=== PATIENT | male | born 1960 | race Caucasian/White ===

== ENCOUNTER 2019-02-15 17:42 | Emergency (ER) | payer OTHER, SELFPAY ==
[2019-02-15 17:58] VITALS: BP 133/88; PULSE 74; RESP 16; TEMP 36.9; O2SAT 95; BMI 28.7
--- NOTE | 2019-02-15 18:06 | XRR_ITS ---
PROCEDURE INFORMATION: Exam: XR Right Hip with Pelvis when Performed Exam date and time: 02/15/2019 6:08 PM Age: 58 years old Clinical indication: Injury or trauma; Fall; Initial encounter; Blunt trauma (contusions or hematomas); Right; Hip; Additional info: Fall, R hip pelvis pain TECHNIQUE: Imaging protocol: XR Right hip with pelvis when performed. Views: 1 view. COMPARISON: CT Abdomen/Pelvis Renal [id number] 08/09/2018 6:22 PM FINDINGS: Bones/joints: Acute fracture of the right superior pubic ramus and right inferior pubic ramus is identified. No acute fracture of the femur. No dislocation of the hip. Soft tissues: Unremarkable. XR/XR hip RT 2-3V wo/w pel* [id number] IMPRESSION: 1. Acute fracture of the right superior pubic ramus and right inferior pubic ramus is identified. 2. Probable subtle nondisplaced fracture of the right sacral ala is also identified.
--- NOTE | 2019-02-15 20:46 | ED_ITS ---
Entered by Odalys Horta, acting as scribe for Gay Fox MD, [facility] [place] Feb 15, 2019 17:42 HPI - Extremity Problem General: Chief complaint: Extremity Injury, Lower Stated complaint: fell, right hip pain Time Seen by Provider: 02/15/19 20:46 Source: patient Mode of arrival: ambulatory Limitations: no limitations History of Present Illness: HPI Narrative: 58 yo Male presents to ED with complaint of hip pain post fall. Pt states that he tripped over something at home and fell on . Pt states that he has been going to work with the pain but it hasn't been getting any better. 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 He is concerned because the pain is not improving much. Complaint: extremity pain Onset (ago): day(s) (9) Pain Consistency: constant Location: lower extremity (right hip) Severity scale (1-10): 10 Relieving factors: nothing Exacerbating factors: weight bearing and walking Review of Systems General: Reports: 10 or more systems reviewed and unremarkable except in HPI and below Musc: Reports: extremity pain and joint pain Neuro: Reports: difficulty walking PFSH ED PFSH: Statuses (acute, chronic, etc) shown below reflect problem list status as previously entered and may not be historically accurate Social History Smoking and tobacco status: current every day smoker Physical Exam Const: COMMON NORMALS: no apparent distress, average body habitus, oriented x3, no limitations, healthy appearing, alert and well nourished HENMT: COMMON NORMALS: normocephalic, head/scalp atraumatic, hearing grossly normal bilaterally, external ears normal, EAC's normal, TM's normal bilaterally, external nose normal, nasal mucous membranes and turbinates normal, moist oral mucous membranes, oropharynx normal, dentition normal and gingiva normal HEAD & SCALP: normocephalic and atraumatic NOSE: external nose normal and nasal mucous membranes and turbinates normal EXTERNAL EAR: Yes external ears normal EXTERNAL AUDITORY CANAL: EAC's normal TYMPANIC MEMBRANE: TM's normal bilaterally Eye: COMMON NORMALS: PERRL, EOMs intact bilaterally, conjunctivae normal, no scleral icterus, no papilledema, normal visual rooney by confrontation and fundi normal bilaterally CONJUNCTIVA: Yes conjunctivae normal PUPIL: Yes PERRL DIRECT OPHTHALMOSCOPY: Yes no papilledema and Yes fundi normal bilaterally Neck/C-Spine: COMMON NORMALS: full ROM, supple, no meningeal signs, no JVD and no carotid bruits Chest: COMMONS NORMALS: inspection of chest normal and palpation of chest normal Resp: COMMON NORMALS: normal respiratory effort, no retractions, no use of accessory muscles, clear to auscultation bilaterally and percussion normal AUSCULTATION: clear to auscultation bilaterally PERCUSSION: percussion normal Cardio: COMMON NORMALS: no JVD, regular rate, regular rhythm, S1 normal heart sound, S2 normal heart sound, no gallops, no clicks, no murmurs, no rub and peripheral pulses 2+ throughout RATE: regular rate RHYTHM: regular rhythm HEART SOUNDS: S1 normal and S2 normal PERIPHERAL PULSES: pulses 2+ throughout GI: COMMON NORMALS: normal to inspection, nondistended, normoactive bowel sounds, soft to palpation, non-tender, no hepatosplenomegaly, no masses and no bruits PALPATION: Yes soft and Yes no hepatosplenomegaly : COMMON NORMALS: Yes no CVA tenderness BLADDER/KIDNEY EXAM: Yes no CVA tenderness Back/Pelvis: COMMON NORMALS: no CVA tenderness PELVIS: Yes tenderness over symphysis pubis COCCYX: tenderness Extremity: COMMON NORMALS: normal to inspection, full ROM, normal capillary refill, no joint enlargement, no clubbing, cyanosis or edema, no calf tenderness and no pedal edema Neuro: COMMON NORMALS: oriented x3 SENSORIUM/ORIENTATION: Yes alert MENINGEAL SIGNS: Yes no meningeal signs Skin: COMMON NORMALS: no rashes or lesions noted, no wounds, skin turgor normal, no jaundice, no petechiae and no mottling GENERAL SKIN EXAM: no rashes or lesions noted and turgor normal Course Reevaluation(s): Reevaluation #1: Discussed his imaging findings with him. Discussed that he has a fracture, however since he has been walking on it and working with it it is unlikely he is going to need surgical repair. He is advised to obtain physical therapy and we will place a referral for a follow-up appointment with orthopedic surgery. We will discharge him home on some pain medication. I wanted to give him time off from work but the patient states that he is unable to afford to take time off work. We will discharge him home with some pain medication but is advised to avoid driving or operating heavy machinery while he is taking the pain medication. He voiced understanding and is in agreement with the plan. Time: 21:20 Vital Signs: Vital signs: Vital Signs Temperature 98.5 F 02/15/19 17:58 Pulse Rate 74 02/15/19 17:58 Respiratory Rate 16 02/15/19 17:58 Blood Pressure 133/88 02/15/19 17:58 Pulse Oximetry 95 02/15/19 17:58 MDM - Extremity (Nontraumatic) MDM Narrative: Medical decision making narrative: Patient with a fracture of the right superior and inferior pubic ramus and possible fracture of the right sacral vicky. This happened following a fall 9 days ago. The patient has been walking and working since the fall. He is discharged home on oral pain medication and is to follow-up with orthopedic surgery. Lab Data: Labs: Lab Results 02/15/19 02/15/19 Range/Units 21:18 21:18 WBC 8.3 (4.0-10.0) 10^3/ uL RBC 4.42 (4.1-5.3) 10^6/u L Hgb 13.3 (11.7-16.6) g/dL Hct 43.9 (42.0-52.0) % MCV 99.3 H (80-94) fL MCH 30.1 (28.0-34.0) pg MCHC 30.3 (30.0-36.0) g/dL RDW 15.9 H (12.1-15.1) % Plt Count 252 (130-400) 10^3/c mm MPV 10.7 H (7.4-10.4) fL Neut % (Auto) 54.2 % Lymph % (Auto) 27.3 % Gibson % (Auto) 10.6 % Eos % (Auto) 7.0 % Baso % (Auto) 0.7 % Neut # (Auto) 4.5 (1.8-7.7) 10^3/u L Lymph # (Auto) 2.3 (0.8-4.8) 10^3/u L Gibson # (Auto) 0.9 (0.2-0.9) 10^3/u L Eos # (Auto) 0.6 (0.0-0.8) 10^3/u L Baso # (Auto) 0.1 (0.0-0.1) 10^3/u L Nucleated RBC % (a uto) 0 % Nucleated RBCs # 0.0 /100WBC Sodium 133 L (136-145) mmol/L Potassium 4.4 (3.5-5.1) mmol/L Chloride 93 L (98-107) mmol/L Carbon Dioxide 30 H (22-29) mmol/L Anion Gap 14.4 (5-19) BUN 20 (8-23) mg/dL Creatinine 1.4 H (0.7-1.2) mg/dL GFR Calculation 51.7 L (90-130) mL/min Glucose 108 H (74-106) mg/dL Calcium 9.6 (8.8-10.2) mg/Dl Total Bilirubin 0.3 (0.15-1.2) mg/dL AST 22 (0-40) U/L ALT 11 (0-41) U/L Alkaline Phosphata se 103 (40-130) IU/L Total Protein 8.3 (6.6-8.7) g/dL Albumin 3.8 (3.5-5.2) g/dL Globulin 4.5 (1.3-4.6) g/dL Imaging Data^: Hip and Pelvis Xray: Radiologist's impression: [address] [address] XRay Report Signed Patient: Anthony Harding AMR#: [id number] : 9Acct:[id number] Age/Sex: 58 / MADM Date: 02/15/19 Loc: ER Attending Dr: Ordering Physician: Gay Fox MD, MSM Date of Service: 02/15/19 Procedure(s): XR hip RT 2-3V wo/w pel* [id number] Accession Number(s): [id number] cc: Gay Fox MD, MSM~ PROCEDURE INFORMATION: Exam: XR Right Hip with Pelvis when Performed Exam date and time: 02/15/2019 6:08 PM Age: 58 years old Clinical indication: Injury or trauma; Fall; Initial encounter; Blunt trauma (contusions or hematomas); Right; Hip; Additional info: Fall, R hip pelvis pain TECHNIQUE: Imaging protocol: XR Right hip with pelvis when performed. Views: 1 view. COMPARISON: CT Abdomen/Pelvis Renal [id number] 08/09/2018 6:22 PM FINDINGS: Bones/joints: Acute fracture of the right superior pubic ramus and right inferior pubic ramus is identified. No acute fracture of the femur. No dislocation of the hip. Soft tissues: Unremarkable. XR/XR hip RT 2-3V wo/w pel* [id number] IMPRESSION: 1. Acute fracture of the right superior pubic ramus and right inferior pubic ramus is identified. 2. Probable subtle nondisplaced fracture of the right sacral ala is also identified. Dictated By: Keren Shaffer 02/15/192041 Signed By: Keren Shaffer 02/15/192042 Discharge Plan Discharge Patient Disposition: Home, Self-Care Clinical Impression: Closed fracture of pubic ramus Qualifiers: Encounter type: initial encounter Laterality: right Qualified Code(s): S32.591A - Other specified fracture of right pubis, initial encounter for closed fracture Condition: Stable Prescriptions: [place] 5-325 mg tablet 1 tab PO Q4H PRN (Reason: pain) Qty: 20 RF: 0 [place] 5-325 mg tablet 1 tab PO Q4H PRN (Reason: pain) Qty: 4 RF: 0 No Action Pending RF: 0 Discharge Orders: Discharge Order (Routine); Ordered 02/15/19 Ordered By: Gay Fox Referrals: Adelaide Piedra DO [Primary Care Provider] - 1-3 days Discharge Diet: Usual diet Discharge Activity: Increase activity as tolerated Activity Restrictions/Additional Instructions: Return for any new or worsening symptoms. Follow-up with your primary care provider within 3 days. Follow-up with the orthopedic surgeon as scheduled. You will be contacted by the case management to schedule an appointment with the orthopedic surgery providers. Bear weight as tolerated. Take the pain medication as needed. 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
[2019-02-15 21:25] LABS: Basophils # 0.1 10^3/uL (0.0-0.1); Basophils % 0.7 %; Eosinophils # 0.6 10^3/uL (0.0-0.8); Hematocrit 43.9 % (42.0-52.0); Hemoglobin 13.3 g/dL (11.7-16.6); Lymphocytes # 2.3 10^3/uL (0.8-4.8); Lymphocytes % 27.3 %; Mean Corpuscular HGB Conc 30.3 g/dL (30.0-36.0); Mean Corpuscular Hemoglobin 30.1 pg (28.0-34.0); Mean Corpuscular Volume 99.3 fL (80-94); Mean Platelet Volume 10.7 fL (7.4-10.4); Monocytes # 0.9 10^3/uL (0.2-0.9); Monocytes % 10.6 %; Neutrophils # 4.5 10^3/uL (1.8-7.7); Neutrophils % 54.2 %; Nucleated Red Blood Cells % 0 %; Platelet Count 252 10^3/cmm (130-400); Red Blood Count 4.42 10^6/uL (4.1-5.3); Red Cell Distribution Width 15.9 % (12.1-15.1); White Blood Count 8.3 10^3/uL (4.0-10.0)
[2019-02-15 21:41] LABS: Alanine Aminotransferase 11 U/L (0-41); Albumin Level 3.8 g/dL (3.5-5.2); Alkaline Phosphatase 103 IU/L (40-130); Anion Gap 14.4 (5-19); Aspartate Amino Transferase 22 U/L (0-40); Blood Urea Nitrogen 20 mg/dL (8-23); Calcium 9.6 mg/Dl (8.8-10.2); Carbon Dioxide 30 mmol/L (22-29); Chloride 93 mmol/L (98-107); Globulin 4.5 g/dL (1.3-4.6); Glomerular Filtration Rate 51.7 mL/min (90-130); Glucose 108 mg/dL (74-106); Potassium 4.4 mmol/L (3.5-5.1); Sodium 133 mmol/L (136-145); Total Bilirubin 0.3 mg/dL (0.15-1.2); Total Protein 8.3 g/dL (6.6-8.7)
[2019-02-15 22:33] VITALS: BP 129/88; PULSE 71; RESP 16; TEMP 36.4; O2SAT 92
--- NOTE | 2019-02-18 13:27 | DCPLANNER ---
manager of data had message to schedule a follow up appointment for patient with ortho. manager of data called the ortho clinic, spoke with Pat, gave clinic patients information. manager of data was told that patients information would be printed and reviewed. Clinic will call case operator and patient with appointment information.
--- NOTE | 2019-02-19 11:02 | DCPLANNER ---
Lorrie from ortho called case briefer with appointment information. A follow up appointment is scheduled for Monday, February 25, 2019 at 9:[address] Alvarado, patient has been notified about appointment.
--- NOTE | 2019-03-06 15:18 | DCPLANNER ---
Patient attended appointment scheduled with ortho.
== END 2019-02-15 22:30 | disposition home or self-care (01) ==
PROVIDERS: Emergency Provider Family Medicine; Family Provider Family Medicine; PCP Family Medicine
DX: S32.591A Other specified fracture of right pubis, initial encounter for closed fracture (principal); W18.09XA Striking against other object with subsequent fall, initial encounter; Y92.009 Unspecified place in unspecified non-institutional (private) residence as the place of occurrence of the external cause; F17.210 Nicotine dependence, cigarettes, uncomplicated
CPT/HCPCS: 73502; 80053; 85025; 99281

== ENCOUNTER → 2019-02-25 10:36 | Outpatient (BNVA) | payer OTHER, SELFPAY | PROVIDERS: Family Provider Family Medicine; PCP Family Medicine; Visit Provider Specialist | DX: S32.501A Unspecified fracture of right pubis, initial encounter for closed fracture (principal); X58.XXXA Exposure to other specified factors, initial encounter | CPT/HCPCS: 72170 ==

== ENCOUNTER → 2019-03-25 09:53 | Outpatient (BNVA) | payer OTHER, SELFPAY | PROVIDERS: Family Provider Family Medicine; PCP Family Medicine; Visit Provider Specialist | DX: S32.511A Fracture of superior rim of right pubis, initial encounter for closed fracture (principal); S32.591A Other specified fracture of right pubis, initial encounter for closed fracture; X58.XXXA Exposure to other specified factors, initial encounter | CPT/HCPCS: 72170 ==

== ENCOUNTER 2019-04-01 16:42 | Outpatient (CLI) | payer OTHER, SELFPAY ==
[2019-04-01 17:10] LABS: Basophils # 0.1 10^3/uL (0.0-0.1); Basophils % 0.6 %; Eosinophils # 0.4 10^3/uL (0.0-0.8); Eosinophils % 4.3 %; Hemoglobin 14.1 g/dL (11.7-16.6); Lymphocytes # 2.2 10^3/uL (0.8-4.8); Lymphocytes % 25.5 %; Mean Corpuscular HGB Conc 31.3 g/dL (30.0-36.0); Mean Corpuscular Hemoglobin 28.4 pg (28.0-34.0); Mean Corpuscular Volume 90.7 fL (80-94); Mean Platelet Volume 10.9 fL (7.4-10.4); Monocytes # 1.1 10^3/uL (0.2-0.9); Monocytes % 12.4 %; Neutrophils # 4.8 10^3/uL (1.8-7.7); Neutrophils % 56.8 %; Nucleated Red Blood Cells % 0 %; Platelet Count 294 10^3/cmm (130-400); Red Blood Count 4.96 10^6/uL (4.1-5.3); Red Cell Distribution Width 14.9 % (12.1-15.1); White Blood Count 8.5 10^3/uL (4.0-10.0)
[2019-04-01 17:17] LABS: Albumin Level 3.6 g/dL (3.5-5.2); Anion Gap 13.9 (5-19); Blood Urea Nitrogen 16 mg/dL (8-23); Calcium 10.1 mg/dL (8.5-10.5); Carbon Dioxide 33 mmol/L (22-29); Chloride 96 mmol/L (98-107); Glucose 116 mg/dL (65-115); Potassium 3.9 mmol/L (3.5-5.1); Sodium 139 mmol/L (136-145)
[2019-04-01 17:21] LABS: Urine Creatinine 67 mg/dL (39-259); Urine Protein Random 4 mg/dL
[2019-04-01 17:24] LABS: UPRO/UCREAT Ratio 0.06 mg/mg CR
== END 2019-04-01 16:43 | disposition home or self-care (01) ==
LOC: LAB 16:45
PROVIDERS: Family Provider Family Medicine; PCP Family Medicine; Visit Provider Internal Medicine Nephrology
DX: N18.3 Chronic kidney disease, stage 3 (moderate) (principal)
CPT/HCPCS: 36415; 80069; 82570; 84156; 85025

== ENCOUNTER 2019-04-10 16:09 | Outpatient (CLI) | payer OTHER, SELFPAY ==
[2019-04-10 16:50] LABS: Anion Gap 16.2 (5-19); Blood Urea Nitrogen 44 mg/dL (8-23); Calcium 9.4 mg/dL (8.5-10.5); Carbon Dioxide 31 mmol/L (22-29); Chloride 92 mmol/L (98-107); Glomerular Filtration Rate 32.4 mL/min (90-130); Glucose 135 mg/dL (65-115); Osmolality Calculated 280 mOsm/kg (285-295); Potassium 4.2 mmol/L (3.5-5.1); Sodium 135 mmol/L (136-145)
== END 2019-04-10 16:10 | disposition home or self-care (01) ==
LOC: LAB 16:15
PROVIDERS: Family Provider Family Medicine; PCP Family Medicine
DX: N18.3 Chronic kidney disease, stage 3 (moderate) (principal)
CPT/HCPCS: 36415; 80048

== ENCOUNTER → 2019-04-15 08:16 | Outpatient (BNVA) | payer OTHER, SELFPAY | PROVIDERS: Family Provider Family Medicine; PCP Family Medicine; Visit Provider Specialist | DX: S32.591A Other specified fracture of right pubis, initial encounter for closed fracture (principal); X58.XXXA Exposure to other specified factors, initial encounter | CPT/HCPCS: 72190; 80048 ==

== ENCOUNTER 2019-05-07 16:27 | Outpatient (CLI) | payer OTHER, SELFPAY ==
--- NOTE | 2019-05-07 16:30 | USCV_ITS ---
Anthony Harding Age: 58 Gender: M : 1960 Exam Date: 05/07/2019 16:39 Ordering Phys: Adelaide Piedra DO Technologist: Guille Lee [place] [facility] [place]: RT LEG PAIN AND EDEMA HISTORY: Lower extremity swelling. PROCEDURES: Venous duplex imaging was performed in only the right lower extremity. The following venous structures were evaluated: common femoral vein, profunda vein, proximal portion of the greater saphenous vein, superficial femoral vein, and the popliteal vein. In addition, the posterior tibial and peroneal trunk were evaluated. On the right side, the common femoral, superficial femoral, profunda femoral, popliteal, posterior tibial, greater saphenous veins and the peroneal trunk were identified and interrogated in the standard fashion. These veins were found to be easily compressible with spontaneous blood flow. No evidence of insufficiency or thrombus noted. FINDINGS: Normal 2-D Doppler and augmentation and compressibility throughout the lower extremity venous structures. Additional imaging through the proximal calf veins also reveals no thrombus. Limited evaluation of the greater saphenous vein is patent with no thrombus.. CONCLUSIONS Negative right lower extremity deep venous Doppler ultrasound. Dr. Yary Keyes MD (Electronically Signed) Final Date: 08 May 2019 08:23 S
== END 2019-05-07 16:28 | disposition home or self-care (01) ==
LOC: US 16:28
PROVIDERS: Family Provider Family Medicine; PCP Family Medicine; Visit Provider Family Medicine
DX: R60.0 Localized edema (principal); M79.604 Pain in right leg
CPT/HCPCS: 93971

== ENCOUNTER → 2019-07-16 13:35 | Outpatient (BNVA) | payer BC, SELFPAY | PROVIDERS: Family Provider Family Medicine; PCP Family Medicine; Visit Provider Family Medicine | DX: R60.0 Localized edema (principal); E03.9 Hypothyroidism, unspecified | CPT/HCPCS: 84443 ==

== ENCOUNTER 2019-07-19 12:23 | Outpatient (RCR) | payer BC, SELFPAY | END 2019-08-06 15:04 | disposition home or self-care (01) | LOC: SPT 12:23 | PROVIDERS: PCP Family Medicine; Visit Provider Family Medicine | DX: R60.0 Localized edema (principal) | CPT/HCPCS: 97140; 97161 ==

== ENCOUNTER 2019-12-20 17:27 | Outpatient (CLI) | payer BC, SELFPAY ==
[2019-12-20 17:53] LABS: Basophils # 0.1 10^3/uL (0.0-0.1); Basophils % 0.7 %; Eosinophils # 0.4 10^3/uL (0.0-0.8); Eosinophils % 3.7 %; Hematocrit 45.6 % (42.0-52.0); Hemoglobin 14.6 g/dL (11.7-16.6); Lymphocytes # 2.7 10^3/uL (0.8-4.8); Mean Corpuscular Hemoglobin 30.3 pg (28.0-34.0); Mean Corpuscular Volume 94.6 fL (80-94); Mean Platelet Volume 11.2 fL (7.4-10.4); Monocytes # 1.3 10^3/uL (0.2-0.9); Monocytes % 13.2 %; Neutrophils # 5.29 10^3/uL (1.8-7.7); Neutrophils % 54.1 %; Nucleated Red Blood Cells % 0 %; Platelet Count 237 10^3/cmm (130-400); Red Blood Count 4.82 10^6/uL (4.1-5.3); Red Cell Distribution Width 13.7 % (12.1-15.1); White Blood Count 9.8 10^3/uL (4.0-10.0)
[2019-12-20 18:27] LABS: Calcium 9.7 mg/dL (8.5-10.5)
[2019-12-20 18:40] LABS: 25 Hydroxy Vitamin D 29 ng/mL (30-100); Anion Gap 15.4 (5-19); Blood Urea Nitrogen 37 mg/dL (8-23); Calcium 9.6 mg/dL (8.5-10.5); Carbon Dioxide 30 mmol/L (22-29); Chloride 99 mmol/L (98-107); Glomerular Filtration Rate 30.6 mL/min (90-130); Glucose 133 mg/dL (65-115); Phosphorus 6.3 mg/dL (2.5-4.5); Potassium 4.4 mmol/L (3.5-5.1); Sodium 140 mmol/L (136-145)
[2019-12-20 23:57] LABS: Parathyroid Hormone 97.5 pg/mL (15-65)
[2019-12-21 01:34] LABS: Urine Creatinine 95 mg/dL (39-259); Urine Protein Random 9 mg/dL
[2019-12-21 01:51] LABS: UPRO/UCREAT Ratio 0.09 mg/mg CR
== END 2019-12-20 17:28 | disposition home or self-care (01) ==
LOC: LAB 17:36
PROVIDERS: PCP Family Medicine; Visit Provider Registered Nurse
DX: N18.30 Chronic kidney disease, stage 3 unspecified (principal)
CPT/HCPCS: 36415; 80069; 82306; 82310; 82570; 83970; 84156; 85025

== ENCOUNTER → 2020-02-28 08:33 | Outpatient (BNVA) | payer BC, SELFPAY | PROVIDERS: PCP Family Medicine; Referring Provider Registered Nurse; Visit Provider Urology | DX: N40.1 Benign prostatic hyperplasia with lower urinary tract symptoms (principal); Z12.5 Encounter for screening for malignant neoplasm of prostate; N52.8 Other male erectile dysfunction | CPT/HCPCS: 81003; G0103 ==

== ENCOUNTER 2020-06-30 10:57 | Outpatient (CLI) | payer OTHER, SELFPAY ==
[2020-06-30 11:45] LABS: Basophils # 0.1 10^3/uL (0.0-0.1); Basophils % 0.8 %; Eosinophils # 0.2 10^3/uL (0.0-0.8); Eosinophils % 3.3 %; Hematocrit 42.9 % (42.0-52.0); Hemoglobin 13.8 g/dL (11.7-16.6); Lymphocytes # 1.8 10^3/uL (0.8-4.8); Lymphocytes % 24.7 %; Mean Corpuscular HGB Conc 32.2 g/dL (30.0-36.0); Mean Corpuscular Hemoglobin 30.9 pg (28.0-34.0); Mean Platelet Volume 10.7 fL (7.4-10.4); Monocytes % 13.4 %; Neutrophils # 4.22 10^3/uL (1.8-7.7); Neutrophils % 57.5 %; Nucleated Red Blood Cells % 0 %; Platelet Count 302 10^3/cmm (130-400); Red Blood Count 4.47 10^6/uL (4.1-5.3); Red Cell Distribution Width 13.1 % (12.1-15.1); White Blood Count 7.3 10^3/uL (4.0-10.0)
[2020-06-30 12:01] LABS: Creatinine Urine, Random 151 mg/dL (39-259); Microalbum Creatinine Ratio Ur 7 mg/dL (0-20); Microalbumin Random Urine 1 ug/dL (0-20)
[2020-06-30 12:09] LABS: Calcium 8.8 mg/dL (8.5-10.5); Parathyroid Hormone 71.9 pg/mL (15-65)
[2020-06-30 12:21] LABS: 25 Hydroxy Vitamin D 26 ng/mL (30-100); Albumin Level 3.7 g/dL (3.5-5.2); Anion Gap 11.2 (5-19); Blood Urea Nitrogen 18 mg/dL (8-23); Calcium 8.7 mg/dL (8.5-10.5); Carbon Dioxide 31 mmol/L (22-29); Chloride 101 mmol/L (98-107); Glomerular Filtration Rate 68.1 mL/min (90-130); Glucose 118 mg/dL (65-115); Phosphorus 2.7 mg/dL (2.5-4.5); Potassium 4.2 mmol/L (3.5-5.1); Sodium 139 mmol/L (136-145)
== END 2020-06-30 10:58 | disposition home or self-care (01) ==
PROVIDERS: PCP Family Medicine; Visit Provider Registered Nurse
DX: N18.32 Chronic kidney disease, stage 3b (principal)
CPT/HCPCS: 36415; 80069; 82044; 82306; 82310; 83970; 85025

== ENCOUNTER 2020-08-05 08:57 | Outpatient (CLI) | payer OTHER, SELFPAY ==
--- NOTE | 2020-08-05 09:30 | PFTS_ITS ---
Date of Study:08/05/20 Date of Dictation: MECHANICS: Forced vital capacity (FVC) is reduced. Forced expiratory volume in one second (FEV1) is reduced. FEV1/FVC is reduced. FLOW VOLUME LOOP: Reduced flow at all lung volumes with significant scooping. LUNG VOLUMES: Total lung capacity (TLC) is normal. Residual volume (RV) is increased. DIFFUSING CAPACITY FOR CARBON MONOXIDE: Moderate reduced. INTERPRETATION: The pulmonary function tests are consistent with severe airflow obstruction. There is no significant postbronchodilator response. Lung volumes are consistent with air trapping. Gas exchange (DLCO) is moderately reduced. MTDD
== END 2020-08-05 08:58 | disposition home or self-care (01) ==
PROVIDERS: PCP Family Medicine; Visit Provider Family Medicine
DX: J44.9 Chronic obstructive pulmonary disease, unspecified (principal)
CPT/HCPCS: 87635; 94060; 94726; 94729

== ENCOUNTER 2020-08-18 07:31 | Outpatient (CLI) | payer OTHER, SELFPAY ==
--- NOTE | 2020-08-18 07:35 | CT_ITS ---
WS: [id number] LDCT LUNG CANCER SCREENING HISTORY: Lung cancer screening TECHNIQUE: Axial imaging performed from the apices to 1 cm below the costophrenic angles. Coronal and sagittal reformats are submitted with axial MIP series. All CT scans at [facility] use at least one of these dose optimization techniques: automated exposure control; mA and/or kV adjustment per patient size (includes targeted exams where dose is matched to clinical indication); or iterativ e reconstruction. DLP: 50.62 mGy.cm DIvol: 1.58 mGy COMPARISON: 07/31/2006 Diagnostic quality: Satisfactory Lung Nodules: No discrete nodules. There is some very mild peripheral groundglass attenuation at the RIGHT lung base. On the lateral projection this is consistent with atelectasis. There is additional s ubsegmental atelectasis in the RIGHT middle lobe. Lungs: Pulmonary hyperexpansion. Heart: Normal size heart. There are a few scattered coronary artery calcifications. Other findings: Mildly ectatic aorta. No aneurysm. There are a few benign-appearing lymph nodes in th e mediastinum. Bilateral remote fractures in the inferior ribs. CT/CT lung screening [id number] IMPRESSION: LUNG-RADS: 1-Negative FOLLOW UP: 12 Month: Continue annual screening with LDCT OTHER FINDINGS (S MODIFIER): None.
== END 2020-08-18 07:32 | disposition home or self-care (01) ==
PROVIDERS: PCP Family Medicine; Visit Provider Internal Medicine Pulmonary Disease
DX: Z12.2 Encounter for screening for malignant neoplasm of respiratory organs (principal); F17.219 Nicotine dependence, cigarettes, with unspecified nicotine-induced disorders
CPT/HCPCS: 71271

== ENCOUNTER → 2020-09-02 14:29 | Outpatient (BNVA) | payer OTHER, SELFPAY | PROVIDERS: PCP Family Medicine; Visit Provider Urology | DX: N40.1 Benign prostatic hyperplasia with lower urinary tract symptoms (principal) | CPT/HCPCS: 81003 ==

== ENCOUNTER → 2020-09-12 17:27 | Outpatient (BNVA) | payer OTHER, SELFPAY | PROVIDERS: PCP Family Medicine; Visit Provider Nurse Practitioner | DX: S99.912A Unspecified injury of left ankle, initial encounter (principal); W19.XXXA Unspecified fall, initial encounter; R60.9 Edema, unspecified | CPT/HCPCS: 73610 ==

== ENCOUNTER 2020-12-16 07:27 | Outpatient (CLI) | payer OTHER, SELFPAY | END 2020-12-16 07:28 | disposition home or self-care (01) | PROVIDERS: PCP Family Medicine; Visit Provider Internal Medicine Pulmonary Disease | DX: J44.9 Chronic obstructive pulmonary disease, unspecified (principal) | CPT/HCPCS: 94618 ==

== ENCOUNTER 2021-04-13 06:00 | Outpatient (RCR) | payer OTHER, SELFPAY | END 2021-05-13 23:59 | disposition home or self-care (01) | LOC: PULRHB 06:00 | PROVIDERS: PCP Family Medicine; Visit Provider Internal Medicine Pulmonary Disease | DX: J44.9 Chronic obstructive pulmonary disease, unspecified (principal) | CPT/HCPCS: 94626 ==

== ENCOUNTER 2021-05-14 06:00 | Outpatient (RCR) | payer OTHER, SELFPAY | END 2021-06-12 23:59 | disposition home or self-care (01) | LOC: PULRHB 06:00 | PROVIDERS: PCP Family Medicine; Visit Provider Internal Medicine Pulmonary Disease | DX: J44.9 Chronic obstructive pulmonary disease, unspecified (principal) | CPT/HCPCS: 94626 ==

== ENCOUNTER 2021-05-14 06:00 | Outpatient (RCR) | payer OTHER, SELFPAY | END 2021-06-12 23:59 | disposition home or self-care (01) | LOC: PULRHB 06:00 | PROVIDERS: PCP Family Medicine; Visit Provider Internal Medicine Pulmonary Disease | DX: J44.9 Chronic obstructive pulmonary disease, unspecified (principal) | CPT/HCPCS: 94626 ==

== ENCOUNTER → 2021-05-31 15:50 | Outpatient (BNVA) | payer OTHER, SELFPAY | PROVIDERS: PCP Family Medicine; Visit Provider Urology | DX: N40.1 Benign prostatic hyperplasia with lower urinary tract symptoms (principal); N52.8 Other male erectile dysfunction | CPT/HCPCS: 81003 ==

== ENCOUNTER 2021-06-07 11:53 | Outpatient (CLI) | payer OTHER, SELFPAY ==
--- NOTE | 2021-06-07 12:09 | XR_ITS ---
WS: [id number] Right shoulder, 3 views, 06/07/2021 Clinical Data: PAIN IN R SHOULDER Comparison: Right shoulder, 03/28/2018. Findings: The irregularity and old fracture of the distal right clavicle with mild elevation of the clavicle is noted. There is no change from the prior study. There is osteoarthritic change with spurring of the humeral head. There is mild irregularity of the glenoid fossa. There is opacification of the right lung base which may represent atelectasis and/or consolidation. XR/XR shoulder RT min 2V* [id number] Impression: 1. No change in deformity of distal right clavicle. 2. Moderate osteoarthritis of the glenohumeral articulation.
== END 2021-06-07 11:54 | disposition home or self-care (01) ==
LOC: RAD 11:56
PROVIDERS: PCP Family Medicine; Visit Provider Clinical Nurse Specialist Adult Health
DX: M19.011 Primary osteoarthritis, right shoulder (principal); M25.511 Pain in right shoulder
CPT/HCPCS: 73030

== ENCOUNTER 2021-06-11 14:41 | Outpatient (CLI) | payer OTHER, SELFPAY ==
[2021-06-11 16:00] LABS: Basophils # 0.1 10^3/uL (0.0-0.1); Basophils % 0.5 %; Eosinophils # 0.8 10^3/uL (0.0-0.8); Eosinophils % 7.9 %; Hematocrit 45.5 % (42.0-52.0); Hemoglobin 14.5 g/dL (11.7-16.6); Lymphocytes # 3.5 10^3/uL (0.8-4.8); Lymphocytes % 35.3 %; Mean Corpuscular HGB Conc 31.9 g/dL (30.0-36.0); Mean Corpuscular Hemoglobin 30.1 pg (28.0-34.0); Mean Corpuscular Volume 94.4 fl (80-94); Mean Platelet Volume 11.2 fL (7.4-10.4); Monocytes % 9.7 %; Neutrophils # 4.58 10^3/uL (1.8-7.7); Neutrophils % 46.4 %; Nucleated Red Blood Cells % 0 %; Platelet Count 282 10^3/cmm (130-400); Red Blood Count 4.82 10^6/uL (4.1-5.3); White Blood Count 9.9 10^3/uL (4.0-10.0)
[2021-06-11 16:33] LABS: Parathyroid Hormone 66.3 pg/mL (15-65)
[2021-06-11 16:35] LABS: Anion Gap 15.4 (5-19); Blood Urea Nitrogen 20 mg/dL (8-23); Calcium 9.8 mg/dL (8.5-10.5); Carbon Dioxide 30 mmol/L (22-29); Chloride 99 mmol/L (98-107); Glomerular Filtration Rate 61.3 mL/min (90-130); Glucose 132 mg/dL (65-115); Phosphorus 4.6 mg/dL (2.5-4.5); Potassium 3.4 mmol/L (3.5-5.1); Sodium 141 mmol/L (136-145)
[2021-06-11 16:39] LABS: Creatinine Urine, Random 67 mg/dL (39-259); Microalbum Creatinine Ratio Ur 15 mg/dL (0-20); Microalbumin Random Urine 1 ug/dL (0-20)
[2021-06-11 16:39] LABS: Calcium 9.7 mg/dL (8.5-10.5)
[2021-06-11 16:41] LABS: 25 Hydroxy Vitamin D 22 ng/mL (30-100)
== END 2021-06-11 14:42 | disposition home or self-care (01) ==
PROVIDERS: PCP Family Medicine; Visit Provider Registered Nurse
DX: N18.31 Chronic kidney disease, stage 3a (principal)
CPT/HCPCS: 36415; 80069; 82044; 82306; 82310; 83970; 85025

== ENCOUNTER 2021-06-13 06:00 | Outpatient (RCR) | payer OTHER, SELFPAY | END 2021-07-13 23:59 | disposition home or self-care (01) | LOC: PULRHB 06:00 | PROVIDERS: PCP Family Medicine; Visit Provider Internal Medicine Pulmonary Disease | DX: J44.9 Chronic obstructive pulmonary disease, unspecified (principal) | CPT/HCPCS: 94626 ==

== ENCOUNTER 2021-06-13 06:00 | Outpatient (RCR) | payer OTHER, SELFPAY | END 2021-07-13 23:59 | disposition home or self-care (01) | LOC: PULRHB 06:00 | PROVIDERS: PCP Family Medicine; Visit Provider Internal Medicine Pulmonary Disease | DX: J44.9 Chronic obstructive pulmonary disease, unspecified (principal) | CPT/HCPCS: 94626 ==

== ENCOUNTER 2021-06-23 06:00 | Outpatient (RCR) | payer OTHER, SELFPAY | END 2021-07-13 23:59 | disposition home or self-care (01) | LOC: SPT 06:00 | PROVIDERS: PCP Family Medicine; Referring Provider Family Medicine; Visit Provider Family Medicine | DX: M25.511 Pain in right shoulder (principal) | CPT/HCPCS: 97161 ==

== ENCOUNTER 2021-07-14 06:00 | Outpatient (RCR) | payer OTHER, SELFPAY | END 2021-08-12 23:59 | disposition home or self-care (01) | LOC: PULRHB 06:00 | PROVIDERS: PCP Family Medicine; Visit Provider Internal Medicine Pulmonary Disease | DX: J44.9 Chronic obstructive pulmonary disease, unspecified (principal) | CPT/HCPCS: G0239 ==

== ENCOUNTER 2021-08-19 14:12 | Outpatient (CLI) | payer OTHER, MEDICAID, SELFPAY ==
--- NOTE | 2021-08-19 14:35 | CT_ITS ---
WS: [id number] LDCT LUNG CANCER SCREENING TECHNIQUE: Noncontrast CT of the chest with coronal and sagittal reformatted images. CLINICAL INFORMATION: lung screening COMPARISON: August 18, 2020 DLP: 78.49 mGy.cm DIvol: Mean CTDIvol: 1.60 (mGy) All CT scans at [facility] use at least one of these dose optimization techniques: automat ed exposure control; mA and/or kV adjustment per patient size (includes targeted exams where dose is matched to clinical indication); or iterative reconstruction. FINDINGS:Bronchiectasis with subsegmental atelectasis RIGHT middle lobe. Patchy infiltrates in RIGHT lower lobe laterally. Recommend correlation for pneumonitis. Density from previous. Atelectasis RIGHT lower lobe medially. Tiny 2 mm pulmonary nodule LEFT lower lobe laterally. Chronic bilateral rib fractures with callus formation. Normal caliber thoracic aorta. Mild aortic [place] cification. No mediastinal or hilar lymphadenopathy. Mild coronary calcification. No axillary lymphad enopathy. Normal thoracic spine. Adrenal Glands are normal. Tiny calculi or sludge in the gallbladder . Hepatomegaly. Partially evaluated bilateral renal lesions some of which represent renal cysts. Bao tional increased attenuation lesions are indeterminant. Complex lesion upper pole RIGHT kidney. Recom mend further evaluation with ultrasound. Moderate chronic emphysematous changes. CT/CT lung screening [id number] IMPRESSION: 1. Partially visualized indeterminate bilateral renal lesions some of which ar e renal cysts others are indeterminant. Recommend ultrasound for further evalua tion. 2. Cholelithiasis or sludge partially visualized in the gallbladder. 3. Patchy infiltrate in RIGHT lower lobe laterally is new from previous. Recom mend correlation for pneumonitis. Recommend interval follow-up after treatment. LUNG-RADS: 3S-Probably Benign with Significant Findings FOLLOW UP: 3 Month LDCT
== END 2021-08-19 14:13 | disposition home or self-care (01) ==
PROVIDERS: PCP Family Medicine; Visit Provider Internal Medicine Pulmonary Disease
DX: Z12.2 Encounter for screening for malignant neoplasm of respiratory organs (principal); F17.210 Nicotine dependence, cigarettes, uncomplicated
CPT/HCPCS: 71271

== ENCOUNTER → 2021-10-13 09:45 | Outpatient (BNVA) | payer OTHER, SELFPAY | PROVIDERS: PCP Family Medicine; Visit Provider Family Medicine | DX: N28.1 Cyst of kidney, acquired (principal); J44.9 Chronic obstructive pulmonary disease, unspecified; E03.9 Hypothyroidism, unspecified; I10 Essential (primary) hypertension | CPT/HCPCS: 80053; 84443; 85025; 86803; 87522 ==

== ENCOUNTER 2021-11-22 11:13 | Outpatient (CLI) | payer OTHER, MEDICAID, SELFPAY ==
--- NOTE | 2021-11-22 11:30 | US_ITS ---
WS: [id number] RENAL ULTRASOUND HISTORY: renal cysts on CT COMPARISON: 09/05/2018, lung CT 08/19/2021 TECHNIQUE: 2-D and color Doppler imaging of the kidney submitted. Right kidney: 10.9 cm x 6.5 cm x 5.5 cm. Normal size kidney. No hydronephrosis. There are several cortical cysts with the largest in the mid k idney measuring 3.6 x 3.1 x 3.5 cm. No solid mass. Left kidney: 8.7 cm x 5.9 cm x 5.3 cm. LEFT kidney is difficult to visualize consistent hardening. LEFT kidney is smaller than the RIGHT wit h no hydronephrosis. Hypoechoic mass with through transmission from the lower pole measures 3.7 x 3.0 x 3.8 cm. Similar to the prior study. Aorta: Normal. Urinary Bladder: Normal distention. US/US renal BI* [id number] IMPRESSION: 1. No renal obstruction or solid mass identified. 2. Bilateral renal masses are similar in size and position as on the prior ult rasound of 09/05/2018. Difficult to evaluate completely by ultrasound due to pat ient's body habitus but these have not increased in size and favor these are p robably cysts.
== END 2021-11-22 11:14 | disposition home or self-care (01) ==
PROVIDERS: PCP Family Medicine; Visit Provider Family Medicine
DX: N28.1 Cyst of kidney, acquired (principal)
CPT/HCPCS: 76770

== ENCOUNTER → 2022-05-30 12:45 | Outpatient (BNVA) | payer OTHER, MEDICAID, SELFPAY | PROVIDERS: PCP Family Medicine; Visit Provider Urology | DX: N40.1 Benign prostatic hyperplasia with lower urinary tract symptoms (principal) | CPT/HCPCS: 81003 ==

== ENCOUNTER 2022-06-21 10:14 | Outpatient (CLI) | payer OTHER, MEDICAID, SELFPAY ==
[2022-06-21 10:49] LABS: Basophils # 0.1 10^3/uL (0.0-0.1); Basophils % 0.8 %; Eosinophils # 0.6 10^3/uL (0.0-0.8); Eosinophils % 6.6 %; Hematocrit 41.9 % (42.0-52.0); Hemoglobin 13.4 g/dL (11.7-16.6); Lymphocytes # 2.4 10^3/uL (0.8-4.8); Lymphocytes % 28.4 %; Mean Corpuscular Volume 93.7 fl (80-94); Monocytes # 0.9 10^3/uL (0.2-0.9); Monocytes % 9.9 %; Neutrophils # 4.62 10^3/uL (1.8-7.7); Nucleated Red Blood Cells % 0 %; Platelet Count 255 10^3/cmm (130-400); Red Blood Count 4.47 10^6/uL (4.1-5.3); Red Cell Distribution Width 14.1 % (12.1-15.1); White Blood Count 8.6 10^3/uL (4.0-10.0)
[2022-06-21 11:19] LABS: Anion Gap 13.4 (5-19); Blood Urea Nitrogen 23 mg/dL (8-23); Carbon Dioxide 29 mmol/L (22-29); Chloride 103 mmol/L (98-107); Glomerular Filtration Rate 55.8 mL/min (90-130); Glucose 117 mg/dL (65-115); Phosphorus 2.8 mg/dL (2.5-4.5); Potassium 4.4 mmol/L (3.5-5.1); Sodium 141 mmol/L (136-145)
[2022-06-21 11:20] LABS: Creatinine Urine, Random 16 mg/dL (39-259); Microalbum Creatinine Ratio Ur 63 mg/dL (0-20); Microalbumin Random Urine 1 ug/dL (0-20)
[2022-06-21 11:23] LABS: Parathyroid Hormone 71.2 pg/mL (15-65)
[2022-06-21 11:33] LABS: 25 Hydroxy Vitamin D 29 ng/mL (30-100)
== END 2022-06-21 10:15 | disposition home or self-care (01) ==
LOC: LAB 10:21
PROVIDERS: PCP Family Medicine; Visit Provider Registered Nurse
DX: N18.31 Chronic kidney disease, stage 3a (principal)
CPT/HCPCS: 36415; 80069; 82044; 82306; 82310; 83970; 85025

== ENCOUNTER 2022-08-13 17:03 | Inpatient (IN) | payer OTHER, MEDICAID, SELFPAY ==
[2022-08-13] VITALS (17 sets, daily range): BP systolic 95–113; BP diastolic 61–76; PULSE 89–116; RESP 16–46; TEMP 37.4; O2SAT 84–99
--- NOTE | 2022-08-13 17:19 | XRR_ITS ---
PROCEDURE INFORMATION: Exam: XR Chest Exam date and time: 08/13/2022 6:07 PM Age: 61 years old Clinical indication: Cough and dyspnea; Additional info: Dyspnea/cough TECHNIQUE: Imaging protocol: Radiologic exam of the chest. Views: 1 view. COMPARISON: CT lung screening [id number] 08/19/2021 3:33 PM FINDINGS: Lungs: Consolidation of the mid to lower right lung field consistent with pneumonia. Pleural spaces: The right costophrenic angle is obscured and a pleural effusion can not be excluded. Heart/Mediastinum: Unremarkable. No cardiomegaly. Bones/joints: Unremarkable. XR/XR chest 1V portable [id number] IMPRESSION: Right pneumonia.
--- NOTE | 2022-08-13 17:37 | ECG_ITS ---
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 Measurements Intervals [place] Rate: 111 P: 80 MA: 199 QRS: 56 QRSD: 86 T: 71 QT: 301 QTc: 409 Interpretive Statements SINUS TACHYCARDIA WITH OCCASIONAL VENTRICULAR PREMATURE COMPLEXES NONSPECIFIC ST & T-WAVE ABNORMALITY ABNORMAL RHYTHM ECG Compared to ECG 01/24/2019 03:31:35 Ventricular premature complex(es) now present T-wave abnormality now present Sinus rhythm no longer present Electronically Signed On 08-14-2022 14:46:21 CDT by Sarabjit Lindsay M.D. [id number]
--- NOTE | 2022-08-13 17:42 | ED_ITS ---
Documented by User: Anjel Umanzor DO 08/13/22 18:14 HPI - SOB/Dyspnea General: Chief Complaint: Shortness of Breath/Dyspnea Stated Complaint: SOB\ABD Pain Time Seen by Provider: 08/13/22 17:18 Source: patient Mode of arrival: ambulatory History of Present Illness: HPI Narrative: 58-year-old male presents emergency room complaining shortness of breath last several weeks he has been short of breath and wheezing he got markedly worse last 2 days. His oxygen sats were at 73% at home presented to the emergency room he is complaining of some right-sided chest pain as well some moderately productive cough no hemoptysis. Known history of COPD. MD elicited complaint: shortness of breath and cough Pertinent past history: COPD Onset (ago): day(s) Timing: constant Severity: severe Exacerbating factors: exertion and coughing Relieving factors: rest Known history of: COPD Associated symptoms: Deny abdominal pain, chest congestion, chest pain, cough, diaphoresis, dizziness, extremity pain, fever(s), hemoptysis, lightheadedness, myalgias, nausea, orthopnea, palpitations, paresthesias, polydipsia, polyuria, rash, sense of impending doom, syncope or vomiting Treatment prior to arrival: none Review of Systems Const: Denies: fever(s), chills, fatigue, malaise or diaphoresis ENMT: Denies: throat pain, ear or mastoid pain, nasal discharge or nasal congestion Card: Denies: chest pain, palpitations, lightheadedness, syncope or orthopnea Resp: Reports: dyspnea, productive cough and wheezing; Denies: hemoptysis or chest congestion GI: Denies: abdominal pain, nausea or vomiting : Denies: flank pain, dysuria, urinary frequency or urinary urgency Musc: Denies: neck pain, back pain or extremity pain Skin/Breast: Denies: rash or pruritus Neuro: Denies: dizziness Endo: Denies: polyuria or polydipsia PFS ED PFSH: Medical History (Updated 08/14/22 @ 00:25 by Tolu Loyd DO) Benign prostatic hyperplasia with lower urinary tract symptoms BPH loc w urin obs/LUTS CKD (chronic kidney disease), stage III COPD (chronic obstructive pulmonary disease) Hepatitis C Hypertension Hypogonadism in male Hypothyroidism ROBBIE (obstructive sleep apnea) Pulmonary emphysema Renal cysts, acquired, bilateral Surgical History History of ankle surgery History of circumcision History of hernia surgery History of mandibular surgery Family History Mother , at age 46 Cirrhosis of liver Father , at age 78 CAD (coronary artery disease) Denies family history of Diabetes Clotting disorder Dementia Hyperlipidemia Psychiatric illness Chronic kidney disease (CKD) Suicide Anesthesia complication Bleeding disorder Family history of premature coronary artery disease Lung disease Cancer Hypertension Stroke Social History Smoking and tobacco status: current every day smoker cigarettes Packs smoked per day: 0.75 Years cigarettes smoked: 30 [ Other cigarette details: [id number]] Quit status (tobacco): considering quitting Second hand smoke exposure: No Smoking risk assessment/counseling performed?: Yes Alcohol intake: former Substance/Drug Use: never Lives independently: Yes Household members: spouse Marital status: service: No Current occupational status: unemployed and disabled Pets and animals: Yes Do you think of yourself as: Straight/Heterosexual Current gender identity: Male Physical Exam Const: COMMON NORMALS: no acute distress GENERAL APPEARANCE: cooperative and comfortable ORIENTATION/CONSCIOUSNESS: Yes awake, Yes oriented to person, Yes oriented to place and Yes oriented to time HENMT: COMMON NORMALS: normocephalic, atraumatic and hearing grossly normal bilaterally HEAD & SCALP: normocephalic and atraumatic Resp: EFFORT & INSPECTION: Yes tachypneic, Yes respiratory distress, Yes pursed lip breathing and Yes uses accessory muscles AUSCULTATION: rhonchi, wheezes and diminished lung sounds Cardio: RATE: tachycardic GI: COMMON NORMALS: Soft to palpation and No hepatosplenomegaly present AUSCULTATION: Yes normoactive bowel sounds PALPATION: Yes Soft to palpation, No Tenderness to palpation present (GI), No Guarding due to palpation present (GI) and Yes No hepatosplenomegaly present Extremity: COMMON NORMALS: normal to inspection, capillary refill normal, no clubbing, cyanosis or edema, no calf tenderness and no pedal edema Neuro: SENSORIUM/ORIENTATION: Yes oriented to person, Yes oriented to place and Yes oriented to time Skin: COMMON NORMALS: no rashes or lesions noted GENERAL SKIN EXAM: no rashes or lesions noted Course Vital Signs: Vital signs: Vital Signs Temperature 99.4 F 08/13/22 23:50 Pulse Rate 89 08/13/22 23:50 Respiratory Rate 18 08/13/22 23:50 Blood Pressure 113/76 08/13/22 23:50 Pulse Oximetry 96 08/13/22 23:50 Oxygen Delivery Me thod BiPAP 08/13/22 17:49 Fraction of Inspir ed Oxygen 40 08/13/22 22:40 MDM - SOB/Dyspnea Medical Decision Making Care signed out to Dr. Loyd at change of shift. See final notes for diagnosis and disposition. Lab Data 08/13/22 17:37 08/13/22 17:37 Labs/Radiology: Radiology Impressions Chest CTA 08/13/22 18:07 IMPRESSION: 1. CTA exam with comparison unenhanced CT 08/19/2021. Somewhat limited exam due to artifacts. 2. No large/central PE with limitations described above. 3. Large right perihilar heterogeneous consolidation versus mass with irregular enhancement and small areas of consolidation in the right lower lobe as described above. Considerations include infectious pneumonia versus neoplasm and follow-up should be obtained. Other nonacute lung findings as above. 4. Interval increase of enlarged mediastinal and right hilar adenopathy which may be metastatic versus reactive. New small right pleural effusion and probable pleural thickening with convex margins. See discussion above. 5. Coronary calcification and minimal ascending aortic dilatation at 4.1 cm. 6. Incidental hepatic findings as above. COMMENTS: In the absence of a history or active diagnosis of lung cancer, it is recommended that this patient with emphysema be evaluated for enrollment in a low dose CT lung cancer screening program. Chest X-Ray 08/13/22 20:24 IMPRESSION: Right IJ placement as described. No other significant change. Laboratory Results WBC 28.8 10^3/uL (4.0-10.0) H 08/13/22 17:37 RBC 4.72 10^6/uL (4.1-5.3) 08/13/22 17:37 Hgb 14.0 g/dL (11.7-16.6) 08/13/22 17:37 Hct 43.7 % (42.0-52.0) 08/13/22 17:37 MCV 92.6 fl (80-94) 08/13/22 17:37 MCH 29.7 pg (28.0-34.0) 08/13/22 17:37 MCHC 32.0 g/dL (30.0-36.0) 08/13/22 17:37 RDW 14.3 % (12.1-15.1) 08/13/22 17:37 Plt Count 584 10^3/cmm (130-400) H 08/13/22 17:37 MPV 9.9 fL (7.4-10.4) 08/13/22 17:37 Neut % (Auto) 79.1 % 08/13/22 17:37 Lymph % (Auto) 11.8 % 08/13/22 17:37 [place] % (Auto) 7.4 % 08/13/22 17:37 Eos % (Auto) 0.1 % 08/13/22 17:37 Baso % (Auto) 0.4 % 08/13/22 17:37 Neut # (Auto) 22.80 10^3/uL (1.8-7.7) H 08/13/22 17:37 Lymph # (Auto) 3.4 10^3/uL (0.8-4.8) 08/13/22 17:37 [place] # (Auto) 2.1 10^3/uL (0.2-0.9) H 08/13/22 17:37 Eos # (Auto) 0.0 10^3/uL (0.0-0.8) 08/13/22 17:37 Baso # (Auto) 0.1 10^3/uL (0.0-0.1) 08/13/22 17:37 Nucleated RBC % (auto) 0 % 08/13/22 17:37 Nucleated RBCs # 0.0 /100WBC 08/13/22 17:37 D-Dimer 2.44 ug/mIFEU (0-0.59) H 08/13/22 17:37 Specimen Type Arterial 08/13/22 19:05 Sample Site Radial, right 08/13/22 19:05 ABG pH 7.31 (7.35-7.45) L 08/13/22 19:05 ABG pCO2 58.2 mmHg (35-45) H 08/13/22 19:05 ABG pO2 73.5 mmHg (80.0-100.0) L 08/13/22 19:05 ABG HCO3 28.9 mmol/L (22-26) H 08/13/22 19:05 ABG O2 Saturation 93.4 08/13/22 19:05 ABG Base Excess 1.5 mmol/L (-2.0-2.0) 08/13/22 19:05 Star Test Pos 08/13/22 19:05 A-a O2 Gradient 22.9 mmHg (5-10) H 08/13/22 19:05 Hematocrit 35.9 % (42-52) L 08/13/22 19:05 Hgb O2 Saturation 91.5 % (95-100) L 08/13/22 19:05 Carboxyhemoglobin 1.7 %THgb (0.4-20.1) 08/13/22 19:05 Methemoglobin 0.3 % (0.4-1.5) L 08/13/22 19:05 Total Hemoglobin 11.7 g/dL (14-18) L 08/13/22 19:05 Sodium 130.0 mmol/L (131-143) L 08/13/22 19:05 Potassium 4.4 mmol/L (3.5-5.0) 08/13/22 19:05 Glucose 116.0 mg/dL (70-115) H 08/13/22 19:05 Ionized Calcium 1.2 mmol/L (1.1-1.4) 08/13/22 19:05 O2 Delivery Device Bipap 08/13/22 19:05 O2 Liters/Min 7.0 % 08/13/22 17:34 FiO2 45.0 % 08/13/22 19:05 PEEP 7.0 cmH20 08/13/22 19:05 Research Test Engine Operator ID [email or web address] 08/13/22 19:05 Sodium 125 mmol/L (136-145) L 08/13/22 17:37 Potassium 5.0 mmol/L (3.5-5.1) 08/13/22 17:37 Chloride 84 mmol/L (98-107) L 08/13/22 17:37 Carbon Dioxide 29 mmol/L (22-29) 08/13/22 17:37 Anion Gap 17.0 (5-19) 08/13/22 17:37 BUN 29 mg/dL (8-23) H 08/13/22 17:37 Creatinine 3.5 mg/dL (0.7-1.2) H 08/13/22 17:37 GFR Calculation 17.8 mL/min (90-130) L 08/13/22 17:37 Glucose 99 mg/dL (65-115) 08/13/22 17:37 Calculated Osmolality 266 mOsm/kg (285-295) L 08/13/22 17:37 Lactic Acid 2.2 mmol/L (0.5-2.2) 08/13/22 18:15 Lactic Acid (Sepsis) 0.8 mmol/L (0.5-2.2) 08/13/22 23:00 Calcium 9.3 mg/dL (8.5-10.5) 08/13/22 17:37 Total Bilirubin 0.8 mg/dL (0.15-1.2) 08/13/22 17:37 AST 13 U/L (0-40) 08/13/22 17:37 ALT 11 U/L (0-41) 08/13/22 17:37 Alkaline Phosphatase 102 U/L (40-130) 08/13/22 17:37 Troponin T Baseline 37 ng/L (0-15) H 08/13/22 17:37 Troponin T 120 Minute 31.45 ng/L (0-15) H 08/13/22 19:37 Delta Troponin T -5.55 ABS# (0-10) L 08/13/22 19:37 Troponin T Hi Sens 6Hr 22.61 ng/L (0-15) H 08/13/22 23:00 Troponin T Hi Sens 6Hr Delta -14.39 ng/L (0-12) L 08/13/22 23:00 Total Protein 7.7 g/dL (6.6-8.7) 08/13/22 17:37 Albumin 3.7 g/dL (3.5-5.2) 08/13/22 17:37 Globulin 4.0 g/dL (1.3-4.6) 08/13/22 17:37 Lipase 8 U/L (13-60) L 08/13/22 17:37 Urine Color Dark yellow (Yellow) 08/13/22 19:50 Urine Appearance Sl hazy (CLEAR) A 08/13/22 19:50 Urine pH 5 (5-7) 08/13/22 19:50 Ur Specific [place] 1.020 (1.005-1.030) 08/13/22 19:50 Urine Protein 1+ (Negative) H 08/13/22 19:50 Urine Glucose (UA) Norm (Normal) 08/13/22 19:50 Urine Ketones 1+ (Negative) H 08/13/22 19:50 Urine Blood 3+ (Negative) H 08/13/22 19:50 Urine Nitrate Negative (Negative) 08/13/22 19:50 Urine Bilirubin 2+ (Negative) H 08/13/22 19:50 Urine Urobilinogen 4 mg/dL (Negative) H 08/13/22 19:50 Ur Leukocyte Esterase 1+ (Negative) H 08/13/22 19:50 Urine RBC 50-80 /hpf (0-2) H 08/13/22 19:50 Urine WBC 10-15 /hpf (0-5) H 08/13/22 19:50 Ur Squamous Epith Cells 5-10 /hpf (0-5) H 08/13/22 19:50 Other Crystals Calcium carbonate /hpf 08/13/22 19:50 Amorphous Sediment Not Reportable 08/13/22 19:50 Urine Bacteria 3+ /hpf (NONE) H 08/13/22 19:50 Hyaline Casts 0-4 /lpf H 08/13/22 19:50 Urine Mucus 1+ /hpf 08/13/22 19:50 Coronavirus 229E (PCR) Not detected (NOT DETECT) 08/13/22 21:53 SARS-CoV-2 (PCR) Not detected (NOT DETECT) 08/13/22 21:53 Discharge Plan Discharge Patient Disposition: Admitted As Inpatient Admit Provider: Beltran Thomas Clinical Impression: Hyponatremia, Acute respiratory failure, Pneumonia Condition: Serious Coding Level of Care Code ED Kraft Digester Operator for Chg Fwd Documented by User: Tolu Loyd DO 08/14/22 00:25 HPI - SOB/Dyspnea General: Chief Complaint: Shortness of Breath/Dyspnea Stated Complaint: SOB\ABD Pain Time Seen by Provider: 08/13/22 17:18 PFSH ED PFSH: Medical History (Updated 08/14/22 @ 00:25 by Tolu Loyd DO) Benign prostatic hyperplasia with lower urinary tract symptoms BPH loc w urin obs/LUTS CKD (chronic kidney disease), stage III COPD (chronic obstructive pulmonary disease) Hepatitis C Hypertension Hypogonadism in male Hypothyroidism ROBBIE (obstructive sleep apnea) Pulmonary emphysema Renal cysts, acquired, bilateral Surgical History History of ankle surgery History of circumcision History of hernia surgery History of mandibular surgery Family History Mother , at age 46 Cirrhosis of liver Father , at age 78 CAD (coronary artery disease) Denies family history of Diabetes Clotting disorder Dementia Hyperlipidemia Psychiatric illness Chronic kidney disease (CKD) Suicide Anesthesia complication Bleeding disorder Family history of premature coronary artery disease Lung disease Cancer Hypertension Stroke Social History Smoking and tobacco status: current every day smoker cigarettes Packs smoked per day: 0.75 Years cigarettes smoked: 30 [ Other cigarette details: [id number]] Quit status (tobacco): considering quitting Second hand smoke exposure: No Smoking risk assessment/counseling performed?: Yes Alcohol intake: former Substance/Drug Use: never Lives independently: Yes Household members: spouse Marital status: service: No Current occupational status: unemployed and disabled Pets and animals: Yes Do you think of yourself as: Straight/Heterosexual Current gender identity: Male Procedures Central Line Placement Right IJ: Time Out Performed: No Patient Placed on Monitor/Pulse Ox: Yes MD Prep: mask, gown and gloves Central Line Prep: Chlorhexidine scrub Local Anesthetic: lidocaine 1% Amount of anesthesia used (mL): 3 Ultrasound Used for Placement: Yes Central Line Lumen Inserted: triple Post Procedure: sutured in place, good blood return, all ports aspirated, flushed, capped and sterile dressing applied Post Procedure X-Ray: tip of catheter in good position and no pneumothorax seen Patient Tolerated Procedure: well and no complications Complications: none Course Vital Signs: Vital signs: Vital Signs Temperature 99.4 F 07/01/23 23:50 Pulse Rate 89 08/13/22 23:50 Respiratory Rate 18 08/13/22 23:50 Blood Pressure 113/76 08/13/22 23:50 Pulse Oximetry 96 08/13/22 23:50 Oxygen Delivery Az thod BiPAP 08/13/22 17:49 Fraction of Inspir ed Oxygen 40 08/13/22 22:40 MDM - SOB/Dyspnea Medical Decision Making Care signed out to Dr. Loyd at change of shift. See final notes for diagnosis and disposition. 61-year-old gentleman checked out to me at shift change. This gentleman is quite sick. He is placed on BiPAP on arrival due to acute respiratory distress/failure he was tachycardic. He became hypotensive after arrival after being placed on BiPAP. White blood cell count is 29. Platelet count is high. Sodium is 125. Creatinine is 3.5. Last creatinine was 1.3. He has received 2.5 L of fluid. He is on Levophed. Triple-lumen catheter was placed on the right internal jugular successfully. D-dimer is 2.45, chest x-ray shows a dense infiltrate in the right lower lung field that may be postobstructive pneumonia. CTA is pending. It was attempted once, but the patient became hypotensive and CT and was brought back for central line placement and placement on pressors. CTA confirms dense infiltrate versus mass. No PE. Patient is looking improved. Blood pressures improved. He is on Levophed at 10. Still on BiPAP. He will go to the ICU. Hospitalist has seen the patient in the ER. Lab Data 08/13/22 17:37 08/13/22 17:37 Labs/Radiology: Radiology Impressions Chest CTA 08/13/22 18:07 IMPRESSION: 1. CTA exam with comparison unenhanced CT 08/19/2021. Somewhat limited exam due to artifacts. 2. No large/central PE with limitations described above. 3. Large right perihilar heterogeneous consolidation versus mass with irregular enhancement and small areas of consolidation in the right lower lobe as described above. Considerations include infectious pneumonia versus neoplasm and follow-up should be obtained. Other nonacute lung findings as above. 4. Interval increase of enlarged mediastinal and right hilar adenopathy which may be metastatic versus reactive. New small right pleural effusion and probable pleural thickening with convex margins. See discussion above. 5. Coronary calcification and minimal ascending aortic dilatation at 4.1 cm. 6. Incidental hepatic findings as above. COMMENTS: In the absence of a history or active diagnosis of lung cancer, it is recommended that this patient with emphysema be evaluated for enrollment in a low dose CT lung cancer screening program. Chest X-Ray 08/13/22 20:24 IMPRESSION: Right IJ placement as described. No other significant change. Laboratory Results WBC 28.8 10^3/uL (4.0-10.0) H 08/13/22 17:37 RBC 4.72 10^6/uL (4.1-5.3) 08/13/22 17:37 Hgb 14.0 g/dL (11.7-16.6) 08/13/22 17:37 Hct 43.7 % (42.0-52.0) 08/13/22 17:37 MCV 92.6 fl (80-94) 08/13/22 17:37 MCH 29.7 pg (28.0-34.0) 08/13/22 17:37 MCHC 32.0 g/dL (30.0-36.0) 08/13/22 17:37 RDW 14.3 % (12.1-15.1) 08/13/22 17:37 Plt Count 584 10^3/cmm (130-400) H 08/13/22 17:37 MPV 9.9 fL (7.4-10.4) 08/13/22 17:37 Neut % (Auto) 79.1 % 08/13/22 17:37 Lymph % (Auto) 11.8 % 08/13/22 17:37 [place] % (Auto) 7.4 % 08/13/22 17:37 Eos % (Auto) 0.1 % 08/13/22 17:37 Baso % (Auto) 0.4 % 08/13/22 17:37 Neut # (Auto) 22.80 10^3/uL (1.8-7.7) H 08/13/22 17:37 Lymph # (Auto) 3.4 10^3/uL (0.8-4.8) 08/13/22 17:37 [place] # (Auto) 2.1 10^3/uL (0.2-0.9) H 08/13/22 17:37 Eos # (Auto) 0.0 10^3/uL (0.0-0.8) 08/13/22 17:37 Baso # (Auto) 0.1 10^3/uL (0.0-0.1) 08/13/22 17:37 Nucleated RBC % (auto) 0 % 08/13/22 17:37 Nucleated RBCs # 0.0 /100WBC 08/13/22 17:37 D-Dimer 2.44 ug/mIFEU (0-0.59) H 08/13/22 17:37 Specimen Type Arterial 08/13/22 19:05 Sample Site Radial, right 08/13/22 19:05 ABG pH 7.31 (7.35-7.45) L 08/13/22 19:05 ABG pCO2 58.2 mmHg (35-45) H 08/13/22 19:05 ABG pO2 73.5 mmHg (80.0-100.0) L 08/13/22 19:05 ABG HCO3 28.9 mmol/L (22-26) H 08/13/22 19:05 ABG O2 Saturation 93.4 08/13/22 19:05 ABG Base Excess 1.5 mmol/L (-2.0-2.0) 08/13/22 19:05 Star Test Pos 08/13/22 19:05 A-a O2 Gradient 22.9 mmHg (5-10) H 08/13/22 19:05 Hematocrit 35.9 % (42-52) L 08/13/22 19:05 Hgb O2 Saturation 91.5 % (95-100) L 08/13/22 19:05 Carboxyhemoglobin 1.7 %THgb (0.4-20.1) 08/13/22 19:05 Methemoglobin 0.3 % (0.4-1.5) L 08/13/22 19:05 Total Hemoglobin 11.7 g/dL (14-18) L 08/13/22 19:05 Sodium 130.0 mmol/L (131-143) L 08/13/22 19:05 Potassium 4.4 mmol/L (3.5-5.0) 08/13/22 19:05 Glucose 116.0 mg/dL (70-115) H 08/13/22 19:05 Ionized Calcium 1.2 mmol/L (1.1-1.4) 08/13/22 19:05 O2 Delivery Device Bipap 08/13/22 19:05 O2 Liters/Min 7.0 % 08/13/22 17:34 FiO2 45.0 % 08/13/22 19:05 PEEP 7.0 cmH20 08/13/22 19:05 Research Test Engine Operator ID [email or web address] 08/13/22 19:05 Sodium 125 mmol/L (136-145) L 08/13/22 17:37 Potassium 5.0 mmol/L (3.5-5.1) 08/13/22 17:37 Chloride 84 mmol/L (98-107) L 08/13/22 17:37 Carbon Dioxide 29 mmol/L (22-29) 08/13/22 17:37 Anion Gap 17.0 (5-19) 08/13/22 17:37 BUN 29 mg/dL (8-23) H 08/13/22 17:37 Creatinine 3.5 mg/dL (0.7-1.2) H 08/13/22 17:37 GFR Calculation 17.8 mL/min (90-130) L 08/13/22 17:37 Glucose 99 mg/dL (65-115) 08/13/22 17:37 Calculated Osmolality 266 mOsm/kg (285-295) L 08/13/22 17:37 Lactic Acid 2.2 mmol/L (0.5-2.2) 08/13/22 18:15 Lactic Acid (Sepsis) 0.8 mmol/L (0.5-2.2) 08/13/22 23:00 Calcium 9.3 mg/dL (8.5-10.5) 08/13/22 17:37 Total Bilirubin 0.8 mg/dL (0.15-1.2) 08/13/22 17:37 AST 13 U/L (0-40) 08/13/22 17:37 ALT 11 U/L (0-41) 08/13/22 17:37 Alkaline Phosphatase 102 U/L (40-130) 08/13/22 17:37 Troponin T Baseline 37 ng/L (0-15) H 08/13/22 17:37 Troponin T 120 Minute 31.45 ng/L (0-15) H 08/13/22 19:37 Delta Troponin T -5.55 ABS# (0-10) L 08/13/22 19:37 Troponin T Hi Sens 6Hr 22.61 ng/L (0-15) H 08/13/22 23:00 Troponin T Hi Sens 6Hr Delta -14.39 ng/L (0-12) L 08/13/22 23:00 Total Protein 7.7 g/dL (6.6-8.7) 08/13/22 17:37 Albumin 3.7 g/dL (3.5-5.2) 08/13/22 17:37 Globulin 4.0 g/dL (1.3-4.6) 08/13/22 17:37 Lipase 8 U/L (13-60) L 08/13/22 17:37 Urine Color Dark yellow (Yellow) 08/13/22 19:50 Urine Appearance Sl hazy (CLEAR) A 08/13/22 19:50 Urine pH 5 (5-7) 08/13/22 19:50 Ur Specific [place] 1.020 (1.005-1.030) 08/13/22 19:50 Urine Protein 1+ (Negative) H 08/13/22 19:50 Urine Glucose (UA) Norm (Normal) 08/13/22 19:50 Urine Ketones 1+ (Negative) H 08/13/22 19:50 Urine Blood 3+ (Negative) H 08/13/22 19:50 Urine Nitrate Negative (Negative) 08/13/22 19:50 Urine Bilirubin 2+ (Negative) H 08/13/22 19:50 Urine Urobilinogen 4 mg/dL (Negative) H 08/13/22 19:50 Ur Leukocyte Esterase 1+ (Negative) H 08/13/22 19:50 Urine RBC 50-80 /hpf (0-2) H 08/13/22 19:50 Urine WBC 10-15 /hpf (0-5) H 08/13/22 19:50 Ur Squamous Epith Cells 5-10 /hpf (0-5) H 08/13/22 19:50 Other Crystals Calcium carbonate /hpf 08/13/22 19:50 Amorphous Sediment Not Reportable 08/13/22 19:50 Urine Bacteria 3+ /hpf (NONE) H 08/13/22 19:50 Hyaline Casts 0-4 /lpf H 08/13/22 19:50 Urine Mucus 1+ /hpf 08/13/22 19:50 Coronavirus 229E (PCR) Not detected (NOT DETECT) 08/13/22 21:53 SARS-CoV-2 (PCR) Not detected (NOT DETECT) 08/13/22 21:53 Critical Care Time Critical Care Time: Critical Care Time: Yes Total Critical Care Time: 40 Attestation: This case had a high probability of a clinically significant, sudden, or life threatening deterioration of this patient's condition which required my full and direct attention, intervention and personal management. Time is independent of any procedures performed Discharge Plan Discharge Patient Disposition: Admitted As Inpatient Admit Provider: Beltran Thomas Clinical Impression: Hyponatremia, Acute respiratory failure, Pneumonia Condition: Serious Coding Level of Care Code ED Kraft Digester Operator for Naty Brooke
[2022-08-13 17:45] LABS: ABG PCO2 45.5 mmHg (35-45); ABG PH Result 7.43 (7.35-7.45); Alveolar-Arterial Oxygen Gradi 5.1 mmHg (5-10); Arterial Blood Gas Hematocrit 38.9 % (42-52); Base Excess ABG 4.6 mmol/L (-2.0-2.0); Blood Gas Operator Identificat AMH; Blood Gas Sample Site Brachial, right; Blood Gas Sample Type Arterial; Carboxyhemoglobin 2.3 %THgb (0.4-20.1); HCO3 ABG 29.8 mmol/L (22-26); Ionized Calcium Level - ABG 1.2 mmol/L (1.1-1.4); Methemoglobin 0.3 % (0.4-1.5); Oxygen Device NC; Oxygen Saturation ABG 88.4; Potassium Level - ABG 4.4 mmol/L (3.5-5.0); Total Hemoglobin 12.7 g/dL (14-18)
[2022-08-13 17:46] LABS: Basophils # 0.1 10^3/uL (0.0-0.1); Basophils % 0.4 %; Eosinophils % 0.1 %; Hematocrit 43.7 % (42.0-52.0); Lymphocytes # 3.4 10^3/uL (0.8-4.8); Lymphocytes % 11.8 %; Mean Corpuscular Hemoglobin 29.7 pg (28.0-34.0); Mean Corpuscular Volume 92.6 fl (80-94); Mean Platelet Volume 9.9 fL (7.4-10.4); Monocytes # 2.1 10^3/uL (0.2-0.9); Monocytes % 7.4 %; Neutrophils % 79.1 %; Nucleated Red Blood Cells % 0 %; Platelet Count 584 10^3/cmm (130-400); Red Blood Count 4.72 10^6/uL (4.1-5.3); Red Cell Distribution Width 14.3 % (12.1-15.1); White Blood Count 28.8 10^3/uL (4.0-10.0)
[2022-08-13] MEDS: ipratropium-albuterol 3 mL Neb INHALATION (17:46)
[2022-08-13 18:04] LABS: D Dimer 2.44 ug/mIFEU (0-0.59)
[2022-08-13] MEDS: dexamethasone 10 mg/mL INJ IVP (18:04)
[2022-08-13] MEDS: LORazepam 2 mg/mL INJ 1 mL 1 MG IVP (18:04)
--- NOTE | 2022-08-13 18:07 | CTR_ITS ---
PROCEDURE INFORMATION: Exam: CTA Chest With Contrast Exam date and time: 08/13/2022 8:44 PM Age: 61 years old Clinical indication: Abnormal findings; Abnormal diagnostic tests; Elevated d-dimer; Shortness of breath; Patient HX: SOB with hypoxia. D dimer of 2.44. History of copd and hep c. ; Additional info: Dyspnea/tachycardia TECHNIQUE: Imaging protocol: Computed tomographic angiography of the chest with contrast. Exam focused on the arteries. 3D rendering (Not supervised by radiologist): MIP and/or 3D reconstructed images were created by the technologist. Radiation optimization: All CT scans at this facility use at least one of these dose optimization techniques: automated exposure control; mA and/or kV adjustment per patient size (includes targeted exams where dose is matched to clinical indication); or iterative reconstruction. Contrast material: OMNI 350; Contrast volume: 45 ml; Contrast route: INTRAVENOUS (IV); REPORTING DATA: Count of CT and Cardiac NM exams in prior 12 months: This patient has received [address] and 0 known cardiac nuclear medicine studies in the 12 months prior to the current study. COMPARISON: CT lung screening [id number] 08/19/2021 3:33 PM RADIATION DOSE METRICS: Total DLP (mGy-cm): 384.98 FINDINGS: Tubes, catheters and devices: Right IJ central catheter with tip in the cavoatrial region. Pulmonary arteries: There is no pulmonary embolism in the central-proximal segmental branches. Assessment of the peripheral subsegmental small branches is limited due to artifacts. Aorta: Minimal ascending aortic dilatation at 4.1 cm, stable. Descending aorta measures 2.9 cm. No aortic dissection. Lungs: Flattening of diaphragms suggesting hyperinflation/COPD. Mild-moderate pulmonary emphysema. Lung assessment somewhat limited due to some motion artifacts in the lung bases. Minimal left basilar linear atelectasis with no left consolidation/ground-glass opacity. There is a new large area of right perihilar heterogeneous density with irregular internal enhancement which may represent acute pneumonia however neoplastic process may also be considered in the perihilar region of both right upper lobe and right lower lobe. No obvious large endobronchial lesion or central airway obstructions however the small peripheral right-sided airways may be obstructed. Previous exam demonstrated a tiny 2-mm left lower lobe nodule which is not definitively seen and may be obscured by motion artifacts.. Areas of patchy consolidations are noted surrounding the right lung base. Again seen is probable minimal central bronchiectasis. Most recent chest CT demonstrated a small patchy infiltrate in the right lower lobe however no follow-up imaging was available for this finding prior to this exam. Pleural spaces: New small right pleural effusion with convex margin with probable areas of pleural thickening. Clinical correlation follow-up should be obtained to exclude neoplastic pleural disease or infectious empyema. Heart: Normal heart size with coronary calcification. Lymph nodes: Enlarged inferior right paratracheal adenopathy measuring 13 mm versus 6 mm previously. Subcarinal adenopathy now measures about 10 mm versus 3-4 mm previously. Right hilar enlarged node measuring 15 mm. Spleen: Multiple calcified splenic granulomas. Bones/joints: Multiple right posterolateral chronic rib deformities. Soft tissues: No acute findings. Somewhat lobulated hepatic contour with probable recanalized periumbilical collateral which suggest cirrhosis/chronic liver disease and portal hypertension. CT/CT angio chest PE protcl [id number] IMPRESSION: 1. CTA exam with comparison unenhanced CT 08/19/2021. Somewhat limited exam due to artifacts. 2. No large/central PE with limitations described above. 3. Large right perihilar heterogeneous consolidation versus mass with irregular enhancement and small areas of consolidation in the right lower lobe as described above. Considerations include infectious pneumonia versus neoplasm and follow-up should be obtained. Other nonacute lung findings as above. 4. Interval increase of enlarged mediastinal and right hilar adenopathy which may be metastatic versus reactive. New small right pleural effusion and probable pleural thickening with convex margins. See discussion above. 5. Coronary calcification and minimal ascending aortic dilatation at 4.1 cm. 6. Incidental hepatic findings as above. COMMENTS: In the absence of a history or active diagnosis of lung cancer, it is recommended that this patient with emphysema be evaluated for enrollment in a low dose CT lung cancer screening program.
[2022-08-13 18:08] LABS: Alanine Aminotransferase 11 U/L (0-41); Albumin Level 3.7 g/dL (3.5-5.2); Alkaline Phosphatase 102 U/L (40-130); Aspartate Amino Transferase 13 U/L (0-40); Blood Urea Nitrogen 29 mg/dL (8-23); Calcium 9.3 mg/dL (8.5-10.5); Carbon Dioxide 29 mmol/L (22-29); Chloride 84 mmol/L (98-107); Glomerular Filtration Rate 17.8 mL/min (90-130); Glucose 99 mg/dL (65-115); Lipase 8 U/L (13-60); Osmolality Calculated 266 mOsm/kg (285-295); Sodium 125 mmol/L (136-145); Total Bilirubin 0.8 mg/dL (0.15-1.2); Total Protein 7.7 g/dL (6.6-8.7); Troponin(5th) Baseline 37 ng/L (0-15)
[2022-08-13 18:47] LABS: Slide Review Slide Review Perform
[2022-08-13 19:15] LABS: ABG PCO2 58.2 mmHg (35-45); ABG PH Result 7.31 (7.35-7.45); Arterial Blood Gas Hematocrit 35.9 % (42-52); Base Excess ABG 1.5 mmol/L (-2.0-2.0); Blood Gas Allen Test Pos; Blood Gas Sample Type Arterial; Carboxyhemoglobin 1.7 %THgb (0.4-20.1); HCO3 ABG 28.9 mmol/L (22-26); HGB O2 Sat 91.5 % (95-100); Ionized Calcium Level - ABG 1.2 mmol/L (1.1-1.4); Methemoglobin 0.3 % (0.4-1.5); Oxygen Saturation ABG 93.4; PO2 ABG 73.5 mmHg (80.0-100.0); Potassium Level - ABG 4.4 mmol/L (3.5-5.0); Total Hemoglobin 11.7 g/dL (14-18)
[2022-08-13 19:16] LABS: Alveolar-Arterial Oxygen Gradi 22.9 mmHg (5-10); Blood Gas Sample Site Radial, right; Oxygen Device BIPAP
[2022-08-13] MEDS: sodium chloride 0.9% 1,000 ML 999 ML IV ×2 (19:27→19:28)
[2022-08-13] MEDS: cefTRIAXone 1,000 MG in sodium chloride 0.9% (plus) 50 ML 100 MG IV (19:42)
[2022-08-13] MEDS: azithromycin 500 MG in sodium chloride 0.9% 250 ML 250 MG IV (20:04)
[2022-08-13 20:09] LABS: Add Urine Microscopic? YES; Bilirubin Urine 2+ (Negative); Blood Urine 3+ (Negative); Glucose Urine UA Norm (Normal); Ketones Urine 1+ (Negative); Leukocyte Esterase Urine 1+ (Negative); Nitrate Urine Negative (Negative); Protein Urine 1+ (Negative); Urine Appearance SL Hazy (CLEAR); Urine Color Dark Yellow (Yellow); Urobilinogen Urine 4 mg/dL (Negative); pH Urine 5 (5-7)
[2022-08-13 20:11] LABS: RBC Urine 50-80 /hpf (0-2)
[2022-08-13 20:13] LABS: Bacteria Urine 3+ /hpf; Hyaline Casts Urine 0-4 /lpf; Mucus Urine 1+ /hpf
[2022-08-13 20:14] LABS: Troponin 5 2HR 31.45 ng/L (0-15)
[2022-08-13 20:17] LABS: Add Urine Culture? Yes
[2022-08-13 20:20] LABS: Troponin 5 2HR Delta -5.55 ABS# (0-10)
--- NOTE | 2022-08-13 20:24 | XRR_ITS ---
PROCEDURE INFORMATION: Exam: XR Chest Exam date and time: 08/13/2022 7:28 PM Age: 61 years old Clinical indication: Other vascular access device placement or adjustment; Central line, tunnelled; Patient HX: Check S/P central line placement; Additional info: Post line placement, will call when ready TECHNIQUE: Imaging protocol: Radiologic exam of the chest. Views: 1 view. COMPARISON: CR XR chest 1V portable [id number] 08/13/2022 6:07 PM FINDINGS: Tubes, catheters and devices: Interval placement of right IJ central catheter with tip in cavoatrial region. No pneumothorax. Lungs: No significant change of the opacity occupying the right mid and lower lung zone which may represent pneumonia however other non infectious/neoplastic process can not be excluded. Left lung is grossly clear. Pleural spaces: See Tubes, catheters and devices finding. Heart/Mediastinum: No cardiomegaly. Bones/joints: No acute findings. XR/XR chest 1V portable [id number] IMPRESSION: Right IJ placement as described. No other significant change.
[2022-08-13] MEDS: morphine 4 mg/mL SDV 1 mL 2 MG IVP (20:28)
[2022-08-13] MEDS: iohexol 350 mg/mL 500 mL Btl (per mL) IV (20:57)
[2022-08-13 20:58] LABS: Lactic Sepsis W/Reflex 2.2 mmol/L (0.5-2.2)
[2022-08-13] MEDS: sodium chloride 0.9% 500 ML 999 ML IV (21:01)
[2022-08-13 22:33] LABS: Reflex Lactate Order REFLEX LACTIC ORDERD
[2022-08-13 23:21] LABS: Troponin 5 6HR 22.61 ng/L (0-15); Troponin 5 6HR Delta -14.39 ng/L (0-12)
[2022-08-13 23:22] LABS: Lactic Acid level (Lactate) 0.8 mmol/L (0.5-2.2)
[2022-08-13 23:37] LABS: Adenovirus Not Detected (NOT DETECT); Chlamydia Pneumoniae Not Detected (NOT DETECT); Coronavirus 229E,HKU1,NL63,OC4 Not Detected (NOT DETECT); Human Metapneumovirus Not Detected (NOT DETECT); Human Rhinovirus/Enterovirus Not Detected (NOT DETECT); Influenza A Not Detected (NOT DETECT); Influenza A H1 Not Detected (NOT DETECT); Influenza A H1-2009 Not Detected (NOT DETECT); Influenza A H3 Not Detected (NOT DETECT); Influenza B Not Detected (NOT DETECT); Mycoplasma Pneumoniae Not Detected (NOT DETECT); Parainfluenza Virus Type 1 Not Detected (NOT DETECT); Parainfluenza Virus Type 2 Not Detected (NOT DETECT); Parainfluenza Virus Type 3 Not Detected (NOT DETECT); Parainfluenza Virus Type 4 Not Detected (NOT DETECT); Respiratory Syncytial Virus A Not Detected (NOT DETECT); Respiratory Syncytial Virus B Not Detected (NOT DETECT); SARS-COV-2 Not Detected (NOT DETECT)
--- NOTE | 2022-08-13 23:37 | P.HP_ITS ---
Providers/Chief Complaint Admitting Physician: Beltran Thomas DO Primary Care Provider: Rakesh Nye MD Chief Complaint: SOB\ABD Pain History of Present Illness Anthony Harding is a 61 year old male COPD, chronic pain, hypo-thyroidism presents to ER in acute respiratory distress. History is taken from ER physician documents as patient is on BiPAP and difficult to gain detailed information. He can mostly answer yes and no questions. No family is present Patient's response to questions or is that he has had a couple weeks of shortness of breath. He states he normally coughs up sputum and it is yellow. It sounds like he is coughing up more than usual. He relates that he is 1 pack a day smoker still. Review of Systems General: Reports: ROS unobtainable due to medical condition and Other (on BIPAP) Medications/Allergies Home Medications Medication Instructions Recorded Confirmed Last Taken Type albuterol sulfate 200 mcg capsule mcg inhalation 02/25/19 05/30/22 Unknown History with inhalation device methadone 40 mg soluble tablet 40 mg PO DAILY 05/08/19 05/30/22 Unknown History albuterol sulfate 90 mcg/actuation 2 puff inhalation Q6H PRN 06/10/19 05/30/22 Unknown Rx aerosol inhaler (Proventil HFA) shortness of breath or wheezing #18 grams furosemide 40 mg tablet 40 mg PO .COMPLEX 07/16/19 05/30/22 Unknown History tiotropium 2.5 mcg-olodaterol 2.5 2 puff inhalation DAILY 05/31/21 05/30/22 Unknown History mcg/actuation mist for inhalation (Stiolto Respimat) tramadol 50 mg tablet 50 mg PO Q6H PRN 10/12/21 05/30/22 Unknown History fluticasone fur. 100 mcg-umeclid 1 inh inhalation DAILY #60 ea 10/31/21 05/30/22 Unknown Rx 62.5 mcg-vilant 25 mcg inhalat.powder (Trelegy Ellipta) amlodipine 10 mg tablet See Rx Instructions .Route 12/23/21 05/30/22 Unknown Rx .COMPLEX #90 tabs levothyroxine 100 mcg tablet See Rx Instructions .Route 12/23/21 05/30/22 Unknown Rx .COMPLEX #90 tabs tamsulosin 0.4 mg capsule See Rx Instructions .Route 03/22/22 05/30/22 Unknown Rx .COMPLEX #90 caps sildenafil 100 mg tablet 100 mg PO DAILY PRN sexual 05/30/22 05/30/22 Unknown Rx activity #20 tabs Allergies Allergy/AdvReac Type Severity Reaction Status Date / Time No Known Allergies Allergy Verified 08/13/22 17:52 PFSH Acute PFSH: Medical History (Updated 08/14/22 @ 00:01 by Beltran Thomas DO) Benign prostatic hyperplasia with lower urinary tract symptoms BPH loc w urin obs/LUTS CKD (chronic kidney disease), stage III COPD (chronic obstructive pulmonary disease) Hepatitis C Hypertension Hypogonadism in male Hypothyroidism ROBBIE (obstructive sleep apnea) Pulmonary emphysema Renal cysts, acquired, bilateral Surgical History History of ankle surgery History of circumcision History of hernia surgery History of mandibular surgery Family History Mother , at age 46 Cirrhosis of liver Father , at age 78 CAD (coronary artery disease) Denies family history of Diabetes Clotting disorder Dementia Hyperlipidemia Psychiatric illness Chronic kidney disease (CKD) Suicide Anesthesia complication Bleeding disorder Family history of premature coronary artery disease Lung disease Cancer Hypertension Stroke Social History Smoking and tobacco status: current every day smoker cigarettes Packs smoked per day: 0.75 Years cigarettes smoked: 30 [ Other cigarette details: [id number]] Quit status (tobacco): considering quitting Second hand smoke exposure: No Smoking risk assessment/counseling performed?: Yes Alcohol intake: former Substance/Drug Use: never Lives independently: Yes Household members: spouse Marital status: service: No Current occupational status: unemployed and disabled Pets and animals: Yes Do you think of yourself as: Straight/Heterosexual Current gender identity: Male Vitals/I&O/Wt Last Vital Signs Temp 99.4 F 08/13/22 17:44 Pulse 89 08/13/22 23:21 Resp 18 08/13/22 23:21 BP 113/76 08/13/22 23:21 Pulse Ox 96 08/13/22 23:21 O2 Del Method BiPAP 08/13/22 17:49 FiO2 40 08/13/22 22:40 08/13/22 08/13/22 08/14/22 14:59 22:59 06:59 Intake Total 2885.471 / 2885.471 Balance 2885.471 / 2885.471 Weight last 48 hrs Weight 79.379 kg Physical Exam Narrative: Patient is seen sleeping in bed, with legs off the table and head cocked to the side. Required a deep sternal rub to wake up. As stated a difficult exam when he tried to talk I could not understand him. Neurologic. He is awake seems to answer questions appropriately. All 4 extremi ties moving appropriately HEENT NC/AT, PERRLA, no scleral icterus. BiPAP on minimal leaking around mouth, neck supple no JVD carotid bruits or lymphadenopathy. Right IJ in place Heart: Distant heart sounds unable to auscultate Chest expansive chest. Lungs: Severely diminished. No loud wheezes or rhonchi Abdomen: Soft nontender nondistended positive bowel sounds no hepatosplenomegaly Extremities: Venous stasis check changes present on bilateral lower extremities and feet. No clubbing cyanosis or edema : Normal male with Rothman in place Back: Kyphosis. No CVA tenderness Urinary Catheter Management: Rothman: Cath Placed During This Visit: yes Urinary Catheter Date of Insertion: 08/13/22 Urinary Catheter Time of Insertion: 19:50 Data 08/13/22 17:37 08/13/22 17:37 Micro: Microbiology 08/13/22 18:21 Blood Culture - Preliminary Blood SPECIMEN COLLECTED 08/13/22 18:15 Blood Culture - Preliminary Blood SPECIMEN COLLECTED CTA Chest: Radiologist's impression: IMPRESSION: 1. ? CTA exam with comparison unenhanced CT 08/19/2021. Somewhat limited exam due to artifacts. 2. ? No large/central PE with limitations described above. 3. ? Large right perihilar heterogeneous consolidation versus mass with irregular enhancement and small areas of consolidation in the right lower lobe as described above. Considerations include infectious pneumonia versus neoplasm and follow-up should be obtained. Other nonacute lung findings as above. 4. ? Interval increase of enlarged mediastinal and right hilar adenopathy which may be metastatic versus reactive. New small right pleural effusion and probable pleural thickening with convex margins. See discussion above. 5. ? Coronary calcification and minimal ascending aortic dilatation at 4.1 cm. 6. ? Incidental hepatic findings as above. ABG Interpretation 1: 08/13/22 08/13/22 17:34 19:05 ABG pH 7.43 7.31 L ABG pCO2 45.5 H 58.2 H ABG pO2 54.0 L 73.5 L ABG HCO3 29.8 H 28.9 H ABG O2 Saturation 88.4 93.4 ABG Base Excess 4.6 H 1.5 My Interpretation: Initial ABG showed a normal pH with PCO2 of 45 and a PO2 of 54 bicarb of 30. This is probably where the patient lives. Subsequent ABG now shows respiratory acidosis with increased PO2. A&P Assessment and plan (1) Acute respiratory failure: Acute respiratory failure with pulse ox in the 80s. He was placed on BiPAP and had slight worsening of his respiratory acidosis. But his hypoxia is improved. We will follow closely. BiPAP for now (2) COPD (chronic obstructive pulmonary disease): Will place on steroids for exacerbation due to pneumonia Qualifiers: COPD type: unspecified COPD Qualified Code(s): J44.9 - Chronic obstructive pulmonary disease, unspecified (3) Nicotine dependence, cigarettes, with unspecified nicotine-induced disorders: Will need counseling to quit. (4) Abnormal CT scan, chest: Very concerning for a right lung mass with possible mets to lymph nodes. Given the hyponatremia on laboratory studies this could be small cell lung cancer. Once stable would benefit from bronchoscopy (5) Hyponatremia: Will obtain urine electrolytes, suspicious for small cell lung cancer given CT results (6) Hypothyroidism: Continue home Synthroid (7) Hypertension: Continue home medications Qualifiers: Hypertension type: essential hypertension Qualified Code(s): I10 - Essential (primary) hypertension (8) CKD (chronic kidney disease), stage III: Increased serum creatinine with history of stage III CKD. BUN/creatinine ratio is more suggestive of intrinsic disease (9) Pneumonia: No previous hospitalization we will treat with Rocephin and Zithromax for now Plan DVT prophylaxis ordered Attestations Medical Necessity Statement*: Patient is critically ill with acute respiratory failure requiring BiPAP. Expectation is for care to cross 2 midnights Coding Level of Care Code Acute Code for Chg Fwd Diagnoses Acute respiratory failure J96.00 COPD (chronic obstructive pulmonary disease) J44.9 COPD type: unspecified COPD Nicotine dependence, cigarettes, with unspecified nicotine-induced disorders F17.[address] scan, chest R93.89 Hyponatremia E87.1 Hypothyroidism E03.9 Hypertension I10 Hypertension type: essential hypertension CKD (chronic kidney disease), stage III N18.3 Pneumonia J18.9
[2022-08-14] VITALS (104 sets, daily range): BP systolic 79–148; BP diastolic 52–94; PULSE 53–96; RESP 9–29; TEMP 36.4–36.7; O2SAT 90–98
[2022-08-14] MEDS: dextrose 5%-sod chloride 0.9% 1,000 ML 75 ML IV (00:42)
[2022-08-14] MEDS: famotidine 20 mg/2 mL INJ IVP ×2 (00:43→11:25)
[2022-08-14] MEDS: enoxaparin 40 mg/0.4 mL Syringe SUBCUT (00:43)
[2022-08-14] MEDS: dexamethasone 4 mg/mL INJ IVP ×3 (00:43→11:25)
[2022-08-14] MEDS: ipratropium-albuterol 3 mL Neb INHALATION ×6 (02:17→23:16)
[2022-08-14 04:24] LABS: Basophils # 0.1 10^3/uL (0.0-0.1); Basophils % 0.2 %; Hematocrit 36.3 % (42.0-52.0); Hemoglobin 11.6 g/dL (11.7-16.6); Lymphocytes # 1.4 10^3/uL (0.8-4.8); Lymphocytes % 3.3 %; Mean Corpuscular Hemoglobin 29.7 pg (28.0-34.0); Mean Corpuscular Volume 93.1 fl (80-94); Mean Platelet Volume 10.4 fL (7.4-10.4); Monocytes # 0.8 10^3/uL (0.2-0.9); Monocytes % 1.8 %; Neutrophils # 39.38 10^3/uL (1.8-7.7); Neutrophils % 92.9 %; Nucleated Red Blood Cells % 0 %; Platelet Count 477 10^3/cmm (130-400); Red Cell Distribution Width 14.3 % (12.1-15.1)
[2022-08-14 04:31] LABS: White Blood Count 42.4 10^3/uL (4.0-10.0)
[2022-08-14 04:41] LABS: Anion Gap 16.7 (5-19); Blood Urea Nitrogen 29 mg/dL (8-23); Calcium 8.4 mg/dL (8.5-10.5); Carbon Dioxide 26 mmol/L (22-29); Chloride 93 mmol/L (98-107); Glucose 228 mg/dL (65-115); Osmolality Calculated 285 mOsm/kg (285-295); Potassium 4.7 mmol/L (3.5-5.1); Sodium 131 mmol/L (136-145)
--- NOTE | 2022-08-14 08:36 | PC.PHAR ---
pt unable to verify medications-called pts kristine [phone] pts states the pt normally takes care of his own medications but states she had his medication bottles to go off of-pts states the pt is taking methadone [facility]mg daily from [facility] is closed on sundays so no way to verify if dose is correct-[facility] is also closed on sundays so no way to verify all meds filled-pts states the pt use to have a trelegy ellipta but states the copay was to expensive so pt hasnt had for a long time ext shows last filled 02/11/22-pts states the pt only has a albuterol inhaler and a symbicort inhaler-notes are made in the pharmacy comments
[2022-08-14] MEDS: docusate sodium 100 mg Capsule PO (08:48)
[2022-08-14] MEDS: methadone 10 mg Tablet 40 MG PO (08:48)
[2022-08-14] MEDS: levothyroxine 100 mcg Tablet PO (08:49)
[2022-08-14] MEDS: tamsulosin 0.4 mg Capsule PO (08:49)
--- NOTE | 2022-08-14 12:53 | P.PN_ITS ---
Subjective Subjective: Patient is awake and alert Stating that he is an active smoker He has not been using his inhalers His insurance will not be able to cover for Trelegy Considering significant white count I will obtain CT scan of chest abdomen pelvis reviewed his CT chest report with the health sciences department chair on Monday Patient currently is on 8 L Lives with his He is full code Patient does not use oxygen at home at baseline Vitals/I&O/Wt Last Vital Signs Temp 97.8 F 08/14/22 12:00 Pulse 77 08/14/22 11:09 Resp 18 08/14/22 11:04 BP 108/65 08/14/22 10:30 Pulse Ox 94 08/14/22 11:04 O2 Del Method High Flow Nasal Cannula 08/14/22 11:04 O2 Flow Rate 8 08/14/22 11:04 FiO2 40 08/14/22 08:08 08/13/22 08/14/22 08/14/22 22:59 06:59 14:59 Intake Total 2885.471 / 2885.471 168.529 / 3054.000 500 / 500 Output Total 1200 / 1200 Balance 2885.471 / 2885.471 -1031.471 / 1854.000 500 / 500 Weight last 48 hrs Weight 79.379 kg Weight 79.379 kg Physical Exam Narrative: Muscle mass loss Currently on 8 L No active wheezing GCS 15 Abdomen soft Patient ate his breakfast No signs of edema S1, S2 Urinary Catheter Management: Rothman: Cath Placed During This Visit: yes Reason for Continuing Indwelling Catheter: Accurate Measurement of Urinary Output in Critically Ill Patients Urinary Catheter Date of Insertion: 08/13/22 Urinary Catheter Time of Insertion: 19:50 Data 08/14/22 03:36 08/14/22 03:36 Micro: Microbiology 08/13/22 18:21 Blood Culture - Preliminary Blood SPECIMEN COLLECTED 08/13/22 18:15 Blood Culture - Preliminary Blood SPECIMEN COLLECTED A&P Assessment and plan (1) Acute respiratory failure: (2) Pneumonia: (3) Abnormal CT scan, chest: (4) COPD (chronic obstructive pulmonary disease): Qualifiers: COPD type: unspecified COPD Qualified Code(s): J44.9 - Chronic obstructive pulmonary disease, unspecified (5) Hyponatremia: (6) Nicotine dependence, cigarettes, with unspecified nicotine-induced disorders: (7) Hypertension: Qualifiers: Hypertension type: essential hypertension Qualified Code(s): I10 - Essential (primary) hypertension (8) CKD (chronic kidney disease), stage III: (9) Hepatitis C: (10) ROBBIE (obstructive sleep apnea): Plan Acute COPD exacerbation Related to pneumonia Considering worsening of leukocytosis I have requested CT chest abdomen pelvis rule out malignancy We will discuss CT scan findings with health sciences department chair on Monday Patient endorsing losing weight unintentionally, lost more than 10 pounds in last few weeks, Recheck ABG Currently patient is on 8 L of oxygen high flow nasal cannula I will continue antibiotics with steroids Noncompliance:?, Patient has not used oxygen in the past, has not been able to use his trilogy because of insurance not been able to cover the cost Patient started using oxygen of his Acute on chronic kidney disease stage III Patient was given contrast for CTA study Monitor for contrast-induced nephropathy for next 48 hours Hyponatremia: Patient looks euvolemic Check TSH, urine and serum osmolarity Full code Regular diet Continue ICU management We will request physical therapy once his blood gas shows improvement for at least 24 hours Attestations Medical Necessity Statement*: Continue ICU management Diagnoses Acute respiratory failure J96.[address] scan, chest R93.89 COPD (chronic obstructive pulmonary disease) J44.9 COPD type: unspecified COPD Hyponatremia E87.1 Nicotine dependence, cigarettes, with unspecified nicotine-induced disorders F17.219 Hypertension I10 Hypertension type: essential hypertension CKD (chronic kidney disease), stage III N18.3 Hepatitis C B19.20 ROBBIE (obstructive sleep apnea) G47.33
--- NOTE | 2022-08-14 13:06 | CTR_ITS ---
PROCEDURE INFORMATION: Exam: CT Chest Without Contrast; Diagnostic Exam date and time: 08/14/2022 3:00 PM Age: 61 years old Clinical indication: Abdominal tenderness; Mass, lump, or swelling in the chest; Additional info: Lung mass TECHNIQUE: Imaging protocol: Diagnostic computed tomography of the chest without contrast. Radiation optimization: All CT scans at this facility use at least one of these dose optimization techniques: automated exposure control; mA and/or kV adjustment per patient size (includes targeted exams where dose is matched to clinical indication); or iterative reconstruction. REPORTING DATA: Count of CT and Cardiac NM exams in prior 12 months: This patient has received 2 known [address]s and 0 known cardiac nuclear medicine studies in the 12 months prior to the current study. COMPARISON: CT angio chest PE protcl [id number] 08/13/2022 8:44 PM RADIATION DOSE METRICS: Total DLP (mGy-cm): 725.43 FINDINGS: Tubes, catheters and devices: Central venous catheter tip terminates at the cavoatrial junction. Lungs: There are emphysematous changes in the lungs. Large right perihilar heterogeneous mass which is stable when compared to the prior study. Scattered right pulmonary ground-glass opacities are similar to the prior study. Pleural spaces: Moderate right pleural effusion with adjacent compressive atelectasis or pneumonia similar to the prior study. Heart: Unremarkable. No cardiomegaly. No pericardial effusion. Coronary arteries: Multivessel atherosclerotic disease which involves the coronary arteries. Lymph nodes: Mediastinal and right perihilar adenopathy is stable compared to the prior study. Vasculature: Ascending aortic dilatation stable at 4.1 cm. No dissection. Intraperitoneal space: Please see the CT scan of the abdomen for description of the upper abdomen. Bones/joints: Chronic bilateral rib fracture sites unchanged from the prior study. There are severe degenerative changes across the glenohumeral joint Soft tissues: Unremarkable. COMMENTS: In the absence of a history or active diagnosis of lung cancer, it is recommended that this patient with emphysema be evaluated for enrollment in a low dose CT lung cancer screening program. PROCEDURE INFORMATION: Exam: CT Abdomen And Pelvis Without Contrast Exam date and time: 08/14/2022 3:00 PM Age: 61 years old Clinical indication: Abdominal tenderness; Mass, lump, or swelling in the chest; Additional info: Lung mass TECHNIQUE: Imaging protocol: Computed tomography of the abdomen and pelvis without contrast. Radiation optimization: All CT scans at this facility use at least one of these dose optimization techniques: automated exposure control; mA and/or kV adjustment per patient size (includes targeted exams where dose is matched to clinical indication); or iterative reconstruction. REPORTING DATA: Count of CT and Cardiac NM exams in prior 12 months: This patient has received 2 known [address]s and 0 known cardiac nuclear medicine studies in the 12 months prior to the current study. COMPARISON: CT kidney stone [id number] 08/09/2018 6:22 PM RADIATION DOSE METRICS: Total DLP (mGy-cm): 725.43 FINDINGS: Coronary arteries: Multivessel atherosclerotic disease which involves the coronary arteries. Liver: Normal. No mass. Gallbladder and bile ducts: There is sludge and/or small stones at the dependent aspect of the gallbladder. Pancreas: Normal. No ductal dilation. Spleen: Normal. No splenomegaly. Adrenal glands: Normal. No mass. Kidneys and ureters: Polycystic kidneys. There are bilateral hyperdense cystic lesions which can not be further characterized without IV contrast. Stomach and bowel: Colonic constipation is present. Appendix: No evidence of appendicitis. Intraperitoneal space: Unremarkable. No free air. No significant fluid collection. Vasculature: Unremarkable. No abdominal aortic aneurysm. Lymph nodes: Unremarkable. No enlarged lymph nodes. Urinary bladder: There is a Rothman catheter and contrast in the bladder which is relatively collapsed. Reproductive: Unremarkable as visualized. Bones/joints: Unremarkable. No acute fracture. Soft tissues: Moderate size right inguinal hernia containing the anterior aspect of the bladder. There is mild stranding in the pericystic fat in the region of hernia. CT/[place] [id number] IMPRESSION: 1. Large right perihilar heterogeneous mass which is stable when compared to the prior study. Differential includes neoplasm and or pneumonia. 2. Mediastinal and right perihilar adenopathy is stable compared to the prior study. 3. Moderate right pleural effusion with adjacent compressive atelectasis or pneumonia similar to the prior study. IMPRESSION: 1. Moderate size right inguinal hernia containing the anterior aspect of the bladder associated with stranding in the pericystic fat raising concern for cystitis or bladder ischemia. Please correlate clinically. 2. Bilateral polycystic kidneys. 3. Colonic constipation is present.
[2022-08-14 14:38] LABS: ABG PCO2 50.8 mmHg (35-45); ABG PH Result 7.34 (7.35-7.45); Arterial Blood Gas Hematocrit 35.3 % (42-52); Base Excess ABG 1.2 mmol/L (-2.0-2.0); Blood Gas Allen Test Pos; Blood Gas Operator Identificat CAK; Blood Gas Sample Site Radial, left; Blood Gas Sample Type Arterial; HCO3 ABG 27.6 mmol/L (22-26); Oxygen Device NC
[2022-08-14 15:07] LABS: Thyroid Stimulating Hormone 0.47 uIU/mL (0.27-4.20)
[2022-08-14] MEDS: heparin 5,000 unit/mL INJ 1 mL 5000 UNIT SUBCUT (15:54)
--- NOTE | 2022-08-14 16:42 | PM.CONSULT ---
Providers/Reason For Consult Consulting Physician/Specialty*: Pradip Thornton MD general surgeon Reason for Consult*: RIght inguinal hernia Requesting Physician: hospitalist Karen Joyner MD Attending Physician: Karen Joyner MD Primary Care Provider: Rakesh Nye MD History of Present Illness History of Present Illness Anthony Harding is a 61 year old male who comes in with UTI and breathing difficulties. He had Abdomen and pelvic CT showing right inguinal hernia with bladder in it with some stranding. He has WBC and RBC in urine and has mendez and on antibiotics. He has had left inguinal hernia repaired by his report in past. He states he was told he had right inguinal hernia and plan was to repair that one but he was then told it was just fat and didn't need it repaired. He reduces it himself at home. He never had it incarcerated in past requiring a physician to reduce it. Review of Systems Narrative: Constitutional: denies rigors, singnificant weight gain, increased appetite HEENT: denies chronic cough, blurry vision, excessive tearing, eye pain, flashing lights, odynophagia, painful mastication, change in voice, change in taste, chronic sore throat, hypersalivation Heart: denies racing heart, palpitations, othropnea, PND Lungs: denies hemoptysis, pain with deep inspiration, chronic bronchitis GI: denies hematemesis, hematochezia, dysphagia, tenesmus : denies polyuria, hematuria, painful micturation Musculoskeletal: denies hemarthrosis, Muscle wasting, change in amubation Neuro: denies new onset syncope, dysesthesia, dysequilibrium, ptosis eyelid or face SKin: denies new onset hyperalgia, new rash new cyanosis Endocrine: denies new polyuria, polydipsia, polyphagia, heat intolerance, excessive energy Hem/Onc: denies new petechiae, swollen glands, new excessive epstaxis Psych: denies racing thought Medications/Allergies Home Medications Medication Instructions Recorded Confirmed Last Taken Type methadone 40 mg soluble tablet 105 mg PO DAILY 05/08/19 08/14/22 Unknown History albuterol sulfate 90 mcg/actuation 2 puff inhalation Q6H PRN 06/10/19 08/14/22 Unknown Rx aerosol inhaler (Proventil HFA) shortness of breath or wheezing #18 grams furosemide 40 mg tablet 40 mg PO BID 07/16/19 08/14/22 Unknown History sildenafil 100 mg tablet 100 mg PO DAILY PRN sexual 05/30/22 08/14/22 Unknown Rx activity #20 tabs acetaminophen 500 mg tablet 1,000 mg PO Q6H PRN Pain 08/14/22 08/14/22 Unknown History amlodipine 10 mg tablet 10 mg PO DAILY 08/14/22 08/14/22 Unknown History budesonide-formoterol HFA 80 2 puff inhalation BID 08/14/22 08/14/22 Unknown History mcg-4.5 mcg/actuation aerosol inhaler (Symbicort) levothyroxine 100 mcg tablet 100 mcg PO DAILY 08/14/22 08/14/22 Unknown History tamsulosin 0.4 mg capsule 0.4 mg PO DAILY 08/14/22 08/14/22 Unknown History Allergies Allergy/AdvReac Type Severity Reaction Status Date / Time No Known Allergies Allergy Verified 08/13/22 17:52 Current Medications Generic Name Dose Route Start Last Admin Trade Name Freq PRN Reason Stop Dose Admin Albuterol/Ipratropium 3 ml 08/14/22 00:00 08/14/22 16:38 Ipratropium-Albuterol 3 Ml Neb INHALATION 3 ml Q4H.RESPIRATORY LEONA Administration Docusate Sodium 100 mg 08/14/22 09:00 08/14/22 08:48 Docusate Sodium 100 Mg Capsule PO 100 mg BID LEONA Administration Famotidine 20 mg 08/14/22 00:03 08/14/22 11:25 Famotidine 20 Mg/2 Ml Inj IVP 20 mg Q12H LEONA Administration Heparin Sodium (Porcine) 5,000 unit 08/14/22 14:00 08/14/22 15:54 Heparin 5,000 Unit/Ml Inj 1 Ml SUBCUT 5,000 unit Q12H LEONA Administration Norepinephrine Bitartrate 4 mg 254 mls @ 0 mls/hr 08/13/22 19:15 08/14/22 04:00 / Dextrose IV 8 mcg/min .Q0M LEONA 30.48 mls/hr Administration Protocol Per Protocol Levothyroxine Sodium 100 mcg 08/14/22 09:00 08/14/22 08:49 Levothyroxine 100 Mcg Tablet PO 100 mcg DAILY LEONA Administration Methadone HCl 40 mg 08/14/22 09:00 08/14/22 08:48 Methadone 10 Mg Tablet PO 40 mg DAILY LEONA Administration Tamsulosin HCl 0.4 mg 08/14/22 09:00 08/14/22 08:49 Tamsulosin 0.4 Mg Capsule PO 0.4 mg DAILY LEONA Administration PFSH Acute PFSH: Medical History (Updated 08/14/22 @ 16:50 by Derrek Thornton MD) Benign prostatic hyperplasia with lower urinary tract symptoms BPH loc w urin obs/LUTS CKD (chronic kidney disease), stage III COPD (chronic obstructive pulmonary disease) Hepatitis C Hypertension Hypogonadism in male Hypothyroidism ROBBIE (obstructive sleep apnea) Pulmonary emphysema Renal cysts, acquired, bilateral Surgical History History of ankle surgery History of circumcision History of hernia surgery History of mandibular surgery Family History Mother , at age 46 Cirrhosis of liver Father , at age 78 CAD (coronary artery disease) Denies family history of Diabetes Clotting disorder Dementia Hyperlipidemia Psychiatric illness Chronic kidney disease (CKD) Suicide Anesthesia complication Bleeding disorder Family history of premature coronary artery disease Lung disease Cancer Hypertension Stroke Social History Smoking and tobacco status: current every day smoker cigarettes Packs smoked per day: 0.75 Years cigarettes smoked: 30 [ Other cigarette details: [id number]] Quit status (tobacco): considering quitting Second hand smoke exposure: No Smoking risk assessment/counseling performed?: Yes Alcohol intake: former Substance/Drug Use: never Lives independently: Yes Household members: spouse Marital status: service: No Current occupational status: unemployed and disabled Pets and animals: Yes Do you think of yourself as: Straight/Heterosexual Current gender identity: Male Vitals/I&O/Wt Last Vital Signs Temp 97.8 F 08/14/22 12:00 Pulse 84 08/14/22 16:42 Resp 18 08/14/22 16:35 BP 105/66 08/14/22 15:30 Pulse Ox 93 08/14/22 16:35 O2 Del Method High Flow Nasal Cannula 08/14/22 16:35 O2 Flow Rate 8 08/14/22 16:35 FiO2 40 08/14/22 08:08 08/14/22 08/14/22 08/14/22 06:59 14:59 22:59 Intake Total 168.529 / 3054.000 500 / 500 Output Total 1200 / 1200 Balance -1031.471 / 1854.000 500 / 500 Weight last 48 hrs Weight 175 lb Weight 175 lb Physical Exam Narrative: Patient is a well developed well nourished and in NAD and is afebrile with vitals stable and is answering questions appropriately with a normal affect and is alert and oriented x3 HEENT: normocephalic with normal external ears and nonicteric, oral mucosa moist and dentition normal for age, trachea midline with no large masses visualized Heart: RRR, no gallops murmurs or rubs, normal PMI with no thrills Lungs: normal excursions, no loud audible wheezing, no subcutaneous emphysema Abdomen: nondistended, no gross hepatosplenomegaly, no masses, no rigidity or rebound, no loud borborygmi Neuro: nonfocal, LEHMAN, grossly normal sensation Musculoskeletal: good muscle tone, no fasciculations, normal gait Skin: pink warm and dry with no rashes or ecchymosis Vascular: good radial pulses, no ulceration, less than 2 second capillary refill in hand : easily reducible right inguinal hernia with normal overlying skin and no edema Urinary Catheter Management: Mendez: Cath Placed During This Visit: yes Reason for Continuing Indwelling Catheter: Accurate Measurement of Urinary Output in Critically Ill Patients Urinary Catheter Date of Insertion: 08/13/22 Urinary Catheter Time of Insertion: 19:50 Data 08/14/22 03:36 08/14/22 03:36 Micro: Microbiology 08/13/22 18:21 Blood Culture - Preliminary Blood SPECIMEN COLLECTED 08/13/22 18:15 Blood Culture - Preliminary Blood SPECIMEN COLLECTED A&P Assessment and plan (1) Inguinal hernia of right side without obstruction or gangrene: Easily reducible inguinal hernia on right side with no pain or tenderness and normal overlying skin and no edema or warmth. Stranding on CT likely due to UTI. He can have hernia repaired electively as outpatient once infection is cleared up. He has been told how to reduce hernia and was shown by bedside and told to come in if he can't reduce it. He will have modigied truss made in hospital with rolled up guaze and abdominal binder on while in bed. He can go home with right inguinal hernia truss that he can get from medical supply store. He can follow up with Dr. Romano to get hernia repair in future. Coding Level of Care Code Acute Code for Chg Fwd Diagnoses Inguinal hernia of right side without obstruction or gangrene K40.90
[2022-08-14 17:55] LABS: Add Urine Microscopic? YES; Bilirubin Urine Neg (Negative); Blood Urine 2+ (Negative); Glucose Urine UA 1+ (Normal); Ketones Urine Negative (Negative); Leukocyte Esterase Urine 1+ (Negative); Nitrate Urine Negative (Negative); Protein Urine Neg (Negative); Urine Appearance Clear (CLEAR); Urine Color Yellow (Yellow); Urobilinogen Urine Norm (Negative); pH Urine 5 (5-7)
[2022-08-14 17:59] LABS: Add Urine Culture? Yes; Bacteria Urine 1+ /hpf; RBC Urine RARE /hpf (0-2); WBC Urine 15-25 /hpf (0-5)
[2022-08-14] MEDS: cefTRIAXone 1,000 MG in sodium chloride 0.9% (plus) 50 ML 100 MG IV (18:00)
[2022-08-14 18:12] LABS: Urine Random Sodium 41 mmol/L
[2022-08-14] MEDS: TRAMadol 50 mg Tablet PO (20:41)
[2022-08-14] MEDS: azithromycin 500 MG in sodium chloride 0.9% 250 ML 250 MG IV (20:43)
[2022-08-15] VITALS (58 sets, daily range): BP systolic 81–125; BP diastolic 50–84; PULSE 77–136; RESP 7–29; TEMP 36.4–36.7; O2SAT 89–95
[2022-08-15] MEDS: famotidine 20 mg/2 mL INJ IVP ×2 (00:57→12:13)
[2022-08-15] MEDS: heparin 5,000 unit/mL INJ 1 mL 5000 UNIT SUBCUT ×2 (02:26→14:04)
[2022-08-15] MEDS: ipratropium-albuterol 3 mL Neb INHALATION ×6 (03:14→23:59)
[2022-08-15 04:06] LABS: Basophils # 0.1 10^3/uL (0.0-0.1); Basophils % 0.3 %; Hematocrit 33.9 % (42.0-52.0); Hemoglobin 11.1 g/dL (11.7-16.6); Lymphocytes # 1.3 10^3/uL (0.8-4.8); Lymphocytes % 2.7 %; Mean Corpuscular HGB Conc 32.7 g/dL (30.0-36.0); Mean Corpuscular Hemoglobin 30.8 pg (28.0-34.0); Mean Corpuscular Volume 94.2 fl (80-94); Mean Platelet Volume 10.2 fL (7.4-10.4); Monocytes # 1.7 10^3/uL (0.2-0.9); Monocytes % 3.5 %; Neutrophils # 43.56 10^3/uL (1.8-7.7); Neutrophils % 90.9 %; Nucleated Red Blood Cells % 0 %; Platelet Count 440 10^3/cmm (130-400); Red Cell Distribution Width 14.4 % (12.1-15.1)
[2022-08-15 04:14] LABS: White Blood Count 47.9 10^3/uL (4.0-10.0)
[2022-08-15 04:18] LABS: Anion Gap 14.9 (5-19); Blood Urea Nitrogen 32 mg/dL (8-23); Calcium 8.3 mg/dL (8.5-10.5); Carbon Dioxide 26 mmol/L (22-29); Chloride 95 mmol/L (98-107); Glomerular Filtration Rate 47.3 mL/min (90-130); Glucose 187 mg/dL (65-115); Osmolality Calculated 286 mOsm/kg (285-295); Potassium 3.9 mmol/L (3.5-5.1); Sodium 132 mmol/L (136-145)
[2022-08-15] MEDS: methadone 10 mg Tablet 40 MG PO (09:01)
[2022-08-15] MEDS: docusate sodium 100 mg Capsule PO ×2 (09:04→17:49)
[2022-08-15] MEDS: predniSONE 20 mg Tablet 40 MG PO (09:04)
[2022-08-15] MEDS: levothyroxine 100 mcg Tablet PO (09:04)
[2022-08-15] MEDS: tamsulosin 0.4 mg Capsule PO (09:05)
[2022-08-15] MEDS: sodium chloride 0.9% 1,000 ML 999 ML IV (09:26)
--- NOTE | 2022-08-15 10:44 | P.PN_ITS ---
Subjective Subjective: Leukocytosis around 47,000 Afebrile Currently on 6 L Levophed at 4 mics Creatinine improving Adequate urine output Patient was examined by general surgeon yesterday who recommended conservative management Patient is agreeable for bronchoscopy, Dr. 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 Vitals/I&O/Wt Last Vital Signs Temp 98.0 F 08/15/22 05:41 Pulse 88 08/15/22 10:00 Resp 16 08/15/22 10:00 BP 112/65 08/15/22 10:00 Pulse Ox 94 08/15/22 10:00 O2 Del Method Nasal Cannula 08/15/22 10:00 O2 Flow Rate 6 08/15/22 10:00 FiO2 40 08/15/22 05:37 08/14/22 08/15/22 08/15/22 22:59 06:59 14:59 Intake Total 500 / 1254 193.676 / 1447.676 144.78 / 144.78 Output Total 1999 / 1999 500 / 2500 Balance -1500 / -746 -306.324 / -1052.324 144.78 / 144.78 Weight last 48 hrs Weight 81.193 kg Weight 79.379 kg Weight 79.379 kg Physical Exam Narrative: Patient sitting comfortably in his bed Awake and alert Abdomen soft Rothman catheter in place GCS 15 Currently on 6 L nasal cannula Currently on Levophed Nonfocal neuro exam S1, S2 Right IJ in place Urinary Catheter Management: Rothman: Cath Placed During This Visit: yes Reason for Continuing Indwelling Catheter: Accurate Measurement of Urinary Output in Critically Ill Patients Urinary Catheter Date of Insertion: 08/13/22 Urinary Catheter Time of Insertion: 19:50 Data 08/15/22 03:48 08/15/22 03:48 Micro: Microbiology 08/13/22 18:21 Blood Culture - Preliminary Blood NEGATIVE TO DATE 08/13/22 18:15 Blood Culture - Preliminary Blood NEGATIVE TO DATE A&P Assessment and plan (1) Inguinal hernia of right side without obstruction or gangrene: (2) Acute respiratory failure: (3) Pneumonia: (4) Abnormal CT scan, chest: (5) COPD (chronic obstructive pulmonary disease): Qualifiers: COPD type: unspecified COPD Qualified Code(s): J44.9 - Chronic obstructive pulmonary disease, unspecified (6) Hyponatremia: (7) Nicotine dependence, cigarettes, with unspecified nicotine-induced disorders: (8) Hypertension: Qualifiers: Hypertension type: essential hypertension Qualified Code(s): I10 - Essential (primary) hypertension (9) Hypothyroidism: (10) CKD (chronic kidney disease), stage III: (11) Hepatitis C: (12) ROBBIE (obstructive sleep apnea): (13) BPH loc w urin obs/LUTS: Plan Hypovolemic shock: Patient still requiring Levophed We will give him a bolus of fluids and wean off Levophed today From the sepsis criteria, afebrile, Significant leukocytosis, concerns related to underlying malignancy Will consult Dr. Turner on Monday when he is on-call He will need bronchoscopy Continue antibiotics Community-acquired pneumonia Requested urine antigens, sputum culture, UTI: Continue antibiotics Afebrile Urine culture showing mixed theresa Right inguinal hernia Signs obstruction or gangrene it is reversible, Appreciate general surgery recommendations Conservative management for now Hypoxia related to chronic right pneumonia with possibility of underlying lung cancer Currently on 6 L nasal cannula BiPAP can be used on as-needed basis BAHMAN related to UTI Creatinine improving it is 1.5 today Hyponatremia improved with IV fluid hydration currently sodium is 132 without any active symptoms Patient most likely will stay in the hospital for next 48 hours Continue ICU management Full code We will make him n.p.o. after midnight in case he goes for bronchoscopy tomorrow Hold DVT prophylaxis for tonight Attestations Medical Necessity Statement*: Continue ICU management Diagnoses Inguinal hernia of right side without obstruction or gangrene K40.90 Acute respiratory failure J96.[address] scan, chest R93.89 COPD (chronic obstructive pulmonary disease) J44.9 COPD type: unspecified COPD Hyponatremia E87.1 Nicotine dependence, cigarettes, with unspecified nicotine-induced disorders F17.219 Hypertension I10 Hypertension type: essential hypertension Hypothyroidism E03.9 CKD (chronic kidney disease), stage III N18.3 Hepatitis C B19.20 ROBBIE (obstructive sleep apnea) G47.33 BPH loc w urin obs/LUTS N40.1
--- NOTE | 2022-08-15 17:15 | P.PN_ITS ---
Subjective Subjective: Patient complains of right chest pain with deep inspiration. He denies right pain where RIH was reduced Vitals/I&O/Wt Last Vital Signs Temp 97.6 F 08/15/22 10:30 Pulse 95 08/15/22 16:00 Resp 24 H 08/15/22 16:00 BP 110/72 08/15/22 16:00 Pulse Ox 94 08/15/22 16:00 O2 Del Method Nasal Cannula 08/15/22 16:00 O2 Flow Rate 6 08/15/22 16:00 FiO2 40 08/15/22 05:37 08/15/22 08/15/22 08/15/22 06:59 14:59 22:59 Intake Total 193.676 / 1447.676 144.78 / 144.78 Output Total 500 / 2500 Balance -306.324 / -1052.324 144.78 / 144.78 Weight last 48 hrs Weight 179 lb Weight 175 lb Weight 175 lb Physical Exam Narrative: Patient is a well developed well nourished and in NAD and is afebrile with vi tals stable and is answering questions appropriately with a normal affect and is alert and oriented x3 HEENT: normocephalic with normal external ears and nonicteric, oral mucosa moist and dentition normal for age, trachea midline with no large masses visualized Heart: RRR, no gallops murmurs or rubs, normal PMI with no thrills Lungs: normal excursions, no loud audible wheezing, no subcutaneous emphysema Abdomen: nondistended, no gross hepatosplenomegaly, no masses, no rigidity or rebound, no loud borborygmi Neuro: nonfocal, LEHMAN, grossly normal sensation Musculoskeletal: good muscle tone, no fasciculations, normal gait Skin: pink warm and dry with no rashes or ecchymosis Vascular: good radial pulses, no ulceration, less than 2 second capillary refill in hand : deferred Urinary Catheter Management: Mendez: Cath Placed During This Visit: yes Reason for Continuing Indwelling Catheter: Accurate Measurement of Urinary Output in Critically Ill Patients Urinary Catheter Date of Insertion: 08/13/22 Urinary Catheter Time of Insertion: 19:50 Data 08/15/22 03:48 08/15/22 03:48 Micro: Microbiology 08/15/22 12:50 Gram Stain - Final Sputum - Expectorated Sputum 08/15/22 11:15 Bacterial Antigens - Final Urine,Clean Catch 08/15/22 11:15 Legionella Urinary Antigen - Final Urine Catheterized 08/13/22 19:50 Urine Culture - Final Urine,Clean Catch 08/13/22 18:21 Blood Culture - Preliminary Blood NEGATIVE TO DATE 08/13/22 18:15 Blood Culture - Preliminary Blood NEGATIVE TO DATE A&P Assessment and plan (1) Inguinal hernia of right side without obstruction or gangrene: Patient denies any RIH pain or tenderness. Hernia remains reduced. He is tolerating general diet and passing some flatus. He denies any N/V and urine is clear yellow in mendez bag with no gross blood. No acute repair of hernia at this time. It can be done as outpatient when patient is stable and with no active infections. Attestations Medical Necessity Statement*: Patient on vasopressors and needs to be in ICE Coding Level of Care Code 05196 Diagnoses Inguinal hernia of right side without obstruction or gangrene K40.90
--- NOTE | 2022-08-15 19:56 | P.TS_ITS ---
Transfer Summary Providers Date of Admission: 08/14/22 00:03 Date of Discharge/Transfer: 08/15/22 Attending Provider at Admission: Beltran Thomas DO Attending Provider at Transfer: Melissa Joyner MD Primary Care Provider: Rakesh Nye MD Transfer Plans: Anticipated date of transfer: 08/15/22 . Diagnoses at Discharge Discharge Diagnosis (1) Inguinal hernia of right side without obstruction or gangrene: Status: Acute Reason for Visit Reason for Visit SOB\ABD Pain Hospital Course Hospital Course 61-year-old male, active smoker, who was admitted for management of acute hypoxic respiratory failure he was put on BiPAP to decrease work of breathing, he was diagnosed with pneumonia with concern for lung mass right perihilar region, his white count increased from 28,000-42,[address] scan of chest abdomen pelvis did not show any signs of cancer with mets however radiologist still rated as probable lung mass, I consulted track laying equipment operator who did bedside ultrasound and notified us that patient has complicated multiple locula soren effusions, there is likely underlying empyema, his antibiotics were escalated to vancomycin and Zosyn from ceftriaxone and azithromycin, we do not have cardiothoracic on-call until Monday, patient has been accepted by Dr. Peters at [facility]. Currently patient is on 6 L nasal cannula, hemodynamically stable this morning he was weaned off Levophed, please note he never spiked fever, his lactic acid was normal required 1 L bolus this morning to wean him off Levophed. His creatinine on admission was 3.5 which has improved to 1.5 today, he has been making adequate urine on daily basis with IV fluid resuscitation, , UA consistent with pyuria, urine culture showing mixed theresa, blood cultures negative, MRSA nares PCR negative, right inguinal hernia with concern for bladder ischemia General surgery was consulted who recommended conservative management as his inguinal hernia was reducible there is no signs of gangrene or ischemia bladder at this point, Hernia repair recommeded on outpatient settings. Physical Exam Narrative: Patient sitting comfortably in his bed, feels sob after eating Awake and alert Abdomen soft, reducible inguinal hernia GCS 15 Currently on 6 L nasal cannula Currently on Levophed Nonfocal neuro exam S1, S2 Right IJ in placed on admission day mendez placed on admission day 08/13/22 Urinary Catheter Management: Mendez: Cath Placed During This Visit: yes Reason for Continuing Indwelling Catheter: Accurate Measurement of Urinary Output in Critically Ill Patients Urinary Catheter Date of Insertion: 08/13/22 Urinary Catheter Time of Insertion: 19:50 TS Data Studies Completed and Pending Pending at discharge Category Date Time Status Blood Culture Stat Lab 08/13/22 18:21 Results CMP [Comprehensive Metabolic Panel] AM LABS Lab 08/16/22 04:00 Ordered Complete Blood Count w/Auto AM LABS Lab 08/16/22 04:00 Ordered MRSA by PCR Routine Lab 08/15/22 11:15 Received Osmolality Serum Routine Lab 08/14/22 14:00 Received Osmolality Urine Routine Lab 08/14/22 17:25 Received Sputum Culture and Gram Stain Routine Lab 08/15/22 12:50 Results Labs from last 24 hours 08/15/22 08/15/22 03:48 03:48 WBC 47.9 H* RBC 3.60 L Hgb 11.1 L Hct 33.9 L MCV 94.2 H MCH 30.8 MCHC 32.7 RDW 14.4 Plt Count 440 H MPV 10.2 Neut % (Auto) 90.9 Lymph % (Auto) 2.7 [place] % (Auto) 3.5 Eos % (Auto) 0.0 Baso % (Auto) 0.3 Neut # (Auto) 43.56 H Lymph # (Auto) 1.3 [place] # (Auto) 1.7 H Eos # (Auto) 0.0 Baso # (Auto) 0.1 Nucleated RBC % (auto) 0 Nucleated RBCs # 0.0 Sodium 132 L Potassium 3.9 Chloride 95 L Carbon Dioxide 26 Anion Gap 14.9 BUN 32 H Creatinine 1.5 H GFR Calculation 47.3 L Glucose 187 H Calculated Osmolality 286 Calcium 8.3 L Completed Studies During Hospitalization Category Date Time Status CT angio chest PE protcl [id number] Stat Cat Scan 08/13/22 18:[address] [place] [id number] Routine Cat Scan 08/14/22 13:06 Completed XR chest 1V portable [id number] Stat Exams 08/13/22 17:19 Completed XR chest 1V portable [id number] Stat Exams 08/13/22 20:24 Completed Laboratory Last Values WBC 47.9 10^3/uL (4.0-10.0) H* 08/15/22 03:48 RBC 3.60 10^6/uL (4.1-5.3) L 08/15/22 03:48 Hgb 11.1 g/dL (11.7-16.6) L 08/15/22 03:48 Hct 33.9 % (42.0-52.0) L 08/15/22 03:48 MCV 94.2 fl (80-94) H 08/15/22 03:48 MCH 30.8 pg (28.0-34.0) 08/15/22 03:48 MCHC 32.7 g/dL (30.0-36.0) 08/15/22 03:48 RDW 14.4 % (12.1-15.1) 08/15/22 03:48 Plt Count 440 10^3/cmm (130-400) H 08/15/22 03:48 MPV 10.2 fL (7.4-10.4) 08/15/22 03:48 Neut % (Auto) 90.9 % 08/15/22 03:48 Lymph % (Auto) 2.7 % 08/15/22 03:48 [place] % (Auto) 3.5 % 08/15/22 03:48 Eos % (Auto) 0.0 % 08/15/22 03:48 Baso % (Auto) 0.3 % 08/15/22 03:48 Neut # (Auto) 43.56 10^3/uL (1.8-7.7) H 08/15/22 03:48 Lymph # (Auto) 1.3 10^3/uL (0.8-4.8) 08/15/22 03:48 [place] # (Auto) 1.7 10^3/uL (0.2-0.9) H 08/15/22 03:48 Eos # (Auto) 0.0 10^3/uL (0.0-0.8) 08/15/22 03:48 Baso # (Auto) 0.1 10^3/uL (0.0-0.1) 08/15/22 03:48 Nucleated RBC % (auto) 0 % 08/15/22 03:48 Nucleated RBCs # 0.0 /100WBC 08/15/22 03:48 D-Dimer 2.44 ug/mIFEU (0-0.59) H 08/13/22 17:37 Specimen Type Arterial 08/14/22 14:26 Sample Site Radial, left 08/14/22 14:26 ABG pH 7.34 (7.35-7.45) L 08/14/22 14:26 ABG pCO2 50.8 mmHg (35-45) H 08/14/22 14:26 ABG pO2 65.0 mmHg (80.0-100.0) L 08/14/22 14:26 ABG HCO3 27.6 mmol/L (22-26) H 08/14/22 14:26 ABG O2 Saturation 93.4 08/13/22 19:05 ABG Base Excess 1.2 mmol/L (-2.0-2.0) 08/14/22 14:26 Star Test Pos 08/14/22 14:26 A-a O2 Gradient 22.9 mmHg (5-10) H 08/13/22 19:05 Hematocrit 35.3 % (42-52) L 08/14/22 14:26 Hgb O2 Saturation 91.5 % (95-100) L 08/13/22 19:05 Carboxyhemoglobin 1.7 %THgb (0.4-20.1) 08/13/22 19:05 Methemoglobin 0.3 % (0.4-1.5) L 08/13/22 19:05 Total Hemoglobin 11.7 g/dL (14-18) L 08/13/22 19:05 Sodium 130.0 mmol/L (131-143) L 08/13/22 19:05 Potassium 4.4 mmol/L (3.5-5.0) 08/13/22 19:05 Glucose 116.0 mg/dL (70-115) H 08/13/22 19:05 Ionized Calcium 1.2 mmol/L (1.1-1.4) 08/13/22 19:05 O2 Delivery Device Nc 08/14/22 14:26 O2 Liters/Min 8.0 % 08/14/22 14:26 FiO2 45.0 % 08/13/22 19:05 PEEP 7.0 cmH20 08/13/22 19:05 Pilot Captain ID Cak 08/14/22 14:26 Sodium 132 mmol/L (136-145) L 08/15/22 03:48 Potassium 3.9 mmol/L (3.5-5.1) 08/15/22 03:48 Chloride 95 mmol/L (98-107) L 08/15/22 03:48 Carbon Dioxide 26 mmol/L (22-29) 08/15/22 03:48 Anion Gap 14.9 (5-19) 08/15/22 03:48 BUN 32 mg/dL (8-23) H 08/15/22 03:48 Creatinine 1.5 mg/dL (0.7-1.2) H 08/15/22 03:48 GFR Calculation 47.3 mL/min (90-130) L 08/15/22 03:48 Glucose 187 mg/dL (65-115) H 08/15/22 03:48 Calculated Osmolality 286 mOsm/kg (285-295) 08/15/22 03:48 Lactic Acid 2.2 mmol/L (0.5-2.2) 08/13/22 18:15 Lactic Acid (Sepsis) 0.8 mmol/L (0.5-2.2) 08/13/22 23:00 Calcium 8.3 mg/dL (8.5-10.5) L 08/15/22 03:48 Total Bilirubin 0.8 mg/dL (0.15-1.2) 08/13/22 17:37 AST 13 U/L (0-40) 08/13/22 17:37 ALT 11 U/L (0-41) 08/13/22 17:37 Alkaline Phosphatase 102 U/L (40-130) 08/13/22 17:37 Troponin T Baseline 37 ng/L (0-15) H 08/13/22 17:37 Troponin T 120 Minute 31.45 ng/L (0-15) H 08/13/22 19:37 Delta Troponin T -5.55 ABS# (0-10) L 08/13/22 19:37 Troponin T Hi Sens 6Hr 22.61 ng/L (0-15) H 08/13/22 23:00 Troponin T Hi Sens 6Hr Delta -14.39 ng/L (0-12) L 08/13/22 23:00 Total Protein 7.7 g/dL (6.6-8.7) 08/13/22 17:37 Albumin 3.7 g/dL (3.5-5.2) 08/13/22 17:37 Globulin 4.0 g/dL (1.3-4.6) 08/13/22 17:37 Lipase 8 U/L (13-60) L 08/13/22 17:37 TSH 0.47 uIU/mL (0.27-4.20) 08/14/22 14:00 Urine Color Yellow (Yellow) 08/14/22 17:25 Urine Appearance Clear (CLEAR) 08/14/22 17:25 Urine pH 5 (5-7) 08/14/22 17:25 Ur Specific [place] 1.020 (1.005-1.030) 08/14/22 17:25 Urine Protein Neg (Negative) 08/14/22 17:25 Urine Glucose (UA) 1+ (Normal) H 08/14/22 17:25 Urine Ketones Negative (Negative) 08/14/22 17:25 Urine Blood 2+ (Negative) H 08/14/22 17:25 Urine Nitrate Negative (Negative) 08/14/22 17:25 Urine Bilirubin Neg (Negative) 08/14/22 17:25 Urine Urobilinogen Norm mg/dL (Negative) 08/14/22 17:25 Ur Leukocyte Esterase 1+ (Negative) H 08/14/22 17:25 Urine RBC Rare /hpf (0-2) 08/14/22 17:25 Urine WBC 15-25 /hpf (0-5) H 08/14/22 17:25 Ur Squamous Epith Cells None /hpf (0-5) 08/14/22 17:25 Other Crystals Calcium carbonate /hpf 08/13/22 19:50 Amorphous Sediment Not Reportable 08/14/22 17:25 Urine Bacteria 1+ /hpf (NONE) H 08/14/22 17:25 Hyaline Casts 0-4 /lpf H 08/13/22 19:50 Urine Mucus 1+ /hpf 08/13/22 19:50 Ur Random Sodium 41 mmol/L 08/14/22 17:25 Coronavirus 229E (PCR) Not detected (NOT DETECT) 08/13/22 21:53 SARS-CoV-2 (PCR) Not detected (NOT DETECT) 08/13/22 21:53 Radiology Impressions Chest CTA 08/13/22 18:07 IMPRESSION: 1. CTA exam with comparison unenhanced CT 08/19/2021. Somewhat limited exam due to artifacts. 2. No large/central PE with limitations described above. 3. Large right perihilar heterogeneous consolidation versus mass with irregular enhancement and small areas of consolidation in the right lower lobe as described above. Considerations include infectious pneumonia versus neoplasm and follow-up should be obtained. Other nonacute lung findings as above. 4. Interval increase of enlarged mediastinal and right hilar adenopathy which may be metastatic versus reactive. New small right pleural effusion and probable pleural thickening with convex margins. See discussion above. 5. Coronary calcification and minimal ascending aortic dilatation at 4.1 cm. 6. Incidental hepatic findings as above. COMMENTS: In the absence of a history or active diagnosis of lung cancer, it is recommended that this patient with emphysema be evaluated for enrollment in a low dose CT lung cancer screening program. Chest X-Ray 08/13/22 20:24 IMPRESSION: Right IJ placement as described. No other significant change. Chest/Abdomen/Pelvis CT 08/14/22 13:06 IMPRESSION: 1. Large right perihilar heterogeneous mass which is stable when compared to the prior study. Differential includes neoplasm and or pneumonia. 2. Mediastinal and right perihilar adenopathy is stable compared to the prior study. 3. Moderate right pleural effusion with adjacent compressive atelectasis or pneumonia similar to the prior study. IMPRESSION: 1. Moderate size right inguinal hernia containing the anterior aspect of the bladder associated with stranding in the pericystic fat raising concern for cystitis or bladder ischemia. Please correlate clinically. 2. Bilateral polycystic kidneys. 3. Colonic constipation is present. ADDENDUM: 08/14/22 [id number] CRITICAL RESULT: The study was personally discussed on the telephone with MELISSA Vila on 08/14/2022 3:47 PM CDT. The results were understood and acknowledged. Recent Clincial Data Last Vital Signs Temp 97.6 F 08/15/22 10:30 Pulse 102 H 08/15/22 19:00 Resp 16 08/15/22 19:00 BP 123/74 08/15/22 19:00 Pulse Ox 92 08/15/22 19:00 O2 Del Method Nasal Cannula 08/15/22 18:00 O2 Flow Rate 6 08/15/22 18:00 FiO2 40 08/15/22 05:37 Vital Signs Temp Pulse Resp BP Pulse Ox O2 Del Method O2 Flow Rate 08/15/22 19:00 102 H 16 123/74 92 08/15/22 18:30 114/84 08/15/22 18:00 99 19 H 112/77 94 Nasal Cannula 6 08/15/22 17:30 93 21 H 107/67 94 Nasal Cannula 6 08/15/22 17:00 90 18 113/71 89 L Nasal Cannula 6 08/15/22 16:30 98 22 H 109/76 91 Nasal Cannula 6 08/15/22 16:00 95 24 H 110/72 94 Nasal Cannula 6 08/15/22 15:30 100 27 H 112/73 90 Nasal Cannula 6 08/15/22 15:00 85 19 H 107/70 92 Nasal Cannula 6 08/15/22 14:30 91 19 H 112/70 91 Nasal Cannula 6 08/15/22 14:00 91 19 H 109/66 92 Nasal Cannula 6 08/15/22 15:18 92 08/15/22 15:11 94 18 91 High Flow Nasal Cannula 8 08/15/22 14:27 92 08/15/22 13:30 93 15 109/65 93 Nasal Cannula 6 08/15/22 13:00 92 15 106/66 94 Nasal Cannula 6 08/15/22 12:30 93 15 109/69 93 08/15/22 12:00 99 26 H 107/76 91 Nasal Cannula 6 08/15/22 11:30 91 22 H 103/64 92 Nasal Cannula 6 08/15/22 11:00 94 24 H 106/59 92 Nasal Cannula 6 08/15/22 10:30 97.6 F 86 15 108/59 95 Nasal Cannula 6 08/15/22 11:29 93 08/15/22 11:20 94 18 92 Nasal Cannula 8 08/15/22 10:00 88 16 112/65 94 Nasal Cannula 6 08/15/22 09:30 87 17 112/73 93 Nasal Cannula 6 08/15/22 09:00 88 18 100/62 92 Nasal Cannula 6 08/15/22 09:01 18 92 08/15/22 08:30 83 7 L 109/68 92 08/15/22 08:00 90 19 H 113/70 91 08/15/22 08:35 82 08/15/22 08:25 87 16 92 High Flow Nasal Cannula 8 Intake & Output/Weight 08/13/22 08/14/22 08/15/22 08/16/22 06:59 06:59 06:59 06:59 Intake Total 3054.000 / 3054.000 1447.676 / 1447.676 144.78 / 144.78 Output Total 1200 / 1200 2500 / 2500 1200 / 1200 Balance 1854.000 / 1854.000 -1052.324 / -1052.324 -1055.22 / -1055.22 Weight 79.379 kg 81.193 kg Vitals Last Vital Signs Temp 97.6 F 08/15/22 10:30 Pulse 102 H 08/15/22 19:00 Resp 16 08/15/22 19:00 BP 123/74 08/15/22 19:00 Pulse Ox 92 08/15/22 19:00 O2 Del Method Nasal Cannula 08/15/22 18:00 O2 Flow Rate 6 08/15/22 18:00 FiO2 40 08/15/22 05:37 TS Medications Medications Acetaminophen (Acetaminophen 325 Mg Tablet) 650 mg PO Q6H PRN PRN Reason: MILD PAIN Albuterol/Ipratropium (Ipratropium-Albuterol 3 Ml Neb) 3 ml INHALATION Q4H.RESP IRATORY [facility] Last Admin: 08/15/22 15:11 Dose: 3 ml Docusate Sodium (Docusate Sodium 100 Mg Capsule) 100 mg PO BID [facility] Last Admin: 08/15/22 17:49 Dose: 100 mg Famotidine (Famotidine 20 Mg/2 Ml Inj) 20 mg IVP Q12H [facility] Last Admin: 08/15/22 12:13 Dose: 20 mg Heparin Sodium (Porcine) (Heparin 5,000 Unit/Ml Inj 1 Ml) 5,000 unit SUBCUT Q12H [facility] Last Admin: 08/15/22 14:04 Dose: 5,000 unit Norepinephrine Bitartrate 4 mg (/ Dextrose) 254 mls @ 0 mls/hr IV .Q0M [facility]; Protocol Last Titration: 08/15/22 09:40 Dose: 4 mcg/min, 15.24 mls/hr Vancomycin HCl / Sodium (Chloride) 250 mls @ 0 mls/hr [id number] PROTOCOL [facility]; Protocol Piperacillin Sod/Tazobactam (Sod 3.375 gm/ Sodium Chloride) 50 mls @ 12.5 mls/hr IV Q8H [facility] Vancomycin/PEG/[place]/Lysine/Water (Vancocin) 1,250 mg in 250 mls @ 250 mls/hr IV Q18H [facility] Levothyroxine Sodium (Levothyroxine 100 Mcg Tablet) 100 mcg PO DAILY [facility] Last Admin: 08/15/22 09:04 Dose: 100 mcg Lorazepam (Lorazepam 2 Mg/Ml Inj 1 Ml) 0.5 mg IVP Q6H PRN PRN Reason: ANXIETY Methadone HCl (Methadone 10 Mg Tablet) 40 mg PO DAILY [facility] Last Admin: 08/15/22 09:01 Dose: 40 mg Ondansetron HCl (Ondansetron 2 Mg/Ml Sdv 2 Ml) 4 mg IVP Q6H PRN PRN Reason: NAUSEA AND VOMITING Prednisone (Prednisone 20 Mg Tablet) 40 mg PO DAILY [facility] Last Admin: 08/15/22 09:04 Dose: 40 mg Tamsulosin HCl (Tamsulosin 0.4 Mg Capsule) 0.4 mg PO DAILY [facility] Last Admin: 08/15/22 09:05 Dose: 0.4 mg Tramadol HCl (Tramadol 50 Mg Tablet) 50 mg PO Q6H PRN PRN Reason: PAIN Last Admin: 08/14/22 20:41 Dose: 50 mg Discontinued Medications Albuterol/Ipratropium (Ipratropium-Albuterol 3 Ml Neb) 3 ml INHALATION ONCE ONE Stop: 08/13/22 17:36 Last Admin: 08/13/22 17:46 Dose: 3 ml Dexamethasone (Dexamethasone 10 Mg/Ml Inj) 10 mg IVP ONCE ONE Stop: 08/13/22 17:36 Last Admin: 08/13/22 18:04 Dose: 10 mg Dexamethasone (Dexamethasone 4 Mg/Ml Inj) 4 mg IVP Q6H [facility] Last Admin: 08/14/22 11:25 Dose: 4 mg Enoxaparin Sodium (Enoxaparin 40 Mg/0.4 Ml Syringe) 40 mg SUBCUT Q24H [facility] Last Admin: 08/14/22 00:43 Dose: 40 mg Fentanyl (Fentanyl 50 Mcg/Ml Inj 2ml) 25 mcg IVP Q1H PRN PRN Reason: Severe Pain, see comments Azithromycin 500 mg/ Sodium (Chloride) 250 mls @ 250 mls/hr IV ONCE ONE; Protocol Stop: 08/13/22 19:08 Last Infusion: 08/13/22 22:34 Dose: Infused Ceftriaxone Sodium 1,000 mg/ (Sodium Chloride) 50 mls @ 100 mls/hr IV ONCE ONE; Protocol Stop: 08/13/22 18:38 Last Infusion: 08/13/22 20:02 Dose: Infused Sodium Chloride (Sodium Chloride 0.9%) 1,000 mls @ 999 mls/hr IV .Q1H1M [facility] Stop: 08/13/22 20:45 Last Infusion: 08/13/22 20:01 Dose: Infused Sodium Chloride (Sodium Chloride 0.9%) 500 mls @ 999 mls/hr IV .Q31M ONE Stop: 08/13/22 20:46 Last Infusion: 08/13/22 22:34 Dose: Infused Ceftriaxone Sodium 1,000 mg/ (Sodium Chloride) 50 mls @ 100 mls/hr IV Q24H [facility]; Protocol Last Infusion: 08/14/22 19:00 Dose: Infused Dextrose/Sodium Chloride (Dextrose 5%-Sod Chloride 0.9%) 1,000 mls @ 75 mls/hr IV .[id number] [facility] Last Admin: 08/14/22 23:54 Dose: Not Given Azithromycin 500 mg/ Sodium (Chloride) 250 mls @ 250 mls/hr IV Q24H [facility]; Protocol Last Infusion: 08/14/22 22:00 Dose: Infused Sodium Chloride (Sodium Chloride 0.9%) 1,000 mls @ 999 mls/hr IV .Q1H1M ONE Stop: 08/15/22 10:18 Last Admin: 08/15/22 09:26 Dose: 999 mls/hr Piperacillin Sod/Tazobactam (Sod / Sodium Chloride) 50 mls @ 0 mls/hr [id number] CONT [facility]; Protocol Iohexol (Iohexol 350 Mg/Ml 500 Ml Btl (Per Ml)) 0 ml IV ONCE ONE Stop: 08/13/22 20:58 Last Admin: 08/13/22 20:57 Dose: 45 ml Lorazepam (Lorazepam 2 Mg/Ml Inj 1 Ml) 1 mg IVP NOW ONE Stop: 08/13/22 17:58 Last Admin: 08/13/22 18:04 Dose: 1 mg Morphine Sulfate (Morphine 4 Mg/Ml Sdv 1 Ml) 2 mg IVP ONCE ONE Stop: 08/13/22 18:13 Last Admin: 08/13/22 20:28 Dose: 2 mg Allergies No Known Allergies Allergy (Verified 08/13/22 17:52) Home Medications methadone 40 mg soluble tablet 105 mg PO DAILY 05/08/19 [History Confirmed 08/14/22] albuterol sulfate 90 mcg/actuation aerosol inhaler (Proventil HFA) 2 puff inhalation Q6H PRN shortness of breath or wheezing #18 grams 06/10/19 [Rx Confirmed 08/14/22] furosemide 40 mg tablet 40 mg PO BID 07/16/19 [History Confirmed 08/14/22] sildenafil 100 mg tablet 100 mg PO DAILY PRN sexual activity #20 tabs 05/30/22 [Rx Confirmed 08/14/22] acetaminophen 500 mg tablet 1,000 mg PO Q6H PRN Pain 08/14/22 [History Confirmed 08/14/22] amlodipine 10 mg tablet 10 mg PO DAILY 08/14/22 [History Confirmed 08/14/22] budesonide-formoterol HFA 80 mcg-4.5 mcg/actuation aerosol inhaler (Symbicort) 2 puff inhalation BID 08/14/22 [History Confirmed 08/14/22] levothyroxine 100 mcg tablet 100 mcg PO DAILY 08/14/22 [History Confirmed 08/14/22] tamsulosin 0.4 mg capsule 0.4 mg PO DAILY 08/14/22 [History Confirmed 08/14/22] Discharge Plan Discharge Patient Disposition: [facility] Condition: Serious Prescriptions: No Action furosemide 40 mg tablet 40 mg PO BID methadone 40 mg tablet,soluble 105 mg PO DAILY sildenafil 100 mg tablet 100 mg PO DAILY PRN (Reason: sexual activity) Qty: 20 12RF Rx Instructions: 1 hour before intercourse on empty stomach. NO NITROGLYCERIN! MAXIMUM DOSE = 1 pill albuterol sulfate [Proventil HFA] 90 mcg/actuation HFA aerosol inhaler 2 puff INHALATION Q6H PRN (Reason: shortness of breath or wheezing) Qty: 18 0RF Tylenol Ex Str Rapid Release 500 mg Tablet 1,000 mg PO Q6H PRN (Reason: Pain) levothyroxine 100 mcg tablet 100 mcg PO DAILY tamsulosin 0.4 mg capsule 0.4 mg PO DAILY amlodipine 10 mg tablet 10 mg PO DAILY Symbicort 80-4.5 mcg/actuation Hfa Aerosol Inhaler 2 puff INHALATION BID Discharge Orders: Transfer Out of Facility (Order); Ordered 07/03/23 Ordered By: Melissa Joyner Referrals: Rakesh Nye MD [Primary Care Provider] - Transfer Attestations Time Spent in Transfer Care: greater than 30 min Quality Metrics Clinical Quality Measures [ No reported AMI, CVA or VTE this stay] Coding Level of Care Code Acute Code for Chg Fwd Diagnoses Inguinal hernia of right side without obstruction or gangrene K40.90
[2022-08-15] MEDS: piperacillin-tazobactam 3.375 GM in sodium chloride 0.9% (plus) 50 ML IV (20:25)
[2022-08-15] MEDS: LORazepam 2 mg/mL INJ 1 mL 0.5 MG IVP (20:38)
[2022-08-15] MEDS: TRAMadol 50 mg Tablet PO (20:38)
--- NOTE | 2022-08-15 21:15 | PM.CONSULT ---
Providers/Reason For Consult Consulting Physician/Specialty*: Neftali Turner MD / Pulmonary Critical Care Reason for Consult*: Hypoxic respiratory failure in patient with loculated pleural effusion and reported CT findings of suspected lung malignancy. Requesting Physician: Melissa Joyner MD Attending Physician: Melissa Joyner MD Primary Care Provider: Rakesh Nye MD History of Present Illness History of Present Illness Anthony Harding is a 61 year old male with past medical history of COPD, chronic smoker, chronic pain, hypothyroidism came to the emergency room with a chief complaint of severe respiratory distress and not feeling well for several weeks. He was found to be hypotensive and started on Levophed in the emergency room, he was in respiratory failure requiring BiPAP. CTA during admission 08/13/2022 ruled out pulmonary embolism, showed dense right infiltrate suspicious for pneumonia versus lung mass; small right pleural effusion, enlarged mediastinal hilar lymphadenopathy. Admission WBC 28,000, no fever spikes-he was started on Rocephin and azithromycin and was admitted to ICU. Sputum cultures and blood cultures are negative so far Patient admission creatinine was 3.5-he received contrast for CT angiogram which ruled out PE-he received IV fluids and after starting on pressors-his renal function gradually started getting better and today creatinine is 1.5. Today morning patient WBC count has worsened to 47,000. Patient is currently on 6 L nasal cannula saturating 88 to 92%, Levophed at 2 mics. No fever spikes Patient had right inguinal hernia-a CT chest abdomen release was performed-which showed continued presence of right perihilar mass, mediastinal and right perihilar adenopathy. Moderate right pleural effusion with adjacent compressive atelectasis or pneumonia. As I was not on-call today- hospitalist consulted me on to inform about possible underlying lung malignancy and possible consult for tomorrow morning. I reviewed the CT images and has concerns for potential loculated pleural effusion being the cause of patient's septic shock and have recommended IR guided drainage, however we do not have interventional radiology in the evening time. I checked with bedside ultrasound in the ICU and there was obvious loculated pleural effusion in the posterior right side of the chest. Patient reported that he has some improvement in shortness of breath but is still appears in moderate respiratory distress. Certainly his pressor requirement has come down but he definitely needs intervention followed by monitoring. Unfortunately we do not have 05/09 critical care services as well as no CT surgery on-call till Monday. 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 Regarding the transfer process was initiated Review of Systems General: Reports: 10 or more systems reviewed and unremarkable except in HPI and below Medications/Allergies Home Medications Medication Instructions Recorded Confirmed Last Taken Type methadone 40 mg soluble tablet 105 mg PO DAILY 05/08/19 08/14/22 Unknown History albuterol sulfate 90 mcg/actuation 2 puff inhalation Q6H PRN 06/10/19 08/14/22 Unknown Rx aerosol inhaler (Proventil HFA) shortness of breath or wheezing #18 grams furosemide 40 mg tablet 40 mg PO BID 07/16/19 08/14/22 Unknown History sildenafil 100 mg tablet 100 mg PO DAILY PRN sexual 05/30/22 08/14/22 Unknown Rx activity #20 tabs acetaminophen 500 mg tablet 1,000 mg PO Q6H PRN Pain 08/14/22 08/14/22 Unknown History amlodipine 10 mg tablet 10 mg PO DAILY 08/14/22 08/14/22 Unknown History budesonide-formoterol HFA 80 2 puff inhalation BID 08/14/22 08/14/22 Unknown History mcg-4.5 mcg/actuation aerosol inhaler (Symbicort) levothyroxine 100 mcg tablet 100 mcg PO DAILY 08/14/22 08/14/22 Unknown History tamsulosin 0.4 mg capsule 0.4 mg PO DAILY 08/14/22 08/14/22 Unknown History Allergies Allergy/AdvReac Type Severity Reaction Status Date / Time No Known Allergies Allergy Verified 08/13/22 17:52 Current Medications Generic Name Dose Route Start Last Admin Trade Name Freq PRN Reason Stop Dose Admin Albuterol/Ipratropium 3 ml 08/14/22 00:00 08/15/22 20:17 Ipratropium-Albuterol 3 Ml Neb INHALATION 3 ml Q4H.RESPIRATORY LEONA Administration Docusate Sodium 100 mg 08/14/22 09:00 08/15/22 17:49 Docusate Sodium 100 Mg Capsule PO 100 mg BID LEONA Administration Famotidine 20 mg 08/14/22 00:03 08/15/22 12:13 Famotidine 20 Mg/2 Ml Inj IVP 20 mg Q12H LEONA Administration Heparin Sodium (Porcine) 5,000 unit 08/14/22 14:00 08/15/22 14:04 Heparin 5,000 Unit/Ml Inj 1 Ml SUBCUT 5,000 unit Q12H LEONA Administration Norepinephrine Bitartrate 4 mg 254 mls @ 0 mls/hr 08/13/22 19:15 08/15/22 09:40 / Dextrose IV 4 mcg/min .Q0M LEONA 15.24 mls/hr Titration Protocol Per Protocol Piperacillin Sod/Tazobactam 50 mls @ 12.5 mls/hr 08/15/22 20:00 08/15/22 20:25 Sod 3.375 gm/ Sodium Chloride IV 12.5 mls/hr Q8H LEONA Administration Levothyroxine Sodium 100 mcg 08/14/22 09:00 08/15/22 09:04 Levothyroxine 100 Mcg Tablet PO 100 mcg DAILY LEONA Administration Lorazepam 0.5 mg 08/14/22 00:03 08/15/22 20:38 Lorazepam 2 Mg/Ml Inj 1 Ml IVP 0.5 mg Q6H PRN Administration ANXIETY Methadone HCl 40 mg 08/14/22 09:00 08/15/22 09:01 Methadone 10 Mg Tablet PO 40 mg DAILY LEONA Administration Prednisone 40 mg 08/15/22 09:00 08/15/22 09:04 Prednisone 20 Mg Tablet PO 40 mg DAILY LEONA Administration Tamsulosin HCl 0.4 mg 08/14/22 09:00 08/15/22 09:05 Tamsulosin 0.4 Mg Capsule PO 0.4 mg DAILY LEONA Administration Tramadol HCl 50 mg 08/13/22 23:33 08/15/22 20:38 Tramadol 50 Mg Tablet PO 50 mg Q6H PRN Administration PAIN PFSH Acute PFSH: Medical History Benign prostatic hyperplasia with lower urinary tract symptoms BPH loc w urin obs/LUTS CKD (chronic kidney disease), stage III COPD (chronic obstructive pulmonary disease) Hepatitis C Hypertension Hypogonadism in male Hypothyroidism ROBBIE (obstructive sleep apnea) Pulmonary emphysema Renal cysts, acquired, bilateral Surgical History History of ankle surgery History of circumcision History of hernia surgery History of mandibular surgery Family History Mother , at age 46 Cirrhosis of liver Father , at age 78 CAD (coronary artery disease) Denies family history of Diabetes Clotting disorder Dementia Hyperlipidemia Psychiatric illness Chronic kidney disease (CKD) Suicide Anesthesia complication Bleeding disorder Family history of premature coronary artery disease Lung disease Cancer Hypertension Stroke Social History Smoking and tobacco status: current every day smoker cigarettes Packs smoked per day: 0.75 Years cigarettes smoked: 30 [ Other cigarette details: [id number]] Quit status (tobacco): considering quitting Second hand smoke exposure: No Smoking risk assessment/counseling performed?: Yes Alcohol intake: former Substance/Drug Use: never Lives independently: Yes Household members: spouse Marital status: service: No Current occupational status: unemployed and disabled Pets and animals: Yes Do you think of yourself as: Straight/Heterosexual Current gender identity: Male Vitals/I&O/Wt Last Vital Signs Temp 97.6 F 08/15/22 10:30 Pulse 106 H 08/15/22 20:00 Resp 14 08/15/22 20:00 BP 123/74 08/15/22 19:00 Pulse Ox 91 08/15/22 20:00 O2 Del Method High Flow Nasal Cannula 08/15/22 20:00 O2 Flow Rate 8 08/15/22 20:00 FiO2 40 08/15/22 05:37 08/15/22 08/15/22 08/15/22 06:59 14:59 22:59 Intake Total 193.676 / 1447.676 144.78 / 144.78 Output Total 500 / 2500 1200 / 1200 Balance -306.324 / -1052.324 144.78 / 144.78 -1200 / -1055.22 Weight last 48 hrs Weight 179 lb Weight 175 lb Physical Exam Narrative: General: alert, NAD HEENT: conj clear, EOMI, PERRL, mmm, Neck: supple, no meningismus Heme: no cervical LAP Respiratory: Inspection: No visible deformity of the chest wall Palpation: Trachea is mildly deviated to the right, bilateral symmetric expansion Percussion: Bilateral tympanic percussion note both anterior and posteriorly Auscultation: Reduced breath sounds on right lower lung zone posteriorly Cardiovascular: rrr, nl s1s2, no mrg Abdomen: soft, nt, nd, no r/g, bs+ Extremities: pulses +, no edema, no c/c : no CVA tenderness Skin: intact, no rash MSK: no back or neck pain Neurologic: grossly intact Urinary Catheter Management: Rothman: Cath Placed During This Visit: yes Reason for Continuing Indwelling Catheter: Accurate Measurement of Urinary Output in Critically Ill Patients Urinary Catheter Date of Insertion: 08/13/22 Urinary Catheter Time of Insertion: 19:50 Data 08/15/22 03:48 08/15/22 03:48 Other Labs: Radiology Impressions Chest CTA 08/13/22 18:07 IMPRESSION: 1. CTA exam with comparison unenhanced CT 08/19/2021. Somewhat limited exam due to artifacts. 2. No large/central PE with limitations described above. 3. Large right perihilar heterogeneous consolidation versus mass with irregular enhancement and small areas of consolidation in the right lower lobe as described above. Considerations include infectious pneumonia versus neoplasm and follow-up should be obtained. Other nonacute lung findings as above. 4. Interval increase of enlarged mediastinal and right hilar adenopathy which may be metastatic versus reactive. New small right pleural effusion and probable pleural thickening with convex margins. See discussion above. 5. Coronary calcification and minimal ascending aortic dilatation at 4.1 cm. 6. Incidental hepatic findings as above. COMMENTS: In the absence of a history or active diagnosis of lung cancer, it is recommended that this patient with emphysema be evaluated for enrollment in a low dose CT lung cancer screening program. Chest X-Ray 08/13/22 20:24 IMPRESSION: Right IJ placement as described. No other significant change. Chest/Abdomen/Pelvis CT 08/14/22 13:06 IMPRESSION: 1. Large right perihilar heterogeneous mass which is stable when compared to the prior study. Differential includes neoplasm and or pneumonia. 2. Mediastinal and right perihilar adenopathy is stable compared to the prior study. 3. Moderate right pleural effusion with adjacent compressive atelectasis or pneumonia similar to the prior study. IMPRESSION: 1. Moderate size right inguinal hernia containing the anterior aspect of the bladder associated with stranding in the pericystic fat raising concern for cystitis or bladder ischemia. Please correlate clinically. 2. Bilateral polycystic kidneys. 3. Colonic constipation is present. ADDENDUM: 08/14/22 [id number] CRITICAL RESULT: The study was personally discussed on the telephone with MELISSA Vila on 08/14/2022 3:47 PM CDT. The results were understood and acknowledged. Laboratory Results WBC 47.9 10^3/uL (4.0-10.0) H* 08/15/22 03:48 RBC 3.60 10^6/uL (4.1-5.3) L 08/15/22 03:48 Hgb 11.1 g/dL (11.7-16.6) L 08/15/22 03:48 Hct 33.9 % (42.0-52.0) L 08/15/22 03:48 MCV 94.2 fl (80-94) H 08/15/22 03:48 MCH 30.8 pg (28.0-34.0) 08/15/22 03:48 MCHC 32.7 g/dL (30.0-36.0) 08/15/22 03:48 RDW 14.4 % (12.1-15.1) 08/15/22 03:48 Plt Count 440 10^3/cmm (130-400) H 08/15/22 03:48 MPV 10.2 fL (7.4-10.4) 08/15/22 03:48 Neut % (Auto) 90.9 % 08/15/22 03:48 Lymph % (Auto) 2.7 % 08/15/22 03:48 Divide % (Auto) 3.5 % 08/15/22 03:48 Eos % (Auto) 0.0 % 08/15/22 03:48 Baso % (Auto) 0.3 % 08/15/22 03:48 Neut # (Auto) 43.56 10^3/uL (1.8-7.7) H 08/15/22 03:48 Lymph # (Auto) 1.3 10^3/uL (0.8-4.8) 08/15/22 03:48 Divide # (Auto) 1.7 10^3/uL (0.2-0.9) H 08/15/22 03:48 Eos # (Auto) 0.0 10^3/uL (0.0-0.8) 08/15/22 03:48 Baso # (Auto) 0.1 10^3/uL (0.0-0.1) 08/15/22 03:48 Nucleated RBC % (auto) 0 % 08/15/22 03:48 Nucleated RBCs # 0.0 /100WBC 08/15/22 03:48 D-Dimer 2.44 ug/mIFEU (0-0.59) H 08/13/22 17:37 Specimen Type Arterial 08/14/22 14:26 Sample Site Radial, left 08/14/22 14:26 ABG pH 7.34 (7.35-7.45) L 08/14/22 14:26 ABG pCO2 50.8 mmHg (35-45) H 08/14/22 14:26 ABG pO2 65.0 mmHg (80.0-100.0) L 08/14/22 14:26 ABG HCO3 27.6 mmol/L (22-26) H 08/14/22 14:26 ABG O2 Saturation 93.4 08/13/22 19:05 ABG Base Excess 1.2 mmol/L (-2.0-2.0) 08/14/22 14:26 Star Test Pos 08/14/22 14:26 A-a O2 Gradient 22.9 mmHg (5-10) H 08/13/22 19:05 Hematocrit 35.3 % (42-52) L 08/14/22 14:26 Hgb O2 Saturation 91.5 % (95-100) L 08/13/22 19:05 Carboxyhemoglobin 1.7 %THgb (0.4-20.1) 08/13/22 19:05 Methemoglobin 0.3 % (0.4-1.5) L 08/13/22 19:05 Total Hemoglobin 11.7 g/dL (14-18) L 08/13/22 19:05 Sodium 130.0 mmol/L (131-143) L 08/13/22 19:05 Potassium 4.4 mmol/L (3.5-5.0) 08/13/22 19:05 Glucose 116.0 mg/dL (70-115) H 08/13/22 19:05 Ionized Calcium 1.2 mmol/L (1.1-1.4) 08/13/22 19:05 O2 Delivery Device Nc 08/14/22 14:26 O2 Liters/Min 8.0 % 08/14/22 14:26 FiO2 45.0 % 08/13/22 19:05 PEEP 7.0 cmH20 08/13/22 19:05 Needle Polisher ID Cak 08/14/22 14:26 Sodium 132 mmol/L (136-145) L 08/15/22 03:48 Potassium 3.9 mmol/L (3.5-5.1) 08/15/22 03:48 Chloride 95 mmol/L (98-107) L 08/15/22 03:48 Carbon Dioxide 26 mmol/L (22-29) 08/15/22 03:48 Anion Gap 14.9 (5-19) 08/15/22 03:48 BUN 32 mg/dL (8-23) H 08/15/22 03:48 Creatinine 1.5 mg/dL (0.7-1.2) H 08/15/22 03:48 GFR Calculation 47.3 mL/min (90-130) L 08/15/22 03:48 Glucose 187 mg/dL (65-115) H 08/15/22 03:48 Calculated Osmolality 286 mOsm/kg (285-295) 08/15/22 03:48 Lactic Acid 2.2 mmol/L (0.5-2.2) 08/13/22 18:15 Lactic Acid (Sepsis) 0.8 mmol/L (0.5-2.2) 08/13/22 23:00 Calcium 8.3 mg/dL (8.5-10.5) L 08/15/22 03:48 Total Bilirubin 0.8 mg/dL (0.15-1.2) 08/13/22 17:37 AST 13 U/L (0-40) 08/13/22 17:37 ALT 11 U/L (0-41) 08/13/22 17:37 Alkaline Phosphatase 102 U/L (40-130) 08/13/22 17:37 Troponin T Baseline 37 ng/L (0-15) H 08/13/22 17:37 Troponin T 120 Minute 31.45 ng/L (0-15) H 08/13/22 19:37 Delta Troponin T -5.55 ABS# (0-10) L 08/13/22 19:37 Troponin T Hi Sens 6Hr 22.61 ng/L (0-15) H 08/13/22 23:00 Troponin T Hi Sens 6Hr Delta -14.39 ng/L (0-12) L 08/13/22 23:00 Total Protein 7.7 g/dL (6.6-8.7) 08/13/22 17:37 Albumin 3.7 g/dL (3.5-5.2) 08/13/22 17:37 Globulin 4.0 g/dL (1.3-4.6) 08/13/22 17:37 Lipase 8 U/L (13-60) L 08/13/22 17:37 TSH 0.47 uIU/mL (0.27-4.20) 08/14/22 14:00 Urine Color Yellow (Yellow) 08/14/22 17:25 Urine Appearance Clear (CLEAR) 08/14/22 17:25 Urine pH 5 (5-7) 08/14/22 17:25 Ur Specific [place] 1.020 (1.005-1.030) 08/14/22 17:25 Urine Protein Neg (Negative) 08/14/22 17:25 Urine Glucose (UA) 1+ (Normal) H 08/14/22 17:25 Urine Ketones Negative (Negative) 08/14/22 17:25 Urine Blood 2+ (Negative) H 08/14/22 17:25 Urine Nitrate Negative (Negative) 08/14/22 17:25 Urine Bilirubin Neg (Negative) 08/14/22 17:25 Urine Urobilinogen Norm mg/dL (Negative) 08/14/22 17:25 Ur Leukocyte Esterase 1+ (Negative) H 08/14/22 17:25 Urine RBC Rare /hpf (0-2) 08/14/22 17:25 Urine WBC 15-25 /hpf (0-5) H 08/14/22 17:25 Ur Squamous Epith Cells None /hpf (0-5) 08/14/22 17:25 Other Crystals Calcium carbonate /hpf 08/13/22 19:50 Amorphous Sediment Not Reportable 08/14/22 17:25 Urine Bacteria 1+ /hpf (NONE) H 08/14/22 17:25 Hyaline Casts 0-4 /lpf H 08/13/22 19:50 Urine Mucus 1+ /hpf 08/13/22 19:50 Ur Random Sodium 41 mmol/L 08/14/22 17:25 Coronavirus 229E (PCR) Not detected (NOT DETECT) 08/13/22 21:53 SARS-CoV-2 (PCR) Not detected (NOT DETECT) 08/13/22 21:53 Micro: Microbiology 08/15/22 12:50 Gram Stain - Final Sputum - Expectorated Sputum 08/15/22 11:15 Bacterial Antigens - Final Urine,Clean Catch 08/15/22 11:15 Legionella Urinary Antigen - Final Urine Catheterized 08/13/22 19:50 Urine Culture - Final Urine,Clean Catch 08/13/22 18:21 Blood Culture - Preliminary Blood NEGATIVE TO DATE 08/13/22 18:15 Blood Culture - Preliminary Blood NEGATIVE TO DATE A&P Assessment and plan (1) COPD (chronic obstructive pulmonary disease): Qualifiers: COPD type: unspecified COPD Qualified Code(s): J44.9 - Chronic obstructive pulmonary disease, unspecified (2) Acute respiratory failure: (3) Septic shock: (4) Loculated pleural effusion: Plan - Patient with history of COPD-currently with no respiratory distress-currently on 6 L nasal cannula - Currently on pressor support-although requirement is coming down-suspect septic shock in the context of loculated pleural effusion; may need CV Echo - Loculated pleural effusion and worsening leukocytosis-recommended IR guided pigtail placement or surgical chest tube placement and close intensive care monitoring and CT surgery on-call - Recommended to broaden antibiotic coverage -Patient has been accepted for transfer to [facility] Consult Attestations Medical Necessity Statement: Transfer to higher facility Time Spent in Patient Care: Greater than 35 minutes (>than 50% of time spent in counselling and/or direct pt care on unit). Critical Care Time: The high probability of a clinically significant, sudden or life threatening deterioration of the patient's pulmonary, cardiac system(s) required my full and direct attention, intervention and personal management. The critical care time is as shown. This time is in addition to time spent performing any reported procedures but includes the following: x data and vital sign review and interpretation x patient assessment, examination and intervention x documentation x medication orders and management Critical Care Time (min): 70 Coding Level of Care Code 51189 Diagnoses COPD (chronic obstructive pulmonary disease) J44.9 COPD type: unspecified COPD Acute respiratory failure J96.00 Septic shock A41.9; R65.21 Loculated pleural effusion J90 Time Spent (min) 74
[2022-08-16] VITALS (18 sets, daily range): BP systolic 94–116; BP diastolic 59–77; PULSE 65–118; RESP 11–22; TEMP 36.7; O2SAT 91–96
[2022-08-16] MEDS: famotidine 20 mg/2 mL INJ IVP (00:34)
[2022-08-16] MEDS: vancomycin 1,250 MG/250 ML PIGGYBACK 250 MG IV (00:34)
[2022-08-16] MEDS: heparin 5,000 unit/mL INJ 1 mL 5000 UNIT SUBCUT (02:20)
--- NOTE | 2022-08-16 03:32 | PC.NURSE ---
08/15/222024: Patient facesheet faxed to [facility] ([place], [place]) at request of [facility]'s stockroom coordinator. 2100: [facility] confirmed receipt of patient facesheet. States they will call when bed becomes available. Approx. [phone]: Recieved a call from Dr. Turner requesting update. Physician notified that request for bed has been made. Noted that a bed may not be available until morning-dayshift. 08/16/22 0300: Patient assigned Bed 3304, ICU 3E. Report called to KELLY Griffiths. Transport via ambulance request made to Taisha Ragland. Next available transport time estimated to be after 0700.
[2022-08-16] MEDS: ipratropium-albuterol 3 mL Neb INHALATION ×2 (04:19→07:23)
[2022-08-16] MEDS: piperacillin-tazobactam 3.375 GM in sodium chloride 0.9% (plus) 50 ML IV (04:22)
[2022-08-16 05:19] LABS: Basophils # 0.1 10^3/uL (0.0-0.1); Basophils % 0.2 %; Hematocrit 31.5 % (42.0-52.0); Lymphocytes # 1.5 10^3/uL (0.8-4.8); Mean Corpuscular HGB Conc 31.7 g/dL (30.0-36.0); Mean Corpuscular Hemoglobin 30.3 pg (28.0-34.0); Mean Corpuscular Volume 95.5 fl (80-94); Mean Platelet Volume 10.5 fL (7.4-10.4); Monocytes # 1.5 10^3/uL (0.2-0.9); Neutrophils # 33.51 10^3/uL (1.8-7.7); Neutrophils % 90.3 %; Nucleated Red Blood Cells % 0 %; Platelet Count 392 10^3/cmm (130-400); Red Cell Distribution Width 14.6 % (12.1-15.1)
[2022-08-16 05:33] LABS: White Blood Count 37.1 10^3/uL (4.0-10.0)
[2022-08-16 05:40] LABS: Alanine Aminotransferase 26 U/L (0-41); Albumin Level 2.6 g/dL (3.5-5.2); Alkaline Phosphatase 82 U/L (40-130); Anion Gap 13.4 (5-19); Aspartate Amino Transferase 31 U/L (0-40); Blood Urea Nitrogen 31 mg/dL (8-23); Calcium 8.7 mg/dL (8.5-10.5); Carbon Dioxide 27 mmol/L (22-29); Chloride 99 mmol/L (98-107); Creatinine Clr Calc Pharmacy 76.8417; Globulin 3.4 g/dL (1.3-4.6); Glomerular Filtration Rate 67.6 mL/min (90-130); Glucose 124 mg/dL (65-115); Osmolality Calculated 288 mOsm/kg (285-295); Potassium 4.4 mmol/L (3.5-5.1); Sodium 135 mmol/L (136-145); Total Bilirubin 0.2 mg/dL (0.15-1.2)
--- NOTE | 2022-08-16 08:30 | PC.NURSE ---
[facility] left with patient heading to [facility]
[2022-08-17 12:34] LABS: Osmolality Serum 286 mOsm/kg (278-305)
[2022-08-17 16:34] LABS: Osmolality Urine 485 mOsm/kg (50-1200)
== END 2022-08-16 08:32 | disposition skilled nursing facility (03) | DRG 189 ==
LOC: ER 18:45 → ICU 08-14 00:23
PROVIDERS: Family Medicine; Admitting Provider Internal Medicine; Emergency Provider Emergency Medicine; PCP Family Medicine; Visit Provider Internal Medicine
DX: J96.01 Acute respiratory failure with hypoxia (principal); J18.9 Pneumonia, unspecified organism; R57.1 Hypovolemic shock; J86.9 Pyothorax without fistula; N17.9 Acute kidney failure, unspecified; J90 Pleural effusion, not elsewhere classified; E87.1 Hypo-osmolality and hyponatremia; N39.0 Urinary tract infection, site not specified; J43.9 Emphysema, unspecified; F17.210 Nicotine dependence, cigarettes, uncomplicated; G89.29 Other chronic pain; E03.9 Hypothyroidism, unspecified; I95.9 Hypotension, unspecified; N40.1 Benign prostatic hyperplasia with lower urinary tract symptoms; N18.30 Chronic kidney disease, stage 3 unspecified; I12.9 Hypertensive chronic kidney disease with stage 1 through stage 4 chronic kidney disease, or unspecified chronic kidney disease; B19.20 Unspecified viral hepatitis C without hepatic coma; G47.33 Obstructive sleep apnea (adult) (pediatric); N28.1 Cyst of kidney, acquired; K40.90 Unilateral inguinal hernia, without obstruction or gangrene, not specified as recurrent; Z91.199 Patient's noncompliance with other medical treatment and regimen due to unspecified reason; R31.9 Hematuria, unspecified; Z79.891 Long term (current) use of opiate analgesic; K59.00 Constipation, unspecified; R91.8 Other nonspecific abnormal finding of lung field
CPT/HCPCS: 36415; 36556; 36592; 36600; 51702; 71045; 71250; 71275; 74176; 80048; 80051; 80053; 81001; 82330; 82803; 82805; 83605; 83690; 83930; 83935; 84300; 84443; 84484; 85025; 85378; 86403; 87040; 87070; 87086; 87205; 87449; 87635; 87641; 93005; 94640; 94660; 96365; 96367; 96372; 96375; 96376; 99291; J0456; J0696; J1100; J1644; J1650; J2060; J2270; J2543; J3370; J3490; J7030; J7040; J7042; J7050; J7060; J7512; Q9967

== ENCOUNTER 2022-11-17 16:36 | Outpatient (CLI) | payer OTHER, MEDICAID, SELFPAY ==
--- NOTE | 2022-11-17 16:41 | XR_ITS ---
WS: [id number] EXAMINATION: XR shoulder RT min 2V* [id number] REASON FOR EXAM: shoulder pain COMPARISON: 06/07/2021 ORDER DATE: 11/17/2022 4:52 PM TECHNIQUE: 3 views of the right shoulder were obtained. X-RAY FINDINGS: The irregularity and old fracture of the distal right clavicle with mild elevation of the clavicle is noted. There is no change from the prior study. There is osteoarthritic change with spurring of the humeral head. There is mild irregularity of the glenoid fossa. Impression: 1. No change in deformity of distal right clavicle. 2. Moderate osteoarthritis of the glenohumeral articulation.
--- NOTE | 2022-11-17 16:41 | XR_ITS ---
WS: [id number] EXAMINATION: XR shoulder LT min 2V* [id number] REASON FOR EXAM: shoulder pain COMPARISON: None available. ORDER DATE: 11/17/2022 4:52 PM TECHNIQUE: 3 views of the left shoulder were obtained. X-RAY FINDINGS: No fractures or dislocations. Normal motion of the shoulder with internal/external rotation. There are prominent glenohumeral articular degenerative changes including a large humeral head spur n ear the inferior glenoid margin. There are subchondral cystic and prominent sclerotic change in the g lenoid process. There is a downsloping acromion with a possible distal acromial spur and narrowing of the subacromial compartment. Prominent erosive changes and subchondral sclerosis are seen in the mid humeral head Acromioclavicular joint appears unremarkable. Limited visualization of the adjacent hemithorax is unremarkable. IMPRESSION: No fractures or dislocations of the left shoulder prominent osteoarthritic changes in the glenohumera l joint..
== END 2022-11-17 16:37 | disposition home or self-care (01) ==
PROVIDERS: PCP Family Medicine; Visit Provider Family Medicine
DX: M19.012 Primary osteoarthritis, left shoulder (principal); M19.011 Primary osteoarthritis, right shoulder; J43.9 Emphysema, unspecified; E03.9 Hypothyroidism, unspecified; N40.1 Benign prostatic hyperplasia with lower urinary tract symptoms; I10 Essential (primary) hypertension
CPT/HCPCS: 73030; 80053; 84443; 84550; 85025; 86140

== ENCOUNTER 2022-12-12 09:14 | Day surgery (SDC) | payer OTHER, MEDICAID, SELFPAY ==
[2022-12-12] VITALS (11 sets, daily range): BP systolic 96–160; BP diastolic 60–81; PULSE 69–83; RESP 16–23; TEMP 36.3–37.1; O2SAT 92–98; BMI 23.7
--- NOTE | 2022-12-12 09:24 | W.PM.OPSUD ---
Surgery/Procedure H&P Update DATE OF PROCEDURE: December 12, 2022 DATE H&P PERFORMED: 11/29/22 H&P UPDATE INFORMATION: I have reviewed H&P completed within last 30 days, I have examined patient prior to procedure and No changes to prior documentation PLANNED PROCEDURE: Operation Date: 12/12/22 10:35 Proposed Procedures p 05136 lap right inguinal hernia repair with mesh K40.90(Right) - Jere Romano DO
[2022-12-12] MEDS: sodium chloride 0.9% 1,000 ML 30 ML IV (10:04)
--- NOTE | 2022-12-12 10:16 | SUR.PREOP ---
10:00 RIGHT FOREARM SWOLLEN AND RED, AND HOT TO TOUCH. STATES HE WAS BITTEN BY UNKNOWN INSECT 3 DAYS AGO.
--- NOTE | 2022-12-12 10:27 | ANES.PREANE2 ---
Pre-Anesthetic Assessment Height/Weight: Height 1.83 m Weight 79.379 kg Temp Pulse Resp BP Pulse Ox O2 Del Method 98.7 F 83 18 117/76 92 Room Air 12/12/22 09:43 12/12/22 09:43 12/12/22 09:43 12/12/22 09:43 12/12/22 09:43 12/12/22 09:43 Operation Date: 12/12/22 10:35 Proposed Procedures p 53357 lap right inguinal hernia repair with mesh K40.90(Right) - Jere Romano DO Familial anesthetic complications: None Was Beta Emily taken within 24 hours: N/A Was Clonidine taken within 24 hours: N/A Last intake: Intake Last Liquid Date 12/11/22 Last Liquid Time 23:50 Last Solid Date 12/11/22 Last Solid Time 23:55 Social Tobacco and No alcohol Exam alert, oriented x 3, clear to auscultation bilaterally and regular rate & rhythm Airway Dentition: false Pulmonary Chronic Obstructive Pulmonary Disease and Sleep Apnea pneumonia w/ loculated pleural effusion in august; still requires 2 L NC prn, last use was 2 days ago Chronic Renal Insufficiency Hepatic Hepatitis (C) Metabolic Thyroid Disease Anesthetic Plan ASA status: 3 Anesthesia: General Risk of > 500 ml blood loss (7ml/kg in children): No Medications/Allergies Home Medications Medication Instructions Recorded Confirmed Last Taken Type albuterol sulfate 90 mcg/actuation 2 puff inhalation Q6H PRN 06/10/19 12/09/22 12/10/22 Rx aerosol inhaler (Proventil HFA) shortness of breath or wheezing #18 grams furosemide 40 mg tablet 40 mg PO BID 07/16/19 12/09/22 12/11/22 History amlodipine 10 mg tablet 10 mg PO DAILY 08/14/22 12/09/22 12/11/22 History levothyroxine 100 mcg tablet 100 mcg PO DAILY 08/14/22 12/09/22 12/11/22 History tamsulosin 0.4 mg capsule 0.4 mg PO DAILY 08/14/22 12/09/22 12/11/22 History fluticasone fur. 100 mcg-umeclid 1 inh inhalation DAILY #60 ea 11/17/22 12/09/22 12/11/22 Rx 62.5 mcg-vilant 25 mcg inhalat.powder (Trelegy Ellipta) Allergies Allergy/AdvReac Type Severity Reaction Status Date / Time No Known Allergies Allergy Verified 11/29/22 08:19 Current Medications Generic Name Dose Route Start Last Admin Trade Name Yevgeniy PRN Reason Stop Dose Admin Sodium Chloride 1,000 mls @ 30 mls/hr 12/12/22 09:30 12/12/22 10:04 Sodium Chloride 0.9% IV 12/13/22 09:29 30 mls/hr .Q24H LEONA Administration PFSH Anesthesia Medical History Abnormal CT scan, chest Probable lung mass Acute respiratory failure Benign prostatic hyperplasia with lower urinary tract symptoms BPH loc w urin obs/LUTS CKD (chronic kidney disease), stage III COPD (chronic obstructive pulmonary disease) Hepatitis C Hypertension Hypogonadism in male Hyponatremia Hypothyroidism Inguinal hernia of right side without obstruction or gangrene Nicotine dependence, cigarettes, with unspecified nicotine-induced disorders ROBBIE (obstructive sleep apnea) Pneumonia Pulmonary emphysema Renal cysts, acquired, bilateral Surgical History History of ankle surgery History of circumcision History of hernia surgery History of mandibular surgery Family History Mother , at age 46 Cirrhosis of liver Father , at age 78 CAD (coronary artery disease) Denies family history of Diabetes Clotting disorder Dementia Hyperlipidemia Psychiatric illness Chronic kidney disease (CKD) Suicide Anesthesia complication Bleeding disorder Family history of premature coronary artery disease Lung disease Cancer Hypertension Stroke Social History Smoking and tobacco/nicotine status: current every day tobacco/nicotine user cigarettes Packs smoked per day: 0.75 Years cigarettes smoked: 30 [ Other cigarette details: [id number]] Quit status (tobacco/nicotine): considering quitting Second hand smoke exposure: No Alcohol intake: former Substance/Drug Use: never Lives independently: Yes Household members: spouse Marital status: service: No Current occupational status: unemployed and disabled Pets and animals: Yes Do you think of yourself as: Straight/Heterosexual Current gender identity: Male Data Anesthesia Cardiac Studies: No Data to Display
[2022-12-12] MEDS: ceFAZolin 2,000 MG in sodium chloride 0.9% (plus) 50 ML 100 MG IV (11:07)
[2022-12-12] MEDS: lidocaine-epi 2% 20 mL INJ INJECTION (12:00)
--- NOTE | 2022-12-12 12:10 | PM.OP ---
Operative Report Date of procedure: December 12, 2022 Pre-op diagnosis: Right inguinal hernia Post-op diagnosis: Indirect right inguinal hernia Procedure done: Laparoscopic repair of right inguinal hernia with mesh Implants: Extra-large right 3D max Bard mesh Specimens removed/disposition: None Surgeon: Jere Romano DO Anesthesia: General Estimated blood loss (mL): 5 Complications: None apparent Brief History: This a very pleasant 62-year-old gentleman with a large right inguinal hernia. Laparoscopic repair with mesh was indicated. The risk and benefits were explained and documented. Procedure: Patient was wheeled into the operative room and placed on the OR table in a supine position. Abdomen was inspected prepped and draped in usual sterile fashion. Time-out was performed and all present were in agreement. A 15 blade scalpel was used to make 1.2 centimeter incision infraumbilically. Combination of sharp and blunt dissection was performed down to the anterior rectus sheath which was opened sharply. The dissecting balloon was then inserted into the space of Retzius and blown up. We put the camera into the port and identified that we were in the correct space. I then placed 2 5 millimeter trocars suprapubically in the midline. I then used endokitners to bluntly dissect in the space of Retzius out laterally. An indirect inguinal hernia was identified on the right. Blunt dissection was performed to dissect down the hernia sac until the vas deferens dove medially. An extra-large right inguinal mesh was then placed into the space of Retzius. The mesh was unrolled and tacked once medially at the pubic bone. The mesh laid out nicely over the spermatic cord. I watched the hernia sac remained in place as insufflation was removed. Incisions were closed with 4-0 Monocryl in a subcuticular interrupted fashion. Skin glue was applied. Patient tolerated the procedure well.
[2022-12-12] MEDS: fentaNYL 50 mcg/mL INJ 2mL IVP (12:41)
--- NOTE | 2022-12-12 13:45 | SUR.PHASEII ---
13:40 ABDOMEN INCISIONS DRY AND INTACT. NO REDNESS OR DRAINAGE.
--- NOTE | 2022-12-12 14:00 | ANE.PACU2 ---
Inpatient post-anesthesia follow up: Airway intact: Yes Vital signs: Temperature 98.2 F Pulse Rate 70 Respiratory Rate 16 Blood Pressure 103/65 Pulse Oximetry 93 Oxygen Delivery Me thod Room Air Oxygen Flow Rate 2 Fraction of Inspir ed Oxygen Hydration adequate: Yes Nausea and vomiting: No Pain level: 1 Mental status: Baseline
== END 2022-12-12 14:00 | disposition home or self-care (01) ==
PROVIDERS: PCP Family Medicine; Visit Provider Surgery
PROC: (CPT 49650; principal; 2022-12-12 10:35)
DX: K40.90 Unilateral inguinal hernia, without obstruction or gangrene, not specified as recurrent (principal); J44.9 Chronic obstructive pulmonary disease, unspecified; N40.1 Benign prostatic hyperplasia with lower urinary tract symptoms; N13.8 Other obstructive and reflux uropathy; I12.9 Hypertensive chronic kidney disease with stage 1 through stage 4 chronic kidney disease, or unspecified chronic kidney disease; N18.30 Chronic kidney disease, stage 3 unspecified; Z86.19 Personal history of other infectious and parasitic diseases; E03.9 Hypothyroidism, unspecified; G47.33 Obstructive sleep apnea (adult) (pediatric); F17.210 Nicotine dependence, cigarettes, uncomplicated
CPT/HCPCS: 49505; 51702; C1781; J0690; J1100; J2405; J2704; J3010; J3490; J7030

== ENCOUNTER → 2023-04-03 11:06 | Outpatient (BNVA) | payer MEDICAID, SELFPAY | PROVIDERS: PCP Family Medicine; Visit Provider Specialist | DX: M19.011 Primary osteoarthritis, right shoulder (principal); M19.012 Primary osteoarthritis, left shoulder | CPT/HCPCS: 73030 ==

== ENCOUNTER 2023-06-24 17:40 | Inpatient (IN) | payer MEDICAID, SELFPAY ==
[2023-06-24] VITALS (18 sets, daily range): BP systolic 73–113; BP diastolic 48–70; PULSE 64–101; RESP 13–22; TEMP 37.4; O2SAT 83–98; BMI 25.7
[2023-06-24 20:52] LABS: Basophils # 0.1 10^3/uL (0.0-0.1); Basophils % 0.7 %; Eosinophils # 0.1 10^3/uL (0.0-0.8); Eosinophils % 0.6 %; Hematocrit 42.4 % (37-53); Lymphocytes # 1.7 10^3/uL (0.8-4.8); Lymphocytes % 9.5 %; Mean Corpuscular HGB Conc 30.4 g/dL (30-55); Mean Corpuscular Volume 98.6 fl (82-101); Mean Platelet Volume 11.1 fL (7.4-10.4); Monocytes % 5.9 %; Neutrophils # 14.72 10^3/uL (1.8-7.7); Neutrophils % 82.8 %; Nucleated Red Blood Cells % 0 %; Platelet Count 195 10^3/cmm (157-399); Red Cell Distribution Width 15.3 % (12.1-15.1); White Blood Count 17.77 10^3/uL (3.29-11.43)
[2023-06-24 21:10] LABS: Blood Urea Nitrogen 56 mg/dL (8-23); Calcium 8.3 mg/dL (8.5-10.5); Carbon Dioxide 23 mmol/L (22-29); Chloride 97 mmol/L (98-107); Creatinine Clr Calc Pharmacy 19.0078; Glomerular Filtration Rate 13.3 mL/min (90-130); Glucose 110 mg/dL (65-115); Osmolality Calculated 294 mOsm/kg (285-295); Sodium 134 mmol/L (136-145)
[2023-06-24 21:22] LABS: Anion Gap 18.4 (5-19); Potassium 4.4 mmol/L (3.5-5.1)
[2023-06-24] MEDS: lactated ringers 2,328 ML 2328 ML IV (23:25)
[2023-06-24] MEDS: piperacillin-tazobactam 3.375 GM in sodium chloride 0.9% (plus) 50 ML IV (23:26)
--- NOTE | 2023-06-24 23:34 | W.ED.SKABFB ---
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 He states that he has been squeezing on these for several days, and may have made them worse. He presents febrile, tachycardic. On further questioning, he admits to intravenous use of substances. He states that he has had kidney failure in the past that did not require dialysis. He is not vomiting. Associated symptoms: Reports fever(s); Deny chills, nausea or vomiting Review of Systems Const: Reports: fever(s); Denies: chills Card: Denies: chest pain Resp: Reports: dyspnea and non-productive cough GI: Denies: abdominal pain, nausea or vomiting Skin/Breast: Reports: rash, erythema, skin swelling and sores [facility] PFSH: Medical History Inguinal hernia of right side without obstruction or gangrene Pneumonia Hyponatremia Abnormal CT scan, chest Probable lung mass Acute respiratory failure Hepatitis C Renal cysts, acquired, bilateral BPH loc w urin obs/LUTS Benign prostatic hyperplasia with lower urinary tract symptoms Hypothyroidism CKD (chronic kidney disease), stage III Nicotine dependence, cigarettes, with unspecified nicotine-induced disorders ROBBIE (obstructive sleep apnea) Pulmonary emphysema COPD (chronic obstructive pulmonary disease) Hypogonadism in male Hypertension Surgical History Hx of inguinal hernia repair 12/12/22 Dr Juan Antonio gongora repair right inguinal hernia with mesh History of hernia surgery History of ankle surgery History of mandibular surgery History of circumcision Family History Mother , at age 46 Cirrhosis of liver Father , at age 78 CAD (coronary artery disease) Denies family history of Diabetes Clotting disorder Dementia Hyperlipidemia Psychiatric illness Chronic kidney disease (CKD) Suicide Anesthesia complication Bleeding disorder Family history of premature coronary artery disease Lung disease Cancer Hypertension Stroke Social History Smoking and tobacco/nicotine status: current every day tobacco/nicotine user cigarettes Packs smoked per day: 0.75 Years cigarettes smoked: 30 [ Other cigarette details: [id number]] Quit status (tobacco/nicotine): considering quitting Second hand smoke exposure: No Alcohol intake: former Substance/Drug Use: never Lives independently: Yes Household members: spouse Marital status: service: No Current occupational status: unemployed and disabled Pets and animals: Yes Do you think of yourself as: Straight/Heterosexual Current gender identity: Male Physical Exam Const: GENERAL APPEARANCE: cooperative and ill appearing (mildly) HENMT: COMMON NORMALS: normocephalic and atraumatic HEAD & SCALP: normocephalic and atraumatic Eye: COMMON NORMALS: Equal, round and reactive pupils present and EOMs intact bilaterally PUPIL: Yes Equal, round and reactive pupils present Chest: CHEST: Yes Symmetrical chest wall rise Resp: COMMON NORMALS: clear to auscultation bilaterally EFFORT & INSPECTION: Yes tachypneic, No respiratory distress and Yes grunting AUSCULTATION: clear to auscultation bilaterally and diminished lung sounds Cardio: COMMON NORMALS: regular rhythm RATE: tachycardic RHYTHM: regular rhythm Extremity: NARRATIVE EXTREMITY EXAM: Multiple subcutaneous abscesses to the bilateral forearms. Some of these are draining. The largest measures 3.5 to 4 centimeters. Surrounding redness and warmth. No streaking. There is some axillary lymphadenopathy. Neuro: MITCHELL COMA SCALE: document GCS findings Mitchell coma scale eye opening: Spontaneous [place] coma scale verbal response: Orientated Mitchell coma scale motor response: Obey commands [place] coma scale total score: 15 Skin: NARRATIVE SKIN EXAM: see extremity exam Course Vital Signs: Vital signs: Vital Signs Temperature 98.4 F 06/25/23 12:00 Pulse Rate 89 06/25/23 13:34 Respiratory Rate 18 06/25/23 13:30 Blood Pressure 116/62 06/25/23 13:30 Pulse Oximetry 88 L 06/25/23 13:30 Oxygen Delivery Me thod Nasal Cannula 06/25/23 11:30 Oxygen Flow Rate 2 06/25/23 11:30 MDM - Skin/Abscess/Foreign Bdy Medicial Decision Making Multiple small abscesses to bilateral forearms. His temperature is elevated. His white blood cell count is 18. His lactic acid is only 1. He is tachycardic on arrival. He is mildly hypotensive. Current MAP is 64. He is receiving a sepsis bolus, IV antibiotics. His creatinine is 4.5. Will require admission. spoke with orthopedics. they are willing to consult in the morning and take a look to see if any incisional drainage is needed. Lab Data 06/25/23 05:36 06/24/23 20:28 Radiology Impressions Forearm X-Ray 06/25/23 00:59 IMPRESSION: Negative for osseous abnormality. Forearm CT 06/25/23 01:33 IMPRESSION: 1. Diffuse cellulitis changes. 2. No visible abscess. 3. Negative for osteomyelitis. Chest X-Ray 06/25/23 09:59 IMPRESSION: 1. Left chest central venous catheter terminates near the confluence of the left subclavian vein and the SVC. 2. Bibasilar [id number]-nlch-left hazy/granular opacities may represent chronic lung markings or may represent mild edema, atelectasis, or developing infiltrates. Laboratory Results WBC 17.77 10^3/uL (3.29-11.43) H 06/24/23 20:28 RBC 4.30 10^6/uL (3.85-5.65) 06/24/23 20:28 Hgb 12.90 g/dL (11.27-16.99) 06/24/23 20:28 Hct 42.4 % (37-53) 06/24/23 20:28 MCV 98.6 fl (82-101) 06/24/23 20:28 MCH 30.0 pg (27-33) 06/24/23 20: MCHC 30.4 g/dL (30-55) 06/24/23 20:28 RDW 15.3 % (12.1-15.1) H 06/24/23 20:28 Plt Count 195 10^3/cmm (157-399) 06/24/23 20:28 MPV 11.1 fL (7.4-10.4) H 06/24/23 20:28 Neut % (Auto) 82.8 % 06/24/23 20: Lymph % (Auto) 9.5 % 06/24/23 20:28 [place] % (Auto) 5.9 % 06/24/23 20: Eos % (Auto) 0.6 % 06/24/23 20: Baso % (Auto) 0.7 % 06/24/23 20: Neut # (Auto) 14.72 10^3/uL (1.8-7.7) H 06/24/23 20: Lymph # (Auto) 1.7 10^3/uL (0.8-4.8) 06/24/23 20: [place] # (Auto) 1.0 10^3/uL (0.2-0.9) H 06/24/23 20: Eos # (Auto) 0.1 10^3/uL (0.0-0.8) 06/24/23 20: Baso # (Auto) 0.1 10^3/uL (0.0-0.1) 06/24/23: Nucleated RBC % (auto) 0 % 06/24/23 20: Nucleated RBCs # 0.0 /100WBC 06/24/23 20: Sodium 134 mmol/L (136-145) L 06/24/23 20: Potassium 4.4 mmol/L (3.5-5.1) 06/24/23 20: Chloride 97 mmol/L (98-107) L 06/24/23 20: Carbon Dioxide 23 mmol/L (22-29) 06/24/23 20: Anion Gap 18.4 (5-19) 06/24/23 20: BUN 56 mg/dL (8-23) H 06/24/23 20: Creatinine 4.5 mg/dL (0.7-1.2) H 06/24/23 20: GFR Calculation 13.3 mL/min (90-130) L 06/24/23 20: Glucose 110 mg/dL (65-115) 06/24/23 20: Calculated Osmolality 294 mOsm/kg (285-295) 06/24/23 20: Lactic Acid 1.0 mmol/L (0.5-2.2) 06/24/23 23:00 Calcium 8.3 mg/dL (8.5-10.5) L 06/24/23 20: Creatine Kinase 483 U/L (39-308) H* 06/24/23 20: C-Reactive Protein 125.0 mg/L (0.0-4.9) H 06/24/23 20:28 Urine Color Yellow (Yellow) 06/24/23 05:20 Urine Appearance Clear (CLEAR) 06/24/23 05:20 Urine pH 5 (5-7) 06/24/23 05:20 Ur Specific [place] 1.025 (1.005-1.030) 06/24/23 05:20 Urine Protein Neg (Negative) 06/24/23 05:20 Urine Glucose (UA) Norm (Normal) 06/24/23 05:20 Urine Ketones Negative (Negative) 06/24/23 05:20 Urine Blood Neg (Negative) 06/24/23 05:20 Urine Nitrate Negative (Negative) 06/24/23 05:20 Urine Bilirubin Neg (Negative) 06/24/23 05:20 Urine Urobilinogen Neg mg/dL (Negative) 06/24/23 05:20 Ur Leukocyte Esterase Negative (Negative) 06/24/23 05:20 Urine Opiates Screen Negative ng/mL (Negative) 06/24/23 05:20 Ur Barbiturates Screen Negative ng/mL (Negative) 06/24/23 05:20 Ur Phencyclidine Scrn Negative ng/mL (Negative) 06/24/23 05:20 Ur Amphetamines Screen Negative ng/mL (Negative) 06/24/23 05:20 U Benzodiazepines Scrn Positive ng/mL (Negative) H 06/24/23 05:20 Urine Cocaine Screen Negative ng/mL (Negative) 06/24/23 05:20 U Marijuana (THC) Screen Negative ng/mL (Negative) 06/24/23 05:20 All radiology interpretation(s) finalized by discharge Discharge Plan Discharge Patient Disposition: Admitted As Inpatient Admit Provider: Gurmeet Forrest Clinical Impression: Abscess of multiple sites, Sepsis Condition: Stable Coding Level of Care Code ED Master Control Technician for Naty Brooke
[2023-06-25] VITALS (70 sets, daily range): BP systolic 77–183; BP diastolic 50–101; PULSE 60–89; RESP 14–33; TEMP 36.3–37.1; O2SAT 88–100; BMI 26.1
[2023-06-25] MEDS: vancomycin 1,250 MG/250 ML PIGGYBACK 250 MG IV (00:15)
[2023-06-25 00:42] LABS: Creatine Phosphokinase 483 U/L (39-308)
--- NOTE | 2023-06-25 00:49 | P.HP_ITS ---
Providers/Chief Complaint 2 Admitting Physician: Gurmeet Forrest MD Primary Care Provider: Rakesh Nye MD Chief Complaint: walk in sent, sob, arm pain History of Present Illness Anthony Harding is a 62 year old male past medical history of hypothyroidism, hepatitis C, history of drug use, who presents to [facility] due to multiple abscesses of bilateral arms, at the location of drug site injection. Patient tells me that roughly 3 to 4 days ago, he had injected methamphetamines to into bilateral arms at multiple sites, since then he has been feeling unwell, chills, no fevers, with swelling, and drainage from multiple sites. He does have cats in the home, denies cat scratch, denies history of deer hunting/rabbit hunting, Review of Systems 2 Const: Reports: chills, fatigue and malaise Card: Denies: chest pain Resp: Denies: dyspnea GI: Denies: abdominal pain Medications/Allergies Home Medications Medication Instructions Recorded Confirmed Last Taken Type albuterol sulfate 90 mcg/actuation 2 puff inhalation Q6H PRN 06/10/19 06/24/23 12/10/22 Rx aerosol inhaler (Proventil HFA) shortness of breath or wheezing #18 grams furosemide 40 mg tablet 40 mg PO BID 07/16/19 06/24/23 12/11/22 History docusate sodium 100 mg capsule 100 mg PO BID #14 caps 12/12/22 06/24/23 Unknown Rx (Dulcolax Stool Softener (docusate)) hydrocodone 10 mg-acetaminophen 1 tab PO Q6H PRN pain #20 tabs 12/12/22 06/24/23 Unknown Rx 325 mg tablet levothyroxine 100 mcg tablet See Rx Instructions .Route 01/03/23 06/24/23 Unknown Rx .COMPLEX #90 tabs meloxicam 15 mg tablet 15 mg PO DAILY osteoarthritis #30 01/04/23 06/24/23 Unknown Rx tabs amlodipine 10 mg tablet See Rx Instructions .Route 03/21/23 06/24/23 Unknown Rx .COMPLEX #90 tabs fluticasone fur. 100 mcg-umeclid See Rx Instructions .Route 03/21/23 06/24/23 Unknown Rx 62.5 mcg-vilant 25 mcg .COMPLEX #60 ea inhalat.powder (Trelegy Ellipta) tamsulosin 0.4 mg capsule See Rx Instructions .Route 04/21/23 06/24/23 Unknown Rx .COMPLEX #90 caps meloxicam 15 mg tablet 15 mg PO DAILY 2 months #60 tabs 05/01/23 06/24/23 Unknown Rx Allergies Allergy/AdvReac Type Severity Reaction Status Date / Time No Known Allergies Allergy Verified 06/24/23 17:49 PFSH Acute 2 PFSH: Medical History Inguinal hernia of right side without obstruction or gangrene Pneumonia Hyponatremia Abnormal CT scan, chest Probable lung mass Acute respiratory failure Hepatitis C Renal cysts, acquired, bilateral BPH loc w urin obs/LUTS Benign prostatic hyperplasia with lower urinary tract symptoms Hypothyroidism CKD (chronic kidney disease), stage III Nicotine dependence, cigarettes, with unspecified nicotine-induced disorders ROBBIE (obstructive sleep apnea) Pulmonary emphysema COPD (chronic obstructive pulmonary disease) Hypogonadism in male Hypertension Surgical History Hx of inguinal hernia repair 12/12/22 Dr Juan Antonio gongora repair right inguinal hernia with mesh History of hernia surgery History of ankle surgery History of mandibular surgery History of circumcision Family History Mother , at age 46 Cirrhosis of liver Father , at age 78 CAD (coronary artery disease) Denies family history of Diabetes Clotting disorder Dementia Hyperlipidemia Psychiatric illness Chronic kidney disease (CKD) Suicide Anesthesia complication Bleeding disorder Family history of premature coronary artery disease Lung disease Cancer Hypertension Stroke Social History Smoking and tobacco/nicotine status: current every day tobacco/nicotine user cigarettes Packs smoked per day: 0.75 Years cigarettes smoked: 30 [ Other cigarette details: [id number]] Quit status (tobacco/nicotine): considering quitting Second hand smoke exposure: No Alcohol intake: former Substance/Drug Use: never Lives independently: Yes Household members: spouse Marital status: service: No Current occupational status: unemployed and disabled Pets and animals: Yes Do you think of yourself as: Straight/Heterosexual Current gender identity: Male Vitals/I&O/Wt Last Vital Signs Temp 99.3 F 06/24/23 17:46 Pulse 62 05/12/24 00:45 Resp 23 H 06/25/23 00:45 BP 96/57 06/25/23 00:45 Pulse Ox 100 06/25/23 00:45 O2 Del Method Nasal Cannula 06/24/23 23:33 O2 Flow Rate 2 06/24/23 23:33 06/24/23 06/24/23 06/25/23 14:59 22:59 06:59 Intake Total 50 / 50 Balance 50 / 50 Weight last 48 hrs Weight 86.183 kg Physical Exam 2 Const: COMMON NORMALS: no acute distress and patient oriented x3 HENMT: COMMON NORMALS: normocephalic HEAD & SCALP: normocephalic Eye: COMMON NORMALS: Equal, round and reactive pupils present Neck/C-Spine: COMMON NORMALS: no JVD Resp: COMMON NORMALS: normal respiratory effort, No retractions, No use of accessory muscles and clear to auscultation bilaterally AUSCULTATION: clear to auscultation bilaterally Cardio: COMMON NORMALS: no JVD, regular rate, regular rhythm, S1 normal heart sound present and S2 normal heart sound present RATE: regular rate RHYTHM: regular rhythm HEART SOUNDS: S1 normal heart sound present and S2 normal heart sound present GI: COMMON NORMALS: Normal to inspection, nondistended, normoactive bowel sounds present, Soft to palpation and non-tender PALPATION: Yes No hepatosplenomegaly present Extremity: COMMON NORMALS: capillary refill normal, no calf tenderness and no pedal edema Neuro: COMMON NORMALS: patient oriented x3, CN's II-XII intact bilaterally, moves all extremities and no focal motor deficits Psych: COMMON NORMALS: mental status grossly normal Skin: NARRATIVE SKIN EXAM: Right arm radial pulse palpated ? Right forearm arm area of erythema, swelling, pustular drainage, open injection site, right over radial artery, measuring 2 x 2 cm, painful to palpation, with multiple satellite lesions tracking up towards the elbow joint ? Right arm, area of erythema, swelling, pustular drainage 3 x 4 cm, round, at the level of the elbow medially, with pustular drainage and open site, with multiple satellite lesions tracking upwards from there, largest advised to region measuring 2 x 2 cm quite raised, raising concern for abscess ? Axillary lymphadenopathy ? Left arm radial pulse palpated ? Left forearm area, multiple areas of erythema, swelling, pus or drainage, open injection site, present in forearm, tracking up, Sepsis: Is patient septic: Yes Focused sepsis exam performed: Yes F ocused sepsis exam: Hypotensive, cap refill greater than 2 seconds, Date exam was performed: 06/25/23 Time exam was performed: 00:53 Data 06/24/23 20:28 06/24/23 20:28 Micro: Microbiology 06/24/23 23:00 Blood Culture - Preliminary Blood SPECIMEN COLLECTED 06/24/23 23:00 Blood Culture - Preliminary Blood SPECIMEN COLLECTED A&P Assessment and plan (1) IV drug user: (2) Hypothyroidism: (3) Septic shock: (4) Cellulitis: (5) Abscess of multiple sites: (6) Acute kidney injury: Plan Multiple abscesses, cellulitis, bilateral forearms, arms ? Associated with IV drug abuse ? With septic shock blood pressure 96/57 on 2 L, elevated white blood cell count elevated CRP, currently receiving septic bolus ? Plan ? Pro-[place], CRP, sed rate ? CT bilateral forearms ? Patient has multiple abscesses that will need to be drained, ER provider reaching out to orthopedic service ? Will keep n.p.o. ? Vancomycin ? Zosyn -Follow blood cultures ? Acute hep panel, HIV ? BAHMAN, monitor creatinine monitor urine output, IV fluids ? Full code ? Lovenox for DVT prophylaxis Attestations 2 Medical Necessity Statement*: Patient requires hospitalization, inpatient, greater than 2 midnight for multiple abscesses cellulitis bilateral forearms, arms associate with IV drug abuse, septic shock, BAHMAN, Diagnoses IV drug user F19.90 Hypothyroidism E03.9 Septic shock A41.9; R65.21 Cellulitis L03.90 Abscess of multiple sites L02.91 Acute kidney injury N17.9
--- NOTE | 2023-06-25 00:59 | XRR_ITS ---
PROCEDURE INFORMATION: Exam: XR Left Forearm Exam date and time: 06/25/2023 1:30 AM Age: 62 years old Clinical indication: Arm, lower; Left; Patient HX: Patient has redness and swelling with multiple small circular abscessess to posterior and anterior aspects of bilateral forearms. ; Additional info: Redness pain swelling TECHNIQUE: Imaging protocol: Radiologic exam of the left forearm. Views: 2 views. COMPARISON: US soft tissue/extremity [id number] 07/05/2018 12:50 PM FINDINGS: Bones/joints: Normal. Soft tissues: Soft tissue swelling. Superficial soft tissue irregularity on the dorsal side. No soft tissue gas. XR/XR forearm LT 2V [id number] IMPRESSION: Negative for osseous abnormality.
--- NOTE | 2023-06-25 00:59 | XRR_ITS ---
PROCEDURE INFORMATION: Exam: XR Right Forearm Exam date and time: 06/25/2023 1:32 AM Age: 62 years old Clinical indication: Arm, lower; Right; Patient HX: Patient has redness and swelling with multiple small circular abscessess to posterior and anterior aspects of bilateral forearms. ; Additional info: Redness pain swelling TECHNIQUE: Imaging protocol: Radiologic exam of the right forearm. Views: 2 views. COMPARISON: US soft tissue/extremity [id number] 07/05/2018 12:50 PM FINDINGS: Bones/joints: Normal. Soft tissues: Soft tissue edema. Scattered irregularities in the superficial soft tissues on the ventral side. XR/XR forearm RT 2V [id number] IMPRESSION: Negative for osseous abnormality.
[2023-06-25 01:00] LABS: Erythrocyte Sedimentation Rate 26 mm/hr (0-10)
--- NOTE | 2023-06-25 01:02 | ECG_ITS ---
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 Measurements Intervals [place] Rate: 67 P: 76 TX: 257 QRS: 73 QRSD: 94 T: 71 QT: 442 QTc: 469 Interpretive Statements SINUS RHYTHM WITH FIRST DEGREE AV BLOCK WITH OCCASIONAL SUPRAVENTRICULAR PREMATURE COMPLEXES Compared to ECG 08/13/2022 17:37:01 First degree AV block now present Sinus tachycardia no longer present Ventricular premature complex(es) no longer present T-wave abnormality no longer present Electronically Signed On 06-25-2023 22:16:22 CDT by Sarabjit Lindsay M.D. [email or web address] healthSencer[facility]outh[facility].[email or web address]/store/[id number]
[2023-06-25 01:09] LABS: Troponin(5th) Baseline 37 ng/L (0-15)
[2023-06-25 01:19] LABS: Procalcitonin 0.58 ng/mL (0-0.5)
--- NOTE | 2023-06-25 01:33 | CTR_ITS ---
PROCEDURE INFORMATION: Exam: CT Left Upper Extremity Without Contrast, Elbow Exam date and time: 06/25/2023 3:41 AM Age: 62 years old Clinical indication: Arm, lower; Left; Patient HX: Patient has swelling and redness and multiple small circular abscesses to posterior and anterior aspects of bilateral forearms. ; Additional info: Multple abscess drug injection site TECHNIQUE: Imaging protocol: Computed tomography of the left upper extremity without contrast. Exam focused on the elbow. Radiation optimization: All CT scans at this facility use at least one of these dose optimization techniques: automated exposure control; mA and/or kV adjustment per patient size (includes targeted exams where dose is matched to clinical indication); or iterative reconstruction. COMPARISON: US soft tissue/extremity [id number] 07/05/2018 12:50 PM RADIATION DOSE METRICS: Total DLP (mGy-cm): 1388.79 FINDINGS: Bones/joints: Normal. No acute fracture or dislocation. Soft tissues: Diffuse subcutaneous soft tissue edema. Negative for soft tissue gas. Negative for focal drainable abscess. CT/CT forearm LT wo con* [id number] IMPRESSION: 1. Diffuse cellulitis changes. 2. No visible abscess. 3. Negative for osteomyelitis.
--- NOTE | 2023-06-25 01:33 | CTR_ITS ---
PROCEDURE INFORMATION: Exam: CT Right Upper Extremity Without Contrast, Forearm Exam date and time: 06/25/2023 3:36 AM Age: 62 years old Clinical indication: Arm, lower; Right; Patient HX: Patient has swelling and redness and multiple small circular abscesses to posterior and anterior aspects of bilateral forearms. ; Additional info: Multiple abscess TECHNIQUE: Imaging protocol: Computed tomography of the right upper extremity without contrast. Exam focused on the forearm. Radiation optimization: All CT scans at this facility use at least one of these dose optimization techniques: automated exposure control; mA and/or kV adjustment per patient size (includes targeted exams where dose is matched to clinical indication); or iterative reconstruction. COMPARISON: CR (UP EXM, ) 06/25/2023 1:32 AM RADIATION DOSE METRICS: Total DLP (mGy-cm): 1760.04 FINDINGS: Bones/joints: Normal. No acute fracture or dislocation. Soft tissues: Diffuse subcutaneous soft tissue edema. Possible shallow ulcerations on the ventral surface. Negative for soft tissue gas. No focal abscess identified. CT/CT forearm RT wo con* [id number] IMPRESSION: 1. Cellulitis. 2. No drainable abscess seen. 3. Negative osteomyelitis.
--- NOTE | 2023-06-25 01:42 | PC.NURSE ---
ekg done in er just prior to arrival to floor
--- NOTE | 2023-06-25 02:12 | PC.NURSE ---
Patient with multiple large abcess on bilateral arms, reported to have last used iv drugs a couple days ago . Also has multiple sores on bilateral legs/ thighs.
[2023-06-25] MEDS: pantoprazole 40 mg SDV IVP (02:27)
[2023-06-25] MEDS: enoxaparin 30 mg/0.3 mL Syringe SUBCUT (02:28)
[2023-06-25] MEDS: sodium chloride 0.9% 1,000 ML 125 ML IV ×2 (02:28→10:33)
--- NOTE | 2023-06-25 02:44 | ECG_ITS ---
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 Measurements Intervals [place] Rate: 68 P: 81 PA: 261 QRS: 76 QRSD: 89 T: 73 QT: 414 QTc: 443 Interpretive Statements SINUS RHYTHM WITH FIRST DEGREE AV BLOCK LOW QRS VOLTAGE IN EXTREMITY LEADS [QRS DEFLECTION < 0.5 mV IN LIMB LEADS] Compared to ECG 06/25/2023 01:02:05 Low QRS voltage now present Electronically Signed On 06-25-2023 22:33:21 CDT by Sarabjit Lindsay M.D. [email or web address] general hospitalTalenthousesum[facility].Udemy/store/[id number]
[2023-06-25 03:19] LABS: Troponin 5 2HR 26.89 ng/L (0-15)
[2023-06-25 03:21] LABS: Troponin 5 2HR Delta -10.11 ABS# (0-10)
[2023-06-25 03:26] LABS: Chol HDL Ratio 2.55 mg/dL (1.0-5.00); Cholesterol 102 mg/dL (0-200); HDL Cholesterol 40 mg/dL (60-100); LDL Cholesterol Calculated 46 mg/dL (50-129); LDL HDL Ratio 1.15 RATIO (0.00-3.22); Thyroid Stimulating Hormone 0.68 uIU/mL (0.27-4.20); Triglycerides 82 mg/dL (0-150)
[2023-06-25 03:30] LABS: Estmated Average Glucose 111; Hemoglobin A1C 5.5 % (4.0-6.0)
[2023-06-25 03:33] LABS: HIV 1 & 2 Antibody Non-Reactive (Non-Reactiv); HIV 1 & 2 Antigen Non-Reactive (Non-Reactiv)
[2023-06-25 03:39] LABS: Hepatitis A Antibody IgM Non-Reactive (Nonreactive); Hepatitis B Core IgM Non-Reactive (Nonreactive); Hepatitis B Surface Antigen Non-Reactive (Nonreactive)
[2023-06-25 04:20] LABS: Hepatitis C Virus Antibody Reactive (Nonreactive)
[2023-06-25] MEDS: sodium chloride 0.9% 250 ML IV (05:15)
[2023-06-25 05:57] LABS: Basophils # 0.1 10^3/uL (0.0-0.1); Basophils % 0.7 %; Eosinophils # 0.5 10^3/uL (0.0-0.8); Eosinophils % 4.6 %; Lymphocytes # 1.3 10^3/uL (0.8-4.8); Lymphocytes % 11.1 %; Mean Corpuscular HGB Conc 28.8 g/dL (30-55); Mean Corpuscular Volume 104.1 fl (82-101); Mean Platelet Volume 11.4 fL (7.4-10.4); Monocytes # 0.7 10^3/uL (0.2-0.9); Neutrophils # 8.67 10^3/uL (1.8-7.7); Neutrophils % 77.2 %; Nucleated Red Blood Cells % 0 %; Platelet Count 162 10^3/cmm (157-399); Red Blood Count 4.13 10^6/uL (3.85-5.65); Red Cell Distribution Width 15.3 % (12.1-15.1); White Blood Count 11.23 10^3/uL (3.29-11.43)
[2023-06-25 05:58] LABS: Add Urine Microscopic? NO; Charge for UA Resulting for Rev
[2023-06-25 06:00] LABS: INR 1.18 (0.8-1.2)
[2023-06-25 06:06] LABS: Troponin 5 6HR 28.39 ng/L (0-15)
[2023-06-25 06:07] LABS: Troponin 5 6HR Delta -8.61 ng/L (0-12)
--- NOTE | 2023-06-25 06:10 | PC.NURSE ---
Dr. Forrest called due to low bp, patient had previously attempted to sit high up in bed to urinate. Blood pressures had been soft prior with good maps. Voided only 200 cc since 0115 admit. Lungs clear. Instructed to give 250 cc normal saline fluid bolus, and continue to monitor.
[2023-06-25 06:16] LABS: Cocaine Screen Urine Negative (Negative); Opiate Screen Urine Negative (Negative); PCP Screen Urine Negative (Negative); THC Screen Urine Negative (Negative)
[2023-06-25 06:17] LABS: Magnesium 2.1 mg/dL (1.7-2.3)
[2023-06-25 06:31] LABS: Amphetamines Screen Urine Negative (Negative); Barbiturates Screen Urine Negative (Negative); Benzodiazepines Screen Urine Positive (Negative); Bilirubin Urine Neg (Negative); Blood Urine Neg (Negative); Glucose Urine UA Norm (Normal); Ketones Urine Negative (Negative); Leukocyte Esterase Urine Negative (Negative); Nitrate Urine Negative (Negative); Protein Urine Neg (Negative); Specific Gravity, Urine 1.025 (1.005-1.030); Urine Appearance Clear (CLEAR); Urine Color Yellow (Yellow); Urobilinogen Urine Neg (Negative); pH Urine 5 (5-7)
--- NOTE | 2023-06-25 06:44 | ECG_ITS ---
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 Measurements Intervals [place] Rate: 72 P: 73 IA: 216 QRS: 77 QRSD: 92 T: 81 QT: 422 QTc: 463 Interpretive Statements SINUS RHYTHM WITH FIRST DEGREE AV BLOCK WITH OCCASIONAL SUPRAVENTRICULAR PREMATURE COMPLEXES Compared to ECG 06/25/2023 02:50:29 No significant changes Electronically Signed On 06-25-2023 22:35:43 CDT by Sarabjit Lindsay M.D. [email or web address] [email or web address].XIFIN/store/[id number]
--- NOTE | 2023-06-25 07:59 | PM.CONSULT ---
Providers/Reason For Consult Consulting Physician/Specialty*: Kyrie Horne DO/orthopedic surgery Reason for Consult*: Bilateral forearm abscesses Requesting Physician: Dr. Loyd?emergency department Attending Physician: Gurmeet Forrest MD Primary Care Provider: Rakesh Nye MD History of Present Illness History of Present Illness Anthony Harding is a 62 year old male past medical history of hypothyroidism, hepatitis C, history of drug use, who presents to [facility] due to multiple abscesses of bilateral arms, at the location of drug site injection. Patient tells me that roughly 3 to 4 days ago, he had injected methamphetamines to into bilateral arms at multiple sites, since then he has been feeling unwell, chills, no fevers, with swelling, and drainage from multiple sites. Patient has been admitted by the hospitalist currently in ICU. Orthopedics was consulted for evaluation and treatment recommendations Review of Systems General: Reports: 10 or more systems reviewed and unremarkable except in HPI and below Medications/Allergies Home Medications Medication Instructions Recorded Confirmed Last Taken Type albuterol sulfate 90 mcg/actuation 2 puff inhalation Q6H PRN 06/10/19 06/25/23 1 Day Ago Rx aerosol inhaler (Proventil HFA) shortness of breath or wheezing ~06/24/23 #18 grams 15 mg furosemide 40 mg tablet 40 mg PO DAILY 07/16/19 06/25/23 1 Day Ago History ~06/24/23 docusate sodium 100 mg capsule 100 mg PO BID #14 caps 12/12/22 06/25/23 1 Day Ago Rx (Dulcolax Stool Softener ~06/24/23 (docusate)) 100 mg levothyroxine 100 mcg tablet See Rx Instructions .Route 01/03/23 06/25/23 Unknown Rx .COMPLEX #90 tabs meloxicam 15 mg tablet 15 mg PO DAILY osteoarthritis #30 01/04/23 06/25/23 1 Day Ago Rx tabs ~06/24/23 amlodipine 10 mg tablet See Rx Instructions .Route 03/21/23 06/25/23 1 Day Ago Rx .COMPLEX #90 tabs ~06/24/23 tamsulosin 0.4 mg capsule See Rx Instructions .Route 04/21/23 06/25/23 1 Day Ago Rx .COMPLEX #90 caps ~06/24/23 0.4 mg Allergies Allergy/AdvReac Type Severity Reaction Status Date / Time No Known Allergies Allergy Verified 06/24/23 17:49 Current Medications Generic Name Dose Route Start Last Admin Trade Name Freq PRN Reason Stop Dose Admin Enoxaparin Sodium 30 mg 06/25/23 01:45 06/25/23 02:28 Enoxaparin 30 Mg/0.3 Ml Syringe SUBCUT 30 mg Q24H LEONA Administration Sodium Chloride 1,000 mls @ 125 mls/hr 06/25/23 01:33 06/25/23 02:28 Sodium Chloride 0.9% IV 125 mls/hr .Q8H LEONA Administration Pantoprazole Sodium 40 mg 06/25/23 01:33 06/25/23 02:27 Pantoprazole 40 Mg Sdv IVP 40 mg Q24H LEONA Administration PFSH Acute PFSH: Medical History Inguinal hernia of right side without obstruction or gangrene Pneumonia Hyponatremia Abnormal CT scan, chest Probable lung mass Acute respiratory failure Hepatitis C Renal cysts, acquired, bilateral BPH loc w urin obs/LUTS Benign prostatic hyperplasia with lower urinary tract symptoms Hypothyroidism CKD (chronic kidney disease), stage III Nicotine dependence, cigarettes, with unspecified nicotine-induced disorders ROBBIE (obstructive sleep apnea) Pulmonary emphysema COPD (chronic obstructive pulmonary disease) Hypogonadism in male Hypertension Surgical History Hx of inguinal hernia repair 12/12/22 Dr Juan Antonio gongora repair right inguinal hernia with mesh History of hernia surgery History of ankle surgery History of mandibular surgery History of circumcision Family History Mother , at age 46 Cirrhosis of liver Father , at age 78 CAD (coronary artery disease) Denies family history of Diabetes Clotting disorder Dementia Hyperlipidemia Psychiatric illness Chronic kidney disease (CKD) Suicide Anesthesia complication Bleeding disorder Family history of premature coronary artery disease Lung disease Cancer Hypertension Stroke Social History Smoking and tobacco/nicotine status: current every day tobacco/nicotine user cigarettes Packs smoked per day: 0.75 Years cigarettes smoked: 30 [ Other cigarette details: [id number]] Quit status (tobacco/nicotine): considering quitting Second hand smoke exposure: No Alcohol intake: former Substance/Drug Use: never Lives independently: Yes Household members: spouse Marital status: service: No Current occupational status: unemployed and disabled Pets and animals: Yes Do you think of yourself as: Straight/Heterosexual Current gender identity: Male Vitals/I&O/Wt Last Vital Signs Temp 97.8 F 06/25/23 06:00 Pulse 61 06/25/23 06:00 Resp 16 06/25/23 06:00 BP 98/57 06/25/23 06:00 Pulse Ox 91 06/25/23 06:00 O2 Del Method Nasal Cannula 06/25/23 06:00 O2 Flow Rate 2 06/25/23 06:00 06/24/23 06/25/23 06/25/23 22:59 06:59 14:59 Intake Total 2878 / 2878 Output Total 200 / 200 Balance 2678 / 2678 Weight last 48 hrs Weight 192 lb 8 oz Weight 192 lb 8 oz Weight 190 lb Physical Exam Narrative: Orthopedic specific examination: Examination of the right upper extremity demonstrates he is able to wiggle his fingers sensations intact light touch distally. He has 2 open draining sores and abscesses on the radial aspect of the distal forearm as well as the volar aspect of the distal forearm also has 2 more additional palpable fluctuant and indurated abscesses at the proximal forearm. Localized erythema noted around all of these abscesses with palpable fluctuance noted. Once proximally I do not have any active drainage and are tender to palpation. There is no signs of rapid progressing infection no proximal tracking erythema compartments are soft and compressible. Both forearms are swollen given multiple abscesses Examination of the left upper extremity demonstrates he is able to wiggle his fingers sensations intact light touch distally he has multiple other abscesses with palpable fluctuance throughout the forearm no proximal tracking erythema no signs of subcutaneous gas or bullae the compartments are soft compressible swelling noted in the forearm but localized at each area of patient's abscess with palpable fluctuance noted. No active draining abscess on the left side. Thorough body inspection there is no abscesses in the upper arms or throughout the legs he has a couple picked scabs on the posterior aspect of his thigh but does have some localized erythema but there is no fluid collection or abscess noted. Data 06/25/23 05:36 06/24/23 20:28 Micro: Microbiology 06/24/23 23:00 Blood Culture - Preliminary Blood SPECIMEN COLLECTED 06/24/23 23:00 Blood Culture - Preliminary Blood SPECIMEN COLLECTED Xray Ortho: My impression: X-rays of the bilateral forearms reviewed demonstrate no foreign bodies or needles noted throughout the forearm there is no evidence of osseous abnormality. A&P Assessment and plan (1) IV drug user: (2) Abscess of multiple sites: (3) Cellulitis: Plan N.p.o. since midnight Plan for OR today for bilateral upper extremity I&D Internal medicine is primary IV antibiotics Reviewed imaging Reviewed labs Clinically patient still has palpable fluctuance subcutaneously noted at multiple sites of abscess to the bilateral upper extremities given his clinical presentation would recommend surgical intervention to have these I&D to appropriately packed and dressed to help decrease any type of bacterial load. There is no signs of rapidly progressing infection these are localized abscess areas where I suspect patient has injected has localized induration and cellulitis in each of these abscess sites. A couple of already started to open up and are draining. We talked about his treatment options in detail at this point through shared decision making he like to pursue surgical intervention as I would recommend this given these abscesses are likely his source of infection and his clinical picture. Risks of surgery and include but not limited to make a better make it worse and injury to nerves vessels or tendons, paresthesias, persistent pain, wound issues, possible repeat surgery and reaccumulation of abscess. Understanding risk of surgery he elects to proceed all questions have been answered at this time. He does understand potentially if not doing surgery these could continually progressively get worse. Understanding this he elects to proceed all questions been answered at this time. Will get him added onto the surgery schedule today for bilateral upper extremity irrigation and debridement. Coding Level of Care Code Acute Code for Chg Fwd Diagnoses IV drug user F19.90 Abscess of multiple sites L02.91 Cellulitis L03.90 Time Spent (min) 35
--- NOTE | 2023-06-25 08:07 | W.PM.OPSUD ---
Surgery/Procedure H&P Update DATE OF PROCEDURE: June 25, 2023 DATE H&P PERFORMED: 06/25/23 H&P UPDATE INFORMATION: I have reviewed H&P completed within last 30 days, I have examined patient prior to procedure and No changes to prior documentation PREOP DIAGNOSIS: Bilateral upper extremity multiple abscesses PRIMARY INDICATION FOR PROCEDURE: Bilateral upper extremity multiple abscesses PLANNED PROCEDURE: Operation Date: 06/25/23 08:40 Proposed Procedures p Incision & Drainage Upper Extremity(Bilateral) - Kyrie Horne DO
[2023-06-25] MEDS: piperacillin-tazobactam 3.375 GM in sodium chloride 0.9% (plus) 50 ML IV ×2 (08:39→22:59)
--- NOTE | 2023-06-25 09:17 | P.ANESASSM_ITS ---
Pre-Anesthetic Assessment Height/Weight: Height 1.83 m Weight 87.317 kg Temp Pulse Resp BP Pulse Ox O2 Del Method O2 Flow Rate 97.5 F L 73 18 94/53 96 Nasal Cannula 2 06/25/23 08:00 06/25/23 08:15 06/25/23 08:15 06/25/23 08:30 06/25/23 08:15 06/25/23 06:00 06/25/23 06:00 Preop Diagnosis: Bilateral upper extremity multiple abscesses Operation Date: 06/25/23 08:40 Proposed Procedures p Incision & Drainage Upper Extremity(Bilateral) - Kyrie Anderson, DO Familial anesthetic complications: none Was Beta Emily taken within 24 hours: N/A Was Clonidine taken within 24 hours: N/A Social Tobacco Meth Exam alert, oriented x 3 and regular rate & rhythm Wheezing and rhonchi Airway Submandibular: within normal limits Cervical ROM: within normal limits Mallampati: Class II Dentition: false Pulmonary Chronic Obstructive Pulmonary Disease CV/HEM Hypertension This admission sepsis, hypotension Chronic Renal Insufficiency Metabolic Thyroid Disease [facility] [place] Osteoarthritis/DJD Anesthetic Plan ASA status: 4 Anesthesia: General Medications/Allergies Home Medications Medication Instructions Recorded Confirmed Last Taken Type albuterol sulfate 90 mcg/actuation 2 puff inhalation Q6H PRN 06/10/19 06/25/23 1 Day Ago Rx aerosol inhaler (Proventil HFA) shortness of breath or wheezing ~06/24/23 #18 grams 15 mg furosemide 40 mg tablet 40 mg PO DAILY 07/16/19 06/25/23 1 Day Ago History ~06/24/23 docusate sodium 100 mg capsule 100 mg PO BID #14 caps 12/12/22 06/25/23 1 Day Ago Rx (Dulcolax Stool Softener ~06/24/23 (docusate)) 100 mg levothyroxine 100 mcg tablet See Rx Instructions .Route 01/03/23 06/25/23 Unknown Rx .COMPLEX #90 tabs meloxicam 15 mg tablet 15 mg PO DAILY osteoarthritis #30 01/04/23 06/25/23 1 Day Ago Rx tabs ~06/24/23 amlodipine 10 mg tablet See Rx Instructions .Route 03/21/23 06/25/23 1 Day Ago Rx .COMPLEX #90 tabs ~06/24/23 tamsulosin 0.4 mg capsule See Rx Instructions .Route 04/21/23 06/25/23 1 Day Ago Rx .COMPLEX #90 caps ~06/24/23 0.4 mg Allergies Allergy/AdvReac Type Severity Reaction Status Date / Time No Known Allergies Allergy Verified 06/24/23 17:49 Current Medications Generic Name Dose Route Start Last Admin Trade Name Freq PRN Reason Stop Dose Admin Enoxaparin Sodium 30 mg 06/25/23 01:45 06/25/23 02:28 Enoxaparin 30 Mg/0.3 Ml Syringe SUBCUT 30 mg Q24H LEONA Administration Sodium Chloride 1,000 mls @ 125 mls/hr 06/25/23 01:33 06/25/23 02:28 Sodium Chloride 0.9% IV 125 mls/hr .Q8H LEONA Administration Pantoprazole Sodium 40 mg 06/25/23 01:33 06/25/23 02:27 Pantoprazole 40 Mg Sdv IVP 40 mg Q24H LEONA Administration PFSH Anesthesia Medical History Inguinal hernia of right side without obstruction or gangrene Pneumonia Hyponatremia Abnormal CT scan, chest Probable lung mass Acute respiratory failure Hepatitis C Renal cysts, acquired, bilateral BPH loc w urin obs/LUTS Benign prostatic hyperplasia with lower urinary tract symptoms Hypothyroidism CKD (chronic kidney disease), stage III Nicotine dependence, cigarettes, with unspecified nicotine-induced disorders ROBBIE (obstructive sleep apnea) Pulmonary emphysema COPD (chronic obstructive pulmonary disease) Hypogonadism in male Hypertension Surgical History Hx of inguinal hernia repair 12/12/22 Dr Juan Antonio gongora repair right inguinal hernia with mesh History of hernia surgery History of ankle surgery History of mandibular surgery History of circumcision Family History Mother , at age 46 Cirrhosis of liver Father , at age 78 CAD (coronary artery disease) Denies family history of Diabetes Clotting disorder Dementia Hyperlipidemia Psychiatric illness Chronic kidney disease (CKD) Suicide Anesthesia complication Bleeding disorder Family history of premature coronary artery disease Lung disease Cancer Hypertension Stroke Social History Smoking and tobacco/nicotine status: current every day tobacco/nicotine user cigarettes Packs smoked per day: 0.75 Years cigarettes smoked: 30 [ Other cigarette details: [id number]] Quit status (tobacco/nicotine): considering quitting Second hand smoke exposure: No Alcohol intake: former Substance/Drug Use: never Lives independently: Yes Household members: spouse Marital status: service: No Current occupational status: unemployed and disabled Pets and animals: Yes Do you think of yourself as: Straight/Heterosexual Current gender identity: Male Data Anesthesia 06/25/23 05:36 06/24/23 20:28 Short CBC 06/24/23 06/25/23 Range/Units 20:28 05:36 WBC 17.77 H 11.23 (3.29-11.43) 10^3/uL Hgb 12.90 12.40 (11.27-16.99) g/dL Hct 42.4 43.0 (37-53) % MCV 98.6 104.1 H D (82-101) fl Plt Count 195 162 (157-399) 10^3/cmm Neut % (Auto) 82.8 77.2 % Neut # (Auto) 14.72 H 8.67 H (1.8-7.7) 10^3/uL BMP 06/24/23 20:28 Sodium 134 L Potassium 4.4 Chloride 97 L Carbon Dioxide 23 BUN 56 H Creatinine 4.5 H Glucose 110 Calcium 8.3 L Cardiac Enzymes 06/24/23 06/25/23 06/25/23 Range/Units 20:28 02:47 05:36 Creatine Kinase 483 H* (39-308) U/L Troponin T Baseline (0-15) ng/L Troponin T 120 Minute 26.89 H (0-15) ng/L Delta Troponin T -10.11 L (0-10) ABS# Troponin T Hi Sens 6Hr 28.39 H (0-15) ng/L Troponin T Hi Sens 6Hr Delta -8.61 L (0-12) ng/L 06/25/23 Range/Units Unknown Creatine Kinase (39-308) U/L Troponin T Baseline 37 H (0-15) ng/L Troponin T 120 Minute (0-15) ng/L Delta Troponin T (0-10) ABS# Troponin T Hi Sens 6Hr (0-15) ng/L Troponin T Hi Sens 6Hr Delta (0-12) ng/L Urine 06/24/23 Range/Units 05:20 Urine Color Yellow (Yellow) Urine Appearance Clear (CLEAR) Urine pH 5 (5-7) Ur Specific [place] 1.025 (1.005-1.030) Urine Protein Neg (Negative) Urine Glucose (UA) Norm (Normal) Urine Ketones Negative (Negative) Urine Nitrate Negative (Negative) Urine Bilirubin Neg (Negative) Ur Leukocyte Esterase Negative (Negative) Coags 06/24/23 06/25/23 06/25/23 20:28 05:36 Unknown ESR 26 H PT 15.40 H INR 1.18 C-Reactive Protein 125.0 H Microbiology 06/24/23 23:00 Blood Culture - Preliminary Blood SPECIMEN COLLECTED 06/24/23 23:00 Blood Culture - Preliminary Blood SPECIMEN COLLECTED Cardiac Studies: 2 No Data to Display Anesthesia Procedures Central Venous Line Central Venous Line Narrative: 3 lumen 7fr 16 cm; Sterile prep and drape, [facility], sutured and sterile dressing with biopatch. Full sterile precautions, done in OR after anesthesia induction. Time Out Performed: Yes Consent: from patient, risks and benefits reviewed and patient agrees to proceed Central Line: New Anesthesia monitors: pulse oximetry, EKG, BP cuff and oxygen Vein cannulated: left subclavian Post procedure: Obtain Chest X-Ray
--- NOTE | 2023-06-25 09:59 | XRR_ITS ---
PROCEDURE INFORMATION: Exam: XR Chest Exam date and time: 06/25/2023 11:22 AM Age: 62 years old Clinical indication: Device placement; Other: Central line placement TECHNIQUE: Imaging protocol: Radiologic exam of the chest. Views: 1 view. COMPARISON: [place] [id number] 08/14/2022 3:00 PM FINDINGS: Tubes, catheters and devices: Left chest central venous catheter terminates near the confluence of the left subclavian vein and the SVC. Lungs: Bibasilar cldra-fzyewqa-wkdm-left hazy/granular opacities. Pleural spaces: No large pleural effusion. No distinct pneumothorax. Heart/Mediastinum: Cardiomediastinal silhouette is midline and normal in size. Bones/joints: No acute osseous findings. XR/XR chest 1V portable [id number] IMPRESSION: 1. Left chest central venous catheter terminates near the confluence of the left subclavian vein and the SVC. 2. Bibasilar rguki-bgohrev-vwco-left hazy/granular opacities may represent chronic lung markings or may represent mild edema, atelectasis, or developing infiltrates.
--- NOTE | 2023-06-25 10:07 | P.BOP_ITS ---
Date of Procedure: 06/25/2023 Surgeon: Kyrie Horne DO Machine Coremaker(s): Adria Horne PA-C Procedure(s) performed: Left upper extremity irrigation and debridement of multiple abscesses (Incision #1= 3 cm x 0.5 cm x 0.5 cm Incision #2= 2 cm x 0.5 cm x 0.5 cm Incision #3= 2 cm x 0.5 cm x 0.5 cm Incision #4= 3 cm x 1.5 cm x 0.5 cm Incision #5= 3 cm x 1 cm x 0.5 cm Incision #6= 2.5 cm x 1 cm x 0.5 cm) Right upper extremity irrigation and debridement of multiple abscesses (Incision #1= 1 cm x 1 cm x 0.5 cm Incision #2= 5 cm x 1 cm x 0.5 cm Incision #3= 2 cm x 0.5 cm x 0.5 cm Incision #4= 2 cm x 0.5 cm x 0.5 cm Incision #5= 3 cm x 1 cm x 0.5 cm Incision #6= 2 cm x 0.5 cm x 0.5 cm) Findings of the procedure(s): [Patient found to have multiple abscesses in the bilateral arms cultures of purulence of the bilateral arms and sent for microbiology. Given the large open wound of the volar forearm on the right side I was able and had to pack this wound for secondary healing Ressie incisions were closed loosely to allow for drainage but skin approximation patient tolerated procedure without issues and taken back to ICU.] Estimated blood loss: [15 mL] Specimen(s) removed: Microbiology taken of the bilateral upper extremities abscesses sent for aerobic and anaerobic cultures Post-operative diagnosis: Bilateral upper extremity multiple abscesses and cellulitis
--- NOTE | 2023-06-25 10:13 | P.OP_ITS ---
Operative Report Date of procedure: June 25, 2023 Pre-op diagnosis: Bilateral upper extremity abscesses Post-op diagnosis: Same Post-op findings: Patient had 6 areas of abscesses on the left arm and 6 areas of abscess on the right arm Procedure done: Left upper extremity irrigation and debridement of multiple abscesses (Incision #1= 3 cm x 0.5 cm x 0.5 cm Incision #2= 2 cm x 0.5 cm x 0.5 cm Incision #3= 2 cm x 0.5 cm x 0.5 cm Incision #4= 3 cm x 1.5 cm x 0.5 cm Incision #5= 3 cm x 1 cm x 0.5 cm Incision #6= 2.5 cm x 1 cm x 0.5 cm) Right upper extremity irrigation and debridement of multiple abscesses (Incision #1= 1 cm x 1 cm x 0.5 cm Incision #2= 5 cm x 1 cm x 0.5 cm Incision #3= 2 cm x 0.5 cm x 0.5 cm Incision #4= 2 cm x 0.5 cm x 0.5 cm Incision #5= 3 cm x 1 cm x 0.5 cm Incision #6= 2 cm x 0.5 cm x 0.5 cm) Specimens removed/disposition: Cultures aerobic and anaerobic taken of the bilateral arms and sent for microbiology Surgeon: Kyrie Horne DO [employer] Consultant: Adria Horne PA-C: PA was necessary for assistance in this case with hand positioning to execute the procedure, retraction and protection of neurovascular structures as well as to assist with wound closure and dressing application. Estimated blood loss: 15mL Left?21 minutes Right-28 mins IV fluids: 1000 mL Complications: None Findings: See operative report Condition: stable Disposition: ICU Brief History: Patient 62-year-old gentleman with history of drug abuse presented to the emerg ency department bilateral upper extremity multiple abscesses throughout the forearms. Couple are actively draining. Patient was subsequent admitted by the internal medicine the ICU. Orthopedics was consulted for evaluation and treatment recommendations. Patient was admitted overnight been on IV antibiotics still has multiple areas of cellulitis and palpable fluctuance throughout the bilateral arms we talked about treatment options in order to decrease his bacterial load recommend surgical intervention we talked about this in detail and understands the risk benefits complication alternatives of surgery and through shared decision making X proceed with surgical intervention for bilateral upper extremity irrigation debridement. All questions been answered at this time. Procedure: Patient seen and evaluated in the ICU in the morning prior to surgical intervention reviewed consent as well as signed the extremities. He understands the ins and outs procedure risk benefits complications alternatives and elects proceed with surgical intervention. He then subsequently was seen evaluated anesthesia once cleared for surgery was taken directly from the ICU to the operative [facility]. He underwent anesthesia per the anesthesia department was probably anesthetized nonsterile tourniquets were applied to the bilateral upper extremities and subsequently armboards were applied to the bilateral upper extremities. Bilateral upper extremities were then prepped and draped in standard orthopedic fashion. Final timeout performed. Patient received appropriate antibiotics on the floor. Started off of the left side. Esmarch tourniquet was used exsanguinate the left upper extremity and tourniquet was insufflated to to 250 mmHg. At this point in time I subsequently made 6 separate incisions over each area of palpable fluctuance and abscess and these were each cultured. Incision #1= 3 cm x 0.5 cm x 0.5 cm Incision #2= 2 cm x 0.5 cm x 0.5 cm Incision #3= 2 cm x 0.5 cm x 0.5 cm Incision #4= 3 cm x 1.5 cm x 0.5 cm Incision #5= 3 cm x 1 cm x 0.5 cm Incision #6= 2.5 cm x 1 cm x 0.5 cm These were all made on the left arm these were incisions were made by skin and subcutaneous tissue utilize hemostats to break up all loculations in all aspects of the wound as I protected any neurovascular structures within the wound bed. I ellipsed out any skin edge or breakdown in order for primary closure. Debrided all skin and subcutaneous tissue fascia. Any purulence was then subsequently cultured and sent for microbiology culture of aerobic and anaerobic. Once I had debrided to appropriate edges and appropriately decompressed all areas of abscesses to left upper extremity and then subsequently thoroughly irrigated this and then subsequently tourniquet was deflated hemostasis satisfactory and then closed these with interrupted nylon sutures in sequential fashion and then dressed this with a bulky soft dressing to the left upper extremity. This completed the left extremity and then proceeded with the right upper extremity. Attention turned towards the right upper extremity. Esmarch tourniquet was used exsanguinate the right upper extremity and tourniquet was insufflated to to 250 mmHg. At this point in time I subsequently made 6 separate incisions over each area of palpable fluctuance and abscess and these were each cultured. Incision #1= 1 cm x 1 cm x 0.5 cm Incision #2= 5 cm x 1 cm x 0.5 cm Incision #3= 2 cm x 0.5 cm x 0.5 cm Incision #4= 2 cm x 0.5 cm x 0.5 cm Incision #5= 3 cm x 1 cm x 0.5 cm Incision #6= 2 cm x 0.5 cm x 0.5 cm These were all made on the right arm at multiple locations these were incisions were made by skin and subcutaneous tissue utilize hemostats to break up all loculations in all aspects of the wound as I protected any neurovascular structures within the wound bed. I ellipsed out any skin edge or breakdown in order for primary closure. Debrided all skin and subcutaneous tissue fascia. purulence was then subsequently cultured and sent for microbiology culture of aerobic and anaerobic. Once I had debrided to appropriate edges and a ppropriately decompressed all areas of abscesses to right upper extremity and then subsequently thoroughly irrigated this and then subsequently tourniquet was deflated hemostasis satisfactory and then closed these with interrupted nylon sutures in sequential fashion. Patient did have significant wound over the distal volar wrist and this had a large skin breakdown and unable to ellipse this out for primary closure as result this was subsequently packed with iodoform gauze and then dressed this with a bulky soft dressing to the right upper extremity. This completed the right extremity. Patient was then subsequently awakened from anesthesia and back to ICU in stable condition. Disposition: Patient taken to ICU in stable condition will continue to monitor cultures continue with IV antibiotics per primary team. Will recommend recheck a CRP in 2 days as well as will be educated on gauze dressing removal roughly an inch a day for patient's right volar wrist. Patient will follow-up with the orthopedic team in 2 weeks.
--- NOTE | 2023-06-25 10:42 | PC.NURSE ---
Patient arrived from OR team to ICU 10 at 1022. Patient able to transfer self from [facility] to bed. Patient AOX4. Oxymask in place at 10L. Temp 97.4 temporal scan, warm blanket applied. Patient reports pain 5/10 bilateral arms/surgical site. OR reports Right sided wound packing, zero foam 4x4, ABD, and curlex covered with tierra bandage bilateral arms, visualized dressings, did not visualize wounds/surgical site. Estimated blood loss per OR staff 15ml, and estimated intake 500ml. Patient transitioned to 2L NC. See documented stable vitals.
[2023-06-25] MEDS: levothyroxine 50 mcg Tablet 100 MCG PO (11:49)
[2023-06-25] MEDS: morphine 4 mg/mL SDV 1 mL 1 MG IVP (12:15)
--- NOTE | 2023-06-25 12:16 | PM.MISC ---
Miscellaneous Note Note: Status post bilateral post I&D multiple abscesses drainage by Dr. Luis Please review his operative notes for further detail Continue antibiotics As per the nursing staff blood pressure improved with IV fluid hydration MAP is on the softer side vasopressors were not started Will request echo to rule out endocarditis as well Continue IV antibiotics Keep in ICU Add bowel regimen along opioids
--- NOTE | 2023-06-25 12:17 | USCV_ITS ---
Anthony Harding Age: 62 Gender: M : 1960 Exam Date: 06/25/2023 16:25 Ordering Phys: Karen Joyner MD Technologist: José Miguel De La Cruz Exam Location: [facility] [place] Indication: IE BP: 116 / 62 HR: 79 Rhythm: Sinus Technical Quality: Adequate MEASUREMENTS (Male / Female) Normal Values 2D ECHO LV Diastolic Diameter PLAX 5.8 cm 4.2 - 5.9 / 3.9 - 5.3 cm IVS Diastolic Thickness 1.1 cm 0.6 - 1.0 / 0.6 - 0.9 cm IVS Systolic Thickness 1.0 cm LVPW Diastolic Thickness 1.2 cm 0.6 - 1.0 / 0.6 - 0.9 cm LVPW Systolic Thickness 1.2 cm LVOT Diameter 2.0 cm LV Ejection Fraction 2D Teich 73.6 % LV Ejection Fraction MOD 2C 64.7 % LV Ejection Fraction 2C AL 65.3 % LA Diameter 4.0 cm RA Systolic Volume 4C AL 46.3 ml RA Systolic Volume 4C MOD 43.9 ml LA Sys Volume AL 61.9 cm cubed LA Sys Volume Index AL 29.4 cm cubed/m squared Aorta at Sinotubular Diameter 2.5 cm IVC Diameter 2.7 cm M-MODE LA Ao Ratio MM 1.1 AV Cusp Separation MM 2.5 cm DOPPLER AV Peak Velocity 131.0 cm/s LVOT Peak Velocity 130.0 cm/s AV Area Cont Eq vti 2.7 cm squared AV Area Cont Eq pk 3.2 cm squared MV Peak Velocity 94.0 cm/s MV Area PHT 6.1 cm squared Mitral E to A Ratio 0.9 TV Peak Velocity 373.0 cm/s TR Peak Velocity 402.0 cm/s TR Peak Gradient 64.6 mmHg TR Mean Velocity 288.0 cm/s TR Mean Gradient 36.8 mmHg TR Velocity Time Integral 116.3 cm PV Peak Velocity 131.0 cm/s RV Ejection Time 0.3 s FINDINGS Left Ventricle Normal left ventricular size and systolic function, EF 65% . No regional wall motion abnormalities. Right Ventricle The right ventricle is normal in size and function. Right Atrium Mildly increased right atrial size. Left Atrium Mildly increased left atrial volume 30 ml/m squared. Mitral Valve Trace mitral valve regurgitation. Aortic Valve Thickened aortic valve. Tricuspid Valve Trace tricuspid valve regurgitation. Estimated pulmonary artery peak systolic pressure was 80 mm Hg. Pulmonic Valve No gross abnormalities noted Pericardium Normal pericardium without effusion. Aorta Normal ascending aorta dimension. IVC Dilated IVC with decreased respiratory variation. CONCLUSIONS Normal left ventricular size and systolic function, EF 65% . No regional wall motion abnormalities. Mild biatrial enlargementTrace tricuspid valve regurgitation. Severe pulm hypertension with estimated pulmonary artery peak systolic pressure of 80 mmHg with a mean pressure of 52 mmHg. Thickened aortic valve. Trace mitral valve regurgitation. There is no pericardial effusion. There are no intracardiac masses. Compared to the study from 08/03/2018, there is development of pulmonary hypertension Dr Sarabjit Lindsay MD FACC (Electronically Signed) Final Date: 25 Jun 2023 22:09 S
[2023-06-25] MEDS: clindamycin 600 MG/50 ML PREMIX 100 MG IV ×2 (13:26→20:07)
[2023-06-25] MEDS: sennosides-docusate Tablet 2 TAB PO (18:03)
[2023-06-25] MEDS: sodium chloride 0.9% 1,000 ML 75 ML IV (19:00)
[2023-06-26] VITALS (27 sets, daily range): BP systolic 92–194; BP diastolic 53–110; PULSE 65–90; RESP 15–29; TEMP 36.4–36.8; O2SAT 90–97
--- NOTE | 2023-06-26 00:28 | PC.NURSE ---
Patient denies need for pain medications.
[2023-06-26] MEDS: enoxaparin 30 mg/0.3 mL Syringe SUBCUT (02:30)
[2023-06-26] MEDS: pantoprazole 40 mg SDV IVP (02:31)
[2023-06-26 04:41] LABS: Basophils % 0.2 %; Eosinophils % 0.1 %; Lymphocytes # 1.3 10^3/uL (0.8-4.8); Lymphocytes % 14.1 %; Mean Corpuscular HGB Conc 28.9 g/dL (30-55); Mean Corpuscular Hemoglobin 29.9 pg (27-33); Mean Corpuscular Volume 103.4 fl (82-101); Mean Platelet Volume 11.2 fL (7.4-10.4); Monocytes # 1.2 10^3/uL (0.2-0.9); Monocytes % 13.4 %; Neutrophils # 6.61 10^3/uL (1.8-7.7); Nucleated Red Blood Cells % 0 %; Platelet Count 173 10^3/cmm (157-399); Red Blood Count 3.58 10^6/uL (3.85-5.65); Red Cell Distribution Width 15.3 % (12.1-15.1); White Blood Count 9.19 10^3/uL (3.29-11.43)
[2023-06-26] MEDS: clindamycin 600 MG/50 ML PREMIX 100 MG IV (04:42)
[2023-06-26 05:02] LABS: Alanine Aminotransferase 7 U/L (0-41); Albumin Level 2.9 g/dL (3.5-5.2); Alkaline Phosphatase 97 U/L (40-130); Aspartate Amino Transferase 10 U/L (0-40); Blood Urea Nitrogen 43 mg/dL (8-23); Calcium 7.5 mg/dL (8.5-10.5); Carbon Dioxide 22 mmol/L (22-29); Chloride 108 mmol/L (98-107); Creatinine Clr Calc Pharmacy 44.5007; Globulin 3.1 g/dL (1.3-4.6); Glomerular Filtration Rate 33.8 mL/min (90-130); Glucose 140 mg/dL (65-115); Osmolality Calculated 299 mOsm/kg (285-295); Sodium 138 mmol/L (136-145); Total Bilirubin 0.2 mg/dL (0.15-1.2)
--- NOTE | 2023-06-26 06:50 | ANE.PACU2 ---
Inpatient post-anesthesia follow up: Airway intact: Yes Vital signs: Temperature 98.2 F Pulse Rate 76 Respiratory Rate 18 Blood Pressure 114/55 Pulse Oximetry 92 Oxygen Delivery Me thod Nasal Cannula Oxygen Flow Rate 2 Fraction of Inspir ed Oxygen Hydration adequate: Yes Nausea and vomiting: No Pain level: 2 Mental status: Baseline Additional Comments: Left subclavian in good position on postop CXR.
[2023-06-26] MEDS: sennosides-docusate Tablet 2 TAB PO (08:05)
[2023-06-26] MEDS: levothyroxine 50 mcg Tablet 100 MCG PO (08:05)
[2023-06-26] MEDS: tamsulosin 0.4 mg Capsule 0.400000000000000022 MG PO (08:05)
--- NOTE | 2023-06-26 10:40 | P.PN_ITS ---
Subjective 2 Subjective: Patient can be transferred to [facility] Afebrile Cultures negative Patient is anxious to go home, he is still planning his vacation in [place] Vitals/I&O/Wt Last Vital Signs Temp 98.2 F 06/26/23 04:00 Pulse 81 06/26/23 08:00 Resp 28 H 06/26/23 08:00 BP 155/75 06/26/23 08:00 Pulse Ox 90 06/26/23 08:00 O2 Del Method Nasal Cannula 06/26/23 04:00 O2 Flow Rate 2 06/26/23 04:00 06/25/23 06/26/23 06/26/23 22:59 06:59 14:59 Intake Total 1800 / 4000 350 / 4350 1240 / 1240 Output Total 1000 / 1365 350 / 1715 Balance 800 / 2635 0 / 2635 1240 / 1240 Weight last 48 hrs Weight 94.393 kg Weight 87.317 kg Weight 87.317 kg Weight 86.183 kg Physical Exam 2 Narrative: Awake and alert Tolerating diet Nonfocal neuroexam Blood pressure stable Currently on 2 L Nonfocal neuroexam Both arms covered with dressing Pleasant and cooperative S1, S2 Data 06/26/23 04:14 06/26/23 04:14 Micro: Microbiology 06/24/23 23:00 Blood Culture - Preliminary Blood NEGATIVE TO DATE 06/24/23 23:00 Blood Culture - Preliminary Blood NEGATIVE TO DATE 06/25/23 09:40 Gram Stain - Final Arm - #2 06/25/23 09:57 Gram Stain - Final Arm - #3 06/25/23 09:20 Gram Stain - Final Arm - #1 A&P Assessment and plan (1) IV drug user: (2) Hypertension: Qualifiers: Hypertension type: essential hypertension Qualified Code(s): I10 - Essential (primary) hypertension (3) Acute kidney injury: (4) Abscess of multiple sites: (5) Sepsis: (6) Pulmonary emphysema: Plan Plan to transfer him out of ICU to [facility] Status post debridement of abscesses secondary to IV drug abuse Continue antibiotics I might switch to oral antibiotics by tomorrow Patient would not be considered good candidate for IV long-term medications Cultures final results are pending Currently on 2 L Wean off oxygen if possible Sepsis: Improving Patient never required vasopressors, blood pressure improved with IV fluids Continue broad-spectrum antibiotics for 1 more day Full code Regular diet Attestations 2 Medical Necessity Statement*: Possible discharge on Monday Diagnoses IV drug user F19.90 Essential hypertension I10 Hypertension type: essential hypertension Acute kidney injury N17.9 Abscess of multiple sites L02.91 Sepsis A41.9 Pulmonary emphysema J43.9
[2023-06-26] MEDS: piperacillin-tazobactam 3.375 GM in sodium chloride 0.9% (plus) 50 ML IV ×2 (12:30→22:15)
--- NOTE | 2023-06-26 16:58 | P.PN_ITS ---
Subjective 2 Subjective: Patient seen and examined this morning. Patient improving clinically. Planning to transfer out of the ICU today. Pain controlled medications. White count normal today. Will check CRP tomorrow. Vitals/I&O/Wt Last Vital Signs Temp 97.6 F 06/26/23 13:00 Pulse 81 06/26/23 13:00 Resp 22 H 06/26/23 13:00 BP 172/103 06/26/23 13:00 Pulse Ox 92 06/26/23 13:00 O2 Del Method Nasal Cannula 06/26/23 10:59 O2 Flow Rate 2 06/26/23 10:59 06/26/23 06/26/23 06/26/23 06:59 14:59 22:59 Intake Total 350 / 4350 1480 / 1480 Output Total 350 / 1715 Balance 0 / 2635 1480 / 1480 Weight last 48 hrs Weight 208 lb 1.6 oz Weight 192 lb 8 oz Weight 192 lb 8 oz Weight 190 lb Physical Exam 2 Narrative: Dressings to the bilateral upper extremities are on and in place that are clean dry and intact. No evidence of saturation. Fingertips are warm well-perfused brisk cap refill less than 2 seconds he is able make a full fist as well as extend and flex digits with no issues or complications. Sensations intact light touch distally. Compartments are soft compressible. Data 06/26/23 04:14 06/26/23 04:14 Micro: Microbiology 06/25/23 09:20 Gram Stain - Final Arm - #1 Anaerobic Culture - Preliminary Wound Culture - Preliminary Strep pyogenes (grp a) 06/25/23 09:40 Gram Stain - Final Arm - #2 Anaerobic Culture - Preliminary Wound Culture - Preliminary 06/25/23 09:57 Gram Stain - Final Arm - #3 Anaerobic Culture - Preliminary Wound Culture - Preliminary 06/24/23 23:00 Blood Culture - Preliminary Blood NEGATIVE TO DATE 06/24/23 23:00 Blood Culture - Preliminary Blood NEGATIVE TO DATE A&P Assessment and plan (1) IV drug user: (2) Abscess of multiple sites: (3) Cellulitis: Plan Resume diet Antibiotics per primary Encouraged weightbearing as tolerated bilateral hands as well as encourage hand finger and wrist range of motion Ice as needed Pain control Recheck CRP tomorrow Labs reviewed Plan for dressing takedown tomorrow. Attestations 2 Medical Necessity Statement*: Ongoing care multiple abscesses to the bilateral upper extremities Coding Level of Care Code Acute Code for Chg Fwd Diagnoses IV drug user F19.90 Abscess of multiple sites L02.91 Cellulitis L03.90 Time Spent (min) 15
[2023-06-26] MEDS: vancomycin 1,250 MG/250 ML PIGGYBACK 250 MG IV (19:27)
[2023-06-26] MEDS: oxyCODONE 5 mg IR Tab/Cap PO (19:49)
--- NOTE | 2023-06-26 20:00 | PC.NURSE ---
Patient became short of breath, anxious, sweating at shift change. BP 186/107 and 184/110. RR 24-26. O2 sat 93 %. Dr. Forrest notified. Order received. RT is ordering him a prn albuterol inhaler.
[2023-06-26] MEDS: LORazepam 2 mg/mL INJ 10 mL MDV 0.5 MG IVP (20:22)
[2023-06-26] MEDS: albuterol 2.5 mg/3 mL Neb INHALATION (20:27)
[2023-06-27] VITALS (16 sets, daily range): BP systolic 142–150; BP diastolic 78–95; PULSE 84–103; RESP 17–32; TEMP 37.3; O2SAT 75–97
[2023-06-27] MEDS: pantoprazole 40 mg SDV IVP (03:21)
[2023-06-27] MEDS: enoxaparin 30 mg/0.3 mL Syringe SUBCUT (03:21)
[2023-06-27 06:22] LABS: C Reactive Protein 52.7 mg/L (0.0-4.9)
[2023-06-27] MEDS: sennosides-docusate Tablet 2 TAB PO (08:46)
[2023-06-27] MEDS: tamsulosin 0.4 mg Capsule 0.400000000000000022 MG PO (08:46)
[2023-06-27] MEDS: levothyroxine 50 mcg Tablet 100 MCG PO (08:46)
--- NOTE | 2023-06-27 09:05 | XRR_ITS ---
PROCEDURE INFORMATION: Exam: XR Chest Exam date and time: 06/27/2023 9:13 AM Age: 62 years old Clinical indication: Shortness of breath; Additional info: SOB TECHNIQUE: Imaging protocol: Radiologic exam of the chest. Views: 1 view. COMPARISON: CR (CHEST, ) 06/25/2023 11:22 AM FINDINGS: Tubes, catheters and devices: Left subclavian central venous catheter remains in place with tip in SVC. Lungs: Suboptimal pulmonary expansion with associated accentuation of bronchovascular markings. Interval improved aeration of the lung bases with mild residual right basilar atelectasis versus scar. Pleural spaces: No discrete pleural effusion. Heart/Mediastinum: Cardiomediastinal contours accentuated by low lung volumes and AP technique. Bones/joints: No significant pathology. XR/XR chest 1V portable [id number] IMPRESSION: Interval improved aeration of the lung bases.
--- NOTE | 2023-06-27 10:40 | P.DS_ITS ---
Discharge Providers Date of Admission: 06/24/23 23:55 Date of Discharge: June 27, 2023 Attending Provider at Admission: Gurmeet Forrest MD Attending Provider at Discharge: Karen Joyner MD Primary Care Provider: Rakesh Nye MD Diagnoses at Discharge Discharge Diagnosis (1) IV drug user: Status: Acute (2) Abscess of multiple sites: Status: Acute (3) Cellulitis: Status: Acute Reason for Visit Reason for Visit: walk in sent, sob, arm pain Hospital Course Hospital Course 62-year male who presented to the ER with sepsis related to multiple abscesses on his arms bilaterally, Dr. Horne evaluated him and took him to the OR for debridement next day, patient was given broad-spectrum antibiotics, he remained afebrile, clinically improved, did not require vasopressors, patient has history of IV drug abuse injects methamphetamine, patient is adamant that he wants to go home he has location plan is [place], he has oxygen concentrator at home which she is borrowing from a friend I will do home oxygen valuation before his discharge prescribe him antibiotics, tissue culture history of strep pyogenes. I have advised him against going on vacation. Spoke with him and his . Patient is full code. Will give him Augmentin and doxycycline 10-day course. Please note in the hospital his IV drug needle was found as well, only visitor allowed was his . Patient still denies IV drug abuse till the time of discharge Physical Exam Narrative: Awake and alert Currently on 3 L Nonfocal neuroexam Arms covered with dressing Abdomen soft Nonfocal neuroexam Anxious. Discharge Data Studies Completed and Pending Completed Studies During Hospitalization Category Date Time Status CT forearm LT wo con* [id number] Routine Cat Scan 06/25/23 01:[address] forearm RT wo con* [id number] Routine Cat Scan 06/25/23 01:33 Completed XR chest 1V portable [id number] Routine Exams 06/25/23 09:59 Completed XR chest 1V portable [id number] Routine Exams 06/27/23 09:05 Completed XR forearm LT 2V [id number] Routine Exams 06/25/23 00:59 Completed XR forearm RT 2V [id number] Routine Exams 06/25/23 00:59 Completed CV. echo complete* [id number] Routine Ultrasound 06/25/23 12:17 Completed Pending at discharge Category Date Time Status Anaerobic Culture Routine Lab 06/25/23 09:20 Results Anaerobic Culture Routine Lab 05/12/24 09:40 Results Anaerobic Culture Routine Lab 06/25/23 09:57 Results Bartonella Hens[place]ae AB w/Titer Routine Lab 06/25/23 02:47 Received Blood Culture Stat Lab 06/24/23 23:00 Results Hepatitis C RNA Viral Load Qnt Routine Lab 06/25/23 04:20 Received Wound Culture and Gram Stain Routine Lab 06/25/23 09:20 Results Wound Culture and Gram Stain Routine Lab 06/25/23 09:40 Results Wound Culture and Gram Stain Routine Lab 06/25/23 09:57 Results Radiology Impressions Forearm X-Ray 06/25/23 00:59 IMPRESSION: Negative for osseous abnormality. Forearm CT 06/25/23 01:33 IMPRESSION: 1. Diffuse cellulitis changes. 2. No visible abscess. 3. Negative for osteomyelitis. Chest X-Ray 06/27/23 09:05 IMPRESSION: Interval improved aeration of the lung bases. Laboratory Results WBC 9.19 10^3/uL (3.29-11.43) 06/26/23 04:14 RBC 3.58 10^6/uL (3.85-5.65) L 06/26/23 04:14 Hgb 10.70 g/dL (11.27-16.99) L 06/26/23 04:14 Hct 37.0 % (37-53) 06/26/23 04:14 MCV 103.4 fl (82-101) H 06/26/23 04:14 MCH 29.9 pg (27-33) 06/26/23 04:14 MCHC 28.9 g/dL (30-55) L 06/26/23 04:14 RDW 15.3 % (12.1-15.1) H 06/26/23 04:14 Plt Count 173 10^3/cmm (157-399) 06/26/23 04:14 MPV 11.2 fL (7.4-10.4) H 06/26/23 04:14 Neut % (Auto) 72.0 % 06/26/23 04:14 Lymph % (Auto) 14.1 % 06/26/23 04:14 [place] % (Auto) 13.4 % 06/26/23 04:14 Eos % (Auto) 0.1 % 06/26/23 04:14 Baso % (Auto) 0.2 % 06/26/23 04:14 Neut # (Auto) 6.61 10^3/uL (1.8-7.7) 06/26/23 04:14 Lymph # (Auto) 1.3 10^3/uL (0.8-4.8) 06/26/23 04:14 [place] # (Auto) 1.2 10^3/uL (0.2-0.9) H 06/26/23 04:14 Eos # (Auto) 0.0 10^3/uL (0.0-0.8) 06/26/23 04:14 Baso # (Auto) 0.0 10^3/uL (0.0-0.1) 06/26/23 04:14 Nucleated RBC % (auto) 0 % 06/26/23 04:14 Nucleated RBCs # 0.0 /100WBC 06/26/23 04:14 ESR 26 mm/hr (0-10) H 06/25/23 Unknown PT 15.40 SECONDS (12.1-14.9) H 06/25/23 05:36 INR 1.18 (0.8-1.2) 06/25/23 05:36 Sodium 138 mmol/L (136-145) 06/26/23 04:14 Potassium 5.0 mmol/L (3.5-5.1) 06/26/23 04:14 Chloride 108 mmol/L (98-107) H 06/26/23 04:14 Carbon Dioxide 22 mmol/L (22-29) 06/26/23 04:14 Anion Gap 13.0 (5-19) 06/26/23 04:14 BUN 43 mg/dL (8-23) H 06/26/23 04:14 Creatinine 2.0 mg/dL (0.7-1.2) H 06/26/23 04:14 GFR Calculation 33.8 mL/min (90-130) L 06/26/23 04:14 Glucose 140 mg/dL (65-115) H 06/26/23 04:14 Estimat Average Glucose 111 06/25/23 02:47 Hemoglobin A1c 5.5 % (4.0-6.0) 06/25/23 02:47 Calculated Osmolality 299 mOsm/kg (285-295) H 06/26/23 04:14 Lactic Acid 1.0 mmol/L (0.5-2.2) 06/24/23 23:00 Calcium 7.5 mg/dL (8.5-10.5) L 06/26/23 04:14 Magnesium 2.1 mg/dL (1.7-2.3) 06/25/23 05:36 Total Bilirubin 0.2 mg/dL (0.15-1.2) 06/26/23 04:14 AST 10 U/L (0-40) 06/26/23 04:14 ALT 7 U/L (0-41) 06/26/23 04:14 Alkaline Phosphatase 97 U/L (40-130) 06/26/23 04:14 Creatine Kinase 483 U/L (39-308) H* 06/24/23 20:28 Troponin T Baseline 37 ng/L (0-15) H 06/25/23 Unknown Troponin T 120 Minute 26.89 ng/L (0-15) H 06/25/23 02:47 Delta Troponin T -10.11 ABS# (0-10) L 06/25/23 02:47 Troponin T Hi Sens 6Hr 28.39 ng/L (0-15) H 06/25/23 05:36 Troponin T Hi Sens 6Hr Delta -8.61 ng/L (0-12) L 06/25/23 05:36 C-Reactive Protein 52.7 mg/L (0.0-4.9) H 06/27/23 05:48 Total Protein 6.0 g/dL (6.6-8.7) L 06/26/23 04:14 Albumin 2.9 g/dL (3.5-5.2) L 06/26/23 04:14 Globulin 3.1 g/dL (1.3-4.6) 06/26/23 04:14 Triglycerides 82 mg/dL (0-150) 06/25/23 02:47 Cholesterol 102 mg/dL (0-200) 06/25/23 02:47 LDL Cholesterol, Calc 46 mg/dL (50-129) L 06/25/23 02:47 HDL Cholesterol 40 mg/dL (60-100) L 06/25/23 02:47 LDL/HDL Ratio 1.15 RATIO (0.00-3.22) 06/25/23 02:47 Cholesterol/HDL Ratio 2.55 mg/dL (1.0-5.00) 06/25/23 02:47 Procalcitonin 0.58 ng/mL (0-0.5) H 06/25/23 Unknown TSH 0.68 uIU/mL (0.27-4.20) 06/25/23 02:47 Urine Color Yellow (Yellow) 06/24/23 05:20 Urine Appearance Clear (CLEAR) 06/24/23 05:20 Urine pH 5 (5-7) 06/24/23 05:20 Ur Specific [place] 1.025 (1.005-1.030) 06/24/23 05:20 Urine Protein Neg (Negative) 06/24/23 05:20 Urine Glucose (UA) Norm (Normal) 06/24/23 05:20 Urine Ketones Negative (Negative) 06/24/23 05:20 Urine Blood Neg (Negative) 06/24/23 05:20 Urine Nitrate Negative (Negative) 06/24/23 05:20 Urine Bilirubin Neg (Negative) 06/24/23 05:20 Urine Urobilinogen Neg mg/dL (Negative) 06/24/23 05:20 Ur Leukocyte Esterase Negative (Negative) 06/24/23 05:20 Urine Opiates Screen Negative ng/mL (Negative) 06/24/23 05:20 Ur Barbiturates Screen Negative ng/mL (Negative) 06/24/23 05:20 Ur Phencyclidine Scrn Negative ng/mL (Negative) 06/24/23 05:20 Ur Amphetamines Screen Negative ng/mL (Negative) 06/24/23 05:20 U Benzodiazepines Scrn Positive ng/mL (Negative) H 06/24/23 05:20 Urine Cocaine Screen Negative ng/mL (Negative) 06/24/23 05:20 U Marijuana (THC) Screen Negative ng/mL (Negative) 06/24/23 05:20 Hepatitis A IgM Ab Non-reactive (Nonreactive) 06/25/23 02:47 Hep Bs Antigen Non-reactive (Nonreactive) 06/25/23 02:47 Hep B Core IgM Ab Non-reactive (Nonreactive) 06/25/23 02:47 Hepatitis C Antibody Reactive (Nonreactive) H 06/25/23 02:47 HIV 1&2 Ab & HIV 1 Ag Non-reactive (Non-Reactiv) 06/25/23 02:47 HIV 1&2 Antibody Non-reactive (Non-Reactiv) 06/25/23 02:47 Vitals Last Vital Signs Temp 99.2 F 06/27/23 00:00 Pulse 86 06/27/23 09:49 Resp 17 06/27/23 09:49 BP 150/95 06/27/23 08:00 Pulse Ox 87 L 06/27/23 10:19 O2 Del Method Nasal Cannula 06/27/23 09:49 O2 Flow Rate 2 06/27/23 10:19 Discharge Plan Discharge Patient Disposition: Home Condition: Stable Prescriptions: New doxycycline hyclate 100 mg tablet 100 mg PO BID 10 Days Qty: 20 0RF amoxicillin-pot clavulanate 875-125 mg tablet 1 tab PO BID Qty: 20 0RF Continued furosemide 40 mg tablet 40 mg PO DAILY meloxicam 15 mg tablet 15 mg PO DAILY Qty: 30 0RF albuterol sulfate [Proventil HFA] 90 mcg/actuation HFA aerosol inhaler 2 puff INHALATION Q6H PRN (Reason: shortness of breath or wheezing) Qty: 18 0RF levothyroxine 100 mcg tablet See Rx Instructions .ROUTE .COMPLEX Qty: 90 11RF Dose Instruction: TAKE 1 TABLET BY MOUTH EVERY DAY Rx Instructions: TAKE 1 TABLET BY MOUTH EVERY DAY amlodipine 10 mg tablet See Rx Instructions .ROUTE .COMPLEX Qty: 90 11RF Dose Instruction: TAKE 1 TABLET BY MOUTH EVERY DAY FOR HYPERTENSION Rx Instructions: TAKE 1 TABLET BY MOUTH EVERY DAY FOR HYPERTENSION tamsulosin 0.4 mg capsule See Rx Instructions .ROUTE .COMPLEX Qty: 90 3RF Dose Instruction: TAKE 1 CAPSULE BY MOUTH EVERY DAY Rx Instructions: TAKE 1 CAPSULE BY MOUTH EVERY DAY docusate sodium [Dulcolax Stool Softener (dss)] 100 mg capsule 100 mg PO BID Qty: 14 0RF Rx Instructions: Patient states only takes once daily Discharge Orders: Discharge Order (Routine); Ordered 06/27/23 Ordered By: Karen Joyner Other Ambulatory Orders: DME: Oxygen (Order) Location: None Selected Ordered By: Karen Joyner Referrals: Kyrie Horne DO [Physician] - 07/27/23 1:45 pm Rakesh Nye MD [Primary Care Provider] - 07/04/23 8:20 am Discharge Diet: Cardiac Discharge Activity: Increase activity as tolerated Patient Instructions: Doxycycline (By mouth), Amoxicillin (By mouth), Cellulitis (ED), Heart Healthy Diet (ED), Sepsis (GEN), Abscess Incision and Drainage (DC), Opioid Safety, Post Anesthesia Care Activity Restrictions/Additional Instructions: It is very important that you follow-up with your orthopedic doctor to follow-up on your wound I am giving you 10 days of antibiotics It is very important to stay away from IV drug abuse or injecting needles in your arms it would make things worse Orthopedic DC instructions- -Abscess site on right wrist you want to redress daily and pull packing gauze out of wound approximately 1 inch daily at every dressing change. -All other dressings leave intact until you follow-up with Dr. Nye in a week at follow up appt. -Take antibiotics as prescribed. Discharge Attestations Time Spent in Discharge Care*: greater than 30 min Quality Metrics Clinical Quality Measures [ No reported AMI, CVA or VTE this stay] Coding Level of Care Code Acute Code for Chg Fwd Diagnoses IV drug user F19.90 Abscess of multiple sites L02.91 Cellulitis L03.90
--- NOTE | 2023-06-27 10:53 | PC.NURSE ---
Patient received DC orders, Central line removed.
--- NOTE | 2023-06-27 13:03 | PC.NURSE ---
Patient discharged at 1252. Patient was taken to main exit via w/c with staff. All personal belongings sent with patient and prescriptions sent to preferred pharmacy. All patient instructions explained and patient verbalized understanding, wound dressing supplies sent with patient.
--- NOTE | 2023-06-27 16:02 | P.PN_ITS ---
<Statement entered by Kyrie Horne DO - 06/29/23 08:09> PA saw and evaluated patient. DENICE reviewed and staffed this with me. Agree with assessment and plan patient is okay for discharge from Ortho standpoint recommend appropriate discharge instructions as well as particularly with the packing and dressing being removed roughly an inch today. The wrist incision should remain clean dry and intact. Reviewed his CRP which is already downtrending his white count is normalized at this point time would recommend a 2-week follow-up for suture removal and recheck on the wound that we had to pack. Kyrie Horne DO Subjective 2 Subjective: Patient seen and examined this morning. Patient improving clinically. Planning to transfer out of the ICU today. Pain controlled medications. White count normal today. CRP trending down from 125-52.7. Patient's dressing was removed today and surgical incision sites are healing well and sutures are intact. An inch of packing was pulled from abscess site on right wrist. Patient ready for discharge home today Vitals/I&O/Wt Last Vital Signs Temp 99.2 F 06/27/23 11:43 Pulse 86 06/27/23 11:43 Resp 17 06/27/23 11:43 BP 150/95 06/27/23 12:00 Pulse Ox 93 06/27/23 11:43 O2 Del Method Nasal Cannula 06/27/23 09:49 O2 Flow Rate 2 06/27/23 10:19 06/27/23 06/27/23 06/27/23 06:59 14:59 22:59 Intake Total 50 / 2070 360 / 360 Output Total 1350 / 2250 Balance -1300 / -180 360 / 360 Weight last 48 hrs Weight 208 lb 1.6 oz Physical Exam 2 Narrative: bilateral upper extremities--No evidence of saturation. Patient's dressing was removed today and surgical incision sites are healing well and sutures are intact. An inch of packing was pulled from abscess site on right wrist. No reaccumulation of fluid and no active purulent drainage seen and no erythema noted. New dressings applied by nurse. Fingertips are warm well-perfused brisk cap refill less than 2 seconds he is able make a full fist as well as extend and flex digits with no issues or complications. Sensations intact light touch distally. Compartments are soft compressible. Data 06/26/23 04:14 06/26/23 04:14 Micro: Microbiology 06/25/23 09:20 Gram Stain - Final Arm - #1 Anaerobic Culture - Preliminary Wound Culture - Preliminary Strep pyogenes (grp a) 06/25/23 09:57 Gram Stain - Final Arm - #3 Anaerobic Culture - Preliminary Wound Culture - Preliminary 06/25/23 09:40 Gram Stain - Final Arm - #2 Anaerobic Culture - Preliminary Wound Culture - Preliminary A&P Assessment and plan (1) IV drug user: (2) Abscess of multiple sites: (3) Cellulitis: Plan Resume diet Antibiotics per primary Encouraged weightbearing as tolerated bilateral hands as well as encourage hand finger and wrist range of motion Ice as needed Pain control Labs reviewed--CRP trending down and WBC is normal. Dressings removed today and 1 inch of packing removed out of 1 abscess site on right wrist. Patient was instructed to pull 1 inch of packing out of abscess daily Patient is a 62-year-old male that just 2 days postop upper extremity Multiple bilateral abscess I&D's. Patient CRP is trending down from 125-52.7.white count is normal. Dressings removed today and abscess sites are healing up well. Patient is cleared for discharge home. Attestations 2 Medical Necessity Statement*: Ongoing care for cellulitis and multiple abscesses on bilateral arms Coding Level of Care Code Acute Code for g Fwd Diagnoses IV drug user F19.90 Abscess of multiple sites L02.91 Cellulitis L03.90
[2023-06-28 12:24] LABS: HEP C RNA Viral Load Quant <1.18 NOT DETECTED Log IU/mL (NOT DETECTED); HEP C RNA Viral Load Quant <15 NOT DETECTED IU/mL (NOT DETECTED)
[2023-06-28 16:39] LABS: Bartonella Henselae IgG AB Negative
== END 2023-06-27 12:52 | disposition home or self-care (01) | DRG 853 ==
LOC: ER 23:37 → ICU 23:55
PROVIDERS: Student in an Organized Health Care Education/Training Program; Admitting Provider Family Medicine; Emergency Provider Emergency Medicine; PCP Family Medicine; Visit Provider Internal Medicine
PROC: 0JBH0ZZ Excision of Left Lower Arm Subcutaneous Tissue and Fascia, Open Approach (ICD-10-PCS; principal; 2023-06-25 08:30)
DX: A41.9 Sepsis, unspecified organism (principal); R65.21 Severe sepsis with septic shock; L03.114 Cellulitis of left upper limb; L03.113 Cellulitis of right upper limb; L02.414 Cutaneous abscess of left upper limb; L02.413 Cutaneous abscess of right upper limb; N17.9 Acute kidney failure, unspecified; E03.9 Hypothyroidism, unspecified; Z86.19 Personal history of other infectious and parasitic diseases; J43.9 Emphysema, unspecified; F15.90 Other stimulant use, unspecified, uncomplicated; Z87.01 Personal history of pneumonia (recurrent); N40.1 Benign prostatic hyperplasia with lower urinary tract symptoms; I12.9 Hypertensive chronic kidney disease with stage 1 through stage 4 chronic kidney disease, or unspecified chronic kidney disease; N18.30 Chronic kidney disease, stage 3 unspecified; F17.210 Nicotine dependence, cigarettes, uncomplicated; G47.33 Obstructive sleep apnea (adult) (pediatric); E29.1 Testicular hypofunction
CPT/HCPCS: 36415; 71045; 73090; 73200; 80048; 80053; 80061; 80074; 80306; 81003; 82550; 83036; 83605; 83735; 84145; 84443; 84484; 85025; 85610; 85651; 86140; 86611; 87040; 87070; 87075; 87077; 87186; 87205; 87522; 87806; 93005; 93306; 94640; 94664; 94760; 96365; 96367; 96372; 96374; 96376; 99285; C9113; J1650; J2060; J2250; J2270; J2543; J2704; J3010; J3370; J3490; J7030; J7050; J7120; J7613; P9045

== ENCOUNTER → 2023-07-04 09:04 | Outpatient (BNVA) | payer MEDICAID, SELFPAY | PROVIDERS: PCP Family Medicine; Visit Provider Family Medicine | DX: F19.90 Other psychoactive substance use, unspecified, uncomplicated (principal); L02.91 Cutaneous abscess, unspecified; Z79.899 Other long term (current) drug therapy | CPT/HCPCS: 80053; 85025; 86140 ==

== ENCOUNTER 2023-07-19 16:39 | Outpatient (CLI) | payer MEDICAID, SELFPAY ==
[2023-07-19 18:02] LABS: Creatinine Urine, Random 29 mg/dL (39-259); Microalbum Creatinine Ratio Ur 34 mg/dL (0-20); Microalbumin Random Urine 1 ug/dL (0-20)
== END 2023-07-19 16:40 | disposition home or self-care (01) ==
LOC: LAB 16:47
PROVIDERS: PCP Family Medicine; Visit Provider Internal Medicine Nephrology
DX: N18.31 Chronic kidney disease, stage 3a (principal)
CPT/HCPCS: 82044

== ENCOUNTER 2023-07-20 13:34 | Outpatient (CLI) | payer MEDICAID, SELFPAY ==
[2023-07-20 14:20] LABS: Basophils # 0.1 10^3/uL (0.0-0.1); Basophils % 0.8 %; Eosinophils # 0.5 10^3/uL (0.0-0.8); Hematocrit 45.5 % (37-53); Lymphocytes # 2.4 10^3/uL (0.8-4.8); Lymphocytes % 30.8 %; Mean Corpuscular HGB Conc 32.3 g/dL (30-55); Mean Corpuscular Volume 92.9 fl (82-101); Mean Platelet Volume 11.4 fL (7.4-10.4); Monocytes # 0.7 10^3/uL (0.2-0.9); Monocytes % 9.5 %; Neutrophils # 4.06 10^3/uL (1.8-7.7); Neutrophils % 52.8 %; Nucleated Red Blood Cells % 0 %; Platelet Count 229 10^3/cmm (157-399); Red Cell Distribution Width 14.9 % (12.1-15.1); White Blood Count 7.69 10^3/uL (3.29-11.43)
[2023-07-20 14:43] LABS: Calcium 9.2 mg/dL (8.5-10.5)
[2023-07-20 14:45] LABS: Anion Gap 15.2 (5-19); Blood Urea Nitrogen 27 mg/dL (8-23); Calcium 9.1 mg/dL (8.5-10.5); Carbon Dioxide 25 mmol/L (22-29); Chloride 102 mmol/L (98-107); Glomerular Filtration Rate 75.2 mL/min (90-130); Glucose 119 mg/dL (65-115); Phosphorus 3.7 mg/dL (2.5-4.5); Potassium 4.2 mmol/L (3.5-5.1); Sodium 138 mmol/L (136-145)
[2023-07-20 14:49] LABS: Parathyroid Hormone 82.2 pg/mL (15-65)
[2023-07-20 14:59] LABS: 25 Hydroxy Vitamin D 33 ng/mL (30-100)
== END 2023-07-20 13:35 | disposition home or self-care (01) ==
LOC: LAB 13:35
PROVIDERS: PCP Family Medicine; Visit Provider Internal Medicine Nephrology
DX: N18.31 Chronic kidney disease, stage 3a (principal)
CPT/HCPCS: 36415; 80069; 82306; 82310; 83970; 85025

== ENCOUNTER 2023-10-12 03:15 | Emergency (ER) | payer MEDICAID, SELFPAY ==
[2023-10-12 03:18] VITALS: BP 121/78; PULSE 95; RESP 18; TEMP 36.8; O2SAT 92; BMI 25.7
--- NOTE | 2023-10-12 03:33 | XRR_ITS ---
PROCEDURE INFORMATION: Exam: XR Lumbosacral Spine Exam date and time: 10/12/2023 3:57 AM Age: 62 years old Clinical indication: Injury or trauma; Fall; Blunt trauma (contusions or hematomas) TECHNIQUE: Imaging protocol: Radiologic exam of the lumbosacral spine. Views: 2 or 3 views. COMPARISON: [place] [id number] 08/14/2022 3:00 PM FINDINGS: Bones/joints: There is normal anatomic alignment of the lumbosacral spine. There is mild loss of vertebral body height at L4 and L5. The appearance of the L4 and L5 vertebral bodies is unchanged when compared to the previous CT in August 2022 and likely represents subtle old compression fracture deformities. The intervertebral disc spaces are uniform. Soft tissues: Unremarkable. Gastrointestinal tract: Moderate volume of stool in the right hemicolon suggesting a component of constipation. XR/XR lumbar spine 2-3V* [id number] IMPRESSION: 1. No radiographic evidence of an acute lumbosacral spine abnormality. There are stable appearing subtle compression fracture deformities of the L4 and L5, unchanged from August 2022. 2. Suspected constipation of the right hemicolon.
--- NOTE | 2023-10-12 03:33 | ED_ITS ---
HPI - Back Pain/Injury 2 General: Chief Complaint: Back Pain/Injury Stated Complaint: Fell Left Hip Lower Back Time Seen by Provider: 10/12/23 03:33 History of Present Illness: 52-year-old female presents to the [facility] ency room and states that 4 days ago he fell off a stepladder. He is back. Denies losing consciousness. He does have some swelling in his legs. He normally supposed to be on oxygen he told the nurse that he supposed to be on 2 L she told me 3 L when I came to the room he was on 4 L and nurse found his oxygen saturation in the mid 80s initially. On 3 L he decreased to 90% with coarse breath. Patient denies shortness of breath. He also told me he broke his right fifth toe by kicking a solid object accidentally. He removed his toe and there is a significant amount of bruising there. He has a history of chronic kidney disease. He is on Lasix which he says he is not taking regularly. He denies chest pain he denies hematuria. Reviewed previous hospitalization discharge summary and plan for discharge on 514 was a home O2 evaluation that showed he required 2 L by nasal cannula. Associated symptoms: Deny abdominal pain, chills, dysuria, fever(s) or urinary urgency Related Data Home Medications Medication Instructions Recorded Confirmed furosemide 40 mg tablet 40 mg PO DAILY 07/16/19 08/15/23 Previous Rx's Medication Instructions Recorded docusate sodium 100 mg capsule 100 mg PO BID #14 caps 12/12/22 (Dulcolax Stool Softener (docusate)) levothyroxine 100 mcg tablet See Rx Instructions .Route 01/03/23 .COMPLEX #90 tabs amlodipine 10 mg tablet See Rx Instructions .Route 03/21/23 .COMPLEX #90 tabs tamsulosin 0.4 mg capsule See Rx Instructions .Route 04/21/23 .COMPLEX #90 caps albuterol sulfate 90 mcg/actuation See Rx Instructions .Route 07/25/23 aerosol inhaler .COMPLEX #18 ea fluticasone fur. 100 mcg-umeclid 1 inh inhalation DAILY #60 ea 07/25/23 62.5 mcg-vilant 25 mcg inhalat.powder (Trelegy Ellipta) Battery Powered Concentrator Inogen #1 ea 07/28/23 doxycycline hyclate 100 mg capsule 100 mg PO BID 10 days #20 caps 10/12/23 tramadol 50 mg tablet 50 mg PO Q8H PRN pain #10 tabs 10/12/23 Allergies Allergy/AdvReac Type Severity Reaction Status Date / Time No Known Allergies Allergy Verified 08/15/23 06:56 Review of Systems 2 Const: Denies: fever(s) or chills Card: Denies: chest pain Resp: Reports: dyspnea GI: Denies: abdominal pain : Denies: dysuria, urinary frequency or urinary urgency Musc: Reports: back pain and joint pain (Right hip right foot); Denies: neck pain Skin/Breast: Denies: rash PFSH ED 2 PFSH: Medical History Septic shock Inguinal hernia of right side without obstruction or gangrene Pneumonia Hyponatremia Abnormal CT scan, chest Probable lung mass Acute respiratory failure Hepatitis C Renal cysts, acquired, bilateral BPH loc w urin obs/LUTS Benign prostatic hyperplasia with lower urinary tract symptoms Hypothyroidism CKD (chronic kidney disease), stage III Nicotine dependence, cigarettes, with unspecified nicotine-induced disorders ROBBIE (obstructive sleep apnea) Pulmonary emphysema COPD (chronic obstructive pulmonary disease) Hypogonadism in male Hypertension Surgical History Hx of inguinal hernia repair 12/12/22 Dr Juan Antonio gongora repair right inguinal hernia with mesh History of hernia surgery History of ankle surgery History of mandibular surgery History of circumcision Family History Mother , at age 46 Cirrhosis of liver Father , at age 78 CAD (coronary artery disease) Denies family history of Diabetes Clotting disorder Dementia Hyperlipidemia Psychiatric illness Chronic kidney disease (CKD) Suicide Anesthesia complication Bleeding disorder Family history of premature coronary artery disease Lung disease Cancer Hypertension Stroke Social History Smoking and tobacco/nicotine status: current every day tobacco/nicotine user cigarettes Packs smoked per day: 0.75 Years cigarettes smoked: 30 [ Other cigarette details: [id number]] Quit status (tobacco/nicotine): considering quitting Second hand smoke exposure: No Alcohol intake: former Substance/Drug Use: never Lives independently: Yes Household members: spouse Marital status: service: No Current occupational status: unemployed and disabled Pets and animals: Yes Do you think of yourself as: Straight/Heterosexual Current gender identity: Male Physical Exam 2 Const: COMMON NORMALS: no acute distress GENERAL APPEARANCE: cooperative and comfortable ORIENTATION/CONSCIOUSNESS: Yes awake, Yes oriented to person, Yes oriented to place and Yes oriented to time HENMT: COMMON NORMALS: normocephalic, atraumatic and hearing grossly normal bilaterally HEAD & SCALP: normocephalic and atraumatic Resp: COMMON NORMALS: normal respiratory effort, No retractions and No use of accessory muscles AUSCULTATION: wheezes Cardio: COMMON NORMALS: regular rate, regular rhythm and No murmurs present (Cardio) RATE: regular rate RHYTHM: regular rhythm GI: COMMON NORMALS: Soft to palpation and No hepatosplenomegaly present A USCULTATION: Yes normoactive bowel sounds PALPATION: Yes Soft to palpation, No Tenderness to palpation present (GI), No Guarding due to palpation present (GI) and Yes No hepatosplenomegaly present Back/Pelvis: OTHER: Patient localizes pain to the left flank no rash no ecchymosis in that area no laceration or abrasion Extremity: OTHER: No edema left lower leg, 1+ edema right lower leg. Ecchymosis right fifth toe no deformity Medial aspect of the right lower leg there is dry eschar with some cracking with some serous exudate. Mild localized erythema. Neuro: SENSORIUM/ORIENTATION: Yes oriented to person, Yes oriented to place and Yes oriented to time Skin: COMMON NORMALS: no rashes or lesions noted GENERAL SKIN EXAM: no rashes or lesions noted Course 2 Vital Signs: Vital signs: Vital Signs Temperature 98.3 F 10/12/23 03:18 Pulse Rate 84 10/12/23 05:27 Respiratory Rate 20 H 10/12/23 05:27 Blood Pressure 112/71 10/12/23 05:27 Pulse Oximetry 93 10/12/23 05:27 Oxygen Delivery Me thod Nasal Cannula 10/12/23 05:27 Oxygen Flow Rate 4 10/12/23 04:41 MDM - Back Pain/Injury Medical Decision Making X-rays do not show any acute fracture there are some old fractures on the right foot and pubic rami but nothing that appears acute patient is able to ambulate and her weight. There is a mild cellulitis in the right lower leg. He has some worsening of his chronic kidney disease. Patient was given 500 of normal saline IV discharge home have not stopped her meloxicam use tramadol as needed for pain also started on doxycycline for cellulitis. Labs and imaging reviewed as found on the chart. Will discharge patient home encouraged him to follow-up with his primary care doctor within the week to reevaluate kidney function and his cellulitis. Labs 10/12/23 04:30 10/12/23 04:30 Radiology Impressions Hip/Pelvis X-Ray 10/12/23 03:33 IMPRESSION: 1. Mild osteoarthritic changes at both hips. No acute fractures identified. 2. Old, healed bilateral inferior pubic rami fractures. 3. Moderate volume of stool in the right hemicolon. Lumbar Spine X-Ray 10/12/23 03:33 IMPRESSION: 1. No radiographic evidence of an acute lumbosacral spine abnormality. There are stable appearing subtle compression fracture deformities of the L4 and L5, unchanged from August 2022. 2. Suspected constipation of the right hemicolon. Foot X-Ray 10/12/23 03:37 IMPRESSION: 1. Soft tissue swelling throughout the distal right foot and right 5th toe but no evidence of an acute fracture or gas in the soft tissues. 2. Old, healed right 5th metatarsal fracture. 3. Linear radiopaque foreign body projecting over the plantar surface of the right great toe. Correlate clinically for overlying skin contamination. Chest X-Ray 10/12/23 03:38 IMPRESSION: COPD/emphysema and trace subsegmental atelectasis of the left base. Laboratory Results WBC 11.91 10^3/uL (3.29-11.43) H 10/12/23 04:30 RBC 4.04 10^6/uL (3.85-5.65) 10/12/23 04:30 Hgb 12.00 g/dL (11.27-16.99) 10/12/23 04:30 Hct 37.7 % (37-53) 10/12/23 04:30 MCV 93.3 fl (82-101) 10/12/23 04:30 MCH 29.7 pg (27-33) 10/12/23 04:30 MCHC 31.8 g/dL (30-55) 10/12/23 04:30 RDW 14.0 % (12.1-15.1) 10/12/23 04:30 Plt Count 270 10^3/cmm (157-399) 10/12/23 04:30 MPV 10.3 fL (7.4-10.4) 10/12/23 04:30 Neut % (Auto) 62.6 % 10/12/23 04:30 Lymph % (Auto) 19.1 % 10/12/23 04:30 Carroll % (Auto) 9.7 % 10/12/23 04:30 Eos % (Auto) 7.6 % 10/12/23 04:30 Baso % (Auto) 0.6 % 10/12/23 04:30 Neut # (Auto) 7.44 10^3/uL (1.8-7.7) 10/12/23 04:30 Lymph # (Auto) 2.3 10^3/uL (0.8-4.8) 10/12/23 04:30 Carroll # (Auto) 1.2 10^3/uL (0.2-0.9) H 10/12/23 04:30 Eos # (Auto) 0.9 10^3/uL (0.0-0.8) H 10/12/23 04:30 Baso # (Auto) 0.1 10^3/uL (0.0-0.1) 10/12/23 04:30 Nucleated RBC % (auto) 0 % 10/12/23 04:30 Nucleated RBCs # 0.0 /100WBC 10/12/23 04:30 Sodium 136 mmol/L (136-145) 10/12/23 04:30 Potassium 4.6 mmol/L (3.5-5.1) 10/12/23 04:30 Chloride 96 mmol/L (98-107) L 10/12/23 04:30 Carbon Dioxide 28 mmol/L (22-29) 10/12/23 04:30 Anion Gap 16.6 (5-19) 10/12/23 04:30 BUN 29 mg/dL (8-23) H 10/12/23 04:30 Creatinine 1.7 mg/dL (0.7-1.2) H 10/12/23 04:30 GFR Calculation 40.8 mL/min (90-130) L 10/12/23 04:30 Glucose 134 mg/dL (65-115) H 10/12/23 04:30 Calculated Osmolality 290 mOsm/kg (285-295) 10/12/23 04:30 Calcium 8.8 mg/dL (8.5-10.5) 10/12/23 04:30 Total Bilirubin 0.2 mg/dL (0.15-1.2) 10/12/23 04:30 AST 15 U/L (0-40) 10/12/23 04:30 ALT 7 U/L (0-41) 10/12/23 04:30 Alkaline Phosphatase 114 U/L (40-130) 10/12/23 04:30 Total Protein 7.8 g/dL (6.6-8.7) 10/12/23 04:30 Albumin 3.5 g/dL (3.5-5.2) 10/12/23 04:30 Globulin 4.3 g/dL (1.3-4.6) 10/12/23 04:30 Urine Color Yellow (Yellow) 10/12/23 03:54 Urine Appearance Clear (CLEAR) 10/12/23 03:54 Urine pH 5.0 (5-7) 10/12/23 03:54 Ur Specific [place] 1.023 (1.005-1.030) 10/12/23 03:54 Urine Protein Negative (Negative) 10/12/23 03:54 Urine Glucose (UA) Negative (Normal) 10/12/23 03:54 Urine Ketones Trace (Negative) 10/12/23 03:54 Urine Blood Negative (Negative) 10/12/23 03:54 Urine Nitrate Negative (Negative) 10/12/23 03:54 Urine Bilirubin Negative (Negative) 10/12/23 03:54 Urine Urobilinogen 1.0 mg/dL (Negative) 10/12/23 03:54 Ur Leukocyte Esterase Negative (Negative) 10/12/23 03:54 Urine RBC 0-2 /hpf (0-2) 10/12/23 03:54 Urine WBC 0-5 /hpf (0-5) 10/12/23 03:54 Ur Squamous Epith Cells 0-5 /hpf (0-5) 10/12/23 03:54 Amorphous Sediment Not Reportable 10/12/23 03:54 Urine Bacteria None seen /hpf (NONE) 10/12/23 03:54 Hyaline Casts 17.77 /lpf 10/12/23 03:54 All radiology interpretation(s) finalized by discharge Discharge Plan Discharge Patient Disposition: Home Clinical Impression: Fall, Back pain, Cellulitis, Chronic pain in right shoulder, CKD (chronic kidney disease) Condition: Stable Prescriptions: New doxycycline hyclate 100 mg capsule 100 mg PO BID 10 Days Qty: 20 0RF tramadol 50 mg tablet 50 mg PO Q8H PRN (Reason: pain) Qty: 10 0RF Discontinued meloxicam 15 mg tablet 15 mg PO DAILY Qty: 30 0RF levofloxacin 750 mg tablet 750 mg PO DAILY Qty: 14 0RF amoxicillin-pot clavulanate 875-125 mg tablet 1 tab PO BID Qty: 20 0RF No Action furosemide 40 mg tablet 40 mg PO DAILY levothyroxine 100 mcg tablet See Rx Instructions .ROUTE .COMPLEX Qty: 90 11RF Dose Instruction: TAKE 1 TABLET BY MOUTH EVERY DAY Rx Instructions: TAKE 1 TABLET BY MOUTH EVERY DAY amlodipine 10 mg tablet See Rx Instructions .ROUTE .COMPLEX Qty: 90 11RF Dose Instruction: TAKE 1 TABLET BY MOUTH EVERY DAY FOR HYPERTENSION Rx Instructions: TAKE 1 TABLET BY MOUTH EVERY DAY FOR HYPERTENSION tamsulosin 0.4 mg capsule See Rx Instructions .ROUTE .COMPLEX Qty: 90 3RF Dose Instruction: TAKE 1 CAPSULE BY MOUTH EVERY DAY Rx Instructions: TAKE 1 CAPSULE BY MOUTH EVERY DAY albuterol sulfate 90 mcg/actuation HFA aerosol inhaler See Rx Instructions .ROUTE .COMPLEX Qty: 18 3RF Dose Instruction: INHALE 2 PUFFS BY MOUTH EVERY 6 HOURS NEEDED DIRECTED Rx Instructions: INHALE 2 PUFFS BY MOUTH EVERY 6 HOURS NEEDED DIRECTED Trelegy Ellipta 100-62.5-25 mcg blister with device 1 inh inhalation DAILY Qty: 60 11RF (DME) Battery Powered Concentrator Inogen See Rx Instructions .Route .MEDSUPPLY Qty: 1 0RF Rx Instructions: 2 l/m docusate sodium [Dulcolax Stool Softener (dss)] 100 mg capsule 100 mg PO BID Qty: 14 0RF Rx Instructions: Patient states only takes once daily Discharge Orders: Discharge ED (Routine); Ordered 10/12/23 Ordered By: Anjel Umanzor Referrals: Rakesh Nye MD [Primary Care Provider] - Patient Instructions: Opioid Safety, Pain Management Activity Restrictions/Additional Instructions: Thank you for choosing [facility] for your healthcare needs today. It is very important that you follow up as instructed or that you return to the Emergency Department should you have concerns or if your condition changes or worsens in any way. You were seen in the emergency room with complaints of back and hip pain after a fall. There is no acute fractures on x-rays noted. Urine was normal. You did have some mild worsening kidney function and recommend that you stop taking meloxicam. You were given some IV fluids as well as pain medications. You are discharged home with oral antibiotics for cellulitis on your right lower leg as well as tramadol for pain in your back. You should follow-up to recheck your kidney function and reevaluate the infection in your right lower leg with Dr. Johnston within the next week. Coding Level of Care Code ED Shrimp Picker for Naty Brooke
--- NOTE | 2023-10-12 03:33 | XRR_ITS ---
PROCEDURE INFORMATION: Exam: XR Left Hip Exam date and time: 10/12/2023 4:04 AM Age: 62 years old Clinical indication: Injury or trauma; Fall; Blunt trauma (contusions or hematomas); Left; Hip and pelvic region TECHNIQUE: Imaging protocol: Radiologic exam of the left hip. Views: 2 or 3 views hip with pelvis when performed. COMPARISON: [place] [id number] 08/14/2022 3:00 PM FINDINGS: Bones/joints: There is normal anatomic alignment of the left hip. No evidence of a fracture or destructive bone lesion. Mild joint space narrowing of both hips suggesting a component of osteoarthritis. There are old, healed bilateral inferior pubic rami fractures. The sacrum and iliac bones appear intact. Soft tissues: Unremarkable. Gastrointestinal tract: Moderate volume of stool in the right hemicolon. XR/XR hip LT 2-3V wo/w pel* [id number] IMPRESSION: 1. Mild osteoarthritic changes at both hips. No acute fractures identified. 2. Old, healed bilateral inferior pubic rami fractures. 3. Moderate volume of stool in the right hemicolon.
--- NOTE | 2023-10-12 03:37 | XRR_ITS ---
PROCEDURE INFORMATION: Exam: XR Right Foot Exam date and time: 10/12/2023 3:53 AM Age: 62 years old Clinical indication: Injury or trauma; Fall; Blunt trauma; Foot; Patient HX: Right 5th digit is swollen and brused TECHNIQUE: Imaging protocol: Radiologic exam of the right foot. Views: 3 or more views. COMPARISON: US soft tissue/extremity [id number] 07/05/2018 12:50 PM FINDINGS: Bones/joints: There is an old, healed right 5th metatarsal fracture. No acute fractures identified. Soft tissues: There is soft tissue swelling throughout the dorsum of the right foot and right 5th toe. No gas in the soft tissues. There is a radiopaque linear foreign body projecting over the plantar surface of the right great toe. Correlate for any overlying skin contamination. XR/XR foot RT min 3V* [id number] IMPRESSION: 1. Soft tissue swelling throughout the distal right foot and right 5th toe but no evidence of an acute fracture or gas in the soft tissues. 2. Old, healed right 5th metatarsal fracture. 3. Linear radiopaque foreign body projecting over the plantar surface of the right great toe. Correlate clinically for overlying skin contamination.
--- NOTE | 2023-10-12 03:38 | XRR_ITS ---
PROCEDURE INFORMATION: Exam: XR Chest Exam date and time: 10/12/2023 3:55 AM Age: 62 years old Clinical indication: Injury or trauma; Fall; Cough and dyspnea; Blunt trauma (contusions or hematomas); Additional info: Dyspnea/cough TECHNIQUE: Imaging protocol: Radiologic exam of the chest. Views: 1 view. COMPARISON: CR XR chest 1V portable [id number] 06/27/2023 9:13 AM FINDINGS: Lungs: The chest is hypoventilatory. There is minimal subsegmental atelectasis of the left lung base. The upper lung zones are relatively hyperlucent suggesting COPD/emphysema. Pleural spaces: Unremarkable. No pleural effusion. No pneumothorax. Heart/Mediastinum: Unremarkable. No cardiomegaly. Bones/joints: Chronic degenerative changes to both shoulders. No acute osseous lesions identified. XR/XR chest 1V portable [id number] IMPRESSION: COPD/emphysema and trace subsegmental atelectasis of the left base.
[2023-10-12 04:01] LABS: Charge for UA Resulting for Rev
[2023-10-12 04:04] LABS: Bilirubin Urine Negative (Negative); Blood Urine Negative (Negative); Glucose Urine UA Negative (Normal); Ketones Urine Trace (Negative); Leukocyte Esterase Urine Negative (Negative); Nitrate Urine Negative (Negative); Protein Urine Negative (Negative); Specific Gravity, Urine 1.023 (1.005-1.030); Urine Appearance Clear (CLEAR); Urine Color Yellow (Yellow)
[2023-10-12 04:08] LABS: Bacteria Urine None Seen /hpf; Hyaline Casts Urine 17.77 /lpf; RBC Urine 0-2 /hpf (0-2); Squamous Epithelial Cell Urine 0-5 /hpf (0-5); WBC Urine 0-5 /hpf (0-5)
[2023-10-12 04:36] LABS: Basophils # 0.1 10^3/uL (0.0-0.1); Basophils % 0.6 %; Eosinophils # 0.9 10^3/uL (0.0-0.8); Eosinophils % 7.6 %; Hematocrit 37.7 % (37-53); Lymphocytes # 2.3 10^3/uL (0.8-4.8); Lymphocytes % 19.1 %; Mean Corpuscular HGB Conc 31.8 g/dL (30-55); Mean Corpuscular Hemoglobin 29.7 pg (27-33); Mean Corpuscular Volume 93.3 fl (82-101); Mean Platelet Volume 10.3 fL (7.4-10.4); Monocytes # 1.2 10^3/uL (0.2-0.9); Monocytes % 9.7 %; Neutrophils # 7.44 10^3/uL (1.8-7.7); Neutrophils % 62.6 %; Nucleated Red Blood Cells % 0 %; Platelet Count 270 10^3/cmm (157-399); Red Blood Count 4.04 10^6/uL (3.85-5.65); White Blood Count 11.91 10^3/uL (3.29-11.43)
[2023-10-12 04:36] LABS: UA Slide Review UA Slide Review Perf
[2023-10-12] MEDS: ketorolac 30 mg/mL INJ 15 MG IVP (04:39)
[2023-10-12 04:41] VITALS: BP 112/73; PULSE 81; O2SAT 95
[2023-10-12 04:57] LABS: Alanine Aminotransferase 7 U/L (0-41); Albumin Level 3.5 g/dL (3.5-5.2); Alkaline Phosphatase 114 U/L (40-130); Anion Gap 16.6 (5-19); Aspartate Amino Transferase 15 U/L (0-40); Blood Urea Nitrogen 29 mg/dL (8-23); Calcium 8.8 mg/dL (8.5-10.5); Carbon Dioxide 28 mmol/L (22-29); Chloride 96 mmol/L (98-107); Creatinine Clr Calc Pharmacy 50.3147; Globulin 4.3 g/dL (1.3-4.6); Glomerular Filtration Rate 40.8 mL/min (90-130); Glucose 134 mg/dL (65-115); Osmolality Calculated 290 mOsm/kg (285-295); Potassium 4.6 mmol/L (3.5-5.1); Sodium 136 mmol/L (136-145); Total Bilirubin 0.2 mg/dL (0.15-1.2); Total Protein 7.8 g/dL (6.6-8.7)
[2023-10-12] MEDS: sodium chloride 0.9% 500 ML 999 ML IV (05:24)
[2023-10-12 05:27] VITALS: BP 112/71; PULSE 84; RESP 20; O2SAT 93
[2023-10-12 06:09] VITALS: BP 109/78; PULSE 78; O2SAT 90
== END 2023-10-12 06:17 | disposition home or self-care (01) ==
PROVIDERS: Emergency Provider Family Medicine; PCP Family Medicine
DX: L03.115 Cellulitis of right lower limb (principal); M54.50 Low back pain, unspecified; G89.29 Other chronic pain; M25.511 Pain in right shoulder; I12.9 Hypertensive chronic kidney disease with stage 1 through stage 4 chronic kidney disease, or unspecified chronic kidney disease; N18.30 Chronic kidney disease, stage 3 unspecified; Z86.19 Personal history of other infectious and parasitic diseases; J44.9 Chronic obstructive pulmonary disease, unspecified; F17.210 Nicotine dependence, cigarettes, uncomplicated; W11.XXXA Fall on and from ladder, initial encounter
CPT/HCPCS: 71045; 72100; 73502; 73630; 80053; 81003; 81015; 85025; 96361; 96374; 99284; J1885; J7040

== ENCOUNTER 2023-11-11 10:24 | Outpatient (CLI) | payer MEDICARE, MEDICAID, SELFPAY ==
[2023-11-11 11:09] LABS: Basophils # 0.1 10^3/uL (0.0-0.1); Basophils % 0.8 %; Eosinophils # 0.8 10^3/uL (0.0-0.8); Eosinophils % 10.9 %; Lymphocytes # 2.3 10^3/uL (0.8-4.8); Lymphocytes % 29.6 %; Mean Corpuscular HGB Conc 31.3 g/dL (30-55); Mean Corpuscular Hemoglobin 29.8 pg (27-33); Mean Corpuscular Volume 95.2 fl (82-101); Monocytes # 0.8 10^3/uL (0.2-0.9); Monocytes % 10.4 %; Neutrophils # 3.71 10^3/uL (1.8-7.7); Neutrophils % 48.2 %; Nucleated Red Blood Cells % 0 %; Platelet Count 198 10^3/cmm (157-399); Red Cell Distribution Width 14.7 % (12.1-15.1)
[2023-11-11 11:24] LABS: Creatinine Urine, Random 108 mg/dL (39-259)
[2023-11-11 11:31] LABS: Albumin Level 3.8 g/dL (3.5-5.2); Blood Urea Nitrogen 33 mg/dL (8-23); Calcium 8.3 mg/dL (8.5-10.5); Calcium 8.4 mg/dL (8.5-10.5); Carbon Dioxide 30 mmol/L (22-29); Chloride 92 mmol/L (98-107); Glomerular Filtration Rate 30.2 mL/min (90-130); Glucose 110 mg/dL (65-115); Phosphorus 5.3 mg/dL (2.5-4.5); Sodium 131 mmol/L (136-145)
[2023-11-11 11:47] LABS: 25 Hydroxy Vitamin D 29 ng/mL (30-100)
== END 2023-11-11 10:25 | disposition home or self-care (01) ==
PROVIDERS: PCP Family Medicine; Visit Provider Internal Medicine Nephrology
DX: N18.31 Chronic kidney disease, stage 3a (principal); N25.81 Secondary hyperparathyroidism of renal origin
CPT/HCPCS: 36415; 80069; 82306; 82310; 82575; 83970; 85025

== ENCOUNTER 2023-12-11 11:07 | Outpatient (CLI) | payer MEDICARE, MEDICAID, SELFPAY ==
[2023-12-11 12:52] LABS: Creatinine Urine, Random 11 mg/dL (39-259); Microalbumin Random Urine 1 ug/dL (0-20)
[2023-12-11 13:07] LABS: Microalbum Creatinine Ratio Ur 91 mg/dL (0-20)
[2023-12-11 15:53] LABS: Basophils # 0.1 10^3/uL (0.0-0.1); Basophils % 0.9 %; Eosinophils # 0.4 10^3/uL (0.0-0.8); Eosinophils % 4.7 %; Hematocrit 44.8 % (37-53); Lymphocytes # 2.5 10^3/uL (0.8-4.8); Lymphocytes % 30.8 %; Mean Corpuscular HGB Conc 32.1 g/dL (30-55); Mean Corpuscular Hemoglobin 29.4 pg (27-33); Mean Corpuscular Volume 91.4 fl (82-101); Mean Platelet Volume 11.2 fL (7.4-10.4); Monocytes # 0.8 10^3/uL (0.2-0.9); Monocytes % 9.5 %; Neutrophils # 4.36 10^3/uL (1.8-7.7); Nucleated Red Blood Cells % 0 %; Platelet Count 286 10^3/cmm (157-399); Red Cell Distribution Width 14.5 % (12.1-15.1); White Blood Count 8.08 10^3/uL (3.29-11.43)
[2023-12-11 16:47] LABS: Prostate Specific Antigen 0.235 ng/mL (0-4)
[2023-12-11 16:49] LABS: Calcium 9.3 mg/dL (8.5-10.5); Parathyroid Hormone 68.9 pg/mL (15-65)
[2023-12-11 16:52] LABS: 25 Hydroxy Vitamin D 29 ng/mL (30-100); Alanine Aminotransferase 9 U/L (0-41); Alkaline Phosphatase 150 U/L (40-130); Anion Gap 14.9 (5-19); Aspartate Amino Transferase 10 U/L (0-40); Blood Urea Nitrogen 15 mg/dL (8-23); Carbon Dioxide 27 mmol/L (22-29); Chloride 98 mmol/L (98-107); Cholesterol 138 mg/dL (0-200); Globulin 4.1 g/dL (1.3-4.6); Glucose 106 mg/dL (65-115); HDL Cholesterol 53 mg/dL (60-100); LDL Cholesterol Calculated 70 mg/dL (50-129); LDL HDL Ratio 1.32 RATIO (0.00-3.22); Osmolality Calculated 283 mOsm/kg (285-295); Phosphorus 3.2 mg/dL (2.5-4.5); Potassium 3.9 mmol/L (3.5-5.1); Sodium 136 mmol/L (136-145); Thyroid Stimulating Hormone 1.91 uIU/mL (0.27-4.20); Total Bilirubin 0.2 mg/dL (0.15-1.2); Total Protein 8.1 g/dL (6.6-8.7); Triglycerides 76 mg/dL (0-150)
== END 2023-12-11 11:08 | disposition home or self-care (01) ==
LOC: LAB 11:09
PROVIDERS: PCP Family Medicine; Visit Provider Internal Medicine Nephrology
DX: N18.31 Chronic kidney disease, stage 3a (principal); N25.81 Secondary hyperparathyroidism of renal origin
CPT/HCPCS: 80053; 80061; 80069; 82044; 82306; 82310; 83970; 84153; 84443; 85025

== ENCOUNTER 2024-03-04 13:04 | Outpatient (CLI) | payer MEDICARE, MEDICAID, SELFPAY ==
[2024-03-04 13:44] LABS: Basophils % 0.2 %; Eosinophils # 0.9 10^3/uL (0.0-0.8); Eosinophils % 8.5 %; Hematocrit 44.9 % (37-53); Lymphocytes # 2.8 10^3/uL (0.8-4.8); Lymphocytes % 27.6 %; Mean Corpuscular HGB Conc 32.1 g/dL (30-55); Mean Corpuscular Hemoglobin 29.9 pg (27-33); Mean Corpuscular Volume 93.2 fl (82-101); Mean Platelet Volume 10.9 fL (7.4-10.4); Monocytes % 9.7 %; Neutrophils # 5.49 10^3/uL (1.8-7.7); Neutrophils % 53.8 %; Nucleated Red Blood Cells % 0 %; Platelet Count 275 10^3/cmm (157-399); Red Blood Count 4.82 10^6/uL (3.85-5.65); Red Cell Distribution Width 14.2 % (12.1-15.1); White Blood Count 10.21 10^3/uL (3.29-11.43)
[2024-03-04 13:58] LABS: Creatinine Urine, Random 52 mg/dL (39-259); Microalbum Creatinine Ratio Ur 19 mg/dL (0-20); Microalbumin Random Urine 1 ug/dL (0-20)
[2024-03-04 14:10] LABS: Calcium 9.3 mg/dL (8.5-10.5)
[2024-03-04 14:26] LABS: 25 Hydroxy Vitamin D 22 ng/mL (30-100); Albumin Level 4.1 g/dL (3.5-5.2); Blood Urea Nitrogen 20 mg/dL (8-23); Calcium 9.1 mg/dL (8.5-10.5); Carbon Dioxide 31 mmol/L (22-29); Chloride 97 mmol/L (98-107); Glomerular Filtration Rate 84.7 mL/min (90-130); Glucose 107 mg/dL (65-115); Phosphorus 2.7 mg/dL (2.5-4.5); Sodium 137 mmol/L (136-145)
== END 2024-03-04 13:05 | disposition home or self-care (01) ==
LOC: LAB 13:08
PROVIDERS: PCP Family Medicine; Visit Provider Internal Medicine Nephrology
DX: N18.31 Chronic kidney disease, stage 3a (principal); N25.81 Secondary hyperparathyroidism of renal origin
CPT/HCPCS: 36415; 80069; 82044; 82306; 82310; 83970; 85025

== ENCOUNTER 2024-07-27 04:52 | Inpatient (IN) | payer MEDICARE, MEDICAID, SELFPAY ==
[2024-07-27] VITALS (17 sets, daily range): BP systolic 91–120; BP diastolic 51–83; PULSE 52–78; RESP 18–22; TEMP 36.7–37; O2SAT 81–100; BMI 27.2; BMI 28.1
--- NOTE | 2024-07-27 05:44 | XRR_ITS ---
PROCEDURE INFORMATION: Exam: XR Right Forearm Exam date and time: 07/27/2024 5:49 AM Age: 63 years old Clinical indication: Swelling; Arm, upper; Right TECHNIQUE: Imaging protocol: Radiologic exam of the right forearm. Views: 2 views. COMPARISON: CT forearm RT wo con* [id number] 06/25/2023 3:36 AM FINDINGS: Bones/joints: Transverse fracture of the distal radial metaphysis with mild impaction. Normal carpal alignment. Proximal and mid radius and ulna are normal. Soft tissues: Normal. XR/XR forearm RT 2V [id number] IMPRESSION: Transverse fracture of the distal radial metaphysis with mild impaction.
--- NOTE | 2024-07-27 05:44 | XRR_ITS ---
PROCEDURE INFORMATION: Exam: XR Right Hand Exam date and time: 07/27/2024 5:49 AM Age: 63 years old Clinical indication: Swelling; Hand; Right TECHNIQUE: Imaging protocol: Radiologic exam of the right hand. Views: 3 or more views. COMPARISON: CT forearm RT wo con* [id number] 06/25/2023 3:36 AM FINDINGS: Bones/joints: Fracture of the distal radial metaphysis with mild impaction. No definite intra-articular extension. Normal carpal alignment. Soft tissues: Normal. XR/XR hand RT min 3V* [id number] IMPRESSION: Fracture of the distal radial metaphysis with mild impaction. No definite intra-articular extension.
--- NOTE | 2024-07-27 05:44 | XRR_ITS ---
PROCEDURE INFORMATION: Exam: XR Chest Exam date and time: 07/27/2024 5:49 AM Age: 63 years old Clinical indication: Shortness of breath; Additional info: SOB TECHNIQUE: Imaging protocol: Radiologic exam of the chest. Views: 1 view. COMPARISON: CR XR chest 1V portable [id number] 10/12/2023 3:55 AM FINDINGS: Lungs: No infiltrate. Pleural spaces: Unremarkable. No pleural effusion. No pneumothorax. Heart/Mediastinum: There is mild cardiomegaly with vascular congestion. Bones/joints: Unremarkable. XR/XR chest 1V portable [id number] IMPRESSION: Mild cardiomegaly with vascular congestion.
--- NOTE | 2024-07-27 05:45 | ED_ITS ---
HPI - Extremity Problem 2 General: Chief complaint: Extremity Injury, Upper Stated complaint: R hand and wrist swollen fell a few hours ago Time Seen by Provider: 07/27/24 05:39 History of Present Illness: Patient presents with a right hand injury that occurred approximately 2-3 hours prior to arrival. Patient reports tripping over a tree root in the driveway, resulting in injury to the right hand and wrist. Patient is right-handed. Patient reports pain with movement, particularly when attempting to make a fist. Patient acknowledges chronic breathing difficulties and admits to tobacco use. Patient also discloses recent methamphetamine use via smoking 'a couple nights ago.' Patient denies intravenous drug use, stating they use the substance through smoking. Patient is noted to be diaphoretic during the examination but was unaware of this symptom. Patient reports using supplemental oxygen at home 'sometimes.' Related Data Previous Rx's ?Medication ?Instructions ?Recorded docusate sodium 100 mg capsule 100 mg PO BID #14 caps 12/12/22 (Dulcolax Stool Softener (docusate)) fluticasone fur. 100 mcg-umeclid 1 inh inhalation SHERMAN Y #60 ea 07/25/23 62.5 mcg-vilant 25 mcg inhalat.powder (Trelegy Ellipta) Battery Powered Concentrator Inogen #1 ea 07/28/23 RSVPreF3 antigen-AS01E 0.5 ml IM ONCE #1 ea 4 adjuvant(PF) 120 mcg/0.5 mL IM suspension, kit levothyroxine 100 mcg tablet See Rx Instructions .Rout e 01/18/24 .COMPLEX #90 tabs amlodipine 10 mg tablet See Rx Instructions .Route 0 03/29/24 .COMPLEX #90 tabs albuterol sulfate 90 mcg/actuation See Rx Instructions .Route 04/17/24 aerosol inhaler .COMPLEX #18 ea tamsulosin 0.4 mg capsule See Rx Instructions .Route 0 04/24/24 .COMPLEX #90 caps Portable Oxygen at 3L #1 ea 07/04/24 furosemide 40 mg tablet See Rx Instructions .Route 0 07/15/24 .COMPLEX #90 tabs Allergies Allergy/AdvReac Type Severity Reaction Status Date / Time No Known Allergies Allergy Verified 07/27/24 05:15 Review of Systems 2 General: Reports: ROS unobtainable due to mental status PFS ED 2 PFSH: Medical History Septic shock Inguinal hernia of right side without obstruction or gangrene Pneumonia Hyponatremia Abnormal CT scan, chest Probable lung mass Acute respiratory failure Hepatitis C Renal cysts, acquired, bilateral BPH loc w urin obs/LUTS Benign prostatic hyperplasia with lower urinary tract symptoms Hypothyroidism CKD (chronic kidney disease), stage III Nicotine dependence, cigarettes, with unspecified nicotine-induced disorders ROBBIE (obstructive sleep apnea) Pulmonary emphysema COPD (chronic obstructive pulmonary disease) Hypogonadism in male Hypertension Surgical History Hx of inguinal hernia repair 12/12/22 Dr Juan Antonio gongora repair right inguinal hernia with mesh History of hernia surgery History of ankle surgery History of mandibular surgery History of circumcision Family History Mother , at age 46 Cirrhosis of liver Father , at age 78 CAD (coronary artery disease) Denies family history of Diabetes Clotting disorder Dementia Hyperlipidemia Psychiatric illness Chronic kidney disease (CKD) Suicide Anesthesia complication Bleeding disorder Family history of premature coronary artery disease Lung disease Cancer Hypertension Stroke Social History Smoking and tobacco/nicotine status: never used tobacco/nicotine Quit status (tobacco/nicotine): considering quitting Second hand smoke exposure: No Alcohol intake: former Substance/Drug Use: never Lives independently: Yes Household members: spouse Marital status: service: No Current occupational status: unemployed and disabled Pets and animals: Yes Do you think of yourself as: Straight/Heterosexual Current gender identity: Male Physical Exam 2 Const: COMMON NORMALS: no acute distress and alert; negative for patient oriented x3 and negative for well nourished HENMT: COMMON NORMALS: normocephalic HEAD & SCALP: normocephalic Eye: COMMON NORMALS: Equal, round and reactive pupils present, EOMs intact bilaterally and conjunctivae normal CONJUNCTIVA: Yes conjunctivae normal P UPIL: Yes Equal, round and reactive pupils present Neck/C-Spine: COMMON NORMALS: full ROM, no lymphadenopathy, supple, no meningeal signs, no JVD and Thyroid normal THYROID: Thyroid normal Chest: COMMONS NORMALS: normal inspection of the chest and normal palpation of entire chest wall Resp: COMMON NORMALS: normal respiratory effort, No retractions, No use of accessory muscles and percussion normal; negative for clear to auscultation bilaterally AUSCULTATION: not clear to auscultation bilaterally PERCUSSION: percussion normal Cardio: COMMON NORMALS: no JVD, regular rate and regular rhythm RATE: r egular rate RHYTHM: regular rhythm Extremity: COMMON NORMALS: capillary refill normal, no joint enlargement, no clubbing, cyanosis or edema, no calf tenderness and no pedal edema; negative for normal to inspection and negative for full ROM (Swelling especially over dorsum of right hand) Neuro: COMMON NORMALS: negative for patient oriented x3 S ENSORIUM/ORIENTATION: Yes alert MENINGEAL SIGNS: Yes no meningeal signs Skin: COMMON NORMALS: turgor normal and no jaundice NARRATIVE SKIN EXAM: Several caballero / ulcerations scattered on RUE GENERAL SKIN EXAM: turgor normal Course 2 Vital Signs: Vital signs: Vital Signs Temperature 98.6 F 07/27/24 04:56 Pulse Rate 68 07/27/24 06:02 Respiratory Rate 18 07/27/24 06:02 Blood Pressure 96/62 07/27/24 04:56 Pulse Oximetry 97 07/27/24 06:02 Oxygen Delivery Me thod Nasal Cannula 07/27/24 06:02 Oxygen Flow Rate 3.5 07/27/24 06:02 MDM - Extremity (Nontraumatic) Medical Decision Making 1. Right Hand/Wrist Injury - Likely trauma from fall - Obtain X-ray of the right hand and wrist to rule out fracture - Evaluate for soft tissue injury and ligamentous damage - Consider splinting based on X-ray results - Pain management as appropriate 2. Caballero on Right Hand - Assess depth and extent of caballero - Clean and dress wounds appropriately - Consider burn specialist consultation if significant 3. Chronic Respiratory Issues - Evaluate oxygen saturation - Consider pulmonary function testing - Review home oxygen use and compliance - Smoking cessation counseling 4. Substance Use - Methamphetamine and Tobacco - Provide substance abuse resources and referrals - Screen for withdrawal symptoms - Consider impact of substance use on treatment plan 5. Medication Review - Note patient mention of Xarelto; confirm if this is a current medication - If on anticoagulation therapy, consider impact on injury management Lab Data 07/27/24 05:18 07/27/24 05:18 Laboratory Results WBC 10.61 10^3/uL (3.29-11.43) 07/27/24 05:18 RBC 4.27 10^6/uL (3.85-5.65) 07/27/24 05:18 Hgb 12.90 g/dL (11.27-16.99) 07/27/24 05:18 Hct 41.9 % (37-53) 07/27/24 05:18 MCV 98.1 fl (82-101) 07/27/24 05:18 MCH 30.2 pg (27-33) 07/27/24 05:18 MCHC 30.8 g/dL (30-55) 07/27/24 05:18 RDW 14.6 % (12.1-15.1) 07/27/24 05:18 Plt Count 236 10^3/cmm (157-399) 07/27/24 05:18 MPV 11.3 fL (7.4-10.4) H 07/27/24 05:18 Neut % (Auto) 69.9 % 07/27/24 05:18 Lymph % (Auto) 14.6 % 07/27/24 05:18 Levy % (Auto) 10.8 % 07/27/24 05:18 Eos % (Auto) 3.8 % 07/27/24 05:18 Baso % (Auto) 0.5 % 07/27/24 05:18 Neut # (Auto) 7.42 10^3/uL (1.8-7.7) 07/27/24 05:18 Lymph # (Auto) 1.6 10^3/uL (0.8-4.8) 07/27/24 05:18 Levy # (Auto) 1.2 10^3/uL (0.2-0.9) H 07/27/24 05:18 Eos # (Auto) 0.4 10^3/uL (0.0-0.8) 07/27/24 05:18 Baso # (Auto) 0.1 10^3/uL (0.0-0.1) 07/27/24 05:18 Nucleated RBC % (auto) 0 % 07/27/24 05:18 Nucleated RBCs # 0.0 /100WBC 07/27/24 05:18 XR interpretation done by ED provider, pending radiology final review Discharge Plan Discharge Condition: Stable Prescriptions: No Action RSVPreF3 antigen-AS01E (PF) 120 mcg/0.5 mL suspension for reconstitution 0.5 ml IM ONCE Qty: 1 0RF (DME) Portable Oxygen at 3L See Rx Instructions .Route .MEDSUPPLY Qty: 1 0RF Rx Instructions: As directed Trelegy Ellipta 100-62.5-25 mcg blister with device 1 inh inhalation DAILY Qty: 60 11RF (DME) Battery Powered Concentrator Inogen See Rx Instructions .Route .MEDSUPPLY Qty: 1 0RF Rx Instructions: 2 l/m levothyroxine 100 mcg tablet See Rx Instructions .ROUTE .COMPLEX Qty: 90 11RF Dose Instruction: TAKE 1 TABLET BY MOUTH EVERY DAY Rx Instructions: TAKE 1 TABLET BY MOUTH EVERY DAY amlodipine 10 mg tablet See Rx Instructions .ROUTE .COMPLEX Qty: 90 11RF Dose Instruction: TAKE 1 TABLET BY MOUTH EVERY DAY FOR HYPERTENSION Rx Instructions: TAKE 1 TABLET BY MOUTH EVERY DAY FOR HYPERTENSION albuterol sulfate 90 mcg/actuation HFA aerosol inhaler See Rx Instructions .ROUTE .COMPLEX Qty: 18 3RF Dose Instruction: INHALE 2 PUFFS BY MOUTH EVERY 6 HOURS NEEDED DIRECTED Rx Instructions: INHALE 2 PUFFS BY MOUTH EVERY 6 HOURS NEEDED DIRECTED tamsulosin 0.4 mg capsule See Rx Instructions .ROUTE .COMPLEX Qty: 90 3RF Dose Instruction: TAKE 1 CAPSULE BY MOUTH EVERY DAY Rx Instructions: TAKE 1 CAPSULE BY MOUTH EVERY DAY furosemide 40 mg tablet See Rx Instructions .ROUTE .COMPLEX Qty: 90 1RF Dose Instruction: 40 MG ORALLY DAILY Rx Instructions: 40 MG ORALLY DAILY docusate sodium [Dulcolax Stool Softener (dss)] 100 mg capsule 100 mg PO BID Qty: 14 0RF Rx Instructions: Patient states only takes once daily Referrals: Rakesh Nye MD [Primary Care Provider, Family Practice] Print Language: Icelandic Coding Level of Care Code ED Aquatic Instructor for Naty Brooke
[2024-07-27 05:51] LABS: Basophils # 0.1 10^3/uL (0.0-0.1); Basophils % 0.5 %; Eosinophils # 0.4 10^3/uL (0.0-0.8); Eosinophils % 3.8 %; Hematocrit 41.9 % (37-53); Lymphocytes # 1.6 10^3/uL (0.8-4.8); Lymphocytes % 14.6 %; Mean Corpuscular HGB Conc 30.8 g/dL (30-55); Mean Corpuscular Hemoglobin 30.2 pg (27-33); Mean Corpuscular Volume 98.1 fl (82-101); Mean Platelet Volume 11.3 fL (7.4-10.4); Monocytes # 1.2 10^3/uL (0.2-0.9); Monocytes % 10.8 %; Neutrophils # 7.42 10^3/uL (1.8-7.7); Neutrophils % 69.9 %; Nucleated Red Blood Cells % 0 %; Platelet Count 236 10^3/cmm (157-399); Red Blood Count 4.27 10^6/uL (3.85-5.65); Red Cell Distribution Width 14.6 % (12.1-15.1); White Blood Count 10.61 10^3/uL (3.29-11.43)
[2024-07-27] MEDS: ipratropium-albuterol 3 mL Neb INHALATION ×3 (06:00→21:35)
[2024-07-27 06:14] LABS: Alanine Aminotransferase 9 U/L (0-41); Alkaline Phosphatase 111 U/L (40-130); Anion Gap 17.1 (5-19); Aspartate Amino Transferase 13 U/L (0-40); Blood Urea Nitrogen 28 mg/dL (8-23); Calcium 8.9 mg/dL (8.5-10.5); Carbon Dioxide 26 mmol/L (22-29); Chloride 98 mmol/L (98-107); Creatine Phosphokinase 153 U/L (39-308); Creatinine Clr Calc Pharmacy 41.1849; Globulin 3.8 g/dL (1.3-4.6); Glomerular Filtration Rate 31.9 mL/min (90-130); Glucose 124 mg/dL (65-115); Osmolality Calculated 291 mOsm/kg (285-295); Potassium 4.1 mmol/L (3.5-5.1); Sodium 137 mmol/L (136-145); Total Bilirubin 0.5 mg/dL (0.15-1.2); Total Protein 7.8 g/dL (6.6-8.7)
--- NOTE | 2024-07-27 07:00 | PC.NURSE ---
pt informed of need for urine sample; pt refusing straight catheter
[2024-07-27 07:15] LABS: Lactic Sepsis W/Reflex 1.1 mmol/L (0.5-2.2)
[2024-07-27] MEDS: sodium chloride 0.9% 1,000 ML 999 ML IV ×2 (07:24→07:53)
--- NOTE | 2024-07-27 07:48 | PC.NURSE ---
antibiotics delayed d/t needing to obtain blood cultures
[2024-07-27] MEDS: linezolid premix 600 MG/300 ML PREMIX 300 MG IV (07:58)
[2024-07-27 08:11] LABS: C Reactive Protein 24.6 mg/L (0.0-4.9)
--- NOTE | 2024-07-27 08:13 | ECG_ITS ---
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 Measurements Intervals [place] Rate: 56 P: 0 ME: 0 QRS: 72 QRSD: 82 T: 75 QT: 417 QTc: 406 Interpretive Statements Multifocal atrial rhythm MODERATE ST DEPRESSION [0.05+ mV ST DEPRESSION] Compared to ECG 06/25/2023 07:07:36 ST (T wave) deviation now present Sinus rhythm no longer present First degree AV block no longer present Electronically Signed On 07-27-2024 14:32:47 CDT by Sarabjit Lindsay M.D. [email or web address] [id number]
[2024-07-27 08:40] LABS: Amphetamines Screen Urine Positive (Negative); Barbiturates Screen Urine Negative (Negative); Benzodiazepines Screen Urine Negative (Negative); Cocaine Screen Urine Negative (Negative); Opiate Screen Urine Negative (Negative); PCP Screen Urine Negative (Negative); THC Screen Urine Positive (Negative)
--- NOTE | 2024-07-27 08:43 | MRR_ITS ---
PROCEDURE INFORMATION: Exam: MR Right Upper Extremity Joint Without Contrast; Wrist Exam date and time: 07/27/2024 9:42 AM Age: 63 years old Clinical indication: Pain and injury or trauma; Fall; Blunt trauma (contusions or hematomas) and fracture, traumatic injury; Closed fracture; Wrist and hand; Right; Hand and wrist; Additional info: Right wrist pain, swelling, FX TECHNIQUE: Imaging protocol: Magnetic resonance imaging of the right upper extremity without contrast. Exam focused on the wrist. COMPARISON: CT forearm RT wo con* [id number] 06/25/2023 3:36 AM FINDINGS: Bones/joints: There is a contusion of the distal ulna at the level of the fovea. There is a transverse nondisplaced intra-articular fracture of the distal radial metaphysis with surrounding bone marrow edema. Nondisplaced fracture of the radial styloid. There are scaphoid subchondral cystic changes at the scapholunate joint. Subchondral bone marrow edema of the medial aspect of the scaphoid and proximal aspect of the capitate, that can be degenerative versus bone bruise. Small distal radioulnar joint effusion. Scapholunate ligament: Sprain and partial tear. Lunotriquetral ligament: Unremarkable. No tear. Triangular fibrocartilage complex: Partial tear. Flexor compartment tendons: Unremarkable. No tear. Extensor compartment tendons: There is tenosynovitis of the extensor pollicis longus, extensor carpi radialis longus and extensor carpi radialis brevis tendons. Soft tissues: There is subcutaneous edema and swelling at the dorsal aspect of the wrist and proximal hand. Mild subcutaneous edema at the volar aspect of the wrist. There is strain of the pronator quadratus muscle. MR/MR wrist RT wo con* [id number] IMPRESSION: 1. Subcutaneous edema of the and proximal hand, more pronounced dorsally. 2. Nondisplaced intra-articular fracture of the distal radius. 3. Contusions of the distal ulna at the level of the fovea, proximal aspect of the capitate and lateral aspect of the scaphoid. 4. Tenosynovitis of the 2nd and 3rd extensor compartment tendons. No tendon retraction. 5. Sprain and partial tear of the scapholunate ligament.
[2024-07-27 08:49] LABS: Troponin(5th) Baseline 18 ng/L (0-15)
[2024-07-27 08:51] LABS: Bilirubin Urine Negative (Negative); Blood Urine Negative (Negative); Glucose Urine UA Negative (Normal); Ketones Urine Negative (Negative); Leukocyte Esterase Urine Negative (Negative); Nitrate Urine Negative (Negative); Protein Urine Trace (Negative); Specific Gravity, Urine 1.025 (1.005-1.030); Urine Appearance Clear (CLEAR); Urine Color Yellow (Yellow)
[2024-07-27 08:55] LABS: Add Urine Microscopic? YES; Bacteria Urine None Seen /hpf; Hyaline Casts Urine 61.21 /lpf; RBC Urine 0-2 /hpf (0-2); Squamous Epithelial Cell Urine 0-5 /hpf (0-5); WBC Urine 0-5 /hpf (0-5)
[2024-07-27 09:13] LABS: UA Slide Review UA Slide Review Perf
--- NOTE | 2024-07-27 10:13 | ECG_ITS ---
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 Measurements Intervals [place] Rate: 75 P: 74 WV: 260 QRS: 64 QRSD: 92 T: 76 QT: 421 QTc: 473 Interpretive Statements SINUS RHYTHM WITH FIRST DEGREE AV BLOCK Compared to ECG 07/27/2024 08:34:42 First degree AV block now present Atrial fibrillation no longer present ST (T wave) deviation no longer present Electronically Signed On 07-27-2024 14:36:23 CDT by Sarabjit Lindsay M.D. [email or web address] [id number]
--- NOTE | 2024-07-27 11:40 | PC.CHAP ---
Pastoral Care Encounter/Spiritual Assessment Type of Contact [] Declined customer logistics manager visit [] Patient/Family/Request visit [] Outpatient visit [] Follow-up visit [] Physician referral [] Code/Alert [x] Routine visit [] Staff referral [] Actively dying [] Patient sleeping [] Family support [] [] Out of room [] Palliative care [] [] Receiving care in room [] Pre-surgical visit [] Trauma [] Long length of stay [] ICU visit [] Other: Relational/Emotional Strength [] Patient feels connected with others/family/visitors/staff [] Distress [x] Loneliness/isolation [] Abandonment Spirituality of Patient [] Person of Katarina [] Attends Yarsani of their Katarina [] Believes in Prayer [] Reads Bible or Hinduism materials [] There are Spiritual issues to be addressed Patternmaker Pressure Cast Interventions [] Prayer [] Active listening [] Non-anxious presence [] Spiritual/emotional support [] Crisis/trauma care [] Spiritual counseling [] Bereavement support [] Provided bereavement packet [] Provided Bible/devotional materials [] Provided toy/stuffed animal, coloring book to patient or family member [] Provided Communion [] Anointing/[place] [] Salvation [] Completed spiritual assessment [] Other: Impact on Illness or Injury [] Angry [] Fearful [] Anxious [] Often cries [] Exhaustion [] Unable to work [] Unable to attend mandaeism [] Unable to walk/stand [] Unable to read [] Unable to drive [] Unable to eat/drink [] Unable to sleep [] Unable to be with family [] Patient intubated [] Other: Summary Time spent with patient
[2024-07-27 11:47] LABS: Estmated Average Glucose 126
[2024-07-27 11:50] LABS: Lactic Sepsis W/Reflex 0.6 mmol/L (0.5-2.2)
[2024-07-27 11:51] LABS: Troponin 5 2HR 16.79 ng/L (0-15)
[2024-07-27 11:52] LABS: Troponin 5 2HR Delta -1.21 ABS# (0-10)
[2024-07-27] MEDS: morphine 4 mg/mL SDV 1 mL 2 MG IVP (11:52)
[2024-07-27] MEDS: pantoprazole 40 mg SDV IVP (11:52)
[2024-07-27 12:10] LABS: Procalcitonin 0.07 ng/mL (0-0.5); Thyroid Stimulating Hormone 0.89 uIU/mL (0.27-4.20); Vitamin B12 434 pg/mL (232-1245)
[2024-07-27 12:21] LABS: Iron 30 ug/dL (59-158)
[2024-07-27 12:23] LABS: Percent Saturation 14.2 % (20-50); Total Iron Binding Capacity 210 mcg/dl; Unsaturated Iron Binding 180 ug/dL (112-347)
--- NOTE | 2024-07-27 13:45 | PC.NURSE ---
ekg timed 13:27 on 07/27/24 was mistakenly transmitted on byron yousif.....this is NOT his [email or web address] has been notified to correct this error
--- NOTE | 2024-07-27 13:47 | P.CONIM_ITS ---
Providers/Reason For Consult 2 Consulting Physician/Specialty*: Elizabeth Alvarado MD Reason for Consult*: Right wrist fracture Requesting Physician: Dr. Anjel Umanzor Attending Physician: Minnie Amaro MD Primary Care Provider: Rakesh Nye MD History of Present Illness History of Present Illness Anthony Harding is a 63 year old male presenting to the emergency department today with complaints of right wrist pain as well as hypoxia. He was admitted for medical workup of multiple medical issues at this time. With regards to the risk, the patient's story has changed a few times. He advised me that he had fallen over a tree root, but he also told story of falling over his. He was splinted in the emergency department and MRI was obtained to rule out wrist abscess. Review of Systems 2 General: Reports: ROS unobtainable due to mental status Narrative: Patient is a very poor historian. He states he has been a methamphetamine user for approximately 8 years. He states that he has little recollection of the past few days, but only fell a few hours prior to admission to the emergency department. Const: Denies: fever(s), chills, body aches, change in appetite, change in weight, malaise, night sweats, diaphoresis, change in sleep pattern, daytime sleepiness or snoring Eyes: Denies: change in vision, blurry vision, photophobia, eye discomfort or eye discharge ENMT: Denies: throat pain, enlarged tonsils, hoarseness, mouth pain, oral sores, dry mouth, tinnitus, nasal congestion or post nasal drip Card: Denies: chest pain, palpitations, irregular heart rhythm, edema, swelling of feet/ankles, lightheadedness, syncope, pre-syncope, dyspnea on exertion, orthopnea, leg pain with exertion or acrocyanosis Resp: Denies: dyspnea, productive cough, non-productive cough, wheezing, stridor, pain on inspiration, change in phlegm color, hemoptysis or chest congestion GI: Denies: abdominal pain, nausea, vomiting, hematemesis, coffee ground emesis, dysphagia, heartburn, diarrhea, constipation, bloating, GI cramping, change in bowel habits, pain on defecation, hematochezia or melena : Denies: flank pain, difficulty urinating, dysuria, urinary frequency, urinary urgency, urinary hesitancy, urinary dribbling, difficulty starting urination, change in urine stream, nocturia or hematuria Musc: Denies: joint warmth Neuro: Denies: headache(s), numbness in extremities, weakness in extremities, sensory changes, lack of coordination, difficulty walking, frequent falls, dizziness, vertigo, confusion, Slurred speech present, difficulty communicating thoughts or seizure-like activity Psych: Denies: anxiety, depression, mood swings, panic attacks, hopelessness or irritability Endo: Denies: polyuria, polydipsia, tired all the time, cold intolerance, excessive sweating, flushing or heat intolerance Harsh/Lymph: Denies: easy bruising or easy bleeding All/Imm: Denies: tongue swelling, facial swelling or acute wheezing Medications/Allergies Home Medications ?Medication ?Instructions ?Recorded ?Confirmed ?Last Taken ?Type fluticasone fur. 100 mcg-umeclid 1 inh inhalation SHERMAN Y #60 ea 07/25/23 07/27/24 07/26/24 Rx 62.5 mcg-vilant 25 mcg inhalat.powder (Trelegy Ellipta) Battery Powered Concentrator Inogen #1 ea 07/28/23 Unknown Rx levothyroxine 100 mcg tablet See Rx Instructions .Rout e 01/18/24 07/27/24 07/26/24 Rx .COMPLEX #90 tabs amlodipine 10 mg tablet See Rx Instructions .Route 0 03/29/24 07/27/24 07/26/24 Rx .COMPLEX #90 tabs albuterol sulfate 90 mcg/actuation See Rx Instructions .Route 04/17/24 07/27/24 07/26/24 Rx aerosol inhaler .COMPLEX #18 ea tamsulosin 0.4 mg capsule See Rx Instructions .Route 0 04/24/24 07/27/24 07/26/24 Rx .COMPLEX #90 caps Portable Oxygen at 3L #1 ea 07/04/24 07/27/24 Unkn own Rx furosemide 40 mg tablet See Rx Instructions .Route 0 07/15/24 07/27/24 07/26/24 Rx .COMPLEX #90 tabs Allergies Allergy/AdvReac Type Severity Reaction Status Date / Time No Known Allergies Allergy Verified 07/27/24 05:15 Current Medications Generic Name Dose Route Start Last Admin Trade Name Freq PRN Reason Stop Dose Admin Albuterol/Ipratropium 3 ml 07/27/24 14:00 07/27/24 13:14 Ipratropium-Albuterol 3 Ml Neb INHALATION 3 ml Q6H.RESP LEONA Administration Morphine Sulfate 2 mg 07/27/24 11:23 07/27/24 11:52 Morphine 4 Mg/Ml Sdv 1 Ml IVP 2 mg Q4H PRN Administration SEVERE PAIN Pantoprazole Sodium 40 mg 07/27/24 11:30 07/27/24 11:52 Pantoprazole 40 Mg Sdv IVP 40 mg Q24H LEONA Administration PFSH Acute 2 PFSH: Medical History (Updated 07/27/24 @ 16:09 by Anjel Umanzor DO) History of MRSA infection Loculated pleural effusion Septic shock Inguinal hernia of right side without obstruction or gangrene Pneumonia Hyponatremia Abnormal CT scan, chest Probable lung mass Acute respiratory failure Hepatitis C Renal cysts, acquired, bilateral BPH loc w urin obs/LUTS Benign prostatic hyperplasia with lower urinary tract symptoms Hypothyroidism CKD (chronic kidney disease), stage III Nicotine dependence, cigarettes, with unspecified nicotine-induced disorders ROBBIE (obstructive sleep apnea) Pulmonary emphysema COPD (chronic obstructive pulmonary disease) Hypogonadism in male Hypertension Surgical History Hx of inguinal hernia repair 12/12/22 Dr Juan Antonio gongora repair right inguinal hernia with mesh History of hernia surgery History of ankle surgery History of mandibular surgery History of circumcision Family History Mother , at age 46 Cirrhosis of liver Father , at age 78 CAD (coronary artery disease) Denies family history of Diabetes Clotting disorder Dementia Hyperlipidemia Psychiatric illness Chronic kidney disease (CKD) Suicide Anesthesia complication Bleeding disorder Family history of premature coronary artery disease Lung disease Cancer Hypertension Stroke Social History Smoking and tobacco/nicotine status: never used tobacco/nicotine Quit status (tobacco/nicotine): considering quitting Second hand smoke exposure: No Alcohol intake: former Substance/Drug Use: never Lives independently: Yes Household members: spouse Marital status: service: No Current occupational status: unemployed and disabled Pets and animals: Yes Do you think of yourself as: Straight/Heterosexual Current gender identity: Male Dietary Habits: Current diet type/program: regular Caffeine: Yes Safety: Seatbelt use: always Drive intoxicated or ride with intoxicated 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 Vitals/I&O/Wt Last Vital Signs Temp 98.0 F 07/27/24 12:00 Pulse 70 07/27/24 13:17 Resp 20 H 07/27/24 13:14 BP 118/68 07/27/24 12:00 Pulse Ox 95 07/27/24 13:14 O2 Del Method Nasal Cannula 07/27/24 13:15 O2 Flow Rate 4 07/27/24 13:15 07/26/24 07/27/24 07/27/24 22:59 06:59 14:59 Intake Total 2300 / 2300 Balance 2300 / 2300 Weight last 48 hrs Weight 207 lb 6 oz Weight 201 lb Weight 201 lb Physical Exam 2 Const: COMMON NORMALS: no acute distress, average body habitus, patient oriented x3 and alert GENERAL APPEARANCE: cooperative and comfortable O RIENTATION/CONSCIOUSNESS: Yes awake HENMT: COMMON NORMALS: normocephalic and atraumatic HEAD & SCALP: n ormocephalic and atraumatic Eye: GENERAL EYE: appearance normal, both eyes and all related structures Chest: COMMONS NORMALS: normal inspection of the chest Resp: COMMON NORMALS: normal respiratory effort EFFORT & INSPECTION: Yes able to speak in complete sentences and Yes symmetric chest movement Extremity: RIGHT UPPER EXTREMITY: Yes wrist (The wrist is in a splint placed by the emergency department, not removed) Right wrist: Yes palpation (Normal sensation in the hand), Yes ROM (Able to move all fingers with minimal discomfort) and Yes neurovascular exam (Sensory exam intact) Neuro: COMMON NORMALS: patient oriented x3 SENSORIUM/ORIENTATION: Yes alert Psych: COMMON NORMALS: mental status grossly normal APPEARANCE: Yes grossly normal ATTITUDE: Yes calm and Yes engaged ATTENTION/CONCENTRATION: Yes attention grossly intact Skin: COMMON NORMALS: no rashes or lesions noted GENERAL SKIN EXAM: no rashes or lesions noted Data 07/27/24 05:18 07/27/24 05:18 Micro: Microbiology 07/27/24 07:06 Blood Culture - Preliminary Blood SPECIMEN COLLECTED 07/27/24 05:18 Blood Culture - Preliminary Blood SPECIMEN COLLECTED Xray Ortho: My impression: X-rays of the patient's right hand and wrist demonstrate a minimally displaced distal radius fracture with no evidence of ulnar involvement. There is some volar displacement of the cortical surface, but length is maintained, and the fracture is in near anatomic position. MRI: Radiologist's impression: Right wrist MRI demonstrated subcutaneous edema in the proximal hand, more pronounced dorsally. There is an intra-articular fracture of the distal radius, nondisplaced. There are contusions of the distal ulna at the level of the fovea and lateral aspect of the scaphoid. Additionally, there is tenosynovitis of the 2nd and 3rd extensor compartment tendons with no tendon retraction. There is a sprain or partial tear of the scapholunate ligament as well as the triangular fibrocartilage complex. A&P Assessment and plan (1) Closed fracture of right distal radius: This 63-year-old gentleman was admitted today after a fall at home. There is some confusion as to when the fall occurred. He advised one of the nurses that he tripped over his cat, but he advised me that he tripped over a tree stump. Also, there is confusion as to whether this fracture occurred a few days ago or a few hours prior to admission. I asked the patient when he had last used methamphetamine, and he noted a couple of days ago. When I ask him if where he had last injected, he said he did not recall, but he advised in the emergency department that he had smoked it and . There is confusion as to whether or not the patient has been injecting. For this reason, MRI was obtained at the time of the patient's admission. He is found on x-ray to have a distal radius fracture which is minimally displaced and will not require reduction. This can be treated closed as an outpatient. I have advised the patient of this. MRI demonstrated no evidence of abscess at the moment within the wrist or hand. (2) History of intravenous drug use: (3) IV drug user: PDMP PDMP Reviewed: Not Reviewed Coding Level of Care Code Acute Code for [facility] Fwd Diagnoses Other closed intra-articular fracture of distal end of right radius, initial encounter S52.571A Encounter type: initial encounter Fracture morphology: other intra-articular History of intravenous drug use Z87.898 IV drug user F19.90
[2024-07-27 14:07] LABS: MRSA PCR OZH (swab) MRSA Detected (Negative)
--- NOTE | 2024-07-27 15:15 | P.HP_ITS ---
Providers/Chief Complaint 2 Admitting Physician: Minnie Amaro MD Primary Care Provider: Rakesh Nye MD Chief Complaint: R hand and wrist swollen fell a few hours ago History of Present Illness Anthony Harding is a 63 year old male with past medical history of MRSA infection, IV drug use, pulmonary emphysema, hypothyroidism, pulmonary hypertension, chronically on oxygen specially at night requiring 2 to 3 L. He presents to the ER today after Who sustained injury to the right wrist after mechanical fall. In the ER he was found to have right wrist fracture, was found to have urine drug screen positive for amphetamines. While being in the ER patient became drowsy and required oxygen supplementation to maintain saturation over 90% hence hospitalist service was consulted for further evaluation and management. On examination patient seen and CSU on 3 L saturating 94%, laying comfortably in bed, drowsy but wakes up to verbal stimulus and able to conversation though falling asleep during examination. Patient denies any nausea, vomiting, headache, dizziness, chest pain Review of Systems 2 General: Reports: 10 or more systems reviewed and unremarkable except in HPI and below Const: Denies: fever(s), chills, body aches, change in appetite, change in weight, malaise, night sweats, diaphoresis, change in sleep pattern, daytime sleepiness or snoring Eyes: Denies: change in vision, blurry vision, photophobia, eye discomfort or eye discharge ENMT: Denies: throat pain, enlarged tonsils, hoarseness, mouth pain, oral sores, dry mouth, tinnitus, nasal congestion or post nasal drip Card: Denies: chest pain, palpitations, irregular heart rhythm, edema, swelling of feet/ankles, lightheadedness, syncope, pre-syncope, dyspnea on exertion, orthopnea, leg pain with exertion or acrocyanosis Resp: Denies: dyspnea, productive cough, non-productive cough, wheezing, stridor, pain on inspiration, change in phlegm color, hemoptysis or chest congestion GI: Denies: abdominal pain, nausea, vomiting, hematemesis, coffee ground emesis, dysphagia, heartburn, diarrhea, constipation, bloating, GI cramping, change in bowel habits, pain on defecation, hematochezia or melena : Denies: flank pain, difficulty urinating, dysuria, urinary frequency, urinary urgency, urinary hesitancy, urinary dribbling, difficulty starting urination, change in urine stream, nocturia or hematuria Musc: Denies: neck pain, back pain, extremity pain, joint pain, joint swelling, joint redness, joint stiffness or limited range of motion Neuro: Denies: headache(s), numbness in extremities, weakness in extremities, sensory changes, lack of coordination, difficulty walking, frequent falls, dizziness, vertigo, confusion, Slurred speech present, difficulty communicating thoughts or seizure-like activity Psych: Denies: anxiety, depression, mood swings, panic attacks, hopelessness or irritability Endo: Denies: polyuria, polydipsia, tired all the time, cold intolerance, excessive sweating, flushing or heat intolerance Harsh/Lymph: Denies: easy bruising or easy bleeding All/Imm: Denies: tongue swelling, facial swelling or acute wheezing Medications/Allergies Home Medications ?Medication ?Instructions ?Recorded ?Confirmed ?Last Taken ?Type fluticasone fur. 100 mcg-umeclid 1 inh inhalation SHERMAN Y #60 ea 07/25/23 07/27/24 07/26/24 Rx 62.5 mcg-vilant 25 mcg inhalat.powder (Trelegy Ellipta) Battery Powered Concentrator Inogen #1 ea 07/28/23 Unknown Rx levothyroxine 100 mcg tablet See Rx Instructions .Rout e 01/18/24 07/27/24 07/26/24 Rx .COMPLEX #90 tabs amlodipine 10 mg tablet See Rx Instructions .Route 0 03/29/24 07/27/24 07/26/24 Rx .COMPLEX #90 tabs albuterol sulfate 90 mcg/actuation See Rx Instructions .Route 04/17/24 07/27/24 07/26/24 Rx aerosol inhaler .COMPLEX #18 ea tamsulosin 0.4 mg capsule See Rx Instructions .Route 0 04/24/24 07/27/24 07/26/24 Rx .COMPLEX #90 caps Portable Oxygen at 3L #1 ea 07/04/24 07/27/24 Unkn own Rx furosemide 40 mg tablet See Rx Instructions .Route 0 07/15/24 07/27/24 07/26/24 Rx .COMPLEX #90 tabs Allergies Allergy/AdvReac Type Severity Reaction Status Date / Time No Known Allergies Allergy Verified 07/27/24 05:15 PFSH Acute 2 PFSH: Medical History (Updated 07/27/24 @ 15:23 by Kirt Woodson MD) History of MRSA infection Loculated pleural effusion Septic shock Inguinal hernia of right side without obstruction or gangrene Pneumonia Hyponatremia Abnormal CT scan, chest Probable lung mass Acute respiratory failure Hepatitis C Renal cysts, acquired, bilateral BPH loc w urin obs/LUTS Benign prostatic hyperplasia with lower urinary tract symptoms Hypothyroidism CKD (chronic kidney disease), stage III Nicotine dependence, cigarettes, with unspecified nicotine-induced disorders ROBBIE (obstructive sleep apnea) Pulmonary emphysema COPD (chronic obstructive pulmonary disease) Hypogonadism in male Hypertension Surgical History Hx of inguinal hernia repair 12/12/22 Dr Juan Antonio gongora repair right inguinal hernia with mesh History of hernia surgery History of ankle surgery History of mandibular surgery History of circumcision Family History Mother , at age 46 Cirrhosis of liver Father , at age 78 CAD (coronary artery disease) Denies family history of Diabetes Clotting disorder Dementia Hyperlipidemia Psychiatric illness Chronic kidney disease (CKD) Suicide Anesthesia complication Bleeding disorder Family history of premature coronary artery disease Lung disease Cancer Hypertension Stroke Social History Smoking and tobacco/nicotine status: never used tobacco/nicotine Quit status (tobacco/nicotine): considering quitting Second hand smoke exposure: No Alcohol intake: former Substance/Drug Use: never Lives independently: Yes Household members: spouse Marital status: service: No Current occupational status: unemployed and disabled Pets and animals: Yes Do you think of yourself as: Straight/Heterosexual Current gender identity: Male Vitals/I&O/Wt Last Vital Signs Temp 98.0 F 07/27/24 12:00 Pulse 70 07/27/24 13:17 Resp 20 H 07/27/24 13:14 BP 118/68 07/27/24 12:00 Pulse Ox 95 07/27/24 13:14 O2 Del Method Nasal Cannula 07/27/24 13:15 O2 Flow Rate 4 07/27/24 13:15 07/27/24 07/27/24 07/27/24 06:59 14:59 22:59 Intake Total 2300 / 2300 Balance 2300 / 2300 Weight last 48 hrs Weight 94.064 kg Weight 91.172 kg Weight 91.172 kg Physical Exam 2 Narrative: General: No acute distress, drowsy, lethargic, wakes up and is AO x 3 HEENT: PERRLA, pupils bilaterally equal and reactive Chest: Bilateral bronchial breath sounds all over lung rooney with occasional rhonchi CVS: S1-S2 regular, no murmurs, no tachycardia, no gallops, no rubs Abdomen: Soft, nontender, no organomegaly, bowel sounds present Neuro: No focal deficits, no facial deformity, AO x3, power 5/5 in all limbs Data 07/27/24 05:18 07/27/24 05:18 Micro: Microbiology 07/27/24 07:06 Blood Culture - Preliminary Blood SPECIMEN COLLECTED 07/27/24 05:18 Blood Culture - Preliminary Blood SPECIMEN COLLECTED A&P Assessment and plan (1) Acute hypoxic respiratory failure: Most likely as patient is drowsy due to amphetamine abuse. Patient does use oxygen while sleeping up to 3 L. Does have history of COPD. Oxygen supplementation keeping saturation over 88%. Pulmicort twice daily, DuoNeb every 6 hour. Wean oxygen supplementation accordingly. Check CT chest. Cannot rule out pulmonary embolism though less likely. Cannot get CTA given acute kidney injury. (2) Pulmonary emphysema: Prednisone 40 mg oral daily. Nebulization as above. Out of bed to chair when possible. (3) Distal radius fracture, right: Splinting done in ER. Orthopedic consulted from the ER. Getting MRI as per orthopedic recommendations. (4) IV drug user: Urine drug screen positive for amphetamines. IV fluids with NS at 75 cc/h. Monitor mentation. (5) Acute kidney injury: .Creatinine up to 2.1. Most likely in setting of dehydration. Check urine lites, urine creatinine. Does have history of polycystic kidney disease in the past. Get CT abdomen pelvis to rule out obstructive nephropathy. Appreciate urinalysis. Medical reconciliation done for nephrotoxic drugs. (6) Renal cysts, acquired, bilateral: (7) Pulmonary hypertension: (8) Hypothyroidism: Check TSH. Continuing home dose of levothyroxine. Plan Hypertension: Goal blood pressure less than 140/90 mmHg. Start antihypertensive accordingly. BPH: Continue with home dose of Flomax. History of MRSA infection: Currently afebrile, no leukocytosis. No need for antibiotics for now. Full code N.p.o. as patient is drowsy. Protonix for PUD prophylaxis Heparin 5000 subcu twice daily for DVT prophylaxis. PDMP PDMP Reviewed: Not Reviewed Attestations 2 Medical Necessity Statement*: Admission for more than 2 midnights for management of hypoxic respiratory failure in setting of meth use, COPD exacerbation, acute kidney injury in a patient with pulmonary hypertension. Diagnoses Acute hypoxic respiratory failure J96.01 Pulmonary emphysema J43.9 Distal radius fracture, right S52.501A IV drug user F19.90 Acute kidney injury N17.9 Renal cysts, acquired, bilateral N28.1 Pulmonary hypertension I27.20 Hypothyroidism E03.9
--- NOTE | 2024-07-27 15:19 | CTR_ITS ---
PROCEDURE INFORMATION: Exam: CT Chest Without Contrast; Diagnostic Exam date and time: 07/27/2024 4:12 PM Age: 63 years old Clinical indication: Other: Hypoxia, margarito, history of polycystic kidney disease TECHNIQUE: Imaging protocol: Diagnostic computed tomography of the chest without contrast. Radiation optimization: All CT scans at this facility use at least one of these dose optimization techniques: automated exposure control; mA and/or kV adjustment per patient size (includes targeted exams where dose is matched to clinical indication); or iterative reconstruction. COMPARISON: CT chest [facility] [id number] 08/14/2022 3:00 PM RADIATION DOSE METRICS: Total DLP (mGy-cm): 938.97 FINDINGS: Lungs: Mild interlobar septal thickening. Mild centrilobular emphysematous changes are present. Nodular infiltrates in the right lower lobe and left lower lobe. Fibrotic changes in the right middle lobe. Left lower lobe atelectasis. Pleural spaces: Unremarkable. No pneumothorax. No pleural effusion. Heart: Unremarkable. No cardiomegaly. No pericardial effusion. Coronary arteries: There is mild atherosclerotic calcification of the coronary arteries. Lymph nodes: Unremarkable. No enlarged lymph nodes. Vasculature: The vasculature demonstrates diffuse mild atherosclerotic calcification. Bones/joints: Mild curvature of the thoracic spine convex to the right. The thoracic spine demonstrates mild degenerative changes at multiple levels. Soft tissues: Unremarkable. COMMENTS: The presence of pulmonary emphysema on CT is an independent risk factor for lung cancer. In the absence of a history or active diagnosis of lung cancer, it is recommended that this patient with emphysema be evaluated for enrollment in a low dose CT lung cancer screening program. PROCEDURE INFORMATION: Exam: CT Abdomen And Pelvis Without Contrast Exam date and time: 07/27/2024 4:12 PM Age: 63 years old Clinical indication: Other: Hypoxia, margarito, history of polycystic kidney disease TECHNIQUE: Imaging protocol: Computed tomography of the abdomen and pelvis without contrast. Radiation optimization: All CT scans at this facility use at least one of these dose optimization techniques: automated exposure control; mA and/or kV adjustment per patient size (includes targeted exams where dose is matched to clinical indication); or iterative reconstruction. COMPARISON: CT chest [facility] [id number] 08/14/2022 3:00 PM RADIATION DOSE METRICS: Total DLP (mGy-cm): 938.97 FINDINGS: Liver: Hypodense liver lesion in segment 6 of the liver measuring 8 mm, likely representing a liver cyst. Gallbladder and biliary ducts: Multiple calcified gallstones are present. Pancreas: Normal. No ductal dilation. Spleen: There are multiple calcified granulomas of the spleen. Adrenal glands: Normal. No mass. Kidneys and ureters: Multiple renal lesions, some of which are hypodense, in some hyperdense, not fully characterized simple on the current study. Stomach and bowel: There is mildly excessive colonic stool content. Appendix: No evidence of appendicitis. Intraperitoneal space: Unremarkable. No free air. No significant fluid collection. Vasculature: There are numerous benign phleboliths in the pelvis. The vasculature demonstrates diffuse mild atherosclerotic calcification. Lymph nodes: Unremarkable. No enlarged lymph nodes. Urinary bladder: Unremarkable as visualized. Reproductive: Unremarkable as visualized. Bones/joints: There are mild degenerative changes of the sacroiliac joints. Multiple old right lower rib fractures. The pubic symphysis demonstrates mild degenerative changes. Old left L3 transverse process fracture. Soft tissues: Right inguinal hernia containing the right anterior aspect of the bladder dome. CT/[place] [id number] IMPRESSION: Nodular infiltrates in bilateral lower lobe, likely infectious/inflammatory. IMPRESSION: Bilateral renal lesions of the friend densities, that might represent simple and hemorrhagic cysts, grossly stable when compared to the prior study.
[2024-07-27] MEDS: sodium chloride 0.9% 1,000 ML 75 ML IV (15:50)
[2024-07-27 21:29] LABS: Potassium, Radom Urine 71 mmol/L; Urine Creatinine 340 mg/dL (39-259); Urine Random Chloride 35 mmol/L; Urine Random Sodium 42 mmol/L
[2024-07-27] MEDS: budesonide 0.5 mg/2 mL Neb INHALATION (21:35)
[2024-07-28] VITALS (9 sets, daily range): BP systolic 95–122; BP diastolic 54–98; PULSE 63–83; RESP 16–30; TEMP 37.1–37.4; O2SAT 92–99
[2024-07-28] MEDS: ipratropium-albuterol 3 mL Neb INHALATION ×3 (02:19→13:09)
[2024-07-28] MEDS: morphine 4 mg/mL SDV 1 mL 2 MG IVP (02:22)
[2024-07-28 04:49] LABS: Basophils % 0.4 %; Eosinophils # 0.5 10^3/uL (0.0-0.8); Hematocrit 36.7 % (37-53); Lymphocytes # 1.4 10^3/uL (0.8-4.8); Lymphocytes % 17.5 %; Mean Corpuscular HGB Conc 30.5 g/dL (30-55); Mean Corpuscular Hemoglobin 30.9 pg (27-33); Mean Corpuscular Volume 101.1 fl (82-101); Mean Platelet Volume 11.1 fL (7.4-10.4); Monocytes # 0.9 10^3/uL (0.2-0.9); Monocytes % 11.5 %; Neutrophils # 5.21 10^3/uL (1.8-7.7); Neutrophils % 64.2 %; Nucleated Red Blood Cells % 0 %; Platelet Count 197 10^3/cmm (157-399); Red Blood Count 3.63 10^6/uL (3.85-5.65); Red Cell Distribution Width 14.5 % (12.1-15.1); White Blood Count 8.11 10^3/uL (3.29-11.43)
[2024-07-28 05:09] LABS: Alanine Aminotransferase 9 U/L (0-41); Albumin Level 3.2 g/dL (3.5-5.2); Alkaline Phosphatase 95 U/L (40-130); Anion Gap 12.7 (5-19); Aspartate Amino Transferase 9 U/L (0-40); Blood Urea Nitrogen 20 mg/dL (8-23); Calcium 8.2 mg/dL (8.5-10.5); Carbon Dioxide 26 mmol/L (22-29); Chloride 104 mmol/L (98-107); Creatinine Clr Calc Pharmacy 67.4744; Globulin 3.1 g/dL (1.3-4.6); Glomerular Filtration Rate 55.4 mL/min (90-130); Glucose 129 mg/dL (65-115); Magnesium 1.9 mg/dL (1.7-2.3); Osmolality Calculated 290 mOsm/kg (285-295); Phosphorus 3.8 mg/dL (2.5-4.5); Potassium 4.7 mmol/L (3.5-5.1); Sodium 138 mmol/L (136-145); Total Bilirubin 0.3 mg/dL (0.15-1.2); Total Protein 6.3 g/dL (6.6-8.7)
[2024-07-28] MEDS: sodium chloride 0.9% 1,000 ML 75 ML IV (05:14)
[2024-07-28 05:23] LABS: Folate Level 9.6 ng/mL (4.5-32.2)
--- OUTSIDE RECORDS SUMMARY | 2024-07-28 06:52 | XMS_ITS | Clinical Summary ---
Author Organization [facility] Address [address] [place] [address] Phone Care Team Providers Care Consulting Practice Manager Name Role Phone Rakesh Nye MD Primary Care Provider [phone] Allergies Active Allergy Reactions Criticality Noted Date Comments Fentanyl Unknown 08/16/2022 About Medications albuterol sulfate HFA 90 mcg/actuation aerosol inhaler Take 2 Puffs by inhalation every 6 hours as needed for Shortness of Breath. Active acetaminophen (TYLENOL) 500 mg tablet Take 1,000 mg by mouth every 6 hours as needed. Active budesonide-formo teroL (SYMBICORT) 80-4.5 mcg/actuation HFA Aerosol Inhaler Take 2 Puffs by inhalation 2 times daily. Active levothyroxine 100 mcg tablet Take 100 mcg by mouth daily in the morning. Active tamsulosin (FLOMAX) 0.4 mg capsule Take 0.4 mg by mouth daily. Active Saccharomyces boulardii (FLORASTOR) 250 mg Capsule Take 2 Capsules (500 mg) by mouth 2 times daily. 120 Capsule 3 Active docusate sodium (COLACE) 100 mg capsule Take 1 Capsule (100 mg) by mouth 2 times daily. 60 Capsule 2 3 Active clonazePAM (KlonoPIN) 0.5 mg TabletIndication s:Chronic obstructive pulmonary disease with acute lower respiratory infection (CMS/HCC) Take 0.5 Tablets (0.25 mg) by mouth 2 times daily. 1 Tablet 3 Active furosemide (LASIX) 40 mg tablet Take 1 Tablet (40 mg) by mouth daily. 30 Tablet 2 3 Active potassium chloride (KLOR-CON) 10 mEq Extended Release tablet Take 1 Tablet (10 mEq) by mouth daily with breakfast. 30 Tablet Active naloxone (NARCAN) 4 mg/spray Pinson, Non-Aerosol EMERGENCY USE ONLY: Administer 1 spray (4 mg) in one nostril one time. May repeat in alternating nostrils every 2-3 min until responsive or EMS arrives. 2 Each 3 Active Active Problems Problem Noted Date Diagnosed Date Prediabetes 08/24/2022 Hypothyroidism 08/23/2022 Hypertension 08/23/2022 Hyperglycemia 08/23/2022 Lung abscess 08/23/2022 Streptococcal infection 08/23/2022 Acute respiratory failure with hypoxia Acute circulatory failure 08/17/2022 Sepsis 08/17/2022 BAHMAN (acute kidney injury) 08/17/2022 Hyperkalemia 08/17/2022 Hypoalbuminemia 08/17/2022 CAP (community acquired pneumonia) 08/16/2022 Smoker 08/16/2022 COPD (chronic obstructive pulmonary disease) 05/2022 Stage 3 chronic kidney disease 08/16/2022 Leukocytosis 08/16/2022 Empyema 08/16/2022 Social History Tobacco Use Types Packs/Day Years Used Date Smoking Tobacco: Every Day Cigarettes Tobacco Cessation:Ready to Q uit: Not Asked; Counseling Given: Not Answered Feeling Safe Answer Date Recorded Are you in a relationship wi th someone who hurts you emotionally and/or physically? No 08/16/2022 Food Insecurity Answer Date Recorded Social/Environmental Concerns No concerns Transportation Needs Answer Date Record ed Social/Environmental Concerns No concerns Housing Stability Answer Date Recorded Social/Environmental Concerns No concerns Utility Needs Answer Date Recorded Social/Environmental Concerns No concerns Sex and Gender Information Value Date Recorded Sex Assigned at Not on file Legal Sex Male 3:48 PM CDT Gender Identity Not on file Sexual Orientation Not on file Last Filed Vital Signs Vital Sign Reading Time Taken Comments Blood Pressure 100/69 08/29/2022 3:17 PM CDT Pulse 86 08/29/2022 3:17 PM CDT Temperature 37.2 C (98.9 F) 08/29/2022 3:17 PM CDT Respiratory Rate 17 08/29/2022 3:17 PM CDT Oxygen Saturation 95% 08/29/2022 3:17 PM CDT Inhaled Oxygen Concentration - - Weight 75.6 kg (166 lb 11.2 oz) 08/28/2022 5:00 AM CDT Height 182.9 cm (6') 08/16/2022 10:00 AM CDT Body Mass Index 22.61 08/16/2022 10:00 AM CDT Plan of Treatment Health Maintenance Due Date Last Done Comments DTAP/TDAP/TD VACCINES (1 - Tdap) 1977 COLORECTAL SCREENING 10/16/2003 Colorectal Cancer Screening 10/16/2003 FIT-DNA Q 3 years 10/16/2003 FIT/FOBT Q 1 year 10/16/2003 Flex Sig/CT Colonography Q 5 years 10/16/2003 ZOSTER VACCINE (1 of 2) 2008 RSV VACCINE (60+ or ) (1 - Risk 60-74 years 1-dose series) 2018 PNEUMOCOCCAL VACCINE 50+ YEA RS (2 of 2 - PCV) 08/11/2019 08/10/2018 INFLUENZA VACCINE (#1) 2023 01/13/2020, 2019 Medical Devices Implanted Type Area Desulphuring Operator Device Identifier Shelf Expiration Date Model / Serial / Lot 14f Resolve Drainage Catheter- 023 Implanted:Qty: 1 on 08/19/2022 by Glen Lundy PA Catheter Right: Chest 05/01/2025 [facility]-[id number] / / [id number] Description:Rt chest tube Insurance [facility] EXCHANGE [place] [employer] STATE HE[employer] PLAN MEDICAID RX INFOCROSSING Medicaid RX [place] PLANS (INTERNAL) [facility] Internal Plans Advance Directives For more information, please contact: [phone] * Full Code (Latest Code Status on File) Date Activated Date Inactivated Comments 08/16/2022 11:19 AM 08/29/2022 7:03 PM Care Teams Consulting Practice Manager Relationship Specialty Start Date End Date Rakesh Nye MD [address] [place] [id number] PCP - General Family Practice 08/15/22
--- OUTSIDE RECORDS SUMMARY | 2024-07-28 06:52 | XMS_ITS | Encounter Summary ---
Author Organization [facility] Address [address] [place] [address] Care Team Providers Care Telesales Team Leader Name Role Phone Rakesh Nye MD Primary Care Provider [phone] Encounter Details Date Type Department Care Team (Late st Contact Info) Description 09/05/2022 Lab Requisition [facility] [address] [place] [address] Tunde Powers, [address] [place] [address] Social History Tobacco Use Types Packs/Day Years Used Date Smoking Tobacco: Every Day Cigarettes Feeling Safe Answer Date Recorded Are you [...] on file Sexual Orientation Not on file COVID-19 Exposure Response Date Recorded In the last 10 days, have yo u been in contact with someone who was confirmed or suspected to have Coronavirus/COVID-19? No / Unsure 08/16/2022 10:33 AM CDT documented as of this encounter Plan of Treatment Not on file documented as of this encounter Procedures Procedure Name Priority Date/Time Associated Diagnosis Comments CBC WITH DIFFERENTIAL Routine 09/05/2022 4:27 AM CDT COMPREHENSIVE METABOLIC PANEL Routine 09/05/2022 4:27 AM CDT documented in this encounter Results * (ABNORMAL) CBC WITH DIFFERENTIAL (09/05/2022 4:27 AM CDT) Pathologist [facility] WBC 11.7(H) 4.8 - 10.8 K/uL 09/05/2022 8:45 AM CDT [facility] RBC 4.13(L) 4.60 - 6.20 M/uL 09/05/2022 8:45 AM T [facility] HEMOGLOBIN 12.5(L) 14.0 - 18.0 g/dL 09/05/2022 8:45 AM [facility] HEMATOCRIT 39.8(L) 41.0 - 53.0 % 09/05/2022 8:45 AM CDT [facility] MCV 96.4 84.0 - 103.0 fL 09/05/2022 8:45 AM [facility] MCH 30.3 27.0 - 34.0 pg 09/05/2022 8:45 AM [facility] MCHC 31.4 30.0 - 35.0 g/dL 09/05/2022 8:45 AM [facility] RDW 15.3(H) 11.0 - 14.5 % 09/05/2022 8:45 AM [facility] RDW-STDEV 54.3(H) 37.0 - 54.0 fL 09/05/2022 8:45 AM [facility] PLATELETS 383 140 - 440 K/uL 09/05/2022 8:45 AM [facility] MPV 11.0 8.9 - 12.8 fL 09/05/2022 8:45 AM [facility] NEUTROPHILS 43 42 - 75 % 09/05/2022 8:45 AM CDT [facility] LYMPHOCYTES 45(H) 24 - 44 % 09/05/2022 8:45 AM CDT [facility] MONOCYTES 8 2 - 10 % 09/05/2022 8:45 AM CDT [facility] EOSINOPHILS 3 0 - 7 % 09/05/2022 8:45 AM CDT [facility] BASOPHILS 1 0 - 1 % 09/05/2022 8:45 AM CDT [facility] IMMATURE GRANULOCYTES 1 0 - 2 % 09/05/2022 8:45 AM CDT [facility] NEUTROPHIL ABSOLUTE 5.03 2.00 - 8.00 K/uL 09/05/2022 8:45 AM CDT [facility] LYMPHOCYTE ABSOLUTE 5.22(H) 1.20 - 4.00 K/uL 09/05/2022 8:45 AM CDT [facility] MONOCYTE ABSOLUTE 0.96(H) 0.10 - 0.60 K/uL 09/05/2022 8:45 AM CDT [facility] EOSINOPHIL ABSOLUTE 0.35 0.00 - 0.70 K/uL 09/05/2022 8:45 AM CDT [facility] BASOPHILS ABSOLUTE 0.08 0.00 - 0.20 K/uL 09/05/2022 8:45 AM CDT [facility] IMMATURE GRANULOCYTES ABSOLUTE 0.06 0.00 - 0.10 K/uL 09/05/2022 8:45 AM CDT [facility] Blood Collection / Unknown 09/05/2022 4:27 AM CDT 09/05/2022 8:33 AM CDT us Tunde Powers DO HEMATOLOGY ORDERABLES Final Result [facility] CLIA # [id number] [address] [place] [address] [place] [address] * (ABNORMAL) COMPREHENSIVE METABOLIC PANEL (09/05/2022 4:27 AM CDT) [facility] SODIUM 137 136 - 145 mmol/L 09/05/2022 9:06 AM [facility] POTASSIUM 4.3 3.5 - 5.1 mmol/L 09/05/2022 9:06 AM [facility] CHLORIDE 102 98 - 107 mmol/L 09/05/2022 9:06 AM [facility] CO2 23 22 - 29 mmol/L 09/05/2022 9:06 AM [facility] CALCIUM 9.4 8.8 - 10.2 mg/dL 09/05/2022 9:06 AM [facility] BUN 30(H) 8 - 23 mg/dL 09/05/2022 9:06 AM [facility] CREATININE 1.24(H) 0.67 - 1.17 mg/dL 09/05/2022 9:06 AM [facility] GLUCOSE 134(H) 74 - 99 mg/dL 09/05/2022 9:06 AM [facility] TOTAL PROTEIN 7.5 6.4 - 8.3 g/dL 09/05/2022 9:06 AM [facility] ALBUMIN 3.6 3.5 - 5.2 g/dL 09/05/2022 9:06 AM [facility] BILIRUBIN TOTAL 0.3 0.2 - 1.0 mg/dL 09/05/2022 9:06 AM [facility] ALKALINE PHOSPHATASE 94 40 - 129 U/L 09/05/2022 9:06 AM [facility] AST 12 10 - 50 U/L 09/05/2022 9:06 AM [facility] ALT 13 <=50 U/L 09/05/2022 9:06 AM [facility] GFR >60 >=60 mL/min/1. 73 sq meter 09/05/2022 9:06 AM [facility] Comment:eGFR calculated with 2020 CKD-EPI equation. Vegetarian diet, extremely high or low muscle mass, and may affect results. Cystatin C with Glomerular Filtration Rate is a suitable alternative for these patients. ANION GAP 12 9 - 20 mmol/L 09/05/2022 9:06 AM CDT [facility] Blood Collection / Unknown 09/05/2022 4:27 AM CDT 09/05/2022 8:34 AM CDT Tunde Powers DO CHEMISTRY ORDERABLES Final R esult [facility] CLIA # [id number] [facility] [address] [address] documented in this encounter Visit Diagnoses Not on filedocumented in this encounter Care Teams Telesales Team Leader Relationship Specialty Start Date End Date Rakesh Nye MD [address] [place] [id number] PCP - General Family Practice 08/15/22 documented as of this encounter
--- OUTSIDE RECORDS SUMMARY | 2024-07-28 06:52 | XMS_ITS | Encounter Summary ---
Author Organization [facility] Address [address] [place] [address] Care Team Providers Care Remnants Cutter Name Role Phone Rakesh Nye MD Primary Care Provider [phone] Encounter Details Date Type Department Care Team (Late st Contact Info) Description 09/01/2022 Lab Requisition [facility] Services [address] [place] [address] Rashmi Ahuja MD [address] [place] [address] Social History Tobacco Use Types Packs/Day Years [...] Associated Diagnosis Comments CBC WITH DIFFERENTIAL Routine 09/01/2022 2:30 AM CDT COMPREHENSIVE METABOLIC PANEL Routine 09/01/2022 2:30 AM CDT documented in this encounter Results * (ABNORMAL) COMPREHENSIVE METABOLIC PANEL (09/01/2022 2:30 AM CDT) SODIUM 141 136 - 145 mmol/L 09/01/2022 8:32 AM CDT [facility] POTASSIUM 4.1 3.5 - 5.1 mmol/L 09/01/2022 8:32 AM CDT [facility] CHLORIDE 103 98 - 107 mmol/L 09/01/2022 8:32 AM T [facility] CO2 28 22 - 29 mmol/L 09/01/2022 8:32 AM CDT [facility] CALCIUM 9.0 8.8 - 10.2 mg/dL 09/01/2022 8:32 AM T [facility] BUN 20 8 - 23 mg/dL 09/01/2022 8:32 AM T [facility] CREATININE 1.06 0.67 - 1.17 mg/dL 09/01/2022 8:32 AM T [facility] GLUCOSE 126(H) 74 - 99 mg/dL 09/01/2022 8:32 AM T [facility] TOTAL PROTEIN 6.6 6.4 - 8.3 g/dL 09/01/2022 8:32 AM [facility] ALBUMIN 3.1(L) 3.5 - 5.2 g/dL 09/01/2022 8:32 AM [facility] BILIRUBIN TOTAL <0.2(L) 0.2 - 1.0 mg/dL 09/01/2022 8:32 AM T [facility] ALKALINE PHOSPHATASE 90 40 - 129 U/L 09/01/2022 8:32 AM T [facility] AST 14 10 - 50 U/L 09/01/2022 8:32 AM T [facility] ALT 17 <=50 U/L 09/01/2022 8:32 AM CDT [facility] GFR >60 >=60 mL/min/1. 73 sq meter 09/01/2022 8:32 AM CDT [facility] Comment:eGFR calculated with 2020 CKD-EPI equation. Vegetarian diet, extremely high or low muscle mass, and may affect results. Cystatin C with Glomerular Filtration Rate is a suitable alternative for these patients. ANION GAP 10 9 - 20 mmol/L 09/01/2022 8:32 AM CDT [facility] Blood Collection / Unknown 09/01/2022 2:30 AM CDT 09/01/2022 8:14 AM CDT us Rashmi Ahuja MD CHEMISTRY ORDERABLES Final Resu lt [facility] CLIA # [id number] [address] [place] [address] * (ABNORMAL) CBC WITH DIFFERENTIAL (09/01/2022 2:30 AM CDT) WBC 11.0(H) 4.8 - 10.8 K/uL 09/01/2022 8:25 AM CDT [facility] RBC 3.77(L) 4.60 - 6.20 M/uL 09/01/2022 8:25 AM T [facility] HEMOGLOBIN 11.1(L) 14.0 - 18.0 g/dL 09/01/2022 8:25 AM CDT [facility] HEMATOCRIT 37.0(L) 41.0 - 53.0 % 09/01/2022 8:25 AM CDT [facility] MCV 98.1 84.0 - 103.0 fL 09/01/2022 8:25 AM CDT [facility] MCH 29.4 27.0 - 34.0 pg 09/01/2022 8:25 AM CDT [facility] MCHC 30.0 30.0 - 35.0 g/dL 09/01/2022 8:25 AM CDT [facility] RDW 15.6(H) 11.0 - 14.5 % 09/01/2022 8:25 AM [facility] RDW-STDEV 55.8(H) 37.0 - 54.0 fL 09/01/2022 8:25 AM [facility] PLATELETS 381 140 - 440 K/uL 09/01/2022 8:25 AM [facility] Detectent [facility] MPV 11.0 8.9 - 12.8 fL 09/01/2022 8:25 AM [facility] Detectent [facility] NEUTROPHILS 40(L) 42 - 75 % 09/01/2022 8:25 AM [facility] LYMPHOCYTES 43 24 - 44 % 09/01/2022 8:25 AM [facility] Detectent [facility] MONOCYTES 11(H) 2 - 10 % 09/01/2022 8:25 AM [facility] Detectent [facility] EOSINOPHILS 4 0 - 7 % 09/01/2022 8:25 AM [facility] Detectent [facility] BASOPHILS 1 0 - 1 % 09/01/2022 8:25 AM [facility] IMMATURE GRANULOCYTES 1 0 - 2 % 09/01/2022 8:25 AM [facility] NEUTROPHIL ABSOLUTE 4.44 2.00 - 8.00 K/uL 09/01/2022 8:25 AM [facility] LYMPHOCYTE ABSOLUTE 4.77(H) 1.20 - 4.00 K/uL 09/01/2022 8:25 AM [facility] MONOCYTE ABSOLUTE 1.17(H) 0.10 - 0.60 K/uL 09/01/2022 8:25 AM [facility] EOSINOPHIL ABSOLUTE 0.45 0.00 - 0.70 K/uL 09/01/2022 8:25 AM [facility] BASOPHILS ABSOLUTE 0.12 0.00 - 0.20 K/uL 09/01/2022 8:25 AM [facility] IMMATURE GRANULOCYTES ABSOLUTE 0.07 0.00 - 0.10 K/uL 09/01/2022 8:25 AM CDT [facility] Detectent [facility] Blood Collection / Unknown 09/01/2022 2:30 AM CDT 09/01/2022 8:16 AM CDT us Rashmi Ahuja MD HEMATOLOGY ORDERABLES Final Res ult [facility] Detectent [facility] CLIA # [id number] [facility] [address] [address] documented in this encounter Visit Diagnoses Not on filedocumented in this encounter Care Teams Remnants Cutter Relationship Specialty Start Date End Date Rakesh Nye MD [address] [place] [address] PCP - General Family Practice 08/15/22 documented as of this encounter
[2024-07-28] MEDS: budesonide 0.5 mg/2 mL Neb INHALATION (08:11)
[2024-07-28] MEDS: tamsulosin 0.4 mg Capsule PO (09:18)
[2024-07-28] MEDS: levothyroxine 100 mcg Tablet PO (09:18)
--- NOTE | 2024-07-28 10:27 | USR_ITS ---
PROCEDURE INFORMATION: Exam: US Duplex Left Upper Extremity Veins, Limited Exam date and time: 07/28/2024 11:06 AM Age: 63 years old Clinical indication: Swelling (edema) of limb; Upper extremity, left; Additional info: Assess for dvt/thrombophelbitis TECHNIQUE: Imaging protocol: Real-time duplex ultrasound of the left extremity with 2-D christopher scale, color Doppler flow and spectral waveform analysis including responses to compression and other maneuvers (when performed) with image documentation. Limited exam focused on the left upper extremity veins. COMPARISON: US soft tissue/extremity [id number] 07/05/2018 12:50 PM FINDINGS: Left deep veins: Unremarkable. Axillary and brachial veins are patent throughout without thrombus. Normal Doppler waveforms. Normal compressibility and/or augmentation response. Visualized internal jugular and subclavian veins are patent. Superficial veins: Unremarkable. Visualized cephalic and basilic veins are patent without thrombus. Soft tissues: Hyperechoic lesion or structure with posterior acoustic shadowing in the arm just superior to the IV site. This could represent a small hematoma. US/[place] [id number] IMPRESSION: No evidence of deep vein thrombosis.
--- NOTE | 2024-07-28 11:23 | USCV_ITS ---
Meaghan Anthony Age: 63 Gender: M : 1960 Exam Date: 07/28/2024 07:38 Ordering Phys: Kirt Woodson MD Technologist: José Miguel De La Cruz Exam Location: [facility] Indication: chf BP: 95 / 54 HR: 62 Rhythm: Sinus Technical Quality: Adequate MEASUREMENTS (Male / Female) Normal Values 2D ECHO LV Diastolic Diameter PLAX 5.5 cm 4.2 - 5.9 / 3.9 - 5.3 cm IVS Diastolic Thickness 1.1 cm 0.6 - 1.0 / 0.6 - 0.9 cm IVS Systolic Thickness 1.2 cm LVPW Diastolic Thickness 1.4 cm 0.6 - 1.0 / 0.6 - 0.9 cm LVPW Systolic Thickness 1.8 cm LVOT Diameter 2.0 cm LV Ejection Fraction 2D Teich 72.3 % LV Ejection Fraction MOD 4C 79.6 % LV Ejection Fraction MOD 2C 74.6 % LV Ejection Fraction 2C AL 74.9 % LA Diameter 3.3 cm RA Systolic Volume 4C AL 48.3 ml RA Systolic Volume 4C MOD 46.5 ml LA Sys Volume AL 70.0 cm cubed LA Sys Volume Index AL 31.8 cm cubed/m squared Aorta at Sinotubular Diameter 2.9 cm IVC Diameter 2.5 cm M-MODE LA Ao Ratio MM 1.0 AV Cusp Separation MM 1.9 cm DOPPLER AV Peak Velocity 162.0 cm/s LVOT Peak Velocity 121.0 cm/s AV Area Cont Eq vti 2.3 cm squared AV Area Cont Eq pk 2.4 cm squared MV Peak Velocity 106.0 cm/s MV Area PHT 4.3 cm squared Mitral E to A Ratio 1.1 TV Peak Velocity 303.3 cm/s TR Peak Velocity 379.0 cm/s TR Peak Gradient 57.5 mmHg TR Mean Velocity 305.0 cm/s TR Mean Gradient 40.6 mmHg TR Velocity Time Integral 128.0 cm RV Ejection Time 0.2 s FINDINGS Left Ventricle Normal left ventricular size and systolic function, EF 75%. Mild left ventricular hypertrophy. Grade I/IV diastolic dysfunction (abnormal relaxation filling pattern), normal to mildly elevated filling pressures. Right Ventricle The right ventricle is normal in size and function. Right Atrium The right atrium is normal in size. Left Atrium Mildly increased left atrial size. Mitral Valve Trace mitral valve regurgitation. Aortic Valve No gross abnormalities noted Tricuspid Valve Trace tricuspid valve regurgitation. Estimated pulmonary artery peak systolic pressure 41 mmHg Pulmonic Valve No gross abnormalities noted Pericardium No pericardial effusion. Aorta Normal aortic annulus size. IVC The inferior vena cava appears normal. CONCLUSIONS Normal left ventricular size and systolic function, EF 75%. Mild left ventricular hypertrophy. Grade I/IV diastolic dysfunction (abnormal relaxation filling pattern), normal to mildly elevated filling pressures. Mildly increased left atrial size. Estimated pulmonary artery peak systolic pressure 41 mmHg Trace mitral valve regurgitation. There is no pericardial effusion. There are no intracardiac masses. Compared to the study from 06/25/2023, there may not be a significant change Dr Sarabjit Lindsay MD FAC (Electronically Signed) Final Date: 28 July 2024 13:53 S
[2024-07-28] MEDS: cefepime 2,000 mg SDV 2000 MG IVP (11:29)
[2024-07-28] MEDS: azithromycin 250 mg Tablet 500 MG PO (11:30)
[2024-07-28] MEDS: vancomycin 1,750 MG/350 ML PIGGYBACK 175 MG IV (11:30)
--- NOTE | 2024-07-28 12:36 | PHA.VACGOAL ---
Vancomycin Goal - Goal Vancomycin Goal:: 15-20 mg/L Vancomycin Indication:: Pneumonia - Therapy Current therapy:: Cefepime Day of therpy:: Day [1]of [] . Actual body weight (kg): 94.12 kg - Data Labs: WBC 8.11 10^3/uL (3.29-11.43) 07/28/24 04:25 RBC 3.63 10^6/uL (3.85-5.65) L 07/28/24 04:25 Hgb 11.20 g/dL (11.27-16.99) L 07/28/24 04:25 Hct 36.7 % (37-53) L 07/28/24 04:25 MCV 101.1 fl (82-101) H 07/28/24 04:25 MCH 30.9 pg (27-33) 07/28/24 04:25 MCHC 30.5 g/dL (30-55) 07/28/24 04:25 RDW 14.5 % (12.1-15.1) 07/28/24 04:25 Sodium 138 mmol/L (136-145) 07/28/24 04:25 Potassium 4.7 mmol/L (3.5-5.1) 07/28/24 04:25 Chloride 104 mmol/L (98-107) 07/28/24 04:25 Carbon Dioxide 26 mmol/L (22-29) 07/28/24 04:25 Anion Gap 12.7 (5-19) 07/28/24 04:25 BUN 20 mg/dL (8-23) 07/28/24 04:25 Creatinine 1.3 mg/dL (0.7-1.2) H 07/28/24 04:25 GFR Calculation 55.4 mL/min (90-130) L 07/28/24 04:25 Treatment plan:: new consult Regimen:: New start vancomycin for pneumonia. No prior history of vancomycin found. Load dose of 1750 mg ordered. Started on maintenance dose of 1000 mg q12h.
--- NOTE | 2024-07-28 13:31 | P.PN_ITS ---
Subjective 2 Subjective: Denies any new complaints today. Oxygen requirement at 3 L/min. Tmax 99.3 Fahrenheit Blood culture negative to date. Noted to have swelling over the left upper extremity with multiple puncture del toro. Medications: Reviewed: Yes Vitals/I&O/Wt Last Vital Signs Temp 99.3 F 07/28/24 10:59 Pulse 81 07/28/24 13:12 Resp 18 07/28/24 13:09 BP 122/98 07/28/24 10:59 Pulse Ox 95 07/28/24 13:09 O2 Del Method Nasal Cannula 07/28/24 13:09 O2 Flow Rate 3 07/28/24 13:09 07/27/24 07/28/24 07/28/24 22:59 06:59 14:59 Intake Total 220 / 2880 1150 / 4030 1220 / 1220 Output Total 300 / 300 500 / 800 500 / 500 Balance -80 / 2580 650 / 3230 720 / 720 Weight last 48 hrs Weight 94.12 kg Weight 94.064 kg Weight 91.172 kg Weight 91.172 kg Physical Exam 2 Narrative: General: No acute distress, AO x3 HEENT: PERRLA, pupils bilaterally equal and reactive, pallors not present Chest: Normal vesicular breath sounds, no added sounds, equal good air entry bilaterally CVS: S1-S2 regular, no murmurs, no tachycardia, no gallops, no rubs Abdomen: Soft, nontender, no organomegaly, bowel sounds present Neuro: No focal deficits, no facial deformity, AO x3, power 5/5 in all limbs Extremities: Left forearm noted to be swollen, patchy erythema and warmth noted. Multiple puncture del toro over the left arm. Data 07/28/24 04:25 07/28/24 04:25 Micro: Microbiology 07/27/24 07:56 Bacterial Antigens - Final Urine Kidney 07/27/24 07:06 Blood Culture - Preliminary Blood NEGATIVE TO DATE 07/27/24 05:18 Blood Culture - Preliminary Blood NEGATIVE TO DATE A&P Assessment and plan (1) Acute hypoxic respiratory failure: Most likely as patient is drowsy due to amphetamine abuse. Patient does use oxygen while sleeping up to 3 L. Does have history of COPD. Oxygen supplementation keeping saturation over 88%. Pulmicort twice daily, DuoNeb every 6 hour. Wean oxygen supplementation accordingly. Check CT chest. Cannot rule out pulmonary embolism though less likely. Cannot get CTA given acute kidney injury. (2) Pulmonary emphysema: Prednisone 40 mg oral daily. Nebulization as above. Out of bed to chair when possible. (3) Distal radius fracture, right: Splinting done in ER. Orthopedic consulted from the ER. Getting MRI as per orthopedic recommendations. (4) IV drug user: Urine drug screen positive for amphetamines. IV fluids with NS at 75 cc/h. Monitor mentation. (5) Acute kidney injury: .Creatinine up to 2.1. Most likely in setting of dehydration. Check urine lites, urine creatinine. Does have history of polycystic kidney disease in the past. Get CT abdomen pelvis to rule out obstructive nephropathy. Appreciate urinalysis. Medical reconciliation done for nephrotoxic drugs. (6) Renal cysts, acquired, bilateral: (7) Pulmonary hypertension: (8) Hypothyroidism: Check TSH. Continuing home dose of levothyroxine. Plan Hypertension: Goal blood pressure less than 140/90 mmHg. Start antihypertensive accordingly. BPH: Continue with home dose of Flomax. History of MRSA infection: Currently afebrile, no leukocytosis. No need for antibiotics for now. Full code N.p.o. as patient is drowsy. Protonix for PUD prophylaxis Heparin 5000 subcu twice daily for DVT prophylaxis. July 28, 2024 Patient is alert awake and oriented. At baseline mentation. Currently on 3 L/min supplemental O2. Typically uses 3 L/min at home during sleep. Saturating well today. Kidney function is improving with creatinine at 1.3 today. Troponin series unremarkable. Noted to have patchy erythema swelling and warmth over the left forearm. Multiple puncture del toro noted which may be related to his history of IV drug use. With the left arm findings, differentials include cellulitis versus thrombophlebitis from drug use versus cat scratch disease given that patient reports having at least 20 cats at home who have been jumping on him and scratching him. Start azithromycin 500 mg p.o. daily. Additionally start empiric antibiotics with cefepime and vancomycin while upper extremity duplex has been ordered. If findings eventually reveal thrombophlebitis and blood cultures remain negative, cefepime and vancomycin can likely be discontinued. Patient is eager to be discharged home today, however discussed with him that given the findings on his left arm, I am concerned about potential septic thrombophlebitis and would like to wait for his blood cultures to result prior to discharging home. PDMP PDMP Reviewed: Not Reviewed Attestations 2 Medical Necessity Statement*: Continued admission, start antibiotics, await blood cultures. Coding Level of Care Code Acute Code for Chg Fwd High MDM includes number and complexity of problems actively addressed during encounter, amount and/or complexity of data reviewed/ordered and described risk of complication, morbidity or mortality of management as documented Diagnoses Acute hypoxic respiratory failure J96.01 Pulmonary emphysema J43.9 Distal radius fracture, right S52.501A IV drug user F19.90 Acute kidney injury N17.9 Renal cysts, acquired, bilateral N28.1 Pulmonary hypertension I27.20 Hypothyroidism E03.9
--- NOTE | 2024-07-28 14:00 | PC.NURSE ---
left upper arm Pt left iv access upper area started to swell and pt reports of tightness. denies any pain or numbness. radial pulse is palpable+3. left arm is warm. IV vancomycin infusion is paused at time.
--- NOTE | 2024-07-28 15:27 | PC.NURSE ---
Patient refused to get another new IV access to continue IV antibiotics. Pt stated, I want to go home. I am scared to get another IV. Reassurance provided to pt about the importance of continuing his IV antibiotic due to swelling on his left forearm. Pt stated, I can just take it in pills. I really want to go home. Dr. Amaro notified. Discuss to pt about the risks of sepsis, worsening of respiratory status and worsening cellulitis in left arm. Pt verbalize understanding of the risks.
[2024-07-28 19:43] LABS: Chol HDL Ratio 2.71 mg/dL (1.0-5.00); Cholesterol 92 mg/dL (0-200); HDL Cholesterol 34 mg/dL (60-100); LDL Cholesterol Calculated 46 mg/dL (50-129); LDL HDL Ratio 1.35 RATIO (0.00-3.22); Triglycerides 62 mg/dL (0-150)
[2024-07-28 19:49] LABS: Procalcitonin 0.11 ng/mL (0-0.5)
== END 2024-07-28 15:53 | disposition left against medical advice (07) | DRG 682 ==
LOC: ER 06:20 → CSU 11:11
PROVIDERS: Family Medicine; Student in an Organized Health Care Education/Training Program; Admitting Provider Student in an Organized Health Care Education/Training Program; Emergency Provider Family Medicine; PCP Family Medicine; Visit Provider Student in an Organized Health Care Education/Training Program
DX: N17.9 Acute kidney failure, unspecified (principal); J96.01 Acute respiratory failure with hypoxia; J44.1 Chronic obstructive pulmonary disease with (acute) exacerbation; S52.501A Unspecified fracture of the lower end of right radius, initial encounter for closed fracture; L03.114 Cellulitis of left upper limb; Z53.29 Procedure and treatment not carried out because of patient's decision for other reasons; J43.9 Emphysema, unspecified; W01.0XXA Fall on same level from slipping, tripping and stumbling without subsequent striking against object, initial encounter; F15.10 Other stimulant abuse, uncomplicated; N28.1 Cyst of kidney, acquired; I27.20 Pulmonary hypertension, unspecified; E03.9 Hypothyroidism, unspecified; I12.9 Hypertensive chronic kidney disease with stage 1 through stage 4 chronic kidney disease, or unspecified chronic kidney disease; N18.30 Chronic kidney disease, stage 3 unspecified; N40.1 Benign prostatic hyperplasia with lower urinary tract symptoms; E29.1 Testicular hypofunction; G47.33 Obstructive sleep apnea (adult) (pediatric); F17.210 Nicotine dependence, cigarettes, uncomplicated; Z79.51 Long term (current) use of inhaled steroids; Z99.81 Dependence on supplemental oxygen; Z86.14 Personal history of Methicillin resistant Staphylococcus aureus infection; Z86.19 Personal history of other infectious and parasitic diseases; Z87.01 Personal history of pneumonia (recurrent)
CPT/HCPCS: 36415; 71045; 71250; 73090; 73130; 73221; 74176; 80053; 80061; 80306; 81001; 82436; 82550; 82570; 82607; 82746; 83036; 83540; 83550; 83605; 83735; 84100; 84133; 84145; 84300; 84443; 84484; 85025; 86140; 86403; 87040; 93005; 93306; 93971; 94640; 94664; J0692; J2020; J2270; J2470; J3372; J7030; J7626; J9999; Q0144

== ENCOUNTER → 2024-08-05 09:03 | Outpatient (BNVA) | payer MEDICARE, MEDICAID, SELFPAY | PROVIDERS: PCP Family Medicine; Visit Provider Nurse Practitioner | DX: S52.571A Other intraarticular fracture of lower end of right radius, initial encounter for closed fracture (principal); W19.XXXA Unspecified fall, initial encounter; F19.90 Other psychoactive substance use, unspecified, uncomplicated; Z22.322 Carrier or suspected carrier of Methicillin resistant Staphylococcus aureus | CPT/HCPCS: 73110 ==

== ENCOUNTER 2024-08-05 10:26 | Outpatient (CLI) | payer MEDICARE, MEDICAID, SELFPAY ==
[2024-08-05 11:45] LABS: Bilirubin Urine Negative (Negative); Blood Urine Negative (Negative); Glucose Urine UA Negative (Normal); Ketones Urine Negative (Negative); Leukocyte Esterase Urine Negative (Negative); Nitrate Urine Negative (Negative); Protein Urine Negative (Negative); Specific Gravity, Urine 1.007 (1.005-1.030); Urine Appearance Clear (CLEAR); Urine Color Yellow (Yellow); Urobilinogen Urine 0.2 mg/dL (Negative); pH Urine 6.5 (5-7)
[2024-08-05 11:48] LABS: Add Urine Microscopic? YES; Bacteria Urine None Seen /hpf; Hyaline Casts Urine 0-4 /lpf; RBC Urine 0-2 /hpf (0-2); Squamous Epithelial Cell Urine 0-5 /hpf (0-5); WBC Urine 0-5 /hpf (0-5)
[2024-08-05 11:57] LABS: Add Urine Culture? No
[2024-08-05 12:00] LABS: Basophils % 0.3 %; Eosinophils # 0.4 10^3/uL (0.0-0.8); Eosinophils % 4.2 %; Hematocrit 45.1 % (37-53); Lymphocytes # 2.1 10^3/uL (0.8-4.8); Lymphocytes % 22.7 %; Mean Corpuscular HGB Conc 31.7 g/dL (30-55); Mean Corpuscular Hemoglobin 30.2 pg (27-33); Mean Corpuscular Volume 95.1 fl (82-101); Mean Platelet Volume 10.5 fL (7.4-10.4); Monocytes # 0.9 10^3/uL (0.2-0.9); Monocytes % 9.8 %; Neutrophils # 5.71 10^3/uL (1.8-7.7); Neutrophils % 62.8 %; Nucleated Red Blood Cells % 0 %; Platelet Count 281 10^3/cmm (157-399); Red Blood Count 4.74 10^6/uL (3.85-5.65)
[2024-08-05 12:05] LABS: Creatinine Urine, Random 30 mg/dL (39-259); Microalbum Creatinine Ratio Ur 33 mg/dL (0-20); Microalbumin Random Urine 1 ug/dL (0-20)
[2024-08-05 12:26] LABS: Calcium 9.8 mg/dL (8.5-10.5)
[2024-08-05 12:27] LABS: Alanine Aminotransferase 10 U/L (0-41); Albumin Level 3.9 g/dL (3.5-5.2); Alkaline Phosphatase 118 U/L (40-130); Anion Gap 15.7 (5-19); Aspartate Amino Transferase 11 U/L (0-40); Blood Urea Nitrogen 13 mg/dL (8-23); Calcium 9.6 mg/dL (8.5-10.5); Carbon Dioxide 33 mmol/L (22-29); Chloride 95 mmol/L (98-107); Globulin 4.5 g/dL (1.3-4.6); Glucose 100 mg/dL (65-115); Osmolality Calculated 288 mOsm/kg (285-295); Phosphorus 3.7 mg/dL (2.5-4.5); Potassium 4.7 mmol/L (3.5-5.1); Sodium 139 mmol/L (136-145); Total Bilirubin 0.4 mg/dL (0.15-1.2); Total Protein 8.4 g/dL (6.6-8.7)
[2024-08-05 12:32] LABS: Parathyroid Hormone 51.1 pg/mL (15-65)
[2024-08-05 12:42] LABS: 25 Hydroxy Vitamin D 44 ng/mL (30-100)
[2024-08-05 12:42] LABS: Amphetamines Screen Urine Positive (Negative); Barbiturates Screen Urine Negative (Negative); Benzodiazepines Screen Urine Negative (Negative); Cocaine Screen Urine Negative (Negative); Opiate Screen Urine Negative (Negative); PCP Screen Urine Negative (Negative); THC Screen Urine Negative (Negative)
== END 2024-08-05 10:27 | disposition home or self-care (01) ==
PROVIDERS: Nurse Practitioner; PCP Family Medicine; Visit Provider Internal Medicine Nephrology
DX: N18.31 Chronic kidney disease, stage 3a (principal); N25.81 Secondary hyperparathyroidism of renal origin; S52.571A Other intraarticular fracture of lower end of right radius, initial encounter for closed fracture; S52.501A Unspecified fracture of the lower end of right radius, initial encounter for closed fracture; X58.XXXA Exposure to other specified factors, initial encounter; F15.91 Other stimulant use, unspecified, in remission; W19.XXXA Unspecified fall, initial encounter; F19.90 Other psychoactive substance use, unspecified, uncomplicated; Z22.322 Carrier or suspected carrier of Methicillin resistant Staphylococcus aureus
CPT/HCPCS: 36415; 80053; 80069; 80306; 81001; 82044; 82306; 82310; 83970; 85025; 99204

== ENCOUNTER 2024-08-08 05:49 | Day surgery (SDC) | payer MEDICARE, MEDICAID, SELFPAY ==
[2024-08-08] VITALS (13 sets, daily range): BP systolic 108–167; BP diastolic 70–93; PULSE 68–82; RESP 18; TEMP 36.2–36.7; O2SAT 92–95; BMI 26.4
[2024-08-08 06:28] LABS: Amphetamines Screen Urine Positive (Negative); Barbiturates Screen Urine Negative (Negative); Benzodiazepines Screen Urine Negative (Negative); Cocaine Screen Urine Negative (Negative); Opiate Screen Urine Negative (Negative); PCP Screen Urine Negative (Negative); THC Screen Urine Positive (Negative)
[2024-08-08] MEDS: sodium chloride 0.9% 1,000 ML 30 ML IV (07:31)
[2024-08-08] MEDS: acetaminophen 1,000 MG/100 ML PIGGYBACK 400 MG IV (11:43)
[2024-08-08] MEDS: gabapentin 300 mg Capsule PO (11:43)
[2024-08-08] MEDS: VANCOMYCIN ADD-Vantage 1,000 MG in 0.9% NaCl ADD-Vantage 250 ML 250 MG IV ×2 (12:54→14:06)
[2024-08-08] MEDS: midazolam 1 mg/mL INJ 2 mL 2 MG IVP (13:07)
--- NOTE | 2024-08-08 13:24 | ANES.PREANE2 ---
Pre-Anesthetic Assessment Height/Weight: Height 1.83 m Weight 88.451 kg Temp Pulse Resp BP Pulse Ox O2 Del Method O2 Flow Rate 98.1 F 71 18 165/88 95 Nasal Cannula 2 08/08/24 06:08/08/24 11:00 08/08/24 06:29 08/08/24 11:00 08/08/24 11:00 08/08/24 11:00 08/08/24 11:00 Operation Date: 08/08/24 14:05 Proposed Procedures p ORIF Wrist ORIF Distal Radius(Right) - Elizabeth Alvarado MD Familial anesthetic complications: None Was Beta Emily taken within 24 hours: N/A Was Clonidine taken within 24 hours: N/A Last intake: Intake Last Liquid Date 08/07/24 Last Liquid Time 23:00 Last Solid Date 08/07/24 Last Solid Time 21:00 Social Alcohol and Tobacco MJ, Chronic Meth Exam alert, oriented x 3, clear to auscultation bilaterally and regular rate & rhythm Airway Mallampati: Class II Dentition: chipped Pulmonary Chronic Obstructive Pulmonary Disease (Wears o2 at night) CV/HEM Congestive Heart Failure pulm htn Metabolic Thyroid Disease Anesthetic Plan ASA status: 4 Anesthesia: Regional (specify below) Risk of > 500 ml blood loss (7ml/kg in children): No Other Pertinent Information Patient is chronic IV meth user. Had positive urine drug screen on monday and was scheduled for surgery on . Patient was informed on monday he would need to abstain from drug use and that he would undergo a drug test day of surgery. Today he continues to test positive. This may be residual positive from prior use or he may have used in the interim since his office visit on monday. If the later, the patient has been noncompliant in outpatient setting despite instructions and forewarning of drug screen. The possibility of overnight admission prior to surgery to guarantee a longer drug free interval was discussed with the surgeon prior to surgery day, but I was informed that insurance would not cover such as admission, so we are unfortunately left with potentially noncompliant patient who does not adhere to medical advice in an outpatient setting. Fracture is displaced and surgeon states further delays may compromise surgical outcome. Upon questioning, Patient denies having used meth for over a week. We have chosen to bring the patient in for surgery at [address] him last on the schedule to monitor his behavior for signs of acute intoxication and obtain at least a 7-hr interval. He has been behaviorally stable. No tachycardia, but some elevated blood pressures. I discussed with the patient again the risk of acute intoxication and decision was made to proceed with surgical supraclavicular block with pre-op versed. Anesthesia will remain available to intervene and administer possible further sedation or propofol gtt or airway intervention if surgical block fails. Patient in agreeance. Medications/Allergies Home Medications ?Medication ?Instructions ?Recorded ?Confirmed ?Last Taken ?Type fluticasone fur. 100 mcg-umeclid 1 inh inhalation DAILY #60 ea 07/25/23 08/06/24 08/08/24 Rx 62.5 mcg-vilant 25 mcg inhalat.powder (Trelegy Ellipta) Battery Powered Concentrator Inogen #1 ea 07/28/23 08/05/24 Unknown Rx Portable Oxygen at 3L #1 ea 07/04/24 08/05/24 Unknown Rx albuterol sulfate 90 mcg/actuation 90 mcg inhalation PRN PRN Allergic 08/06/24 08/06/24 Unknown History aerosol inhaler Symptoms amlodipine 10 mg tablet 10 mg PO DAILY 08/06/24 08/06/24 08/08/24 History furosemide 40 mg tablet 40 mg PO DAILY 08/06/24 08/06/24 08/06/24 History levothyroxine 100 mcg tablet 100 mcg PO DAILY 08/06/24 08/06/24 08/08/24 History tamsulosin 0.4 mg capsule 0.4 mg PO DAILY 08/06/24 08/06/24 08/06/24 History Allergies Allergy/AdvReac Type Severity Reaction Status Date / Time fentanyl Allergy Unknown Verified 08/05/24 15:08 Current Medications Generic Name Dose Route Start Last Admin Trade Name Freq PRN Reason Stop Dose Admin Sodium Chloride 1,000 mls @ 30 mls/hr 08/08/24 06:00 08/08/24 07:31 Sodium Chloride 0.9% IV 08/09/24 05:59 30 mls/hr .Q24H LEONA Administration Midazolam HCl 2 mg 08/08/24 05:56 08/08/24 13:07 Midazolam 1 Mg/Ml Inj 2 Ml IVP 2 mg Q5M PRN Administration Preop Anxiety PFSH Anesthesia Medical History (Updated 08/07/24 @ 14:57 by TOMEKA Hopkins) MRSA carrier History of MRSA infection Loculated pleural effusion Septic shock Inguinal hernia of right side without obstruction or gangrene Pneumonia Hyponatremia Abnormal CT scan, chest Probable lung mass Acute respiratory failure Hepatitis C Renal cysts, acquired, bilateral BPH loc w urin obs/LUTS Benign prostatic hyperplasia with lower urinary tract symptoms Hypothyroidism CKD (chronic kidney disease), stage III Nicotine dependence, cigarettes, with unspecified nicotine-induced disorders ROBBIE (obstructive sleep apnea) Pulmonary emphysema COPD (chronic obstructive pulmonary disease) Hypogonadism in male Hypertension Surgical History Hx of inguinal hernia repair 12/12/22 Dr Juan Antonio gongora repair right inguinal hernia with mesh History of hernia surgery History of ankle surgery History of mandibular surgery History of circumcision Family History Mother , at age 46 Cirrhosis of liver Father , at age 78 CAD (coronary artery disease) Denies family history of Diabetes Clotting disorder Dementia Hyperlipidemia Psychiatric illness Chronic kidney disease (CKD) Suicide Anesthesia complication Bleeding disorder Family history of premature coronary artery disease Lung disease Cancer Hypertension Stroke Social History Smoking and tobacco/nicotine status: current every day tobacco/nicotine user cigarettes Packs smoked per day: 0.75 Years cigarettes smoked: 30 [ Other cigarette details: [id number]] Quit status (tobacco/nicotine): considering quitting Second hand smoke exposure: No Alcohol intake: former Substance/Drug Use: never Lives independently: Yes Household members: spouse Marital status: service: No Current occupational status: unemployed and disabled Pets and animals: Yes Do you think of yourself as: Straight/Heterosexual Current gender identity: Male Data Anesthesia Cardiac Studies: Echocardiogram 07/28/24 Anesthesia Procedures Nerve Block Nerve Block 1: Main Anesthesia: other Time Out Performed: Yes Consent: requested by attending/covering physician, from patient, from other, risks and benefits reviewed and patient agrees to proceed Nerve block location: supraclavicular (R) Anesthesia monitors applied: pulse oximetry, EKG, BP cuff and oxygen Nerve block position: semi sitting Anesthetic Used: ropivicaine 0.5% (30 ml) and with decadron (4 mg) Ultrasound used to: recognize landmarks and visualize and ID brachial plexus Interscalene/Femoral BLK: 4 stimuplex 21 g needle used for position and inplane approach, visualize local anesthetic spread and no vascular puncture identified Injection: neg aspiration of heme Patient Tolerated Procedure: well Complications: none Additional Comments: performed 11:30 am
--- NOTE | 2024-08-08 13:56 | P.HPUD_ITS ---
Surgery/Procedure H&P Update DATE OF PROCEDURE: August 08, 2024 DATE H&P PERFORMED: 08/05/24 H&P UPDATE INFORMATION: I have reviewed H&P completed within last 30 days, I have examined patient prior to procedure, No changes to prior documentation, H&P is in [facility] EMR on date indicated and Risks and benefits of the procedure reviewed PLANNED PROCEDURE: Operation Date: 08/08/24 14:05 Proposed Procedures p ORIF Wrist ORIF Distal Radius(Right) - Elizabeth Alvarado MD Related Problem List Diagnoses (1) Closed fracture of right distal radius: Qualifiers: Encounter type: initial encounter Fracture morphology: other intra- articular Qualified Code(s): S52.571A - Other intraarticular fracture of lower end of right radius, initial encounter for closed fracture
[2024-08-08] MEDS: ceFAZolin 1,000 mg SDV 1000 MG IRRIGATION (14:36)
[2024-08-08] MEDS: ceFAZolin 2,000 mg SDV 2000 MG IVP (15:25)
--- NOTE | 2024-08-08 15:56 | P.OP_ITS ---
Operative Report Date of procedure: August 08, 2024 Pre-op diagnosis: Right comminuted displaced intra-articular distal radius fracture, subacute Post-op diagnosis: Right comminuted displaced intra-articular distal radius fracture, subacute Post-op findings: Displaced right distal radius fracture with comminution and early healing Procedure done: Open reduction internal fixation right intra-articular displaced distal radius fracture, subacute Implants: [place] intermediate standard right volar wrist plate Specimens removed/disposition: None Pathology: None Surgeon: Elizabeth Alvarado MD Edge Beader: Elli Thomas, nurse practitioner, whose services were required for distraction and retraction, maintenance of distal radius reduction, placement of hardware, and closure. Anesthesia: MAC (With a supraclavicular block, ASA for) Estimated blood loss (mL): 4 Tourniquet time (min): 72 (At 250 mmHg) IV fluids (mL): 800 Urine output (mL): 0 (No Rothman) Complications: None Findings: Partially healed distal radius fracture with significant angulation and displacement and with bone loss Condition: stable Disposition: PACU (Then return to same-day surgery for discharge to home) Brief History: This 63-year-old gentleman was seen in the office after a distal radius fracture. The patient has been seen in the emergency department after a fall at home. The patient was admitted though the emergency department with multiple medical complaints as well as the distal radius fracture. He was treated in the cardiac stepdown unit, and he was discharged home to follow-up with us in the office. When seen in the office, it was obvious the splint had been removed, and there was displacement of the fracture. For that reason, he was scheduled for open reduction internal fixation. Risks and complications of surgery were discussed with him. He was advised that his surgical complication risk was higher secondary to methamphetamine use, and he was encouraged to not use prior to his surgical procedure. Additionally, he has an increased risk of infection. Patient had a history of MRSA, and was a MRSA carrier. He was brought to the hospital in the morning prior to surgery and monitored throughout the day prior to his surgery. Consents were signed and questions were answered. Procedure: Patient was brought to the operating theater, and after undergoing adequate anesthesia which included a supraclavicular block with MAC, ASA 4, the patient's right upper extremity was prepped and draped in usual fashion utilizing [place] Danyellerep.? The patient had a tourniquet placed high on the arm prior to prepping and draping.? Following prepping and draping, the arm was exsanguinated and the tourniquet was elevated.? Total tourniquet time was 72 minutes at 250 mmHg.? Prior to commencement of the surgical procedure, a surgical pause was performed.? At the time of the surgical pause, we confirmed the site and side of surgery as well as the patient's identity and preoperative surgical markings.? We also confirmed availability of equipment and appropriate preoperative IV antibiotics which was vancomycin 1 g. An additional 2 g of Ancef was given at the closure of the case.? Fluoroscopy was also brought into position so that we could visualize the fracture and hardware throughout the surgical procedure.? The fracture was evaluated prior to tourniquet placement. Following elevation of the tourniquet as well as the surgical pause, appropriate plate was chosen. The skin was marked for appropriate incision length and location. An incision was made along the palmaris longus and continued down onto the volar surface of the radius.? Care was taken to avoid injury throughout the surgical procedure to the median nerve as well as to the radial artery.? The flexor carpi radialis was retracted medially.? We were able to essentially elevate the sheath of the flexor carpi radialis, and then I was able to place my finger directly onto the distal radius.? For the most part, the patient did his own dissection at the time of his injury.? Soft tissues were elevated off the distal radius to allow access to the fracture and also to the volar aspect of the distal radial shaft.? Reduction required manipulation as well as takedown of the early healing process. Following manipulation and takedown of the fibrous union, the fracture reduction was essentially anatomic with bone loss at the level of the fracture. This area was supplemented with [place] DBM plus paste with cancellous bone to fill the void. Fluoroscopy was used to determine whether or not the reduction was appropriate.? We were able to reduce the fracture nearly anatomically.? We then evaluated the plate and chose the intermediate standard [place] volar distal radius plate.? The plate was attached proximally and distally without difficulty.? A combination of locking and 1 nonlocking screw was utilized to attach the plate.? We had excellent fixation and reduction of the fracture. Fluoroscopy was utilized during the procedure.? Once the plate was fully attached, we had a near anatomic position to the distal radius and the distal radius was out to length.? Being satisfied with position, the area was copiously irrigated. There were no fascial tissues to close, and therefore, we closed the subcutaneous tissues with 3-0 interrupted Monocryl.? Skin was closed in a subcuticular fashion with 4-0 Monocryl.?Sterile dressing was then placed consisting of Dermabond, Steri-Strips, OpSite, sterile soft roll, a sugar-tong splint, and plaster splinting material holding on the sugar-tong splint. There were wounds on the arm that were covered with OpSite as well. The tourniquet was released after 72 minutes. There were no complications. There were no spec imens. The procedure was well tolerated. Plan is the patient will be discharged home. Related Problem List Diagnoses (1) Closed fracture of right distal radius:
--- NOTE | 2024-08-08 16:06 | XR_ITS ---
WS: [id number] Exam: XR wrist RT [id number] [id number] Date/Time of Exam: 08/08/2024 4:06 PM Reason For Exam: OR PIC, ORIF There is volar plate and screw fixation involving a fracture of the distal radial metaphysis. Alignment is anatomic for healing.
== END 2024-08-08 17:00 | disposition home or self-care (01) ==
PROVIDERS: Anesthesiology; PCP Family Medicine; Visit Provider Specialist
PROC: (CPT 25608; principal; 2024-08-08 13:55)
DX: S52.571A Other intraarticular fracture of lower end of right radius, initial encounter for closed fracture (principal); W18.39XA Other fall on same level, initial encounter; J44.9 Chronic obstructive pulmonary disease, unspecified; Z99.81 Dependence on supplemental oxygen; I50.9 Heart failure, unspecified; E07.9 Disorder of thyroid, unspecified; F15.10 Other stimulant abuse, uncomplicated; Z86.14 Personal history of Methicillin resistant Staphylococcus aureus infection; E87.1 Hypo-osmolality and hyponatremia; I12.9 Hypertensive chronic kidney disease with stage 1 through stage 4 chronic kidney disease, or unspecified chronic kidney disease; N18.30 Chronic kidney disease, stage 3 unspecified; G47.33 Obstructive sleep apnea (adult) (pediatric); F17.210 Nicotine dependence, cigarettes, uncomplicated; E03.9 Hypothyroidism, unspecified
CPT/HCPCS: 25608; 73100; 76000; 80306; C1713; J0131; J0690; J1100; J2250; J2795; J3010; J3370; J3490; J7030; J7050; J9999

== ENCOUNTER → 2024-08-23 09:40 | Outpatient (BNVA) | payer MEDICARE, MEDICAID, SELFPAY | PROVIDERS: PCP Family Medicine; Visit Provider Nurse Practitioner | DX: M25.531 Pain in right wrist (principal); Z98.890 Other specified postprocedural states; S52.571A Other intraarticular fracture of lower end of right radius, initial encounter for closed fracture; F19.90 Other psychoactive substance use, unspecified, uncomplicated; Z22.322 Carrier or suspected carrier of Methicillin resistant Staphylococcus aureus; X58.XXXA Exposure to other specified factors, initial encounter | CPT/HCPCS: 73110 ==

== ENCOUNTER 2024-08-23 10:59 | Outpatient (CLI) | payer MEDICARE, MEDICAID, SELFPAY | END 2024-08-23 11:00 | disposition home or self-care (01) | LOC: SPT 11:01 | PROVIDERS: Visit Provider Nurse Practitioner | DX: Z47.89 Encounter for other orthopedic aftercare (principal); S52.501D Unspecified fracture of the lower end of right radius, subsequent encounter for closed fracture with routine healing; X58.XXXD Exposure to other specified factors, subsequent encounter | CPT/HCPCS: L3982 ==

== ENCOUNTER → 2024-09-13 13:05 | Outpatient (BNVA) | payer OTHER, MEDICAID, SELFPAY | PROVIDERS: PCP Family Medicine; Visit Provider Nurse Practitioner | DX: Z98.890 Other specified postprocedural states (principal); F19.90 Other psychoactive substance use, unspecified, uncomplicated; Z22.322 Carrier or suspected carrier of Methicillin resistant Staphylococcus aureus | CPT/HCPCS: 73110; 99024 ==

== ENCOUNTER 2024-10-09 16:25 | Emergency (ER) | payer OTHER, MEDICAID, SELFPAY ==
--- OUTSIDE RECORDS SUMMARY | 2024-10-09 16:34 | XMS_ITS | Clinical Summary ---
Author Organization [facility] Address [address] [place] [address] Phone Care Team Providers Care Steam And Gas Turbine Assembler Name Role Phone Rakesh Nye MD Primary Care Provider [phone] Allergies Active Allergy Reactions Criticality Noted Date [...] 30 Tablet Active naloxone (NARCAN) 4 mg/spray [place], Non-Aerosol EMERGENCY USE ONLY: Administer 1 spray [...] - PCV) 08/11/2019 08/10/2018 INFLUENZA VACCINE (#1) 2024 01/13/2020, 2019 Medical Devices Implanted Type Area Mercerizing Range Feeder Device Identifier Shelf Expiration Date Model / Serial / Lot 14f Resolve Drainage Catheter- 023 Implanted:Qty: 1 on 08/19/2022 by Glen Lundy PA Catheter Right: Chest 05/01/2025 [facility]-14-038 MB / / [id number] Description:Rt chest tube Insurance [facility] EXCHANGE [place] [employer] STATE HE[employer] PLAN MEDICAID RX [id number] Medicaid RX [employer] PLANS (INTERNAL) [facility] Internal Plans Advance Directives For more information, please contact: [phone] * Full Code (Latest Code Status on File) Date Activated Date Inactivated Comments 08/16/2022 11:19 AM 08/29/2022 7:03 PM Care Teams Steam And Gas Turbine Assembler Relationship Specialty Start Date End Date Rakesh Nye MD [address] [place] [phone] PCP - General Family Practice 08/15/22
--- OUTSIDE RECORDS SUMMARY | 2024-10-09 16:34 | XMS_ITS | Encounter Summary ---
Author Organization [facility] Address [address] [place] [address] Phone Care Team Providers Care Sampler Radioactive Waste Name Role Phone Rakesh Nye MD Primary Care Provider [phone] Reason for Visit * Reason Comments Med Refill Encounter Details Date Type Department Care Team (Late st Contact Info) Description 03/19/2022 Refill [facility] [address] [facility] [address] [place] [address] Yesica Warren NP [address] [facility] [address] [place] [address] Edema, not otherwise specified Social History Tobacco Use Types Packs/Day Years Used Date Smoking Tobacco: Every Day Cigarettes Smokeless Tobacco: Never Alcohol Use Standard Drinks/Week Comments Yes 0 (1 standard drink = 0.6 oz pur e alcohol) Sex and Gender Information Value Date Recorded Sex Assigned at Not on file Legal Sex Male 10:12 AM EDT Gender Identity Not on file Sexual Orientation Not on file documented as of this encounter Plan of Treatment Not on file documented as of this encounter Visit Diagnoses Diagnosis Edema, not otherwise specified documented in this encounter Care Teams Sampler Radioactive Waste Relationship Specialty Start Date End Date Rakesh Nye MD [address] [place] [phone] PCP - General Family Medicine 12/25/19 documented as of this encounter
--- OUTSIDE RECORDS SUMMARY | 2024-10-09 16:34 | XMS_ITS | Encounter Summary ---
Author Organization [facility] Address [address] [place] [address] Care Team Providers Care Juice Packaging Machines Setter Name Role Phone Rakesh Nye MD Primary Care Provider [phone] Encounter Details Date Type Department Care Team (Late st Contact Info) Description 09/05/2022 Lab Requisition [facility] Laboratory Services [address] [place] [address] Tunde Powers, [address] [place] [address] Social History Tobacco Use Types [...] DIFFERENTIAL (09/05/2022 4:27 AM CDT) Pathologist [facility] WBC 11.7(H) 4.8 - 10.8 K/uL 09/05/2022 8:45 AM CDT [facility] RBC 4.13(L) 4.60 - 6.20 M/uL 09/05/2022 8:45 AM T [facility] HEMOGLOBIN 12.5(L) 14.0 - 18.0 g/dL 09/05/2022 8:[facility] HEMATOCRIT 39.8(L) 41.0 - 53.0 % 09/05/2022 8:45 AM CDT [facility] MCV 96.4 84.0 - 103.0 fL 09/05/2022 8:45 AM [facility] MCH 30.3 27.0 - 34.0 pg 09/05/2022 8:45 AM [facility] MCHC 31.4 30.0 - 35.0 g/dL 09/05/2022 8:45 AM [facility] RDW 15.3(H) 11.0 - 14.5 % 09/05/2022 8:45 AM [facility] RDW-STDEV 54.3(H) 37.0 - 54.0 fL 09/05/2022 8:45 AM [facility] PLATELETS 383 140 - 440 K/uL 09/05/2022 8:45 AM [facility] MPV 11.0 8.9 - 12.8 fL 09/05/2022 8:45 AM [facility] NEUTROPHILS 43 42 - 75 % 09/05/2022 8:45 AM CDT [facility] LYMPHOCYTES 45(H) 24 - 44 % 09/05/2022 8:45 AM CDT [facility] MONOCYTES 8 2 - 10 % 09/05/2022 8:45 AM CDT [facility] EOSINOPHILS 3 0 - 7 % 09/05/2022 8:45 AM CDT [facility] BASOPHILS 1 0 - 1 % 09/05/2022 8:45 AM CDT [facility] IMMATURE GRANULOCYTES 1 0 - 2 % 09/05/2022 8:45 AM CDT [facility] NEUTROPHIL ABSOLUTE 5.03 2.00 - 8.00 K/uL 09/05/2022 8:45 AM CDT [facility] LYMPHOCYTE ABSOLUTE 5.22(H) 1.20 - 4.00 K/uL 09/05/2022 8:45 AM CDT [facility] MONOCYTE ABSOLUTE 0.96(H) 0.10 - 0.60 K/uL 09/05/2022 8:45 AM CDT [facility] EOSINOPHIL ABSOLUTE 0.35 0.00 - 0.70 K/uL 09/05/2022 8:45 AM CDT [facility] BASOPHILS ABSOLUTE 0.08 0.00 - 0.20 K/uL 09/05/2022 8:45 AM CDT [facility] IMMATURE GRANULOCYTES ABSOLUTE 0.06 0.00 - 0.10 K/uL 09/05/2022 8:45 AM CDT [facility] Blood Collection / Unknown 09/05/2022 4:27 AM CDT 09/05/2022 8:33 AM CDT us Tunde Powers DO HEMATOLOGY ORDERABLES Final Result [facility] CLIA # [id number] [address] [place] [address] [place] [address] * (ABNORMAL) COMPREHENSIVE METABOLIC PANEL (09/05/2022 4:27 AM CDT) [facility] SODIUM 137 136 - 145 mmol/L 09/05/2022 9:06 AM [facility] POTASSIUM 4.3 3.5 - 5.1 mmol/L 09/05/2022 9:06 AM [facility] CHLORIDE 102 98 - 107 mmol/L 09/05/2022 9:06 AM [facility] CO2 23 22 - 29 mmol/L 09/05/2022 9:06 AM [facility] CALCIUM 9.4 8.8 - 10.2 mg/dL 09/05/2022 9:06 AM [facility] BUN 30(H) 8 - 23 mg/dL 09/05/2022 9:06 AM [facility] CREATININE 1.24(H) 0.67 - 1.17 mg/dL 09/05/2022 9:06 AM [facility] GLUCOSE 134(H) 74 - 99 mg/dL 09/05/2022 9:06 AM [facility] TOTAL PROTEIN 7.5 6.4 - 8.3 g/dL 09/05/2022 9:06 AM [facility] ALBUMIN 3.6 3.5 - 5.2 g/dL 09/05/2022 9:06 AM [facility] BILIRUBIN TOTAL 0.3 0.2 - 1.0 mg/dL 09/05/2022 9:06 AM [facility] ALKALINE PHOSPHATASE 94 40 - 129 U/L 09/05/2022 9:06 AM [facility] AST 12 10 - 50 U/L 09/05/2022 9:06 AM [facility] ALT 13 <=50 U/L 09/05/2022 9:06 AM [facility] GFR >60 >=60 mL/min/1. 73 sq meter 09/05/2022 9:06 AM [facility] Comment:eGFR calculated with 2020 CKD-EPI equation. Vegetarian diet, extremely high or low muscle mass, and may affect results. Cystatin C with Glomerular Filtration Rate is a suitable alternative for these patients. ANION GAP 12 9 - 20 mmol/L 09/05/2022 9:06 AM CDT [facility] Blood Collection / Unknown 09/05/2022 4:27 AM CDT 09/05/2022 8:34 AM CDT Tunde Powers DO CHEMISTRY ORDERABLES Final R esult [facility] CLIA # [id number] [facility] [address] documented in this encounter Visit Diagnoses Not on filedocumented in this encounter Care Teams Juice Packaging Machines Setter Relationship Specialty Start Date End Date Rakesh Nye MD [address] [place] [phone] PCP - General Family Practice 08/15/22 documented as of this encounter
--- OUTSIDE RECORDS SUMMARY | 2024-10-09 16:34 | XMS_ITS | Encounter Summary ---
Author Organization [facility] Address [address] [place] [address] Phone Care Team Providers Care Glue Cook Name Role Phone Rakesh Nye MD Primary Care Provider [phone] Encounter Details Date Type Department Care Team (Late st Contact Info) Description 09/13/2018 Orders Only [facility] [address] [place] [address] Social History Tobacco Use Types Packs/Day Years Used Date Smoking Tobacco: Never Assessed Sex and Gender Information Value Date Recorded Sex Assigned at Not on file Legal Sex Male 10:12 AM EDT Gender Identity Not on file Sexual Orientation Not on file documented as of this encounter Plan of Treatment Not on file documented as of this encounter Visit Diagnoses Not on filedocumented in this encounter Care Teams Glue Cook Relationship Specialty [place] [address] [place] [phone] PCP - General Family Medicine 12/25/19 documented as of this encounter
--- OUTSIDE RECORDS SUMMARY | 2024-10-09 16:34 | XMS_ITS | Encounter Summary ---
Author Organization [facility] Address [address] [address] Phone Care Team Providers Care Organ Pipe Finisher Name Role Phone Rakesh Nye MD Primary Care Provider [phone] Reason for Visit * Reason Comments Med Refill Encounter Details Date Type Department Care Team (Late st Contact Info) Description 02/09/2020 Refill [facility] [address] [address] Malik Fajardo EYE DROPPER ASSEMBLER [address] [address] Edema, not otherwise specified Social History [...] specified documented in this encounter Care Teams Organ Pipe Finisher Relationship Specialty [place] [address] [place] [phone] PCP - General Family Medicine 12/25/19 documented as of this encounter
--- OUTSIDE RECORDS SUMMARY | 2024-10-09 16:34 | XMS_ITS | Encounter Summary ---
Author Organization [facility] Address [address] [place] [address] Phone Care Team Providers Care Estimating Manager Name Role Phone Rakesh Nye MD Primary Care Provider [phone] Reason for Visit * Reason Comments Med Refill Encounter Details Date Type Department Care Team (Late st Contact Info) Description 03/18/2020 Refill [facility] [address] [place] [address] Magda Hampton FNP-C [address] [place] [address] Edema, not otherwise specified Social [...] specified documented in this encounter Care Teams Estimating Manager Relationship Specialty Start Date End Date Rakesh Nye MD [address] [place] [phone] PCP - General Family Medicine 12/25/19 documented as of this encounter
--- OUTSIDE RECORDS SUMMARY | 2024-10-09 16:34 | XMS_ITS | Clinical Summary ---
Author Organization [facility] Facility Address [address] [address] Care Team Providers Care Internal Audit Director Name Role Phone Rakesh Nye MD Primary Care Provider [phone] Allergies Active Allergy Reactions Criticality Noted Date Comments Fentanyl 08/16/2022 Other Reaction(s): Unknown About Other Reaction(s): Unknown About Medications * This document contains information received from the source organization and may not represent a complete record from that organization. levothyroxine (SYNTHROID, LEVOTHROID) 100 MCG tablet Take 100 mcg by mouth daily 5 9 Active amLODIPine (NORVASC) 10 MG tablet Take 10 mg by mouth in the morning. 1 9 Active methadone (METHADOSE) 40 MG dispersible tablet Take 80 mg by mouth 1 (one) time each day Active Multiple Vitamin (MULTIVITAMIN) capsule Take 1 capsule by mouth 1 (one) time each day Active albuterol HFA (PROVENTIL HFA;VENTOLIN HFA) 108 (90 Base) MCG/ACT inhaler Inhale 2 puffs every 6 (six) hours if needed for wheezing Active tamsulosin (FLOMAX) 0.4 MG 24 hr capsule Take 0.4 mg by mouth 1 (one) time each day Active furosemide (LASIX) 40 MG tabletIndication s:Edema, not otherwise specified TAKE 1 TABLET BY MOUTH TWICE A DAY 180 tablet 3 Active Fluticasone-Umec lidin-Vilant (Trelegy Ellipta) 100-62.5-25 MCG/ACT aerosol powder Inhale 1 puff 1 (one) time each day Active HYDROcodone-acet aminophen (NORCO) 5-325 MG per tablet Take 1 tablet by mouth every 4 (four) hours if needed Active Active Problems Problem Noted Date Diagnosed Date Obstructive sleep apnea syndrome 08/12/2024 Smoker 03/06/2024 Hypothyroidism 08/23/2022 Chronic obstructive pulmonary disease 08/16/2022 Empyema 08/16/2022 Chronic kidney disease, Stage II (mild) 01/30/20 19 Overview (02/17/2020): Update for Diagnosis Load Edema 01/29/2019 Hypertension 01/29/2019 Echocardiogram shows left ventricular diastolic dysfunction 01/29/2019 Encounters Date Type Department Care Team Description 08/13/2024 Documentation Only [facility] [address] [place] [phone] Ella Hernandez MA 08/12/2024 9:00 AM CDT Office Visit [facility], [address] [phone] Yesica Warren NP Chronic kidney disease, Stage II (mild) (Primary Dx) 08/06/2024 Documentation Only [facility], [facility] [address] [place] [phone] Angeline Mcdonald MA 08/05/2024 Documentation Only [facility] [place] [phone] Stefania Aparicio MA 08/05/2024 Documentation Only [facility] [place] [phone] Angeline Mcdonald MA from Last 3 Months Immunizations Immunization Administration Dates Next Due Influenza, MDCK, PF, Quadrivalent 01/13/2020 Family History Medical History Relation Comments Cancer Brother Cancer Father Relation Status Comments Brother Father Social History Tobacco Use Types Packs/Day Years Used Date Smoking Tobacco: Every Day Cigarettes Smokeless Tobacco: Never Tobacco Cessation:Ready to Q uit: Not Asked; Counseling Given: Not Answered Alcohol Use Standard Drinks/Week Comments Yes 0 (1 standard drink = 0.6 oz pur e alcohol) Sex and Gender Information Value Date Recorded Sex Assigned at Not on file Legal Sex Male 10:12 AM EDT Gender Identity Not on file Sexual Orientation Not on file Last Filed Vital Signs Vital Sign Reading Time Taken Comments Blood Pressure 108/70 08/12/2024 9:22 AM CDT Pulse 80 08/12/2024 9:22 AM CDT Temperature 36.8 C (98.3 F) 07/02/2020 2:38 PM CDT Respiratory Rate - - Oxygen Saturation 93% 08/12/2024 9:22 AM CDT Inhaled Oxygen Concentration - - Weight 91.9 kg (202 lb 9.6 oz) 08/12/2024 9:22 A M CDT Height 182.9 cm (6') 08/12/2024 9:22 AM CDT Body Mass Index 27.48 08/12/2024 9:22 AM CDT Plan of Treatment Health Maintenance Due Date Last Done Comments Pneumococcal Vaccine: 50+ Ye ars (1 of 2 - PCV) 1977 Colorectal Cancer Screening: Annual FOBT 10/16/2007 Colorectal Cancer Screening: Colonoscopy 10/16/2007 Colorectal Cancer Screening: Sigmoidoscopy 10/16/2007 Influenza Vaccine (#1) 2024 01/13/2020 Hepatitis B Vaccine Aged Out No longe r eligible based on patient's age to complete this topic Procedures Procedure Name Priority Date/Time Associated Diagnosis Comments URINALYSIS (EXT LAB ENTRY) Routine 08/05/2024 10:57 AM CDT URINE ALBUMIN / CREATININE RATIO Routine 08/05/2024 Vitamin D deficiency, not otherwise specified Stage 3b chronic kidney disease (HCC) Secondary hyperparathyroidism of renal origin (HCC) PTH, INTACT Routine 08/05/2024 Vitamin D deficiency, not otherwise specified Stage 3b chronic kidney disease (HCC) Secondary hyperparathyroidism of renal origin (HCC) VITAMIN D 25 HYDROXY Routine 08/05/2024 Vitamin D deficiency, not otherwise specified Stage 3b chronic kidney disease (HCC) Secondary hyperparathyroidism of renal origin (HCC) RENAL FUNCTION PANEL Routine 08/05/2024 Vitamin D deficiency, not otherwise specified Stage 3b chronic kidney disease (HCC) Secondary hyperparathyroidism of renal origin (HCC) CBC Routine 08/05/2024 Vitamin D deficiency, not otherwise specified Stage 3b chronic kidney disease (HCC) Secondary hyperparathyroidism of renal origin (HCC) from Last 3 Months Results * Urinalysis (08/05/2024 10:57 AM CDT) Color, Urine Yellow Clarity, Urine Clear Urine Specific Dora 1.007 pH Urine 6.5 Leukocyte Esterase UA Negative Nitrite, Urine Negative Protein, Urine Negative Glucose, Urine Negatuve Ketones, Urine Negative Urobilinogen, Urine 0.2 Bilirubin, Urine Negative Blood, Urine Negative WBC, Urine 0-5 RBC, Urine 0-2 Bacteria, Urine None Seen Hyaline Casts, Urine 0-4 Epithelial Cells, (Ext Lab Entry) 0-5 Urine 08/05/2024 10:5 7 AM CDT Narrative Angeline Mcdonald MA - 08/05/2024 12:55 PM CDT [facility] Clinical Laboratory [address] [place] [address] Dr. Niall Perea, Office 365 Consultant ~Courtesy Aps External Provider LAB URINE ORDERABLES Final Result * Urine Albumin / Creatinine Ratio (08/05/2024) Albumin, Urine 1 mg/dL PRINT /EXTERNAL (NON-INTERFACE D LABS) Creatinine, Urine Random 30 mg/dL PRINT/EXTERNAL (NON-INTERFACE D LABS) Alb/Creat Ratio, Ur 33 mg/g Creat PRINT/EXTERNAL (NON-INTERFACE D LABS) Urine Urine specimen obtained by clean catch procedure / Unknown 08/05/2024 Dot Donis NP LAB URINE ORDERABLES Final Resu lt PRINT/EXTERNAL (NON-INTERFACED LABS) * Vitamin D 25 Hydroxy (08/05/2024) Pathologist [facility] Vitamin D, 25-OH, Total 44 ng/mL PRINT/EXTERNAL (NON-INTERFACE D LABS) Blood Venous blood / Unknown 08/05/2024 Dot Donis NP LAB BLOOD ORDERABLES Final Resu lt PRINT/EXTERNAL (NON-INTERFACED LABS) * CBC (08/05/2024) Pathologist [facility] WBC 9.10 K/uL PRINT/EXTE RNAL (NON-INTERFACE D LABS) Red Blood Cell Count 4.74 PRINT/EXTERNAL (NON-INTERFACE D LABS) Hemoglobin 14.30 g/dL PRINT/EXT ERNAL (NON-INTERFACE D LABS) Hematocrit 45.1 % PRINT/EXT ERNAL (NON-INTERFACE D LABS) MCV 95.1 PRINT/EXTE RNAL (NON-INTERFACE D LABS) MCH 30.2 PRINT/EXTE RNAL (NON-INTERFACE D LABS) MCHC 31.7 PRINT/EXTE RNAL (NON-INTERFACE D LABS) RDW 14.0 PRINT/EXTE RNAL (NON-INTERFACE D LABS) Platelet Count 281 PRINT /EXTERNAL (NON-INTERFACE D LABS) MPV 10.5 PRINT/EXTE RNAL (NON-INTERFACE D LABS) Absolute Neutrophils 5.71 PRINT/EXTERNAL (NON-INTERFACE D LABS) Absolute Lymphocytes 2.1 PRINT/EXTERNAL (NON-INTERFACE D LABS) Absolute Monocytes 0.9 PRINT/EXTERNAL (NON-INTERFACE D LABS) Absolute Eosinophils 0.4 PRINT/EXTERNAL (NON-INTERFACE D LABS) Absolute Basophils 0.0 PRINT/EXTERNAL (NON-INTERFACE D LABS) Neutrophils 62.8 K/uL PRINT/EX TERNAL (NON-INTERFACE D LABS) Lymphocytes 22.7 PRINT/EX TERNAL (NON-INTERFACE D LABS) Monocytes 9.8 PRINT/EXTE RNAL (NON-INTERFACE D LABS) Eosinophils 4.2 PRINT/EX TERNAL (NON-INTERFACE D LABS) Basophils 0.3 PRINT/EXTE RNAL (NON-INTERFACE D LABS) Blood Venous blood / Unknown 08/05/2024 us Dot Donis NP LAB BLOOD ORDERABLES Final Resu lt PRINT/EXTERNAL (NON-INTERFACED LABS) * PTH, Intact (08/05/2024) Parathyroid Hormone, Intact 51.1 pg/mL PRINT/OIL FIELD TESTER AL (NON-INTERFACE D LABS) Blood Venous blood / Unknown 08/05/2024 Dot Donis CAMP[facility] PRESIDENT LAB BLOOD ORDERABLES Final Resu lt PRINT/EXTERNAL (NON-INTERFACED LABS) * Renal Function Panel (08/05/2024) Glucose 100 mg/dL PRINT/EXTE RNAL (NON-INTERFACE D LABS) BUN 13 mg/dL PRINT/EXTE RNAL (NON-INTERFACE D LABS) Creatinine 1.0 mg/dL PRINT/EXT ERNAL (NON-INTERFACE D LABS) Sodium 139 mEq/L PRINT/EXTE RNAL (NON-INTERFACE D LABS) Potassium 4.7 mEq/L PRINT/EXTE RNAL (NON-INTERFACE D LABS) Chloride 95 PRINT/EXTE RNAL (NON-INTERFACE D LABS) Carbon Dioxide 33 mmol/L PRINT /EXTERNAL (NON-INTERFACE D LABS) Calcium 9.6 mg/dL PRINT/EXTE RNAL (NON-INTERFACE D LABS) Phosphorus, Serum 3.7 mg/dL PRINT/EXTERNAL (NON-INTERFACE D LABS) eGFR Non-Afr Belgian 75.0 PRINT/EXTERNAL (NON-INTERFACE D LABS) Blood Venous blood / Unknown 08/05/2024 Dot Donis NP LAB BLOOD ORDERABLES Final Resu lt PRINT/EXTERNAL (NON-INTERFACED LABS) from Last 3 Months Insurance Medicare Medicaid [place] ([id number]) Care Teams Internal Audit Director Relationship Specialty Start Date End Date Rakesh Nye MD [address] [place] [phone] PCP - General Family Medicine 12/25/19
--- OUTSIDE RECORDS SUMMARY | 2024-10-09 16:34 | XMS_ITS | Encounter Summary ---
Author Organization [facility] Address [address] [place] [address] Care Team Providers Care Exchange Underwriting Consultant Name Role Phone Rakesh Nye MD Primary Care Provider [phone] Encounter Details Date Type Department Care Team (Late st Contact Info) Description 09/01/2022 Lab Requisition [facility] Laboratory Services [address] [place] [address] Rashmi Ahuja MD [address] [place] [address] Social History Tobacco Use Types [...] - 145 mmol/L 09/01/2022 8:32 AM CDT [facility] POTASSIUM 4.1 3.5 - 5.1 mmol/L 09/01/2022 8:32 AM CDT [facility] CHLORIDE 103 98 - 107 mmol/L 09/01/2022 8:32 AM T [facility] CO2 28 22 - 29 mmol/L 09/01/2022 8:32 AM CDT [facility] CALCIUM 9.0 8.8 - 10.2 mg/dL 09/01/2022 8:32 AM T [facility] BUN 20 8 - 23 mg/dL 09/01/2022 8:32 AM T [facility] CREATININE 1.06 0.67 - 1.17 mg/dL 09/01/2022 8:32 AM T [facility] GLUCOSE 126(H) 74 - 99 mg/dL 09/01/2022 8:32 AM T [facility] TOTAL PROTEIN 6.6 6.4 - 8.3 g/dL 09/01/2022 8:32 AM [facility] ALBUMIN 3.1(L) 3.5 - 5.2 g/dL 09/01/2022 8:32 AM [facility] BILIRUBIN TOTAL <0.2(L) 0.2 - 1.0 mg/dL 09/01/2022 8:32 AM T [facility] ALKALINE PHOSPHATASE 90 40 - 129 U/L 09/01/2022 8:32 AM T [facility] AST 14 10 - 50 U/L 09/01/2022 8:32 AM T [facility] ALT 17 <=50 U/L 09/01/2022 8:32 AM CDT [facility] GFR >60 >=60 mL/min/1. 73 sq meter 09/01/2022 8:32 AM CDT [facility] Comment:eGFR calculated with 2020 CKD-EPI equation. Vegetarian diet, extremely high or low muscle mass, and may affect results. Cystatin C with Glomerular Filtration Rate is a suitable alternative for these patients. ANION GAP 10 9 - 20 mmol/L 09/01/2022 8:32 AM CDT [facility] Blood Collection / Unknown 09/01/2022 2:30 AM CDT 09/01/2022 8:14 AM CDT us Rashmi Ahuja MD CHEMISTRY ORDERABLES Final Resu lt [facility] CLIA # [id number] [address] [place] [address] * (ABNORMAL) CBC WITH DIFFERENTIAL (09/01/2022 2:30 AM CDT) WBC 11.0(H) 4.8 - 10.8 K/uL 09/01/2022 8:25 AM CDT [facility] RBC 3.77(L) 4.60 - 6.20 M/uL 09/01/2022 8:25 AM T [facility] HEMOGLOBIN 11.1(L) 14.0 - 18.0 g/dL 09/01/2022 8:25 AM CDT [facility] HEMATOCRIT 37.0(L) 41.0 - 53.0 % 09/01/2022 8:25 AM CDT [facility] MCV 98.1 84.0 - 103.0 fL 09/01/2022 8:25 AM CDT [facility] MCH 29.4 27.0 - 34.0 pg 09/01/2022 8:25 AM CDT [facility] MCHC 30.0 30.0 - 35.0 g/dL 09/01/2022 8:25 AM CDT [facility] [address] [facility] RDW 15.6(H) 11.0 - 14.5 % 09/01/2022 8:25 AM [facility] RDW-STDEV 55.8(H) 37.0 - 54.0 fL 09/01/2022 8:25 AM [facility] PLATELETS 381 140 - 440 K/uL 09/01/2022 8:25 AM [facility] [address] [facility] MPV 11.0 8.9 - 12.8 fL 09/01/2022 8:25 AM [facility] [address] [facility] NEUTROPHILS 40(L) 42 - 75 % 09/01/2022 8:25 AM [facility] LYMPHOCYTES 43 24 - 44 % 09/01/2022 8:25 AM [facility] [address] [facility] MONOCYTES 11(H) 2 - 10 % 09/01/2022 8:25 AM [facility] [address] [facility] EOSINOPHILS 4 0 - 7 % 09/01/2022 8:25 AM [facility] [address] [facility] BASOPHILS 1 0 - 1 % 09/01/2022 8:25 AM [facility] IMMATURE GRANULOCYTES 1 0 - 2 % 09/01/2022 8:25 AM [facility] NEUTROPHIL ABSOLUTE 4.44 2.00 - 8.00 K/uL 09/01/2022 8:25 AM [facility] LYMPHOCYTE ABSOLUTE 4.77(H) 1.20 - 4.00 K/uL 09/01/2022 8:25 AM [facility] MONOCYTE ABSOLUTE 1.17(H) 0.10 - 0.60 K/uL 09/01/2022 8:25 AM [facility] EOSINOPHIL ABSOLUTE 0.45 0.00 - 0.70 K/uL 09/01/2022 8:25 AM [facility] BASOPHILS ABSOLUTE 0.12 0.00 - 0.20 K/uL 09/01/2022 8:25 AM [facility] IMMATURE GRANULOCYTES ABSOLUTE 0.07 0.00 - 0.10 K/uL 09/01/2022 8:25 AM CDT [facility] [address] [facility] Blood Collection / Unknown 09/01/2022 2:30 AM CDT 09/01/2022 8:16 AM CDT us Rashmi Ahuja MD HEMATOLOGY ORDERABLES Final Res ult [facility] [address] [facility] CLIA # [id number] [facility] [address] [address] documented in this encounter Visit Diagnoses Not on filedocumented in this encounter Care Teams Exchange Underwriting Consultant Relationship Specialty Start Date End Date Rakesh Nye MD [address] [place] [address] PCP - General Family Practice 08/15/22 documented as of this encounter
--- OUTSIDE RECORDS SUMMARY | 2024-10-09 16:34 | XMS_ITS | Encounter Summary ---
Author Organization [facility] Address [address] [place] [address] Phone Care Team Providers Care Fourdrinier Machine Operator Name Role Phone Rakesh Nye MD Primary Care Provider [phone] Reason for Visit * Reason Comments Med Refill Encounter Details Date Type Department Care Team (Late st Contact Info) Description 03/15/2021 Refill [facility] [address] [facility] [address] [place] [address] Yesica Warren NP [address] [facility] [address] [place] [address] Edema, not otherwise specified Social [...] specified documented in this encounter Care Teams Fourdrinier Machine Operator Relationship Specialty Start Date End Date Rakesh Nye MD [address] [place] [phone] PCP - General Family Medicine 12/25/19 documented as of this encounter
--- NOTE | 2024-10-09 16:40 | ECG_ITS ---
[facility] Test Date: 2024-10-09 Pat Name: Anthony Harding Department: Room: Gender: Male Overhead Foreman: : 1960 Requested By: Renee Hernandez Order Number: [id number] Demond MD: Bob Womack M.D. Measurements Intervals [place] Rate: 85 P: 66 TX: 184 QRS: 60 QRSD: 87 T: 73 QT: 365 QTc: 435 Interpretive Statements SINUS RHYTHM WITH OCCASIONAL VENTRICULAR PREMATURE COMPLEXES Compared to ECG 07/27/2024 11:18:59 Ventricular premature complex now present First degree AV block no longer present Electronically Signed On 10-09-2024 22:16:43 CDT by Bob Womack M.D. [email or web address]
[2024-10-09 16:41] VITALS: BP 113/76; PULSE 85; RESP 16; O2SAT 98
--- NOTE | 2024-10-09 18:19 | XRR_ITS ---
PROCEDURE INFORMATION: Exam: XR Right Ribs with PA Chest Exam date and time: 10/09/2024 6:22 PM Age: 63 years old Clinical indication: Chest wall pain; Right; Additional info: Coughed, heard/felt pop, pain TECHNIQUE: Imaging protocol: Radiologic exam of the right ribs with PA chest. Views: 3 views COMPARISON: [place] [id number] 07/27/2024 4:12 PM FINDINGS: Lungs: Unremarkable. No consolidation. Pleural spaces: Unremarkable. No pleural effusion. No pneumothorax. Heart/Mediastinum: Unremarkable. No cardiomegaly. Vasculature: Probable aortic atherosclerosis. Bones/joints: Moderate to severe degenerative changes of bilateral glenohumeral joints. Query old rib fractures of the right lower ribs. XR/XR ribs RT mn 3V w [id number] IMPRESSION: Query old rib fractures of the right lower ribs.
--- NOTE | 2024-10-09 18:20 | W.ED.CHESTPA ---
HPI - Chest Pain General: Chief Complaint: Chest Pain Stated Complaint: SOB R shoulder area Popped Pain Time Seen by Provider: 10/09/24 16:56 Source: patient Mode of arrival: ambulatory Limitations: no limitations History of Present Illness: Patient is a 63-year-old male who presents to ED today with a complaint of right sided rib pain. Patient states yesterday he was seated in his recliner when he coughed and heard a pop to his right ribs. He feels like he broke a rib. He has since had pain with deep inhalation, movement and further coughing. States his cough is his normal smoker's cough and does not complain of increased cough, fevers, or other URI symptoms. Denies SOB or difficulty breathing. He is satting 98% on RA upon arrival MD complaint: other (R rib pain) Onset (ago): day(s) (yesterday) Prior episodes: No Pain location: right chest Pain radiation: none Severity: moderate Quality: sharp Relieving factors: nothing Exacerbating factors: inspiration, movement and other (coughing) Associated symptoms: Reports no associated symptoms; Deny abdominal pain, dyspnea, fever(s), palpitations or syncope Risk Factors: Thoracic aortic dissection risk factors: none Related Data Home Medications ?Medication ?Instructions ?Recorded ?Confirmed albuterol sulfate 90 mcg/actuation 90 mcg inhalation PRN PRN Allergic 08/06/24 09/13/24 aerosol inhaler Symptoms amlodipine 10 mg tablet 10 mg PO DAILY 08/06/24 09/13/24 furosemide 40 mg tablet 40 mg PO DAILY 08/06/24 09/13/24 levothyroxine 100 mcg tablet 100 mcg PO DAILY 08/06/24 09/13/24 tamsulosin 0.4 mg capsule 0.4 mg PO DAILY 08/06/24 09/13/24 Previous Rx's ?Medication ?Instructions ?Recorded Battery Powered Concentrator Inogen #1 ea 07/28/23 Portable Oxygen at 3L #1 ea 07/04/24 fluticasone fur. 100 mcg-umeclid See Rx Instructions .Route 08/19/24 62.5 mcg-vilant 25 mcg .COMPLEX #60 ea inhalat.powder (Trelegy Ellipta) right fast form cock-up splint #1 ea 08/23/24 sulfamethoxazole 800 1 tab PO Q12H 12 days #24 tabs 08/23/24 mg-trimethoprim 160 mg tablet (Bactrim DS) doxycycline hyclate 100 mg tablet 100 mg PO BID 7 days #14 tabs 09/11/24 hydrocodone 5 mg-acetaminophen 325 1 tab PO .q 6-8 PRN pain #15 tabs 10/09/24 mg tablet Allergies Allergy/AdvReac Type Severity Reaction Status Date / Time fentanyl Allergy Unknown Verified 09/13/24 13:27 Review of Systems Const: Denies: fever(s), chills, body aches, fatigue or malaise Card: Reports: chest pain (R chest wall pain); Denies: palpitations, irregular heart rhythm, edema, swelling of feet/ankles, lightheadedness, syncope, pre-syncope, dyspnea on exertion, orthopnea or leg pain with exertion Resp: Reports: pain on inspiration; Denies: dyspnea, productive cough, non-productive cough, wheezing, change in phlegm color, hemoptysis or chest congestion GI: Denies: abdominal pain Musc: Denies: neck pain, back pain, extremity pain or joint pain Neuro: Denies: numbness in extremities, weakness in extremities, sensory changes or dizziness PFS ED PFSH: Medical History MRSA carrier History of MRSA infection Loculated pleural effusion Septic shock Inguinal hernia of right side without obstruction or gangrene Pneumonia Hyponatremia Abnormal CT scan, chest Probable lung mass Acute respiratory failure Hepatitis C Renal cysts, acquired, bilateral BPH loc w urin obs/LUTS Benign prostatic hyperplasia with lower urinary tract symptoms Hypothyroidism CKD (chronic kidney disease), stage III Nicotine dependence, cigarettes, with unspecified nicotine-induced disorders ROBBIE (obstructive sleep apnea) Pulmonary emphysema COPD (chronic obstructive pulmonary disease) Hypogonadism in male Hypertension Surgical History History of open reduction and internal fixation (ORIF) procedure Date of procedure: August 08, 2024 Pre-op diagnosis: Right comminuted displaced intra-articular distal radius fracture, subacute Post-op diagnosis: Right comminuted displaced intra-articular distal radius fracture, subacute Procedure done: Open reduction internal fixation right intra-articular displaced distal radius fracture, subacute. Implants: Ashley intermediate standard right volar wrist plate Surgeon: Elizabeth Alvarado MD Hx of inguinal hernia repair 10/30/23 Dr Juan Antonio gongora repair right inguinal hernia with mesh History of hernia surgery History of ankle surgery History of mandibular surgery History of circumcision Family History Mother , at age 46 Cirrhosis of liver Father , at age 78 CAD (coronary artery disease) Denies family history of Diabetes Clotting disorder Dementia Hyperlipidemia Psychiatric illness Chronic kidney disease (CKD) Suicide Anesthesia complication Bleeding disorder Family history of premature coronary artery disease Lung disease Cancer Hypertension Stroke Social History Smoking and tobacco/nicotine status: current every day tobacco/nicotine user cigarettes Packs smoked per day: 0.75 Years cigarettes smoked: 30 [ Other cigarette details: [id number]] Quit status (tobacco/nicotine): considering quitting Second hand smoke exposure: No Alcohol intake: former Substance/Drug Use: never Lives independently: Yes Household members: spouse Marital status: service: No Current occupational status: unemployed and disabled Pets and animals: Yes Do you think of yourself as: Straight/Heterosexual Current gender identity: Male Physical Exam Const: COMMON NORMALS: no acute distress, average body habitus, patient oriented x3, no limitations, healthy appearing, alert and well nourished GENERAL APPEARANCE: cooperative ORIENTATION/CONSCIOUSNESS: Yes awake, Yes oriented to person, Yes oriented to place and Yes oriented to time Chest: COMMONS NORMALS: normal inspection of the chest OTHER: TTP anteriolateral R ribs; no obvious crepitus; lung sounds present Chest images (male):  1. TTP palpation of ribs Resp: COMMON NORMALS: normal respiratory effort and clear to auscultation bilaterally AUSCULTATION: clear to auscultation bilaterally Cardio: COMMON NORMALS: regular rate and regular rhythm RATE: regular rate RHYTHM: regular rhythm GI: COMMON NORMALS: Normal to inspection, nondistended, normoactive bowel sounds present, Soft to palpation and non-tender PALPATION: Yes Soft to palpation, No Tenderness to palpation present (GI) and No Guarding due to palpation present (GI) Back/Pelvis: COMMON NORMALS: thoracic and lumbar spine normal to inspection and no thoracic nor lumbar tenderness Extremity: COMMON NORMALS: normal to inspection and full ROM GENERAL: Yes normal exam except as noted Neuro: COMMON NORMALS: patient oriented x3, moves all extremities, no focal motor deficits and no sensory deficits noted SENSORIUM/ORIENTATION: Yes alert, Yes oriented to person, Yes oriented to place and Yes oriented to time Course Vital Signs: Vital signs: Vital Signs Pulse Rate 85 10/09/24 16:41 Respiratory Rate 16 10/09/24 18:34 Blood Pressure 113/76 10/09/24 16:41 Pulse Oximetry 98 10/09/24 16:41 Oxygen Delivery Me thod Room Air 10/09/24 16:41 MDM - Chest Pain Medical Decision Making Patient here for right rib pain following coughing yesterday. No acute rib fractures noted on XR imaging. No evidence for pneumothorax. He does have significant pulmonary emphysema-continues to smoke daily. We discussed how he needs to be receiving CT lung cancer screening exams if he has not already. Discussed treatment for his chest wall sprain/strain/rib contusion. He states he has a history of CKD so we will avoid NSAIDs. Return ED precautions discussed. Medical Records I reviewed the patient's medical records. Lab Data Radiology Impressions Ribs X-Ray 10/09/24 18:19 IMPRESSION: Query old rib fractures of the right lower ribs. All radiology interpretation(s) finalized by discharge Discharge Plan Discharge Patient Disposition: Home Clinical Impression: Right-sided chest wall pain Condition: Stable Prescriptions: Changed hydrocodone-acetaminophen 5-325 mg tablet 1 tab PO .q 6-8 PRN (Reason: pain) Qty: 15 0RF No Action (DME) right fast form cock-up splint See Rx Instructions .Route .MEDSUPPLY Qty: 1 0RF Rx Instructions: As directed sulfamethoxazole-trimethoprim [Bactrim DS] 800-160 mg tablet 1 tab PO Q12H 12 Days Qty: 24 0RF (DME) Portable Oxygen at 3L See Rx Instructions .Route .MEDSUPPLY Qty: 1 0RF Rx Instructions: As directed doxycycline hyclate 100 mg tablet 100 mg PO BID 7 Days Qty: 14 0RF (DME) Battery Powered Concentrator Inogen See Rx Instructions .Route .MEDSUPPLY Qty: 1 0RF Rx Instructions: 2 l/m Trelegy Ellipta 100-62.5-25 mcg blister with device See Rx Instructions .ROUTE .COMPLEX Qty: 60 11RF Dose Instruction: INHALE 1 PUFF BY MOUTH ONCE DAILY Rx Instructions: INHALE 1 PUFF BY MOUTH ONCE DAILY furosemide 40 mg tablet 40 mg PO DAILY Rx Instructions: 40 MG ORALLY DAILY levothyroxine 100 mcg tablet 100 mcg PO DAILY Rx Instructions: TAKE 1 TABLET BY MOUTH EVERY DAY tamsulosin 0.4 mg capsule 0.4 mg PO DAILY Rx Instructions: TAKE 1 CAPSULE BY MOUTH EVERY DAY amlodipine 10 mg tablet 10 mg PO DAILY Rx Instructions: TAKE 1 TABLET BY MOUTH EVERY DAY FOR HYPERTENSION albuterol sulfate 90 mcg/actuation HFA aerosol inhaler 90 mcg inhalation PRN PRN (Reason: Allergic Symptoms) Rx Instructions: INHALE 2 PUFFS BY MOUTH EVERY 6 HOURS NEEDED DIRECTED Discharge Orders: Discharge ED (Routine); Ordered 10/09/24 Ordered By: Renee Hernandez Referrals: Rakesh Nye MD [Primary Care Provider, Family Practice] Patient Instructions: Chest Wall Pain (ED), Rib Contusion (ED), Opioid Safety, Pain Management, Patient Portal & Natalee Instructions Activity Restrictions/Additional Instructions: As we discussed, you may take the prescribed pain medications sparingly as needed for severe discomfort. You may also try ice, heat, lidocaine topical rub or patch. Do not wrap your chest. As we discussed-if you are not doing so already I recommend speaking to your primary care provider about CT lung cancer screening exams. Print Language: Russian Coding Level of Care Code ED [employer] for Naty Brooke
[2024-10-09 18:34] VITALS: RESP 16
[2024-10-09] MEDS: morphine 4 mg/mL SDV 1 mL IM (18:34)
[2024-10-09] MEDS: ondansetron 2 mg/ML SDV 2 mL 4 MG IM (18:34)
== END 2024-10-09 19:27 | disposition home or self-care (01) ==
PROVIDERS: Emergency Provider Physician Assistant; PCP Family Medicine
DX: R07.89 Other chest pain (principal); F17.210 Nicotine dependence, cigarettes, uncomplicated; J44.9 Chronic obstructive pulmonary disease, unspecified; I12.9 Hypertensive chronic kidney disease with stage 1 through stage 4 chronic kidney disease, or unspecified chronic kidney disease; N18.30 Chronic kidney disease, stage 3 unspecified
CPT/HCPCS: 71101; 93005; 96372; 99285; J2270; J2405

== ENCOUNTER → 2024-10-11 10:07 | Outpatient (BNVA) | payer OTHER, MEDICAID, SELFPAY | PROVIDERS: PCP Family Medicine; Visit Provider Nurse Practitioner | DX: Z98.890 Other specified postprocedural states (principal) | CPT/HCPCS: 73110; 99024; 99214 ==

== ENCOUNTER → 2024-10-28 13:26 | Outpatient (BNVA) | payer OTHER, MEDICAID, SELFPAY | PROVIDERS: PCP Family Medicine; Visit Provider Specialist | DX: M19.011 Primary osteoarthritis, right shoulder (principal); M19.012 Primary osteoarthritis, left shoulder | CPT/HCPCS: 20610; 73030; 99214; J1100; J2795; J3301; J9999 ==